=== PATIENT | male | born 1950 | race Caucasian/White ===

== ENCOUNTER → 2017-03-18 | Outpatient (CLI) | payer MEDICARE ==
[2017-03-18 11:02] LABS: CH 32.9; CHCM 31.3; HCT 43.6 % (39.0-53.0); HDW 2.23; HGB 13.7 gm/dL (13.0-17.5); Hypochromasia Slight; MCH 33.3 pg (25.0-35.0); MCHC 31.5 g/dL (31.0-37.0); MCV 105.7 fL (80.0-100.0); Macrocytosis Moderate; Mean Platelet Volume 7.7; RBC 4.12 m/uL (4.30-5.90); RDW 13.9 % (11.5-15.5)
[2017-03-18 11:30] LABS: Calcium 9.5 mg/dL (8.4-10.2); Potassium 5.9 mmol/L (3.5-5.1); Total Bilirubin 1.7 mg/dL (0.2-1.3); Total Protein 9.5 g/dL (6.3-8.2)
== END | disposition home or self-care (01) ==
LOC: LABWHC1 10:19
PROVIDERS: ATTEND Family Medicine
DX: I25.10 Atherosclerotic heart disease of native coronary artery without angina pectoris (principal)
CPT/HCPCS: 36415; 80053; 80061; 83880; 84439; 84443; 85027

== ENCOUNTER → 2017-03-30 | Outpatient (CLI) | payer MEDICARE ==
[2017-03-30 14:04] LABS: Calcium 9.2 mg/dL (8.4-10.2); Potassium 4.9 mmol/L (3.5-5.1)
== END | disposition home or self-care (01) ==
LOC: LABWHC1 12:39
PROVIDERS: ATTEND Internal Medicine Interventional Cardiology
DX: E87.5 Hyperkalemia (principal)
CPT/HCPCS: 36415; 80048

== ENCOUNTER → 2017-05-11 | Outpatient (CLI) | payer MEDICARE ==
[2017-05-11 17:36] LABS: Calcium 9.2 mg/dL (8.4-10.2); Total Bilirubin 1.3 mg/dL (0.2-1.3)
[2017-05-11 17:49] LABS: Potassium 4.7 mmol/L (3.5-5.1)
== END | disposition home or self-care (01) ==
LOC: LABWHC1 16:31
PROVIDERS: ATTEND Internal Medicine Clinical Cardiac Electrophysiology
DX: E78.5 Hyperlipidemia, unspecified (principal); I50.9 Heart failure, unspecified; I25.10 Atherosclerotic heart disease of native coronary artery without angina pectoris
CPT/HCPCS: 36415; 80053; 80061

== ENCOUNTER 2017-05-19 16:33 | Inpatient (IN) | payer MEDICARE ==
[2017-05-19] MEDS ORDERED: FUROSEMIDE 10 MG/ML 10 ML VIAL IV STA (17:27)
[2017-05-19] MEDS ORDERED: ASPIRIN 81 MG CHEW PO STA (17:27)
[2017-05-19] MEDS ORDERED: SODIUM CHLORIDE 0.9% 1,000 ML IV STA (17:27)
[2017-05-19] MEDS ORDERED: NITROGLYCERIN OINT 1 INCH/GM PACKET TOPICAL STA (17:27)
--- NOTE | 2017-05-19 18:08 | ED ---
General Adult HPI - General Chief complaint: Shortness of Breath Stated complaint: Difficulty Breathing Time Seen by Provider: 05/19/17 17:19 Source: patient, RN notes reviewed Mode of arrival: wheelchair Limitations: no limitations - History of Present Illness Initial comments: 66 yo male presents to the ER with cc of bilateral lower extremity edema and shortness of breath for to 3 days now. Patient has a history of CHF. Due to some potassium issues his doctor took him off all of his medications he started to swell and started have some shortness of breath recently put back on his medications but his symptoms seemed to be worsening. Patient states symptoms are worse when he lays flat. Patient states he is having decreased exercise tolerance. Patient states she's noticed some increased swelling in the leg. Patient also noticed some swelling in the abdomen as well. Patient denies any productive cough with this. They were concerned due to his symptoms so they thought they should be seen. Patient denies any recent fever, chills, chest pain, back pain, abdominal pain, nausea vomiting, numbness or tingling, dysuria or hematuria, constipation or diarrhea, headaches or visual changes, or any other current symptoms. - Related Data Home Medications Medication Instructions Recorded Confirmed ALPRAZolam [Xanax] 1 mg PO TID PRN 05/23/14 05/19/17 Atorvastatin [Lipitor] 20 mg PO HS 05/23/14 05/19/17 HYDROcodone/APAP 10-325MG [[place] 1 tab PO QID PRN 02/13/16 05/19/17 10-325] Carvedilol [Coreg] 3.125 mg PO BID 03/30/16 05/19/17 Budesonide-Formot 160-4.5 Mcg 2 puff INHALATION RT-BID 07/04/16 05/19/17 [Symbicort 160-4.5 Mcg Inhaler] Albuterol Nebulized [Ventolin 2.5 mg INHALATION RT-BID PRN 05/19/17 05/19/17 Nebulized] Previous Rx's Medication Instructions Recorded Aspirin 81 mg PO DAILY chew 02/17/16 Furosemide [Lasix] 80 mg PO BID #60 08/30/16 Losartan [Cozaar] 12.5 mg PO DAILY #30 tab 08/30/16 Spironolactone [Aldactone] 25 mg PO BID #60 tab 08/30/16 Allergies Allergy/AdvReac Type Severity Reaction Status Date / Time codeine AdvReac Intermediate VERY Verified 05/19/17 17:30 IRRITABLE Review of Systems ROS Statement: Those systems with pertinent positive or pertinent negative responses have been documented in the HPI. ROS Other: All systems not noted in ROS Statement are negative. Past Medical History Past Medical History: Atrial Fibrillation, Coronary Artery Disease (CAD), Chest Pain / Angina, Heart Failure, COPD, Diabetes Mellitus, Hyperlipidemia, Hypertension, Myocardial Infarction ([place]), Pneumonia, Rheumatoid Arthritis (RA) Additional Past Medical History / Comment(s): HEPATITIS C; CARDIAC ARREST 2008, peripheral artery disease Last Myocardial Infarction Date:: 2009 History of Any Multi-Drug Resistant Organisms: None Reported Past Surgical History: AICD, Coronary Bypass/CABG, Heart Catheterization, Heart Catheterization With Stent, Pacemaker Additional Past Surgical History / Comment(s): Quad. bypass-2004, (fem-fem bypass 2004). ablations. leaky heart valve Past Anesthesia/Blood Transfusion Reactions: No Reported Reaction Date of Last Stent Placement:: unknown Type of Cardiac Device: AICD Device Placement Date:: 2013 Past Psychological History: No Psychological Hx Reported Smoking Status: Current every day smoker Past Alcohol Use History: None Reported Past Drug Use History: None Reported - Past Family History Father Family Medical History: Cancer Additional Family Medical History / Comment(s): lung CA with mets to stomach Mother Family Medical History: Coronary Artery Disease (CAD), Diabetes Mellitus Additional Family Medical History / Comment(s): CABG AND PACEMAKER. General Exam - General Exam Comments Initial Comments: General: The patient is awake and alert, in no distress, and does not appear acutely ill. Eye: Pupils are equal, round and reactive to light, extra-ocular movements are intact; there is normal conjunctiva bilaterally. No signs of icterus. Ears, nose, mouth and throat: There are moist mucous membranes and no oral lesions. Neck: The neck is supple, there is no tenderness. Cardiovascular: There is a regular rate and rhythm. No murmur, rub or gallop is appreciated. Respiratory: Lungs are clear to auscultation, respirations are non-labored, breath sounds are equal. Crackles in bilateral lower bases. No wheezes, stridor, rales, or rhonchi. Gastrointestinal: Soft, mildly distended, concerned for ascites, non-tender abdomen without masses or organomegaly noted. There is no rebound or guarding present. No CVA tenderness. Bowel sounds are unremarkable. Back: There is no tenderness to palpation in the midline. There is no obvious deformity. No rashes noted. Musculoskeletal: Normal ROM, no tenderness, bilateral 4+ pitting There is no calf tenderness or swelling. Sensation intact. Pulses equal bilaterally 2+. Neurological: CN II-XII intact, There are no obvious motor or sensory deficits. Coordination appears grossly intact. Speech is normal. Skin: Skin is warm and dry and no rashes or lesions are noted. Psychiatric: Cooperative, appropriate mood & affect, normal judgment. Limitations: no limitations Course Vital Signs 05/19/17 05/19/17 16:36 17:24 Temperature 97.0 F L Pulse Rate 79 Respiratory 20 18 Rate Blood Pressure 110/69 O2 Sat by Pulse 96 Oximetry EKG Findings - EKG Comments: EKG Findings:: Ventricular paced rhythm, biventricular paced detected, ventricular 74, QRS duration 154 Medical Decision Making - Medical Decision Making 66-year-old male presents to the emergency department with a chief complaint of CHF exacerbation. This time lab work and x-ray reviewed. Patient does have a mild increase in creatinine as well as the elevated BMP along with effusion and pulmonary edema noted on chest x-ray. At this time we will start the patient on IV Lasix. We will continue the nitro paste as well as the aspirin as well as start heparin due to the mildly elevated troponin we will check another troponin to see continued values. The case was discussed with Dr. Fernandez through Dr. Abdi who does agree to the admission. The patient is comfortable in bed patient is pain-free at this time. - Lab Data Result diagrams: 05/19/17 18:00 05/19/17 18:00 Lab Results 05/19/17 05/19/17 05/19/17 Range/Units 18:00 18:00 18:00 WBC 7.9 (3.8-10.6) k/uL RBC 4.20 L (4.30-5.90) m/uL Hgb 14.0 (13.0-17.5) gm/dL Hct 40.6 (39.0-53.0) % MCV 96.9 D (80.0-100.0) fL MCH 33.5 (25.0-35.0) pg MCHC 34.5 (31.0-37.0) g/dL RDW 14.4 (11.5-15.5) % Plt Count 173 (150-450) k/uL Neutrophils % 79 % Lymphocytes % 9 % Monocytes % 8 % Eosinophils % 2 % Basophils % 0 % Neutrophils # 6.3 (1.3-7.7) k/uL Lymphocytes # 0.7 L (1.0-4.8) k/uL Monocytes # 0.6 (0-1.0) k/uL Eosinophils # 0.1 (0-0.7) k/uL Basophils # 0.0 (0-0.2) k/uL PT (9.0-12.0) sec INR (<1.1) APTT (22.0-30.0) sec Sodium 137 (137-145) mmol/L Potassium 5.5 H (3.5-5.1) mmol/L Chloride 104 (98-107) mmol/L Carbon Dioxide 22 (22-30) mmol/L Anion Gap 11 mmol/L BUN 65 H (9-20) mg/dL Creatinine 2.20 H (0.66-1.25) mg/dL Est GFR (MDRD) Af Amer 37 (>60 ml/min/1.73 sqM) Est GFR (MDRD) Non-Af 30 (>60 ml/min/1.73 sqM) Glucose 93 (74-99) mg/dL Calcium 9.6 (8.4-10.2) mg/dL Magnesium 2.6 H (1.6-2.3) mg/dL Total Bilirubin 1.6 H (0.2-1.3) mg/dL AST 31 (17-59) U/L ALT 29 (21-72) U/L Alkaline Phosphatase 61 (38-126) U/L Total Creatine Kinase 42 L (55-170) U/L CK-MB (CK-2) 1.1 (0.0-2.4) ng/mL CK-MB (CK-2) Rel Index 2.6 Troponin I 0.053 H* (0.000-0.034) ng/mL NT-Pro-B Natriuret Pep pg/mL Total Protein 8.3 H (6.3-8.2) g/dL Albumin 4.1 (3.5-5.0) g/dL 07/13/17 07/13/17 Range/Units 18:00 18:00 WBC (3.8-10.6) k/uL RBC (4.30-5.90) m/uL Hgb (13.0-17.5) gm/dL Hct (39.0-53.0) % MCV (80.0-100.0) fL MCH (25.0-35.0) pg MCHC (31.0-37.0) g/dL RDW (11.5-15.5) % Plt Count (150-450) k/uL Neutrophils % % Lymphocytes % % Monocytes % % Eosinophils % % Basophils % % Neutrophils # (1.3-7.7) k/uL Lymphocytes # (1.0-4.8) k/uL Monocytes # (0-1.0) k/uL Eosinophils # (0-0.7) k/uL Basophils # (0-0.2) k/uL PT 13.2 H (9.0-12.0) sec INR 1.3 (<1.1) APTT 25.3 (22.0-30.0) sec Sodium (137-145) mmol/L Potassium (3.5-5.1) mmol/L Chloride (98-107) mmol/L Carbon Dioxide (22-30) mmol/L Anion Gap mmol/L BUN (9-20) mg/dL Creatinine (0.66-1.25) mg/dL Est GFR (MDRD) Af Amer (>60 ml/min/1.73 sqM) Est GFR (MDRD) Non-Af (>60 ml/min/1.73 sqM) Glucose (74-99) mg/dL Calcium (8.4-10.2) mg/dL Magnesium (1.6-2.3) mg/dL Total Bilirubin (0.2-1.3) mg/dL AST (17-59) U/L ALT (21-72) U/L Alkaline Phosphatase (38-126) U/L Total Creatine Kinase (55-170) U/L CK-MB (CK-2) (0.0-2.4) ng/mL CK-MB (CK-2) Rel Index Troponin I (0.000-0.034) ng/mL NT-Pro-B Natriuret Pep 6980 pg/mL Total Protein (6.3-8.2) g/dL Albumin (3.5-5.0) g/dL - Radiology Data Radiology results: report reviewed, image reviewed Disposition Clinical Impression: Acute exacerbation of CHF (congestive heart failure), Acute pulmonary edema Disposition: ADMITTED IP TO THIS [facility] Condition: Stable Referrals: Anthony Kraus DO [Primary Care Provider] - 1-2 days Time of Disposition: 19:03 Decision Date: 05/19/17 Decision Time: 19:03
[2017-05-19 18:19] LABS: Basophils % (A) 0 %; CH 32.3; CHCM 33.5; Eosinophils # (A) 0.1 k/uL (0-0.7); Eosinophils % (A) 2 %; HCT 40.6 % (39.0-53.0); HDW 2.52; Luc # (Auto) 0.18; Luc % (Auto) 2; Lymphocytes # (A) 0.7 k/uL (1.0-4.8); Lymphocytes % (A) 9 %; MCH 33.5 pg (25.0-35.0); MCHC 34.5 g/dL (31.0-37.0); Mean Platelet Volume 8.1; Monocytes # (A) 0.6 k/uL (0-1.0); Monocytes % (A) 8 %; Neutrophils # (A) 6.3 k/uL (1.3-7.7); Neutrophils % (A) 79 %; RDW 14.4 % (11.5-15.5); WBC 7.9 k/uL (3.8-10.6); WBC (Perox) 7.34
[2017-05-19 18:20] LABS: Calcium 9.6 mg/dL (8.4-10.2); Magnesium 2.6 mg/dL (1.6-2.3); Potassium 5.5 mmol/L (3.5-5.1); Total Bilirubin 1.6 mg/dL (0.2-1.3); Total Protein 8.3 g/dL (6.3-8.2)
[2017-05-19 18:22] LABS: MCV 96.9 fL (80.0-100.0)
[2017-05-19 18:23] LABS: INR 1.3 (<1.1); Partial Thromboplastin Time 25.3 sec (22.0-30.0); Prothrombin Time 13.2 sec (9.0-12.0)
[2017-05-19 18:45] LABS: Creatine Kinase MB 1.1 ng/mL (0.0-2.4)
--- NOTE | 2017-05-19 18:48 | XR ---
EXAMINATION TYPE: XR chest 2V DATE OF EXAM: 05/19/2017 COMPARISON: 08/30/2016 HISTORY: Dyspnea TECHNIQUE: Frontal and lateral views of the chest are obtained. FINDINGS: There is a small to moderate size left pleural effusion with passive atelectasis of at [address] 50% of the left lower lobe. Concurrent left lower lobe bronchopneumonia can exist clinically evide nt. Remainder of the lung parenchyma shows marked obscuration of the pulmonary vasculature by a fine reti cular pattern which reaches the periphery as septal lines. These changes are consistent with advanced interstitial phase pulmonary edema, presumably cardiogenic etiology given the moderate enlargement o f the cardiac silhouette and the sternal sutures and mediastinal clips and AV cardiac pacemaker. The mediastinum is midline. There are no abnormal gas collections. Bones and soft tissues are unremarkable. IMPRESSION: MARKED INTERSTITIAL REGION PHASE PULMONARY EDEMA, WITH LEFT PLEURAL EFFUSION AND LEFT LOWER LOBE AIRL ESSNESS.
[2017-05-19 18:50] LABS: Troponin I 0.053 ng/mL (0.000-0.034)
[2017-05-19] MEDS ORDERED: HEPARIN SODIUM,PORCINE 5,000 UNIT/ML 1 ML VIAL IV PRN (19:06)
[2017-05-19] MEDS ORDERED: HEPARIN SODIUM,PORCINE 5,000 UNIT/ML 1 ML VIAL IV ONE (19:06)
[2017-05-19] MEDS ORDERED: HEPARIN SODIUM,PORCINE/D5W PMX 25,000 UNIT in DEXTROSE/WATER 1 500ML.BAG IV SCH (19:15)
[2017-05-19] MEDS: ALBUTEROL NEBULIZED 2.5 MG/3 ML INHALATION PRN (20:47)
[2017-05-19] MEDS: SYMBICORT 160-4.5 MCG INHALER INHALATION SCH (20:48)
[2017-05-19] MEDS: HYDROcodone/APAP 10-325MG 1 EACH TAB PO PRN (20:56)
[2017-05-19] MEDS: CARVEDILOL 3.125 MG TAB PO SCH (21:44)
[2017-05-19] MEDS: SPIRONOLACTONE 25 MG TAB PO SCH (21:44)
[2017-05-19] MEDS: ATORVASTATIN 20 MG TAB PO SCH (21:44)
[2017-05-19] MEDS: NITROGLYCERIN OINT 1 INCH/GM PACKET TOPICAL SCH (21:45)
[2017-05-19] MEDS: SODIUM CHLORIDE 0.9% 1,000 ML IV SCH (21:45)
[2017-05-19] MEDS: ALPRAZolam 0.5 MG TAB PO PRN (23:48)
[2017-05-20 02:16] LABS: Troponin I 0.064 ng/mL (0.000-0.034)
[2017-05-20] MEDS: HYDROcodone/APAP 10-325MG 1 EACH TAB PO PRN ×4 (03:17→23:34)
[2017-05-20 03:54] LABS: Appearance,Urine Clear (Clear); Bilirubin,Urine Negative (Negative); Glucose,Urine (UA) Negative (Negative); Ketones,Urine Negative (Negative); Leukocyte Esterase,Urine Negative (Negative); Nitrite,Urine Negative (Negative); Protein,Urine Negative (Negative); Specific Gravity,Urine 1.009 (1.001-1.035); UA Billing (MACRO vs. MICRO) CHEM; Urobilinogen,Urine <2.0 mg/dL (<2.0)
[2017-05-20] MEDS: SODIUM CHLORIDE 0.9% 1,000 ML IV SCH (04:59)
[2017-05-20] MEDS ORDERED: FUROSEMIDE 10 MG/ML 4 ML VIAL IV SCH (06:00)
[2017-05-20] MEDS: CARVEDILOL 3.125 MG TAB PO SCH ×2 (06:42→17:27)
[2017-05-20 07:41] LABS: Creatine Kinase MB 1.1 ng/mL (0.0-2.4)
[2017-05-20 07:49] LABS: Troponin I 0.076 ng/mL (0.000-0.034)
[2017-05-20] MEDS: SYMBICORT 160-4.5 MCG INHALER INHALATION SCH ×2 (08:51→20:53)
[2017-05-20] MEDS: NITROGLYCERIN OINT 1 INCH/GM PACKET TOPICAL SCH ×2 (08:52→10:36)
[2017-05-20] MEDS: SPIRONOLACTONE 25 MG TAB PO SCH (08:52)
[2017-05-20] MEDS ORDERED: LOSARTAN 25 MG TAB PO SCH (09:00)
[2017-05-20] MEDS ORDERED: FUROSEMIDE 10 MG/ML 4 ML VIAL IV STA (09:51)
[2017-05-20] MEDS: ALPRAZolam 0.5 MG TAB PO PRN ×2 (12:02→23:34)
--- NOTE | 2017-05-20 14:02 | P.HPIM ---
History of Present Illness H&P Date: 05/20/17 Chief Complaint: Edema, shortness of breath This is a very pleasant [address] Kraus known to me from prior visits. Patient chronic stable medical conditions include COPD, AICD, chronic kidney disease. Has underlying CHF. EF 30-35%. Recently had hyperkalemia saw Dr. Villela and according to patient his Lasix and Aldactone was also stopped for about 3-5 days. Patient became more progressively more and more short of breath and edema at this and eventually presented to the hospital. No chest pain, tired and rundown. Upon beginning admitted patient had about thousand cc of urine retention on bladder scan not able to make urine even with coude catheter. Minimal cough. No fever Significant past medical history Coronary artery disease COPD, diabetes mellitus type 2, hyperlipidemia, hypertension, hepatitis C, peripheral arterial disease, CHF. Review of Systems GEN.: Tired EYES: None HEENT: None NECK: None RESPIRATORY: Increase CARDIOVASCULAR: Edema, shortness of breath GASTROINTESTINAL: None GENITOURINARY: None MUSCULOSKELETAL: None LYMPHATICS: None HEMATOLOGICAL: None PSYCHIATRY: None NEUROLOGICAL: None Past Medical History Past Medical History: Atrial Fibrillation, Coronary Artery Disease (CAD), Chest Pain / Angina, Heart Failure, COPD, Diabetes Mellitus, Hyperlipidemia, Hypertension, Myocardial Infarction ([place]), Pneumonia, Rheumatoid Arthritis (RA) Additional Past Medical History / Comment(s): HEPATITIS C; CARDIAC ARREST 2008, peripheral artery disease. PT DOES NOT TAKE ANY MEDICATION FOR DIABETES ANYMORE , ONLY CHECKS BS OCCASIONALLY Last Myocardial Infarction Date:: 2009 History of Any Multi-Drug Resistant Organisms: None Reported Past Surgical History: AICD, Coronary Bypass/CABG, Heart Catheterization, Heart Catheterization With Stent, Pacemaker Additional Past Surgical History / Comment(s): Quad. bypass-2004, (fem-fem bypass 2004). ablation X1. leaky heart valve. HAS 3 STENTS, PT REPORTS ONE IS CLOSED OFF Past Anesthesia/Blood Transfusion Reactions: No Reported Reaction Date of Last Stent Placement:: unknown Type of Cardiac Device: AICD Device Placement Date:: 2013 Past Psychological History: Anxiety Additional Psychological History / Comment(s): TAKES XANAX Smoking Status: Current every day smoker Past Alcohol Use History: None Reported Past Drug Use History: None Reported - Past Family History Father Family Medical History: Cancer Additional Family Medical History / Comment(s): lung CA with mets to stomach Mother Family Medical History: Coronary Artery Disease (CAD), Diabetes Mellitus Additional Family Medical History / Comment(s): CABG AND PACEMAKER. Medications and Allergies Home Medications Medication Instructions Recorded Confirmed Type ALPRAZolam [Xanax] 1 mg PO TID PRN 05/23/14 05/19/17 History Atorvastatin [Lipitor] 20 mg PO HS 05/23/14 05/19/17 History HYDROcodone/APAP 10-325MG [[place] 1 tab PO QID PRN 02/13/16 05/19/17 History 10-325] Carvedilol [Coreg] 3.125 mg PO BID 03/30/16 05/19/17 History Budesonide-Formot 160-4.5 Mcg 2 puff INHALATION RT-BID 07/04/16 05/19/17 History [Symbicort 160-4.5 Mcg Inhaler] Albuterol Nebulized [Ventolin 2.5 mg INHALATION RT-BID PRN 05/19/17 05/19/17 History Nebulized] Furosemide [Lasix] 40 mg PO BID 05/19/17 05/19/17 History Allergies Allergy/AdvReac Type Severity Reaction Status Date / Time codeine AdvReac Intermediate VERY Verified 05/19/17 17:30 IRRITABLE Physical Exam VITAL SIGNS: 97, 79, 20, 110/69, 96% room air GENERAL: Average built, sitting up, short of breath. EYES: Pupils equal. Conjunctiva normal. HEENT: External appearance of nose and ears normal, oral cavity grossly normal. NECK: JVD raised; masses not palpable. HEART: First and second heart sounds are normal; gross edema. LUNGS: Respiratory rate increased; decreased breath sounds at the bases. ABDOMEN: Soft, distended, nontender, liver spleen not palpable, no masses palpable. LYMPHATICS: No lymph nodes palpable in the axilla and neck. PSYCH: Alert and oriented x3; mood and affect normal. NEUROLOGICAL: Cranial nerves grossly intact; no facial asymmetry, power and sensation grossly intact. Results CBC & Chem 7: 05/19/17 18:00 05/20/17 06:33 Labs: Investigation: White count 7.9, hemoglobin 14, potassium 5.5, repeat 5, B and 65, creatinine 2.2 EKG-paced rhythm Chest [id number] by me shows cardiomegaly, catheterization, fluid in the horizontal oblique fissure, and venous prominence. Assessment and Plan Plan: Assessment: -Acute on chronic congestive heart failure exacerbation from systolic and past dysfunction EF 30-35% from moderate concentric left hypertrophy and underlying coronary artery disease. Coronary artery disease with prior history of coronary bypass COPD in an ex-smoker AICD, chronic Chronic kidney disease stage III from hypertensive nephrosclerosis -Peripheral artery disease or prior history of fem-fem bypass -Diabetes mellitus type II chronically on insulin -Moderate secondary pulmonary hypertension secondary to congestive heart failure -Moderate tricuspid regurgitation nondramatic -Severe mitral regurgitation nondramatic. -Acute urine retention, having failed coude catheter Plan: He is to be started on on a Lasix drip. Strict I's and also be done. Home medications are resumed. Close monitoring of renal function. Cardiology was consulted. urology will be consulted because of the acute urinary retention. Care was discussed with the patient, questions were answered
[2017-05-20] MEDS: FUROSEMIDE 250 MG in SODIUM CHLORIDE 0.9% 225 ML IVP SCH (14:20)
--- NOTE | 2017-05-20 16:00 | CONS ---
Juventino Birmingham is a 66 year old gentleman, a patient of Dr. Villela who came into the hospital with a two to three week history of progressive increasing shortness of breath and lower extremity edema. He is known to have coronary artery disease, ischemic cardiomyopathy with a BI-V ICD. He has also had history of previous multiple PCI. The details are unclear. He has underlying atrial fibrillation, takes Coumadin. After arrival, he has been diuresed, feels somewhat better. Blood pressure is running low. He denies any chest discomfort. Shortness of breath has improved. He has no palpitations. At the time of my evaluation, he seems to be reasonably comfortable. PAST MEDICAL HISTORY: 1. Ischemic cardiomyopathy with previous bypass surgery and PCI. 2. Hypertension. 3. Type 2 diabetes mellitus. 4. History of atrial fibrillation. 5. History of rheumatoid arthritis. MEDICATIONS: At home include: 1. Lasix 40 mg b.i.d. 2. Lipitor 20 mg daily. 3. Aldactone 25 mg daily. 4. Losartan 12.5 mg daily. 5. Carvedilol 3.125 mg b.i.d. 6. Aspirin. 7. Albuterol inhaler. ALLERGIES: CODEINE. REVIEW OF SYSTEMS: Unremarkable other that above mentioned facts. On examination, blood pressure is 90/60. Pulse rate is about 70 per minute and regular. HEENT: Unremarkable. Fundus was not examined by me. Neck is supple. There is JVD. There is no carotid bruit. Heart exam revealed S1, S2 heard normally but distant with a short systolic murmur. Lungs revealed bilateral diminished air entry. Abdomen is distended. Some abdominal wall edema. Lower extremities revealed bilateral significant edema. Pulses are diminished. Central nervous system is normal. EKG revealed a biventricular paced rhythm. IMPRESSION: 1. Exacerbation of biventricular systolic heart failure with acute on chronic component. 2. Ischemic cardiomyopathy. 3. Hypertension. 4. History of prior aortocoronary artery bypass surgery and PCI and hypercholesterolemia. RECOMMENDATIONS: I am recommending that we will aggressively diurese him, watch his blood pressures closely, discontinue Aldactone and Losartan for now and place him on a Lasix drip. See how he improves. He has chronic kidney disease with creatinine running in the range of 2.20. However, we will diurese him aggressively and based on clinical course, I will make further recommendations. Prognosis remains guarded. Thank you very much for the consult. MOIZ
[2017-05-20] MEDS: DOBUTamine DRIP 500 MG in DEXTROSE/WATER 1 250ML.BAG IV SCH (16:27)
[2017-05-20] MEDS ORDERED: ASPIRIN 325 MG TAB PO SCH (18:00)
[2017-05-20] MEDS: ATORVASTATIN 20 MG TAB PO SCH (20:34)
[2017-05-20] MEDS: ALBUTEROL NEBULIZED 2.5 MG/3 ML INHALATION PRN (20:53)
[2017-05-21] MEDS: CARVEDILOL 3.125 MG TAB PO SCH ×2 (06:40→17:10)
[2017-05-21] MEDS: HYDROcodone/APAP 10-325MG 1 EACH TAB PO PRN ×3 (06:40→18:18)
[2017-05-21 06:45] LABS: CH 32.1; CHCM 32.1; HCT 39.2 % (39.0-53.0); HDW 2.43; HGB 12.9 gm/dL (13.0-17.5); MCHC 32.8 g/dL (31.0-37.0); MCV 100.7 fL (80.0-100.0); Macrocytosis Slight; Mean Platelet Volume 8.5; RBC 3.89 m/uL (4.30-5.90); WBC 7.8 k/uL (3.8-10.6)
[2017-05-21 07:07] LABS: Calcium 9.2 mg/dL (8.4-10.2); Potassium 4.9 mmol/L (3.5-5.1)
[2017-05-21] MEDS: ASPIRIN 81 MG CHEW PO SCH (08:20)
[2017-05-21] MEDS: SYMBICORT 160-4.5 MCG INHALER INHALATION SCH ×2 (08:32→20:00)
--- NOTE | 2017-05-21 09:41 | P.NPCON ---
History of Present Illness - Reason for Consult acute renal failure - History of Present Illness Reason for consultation: Acute kidney injury History of present illness: Patient is a 66-year-old male seen in consultation for acute kidney injury. It appears patient has chronic kidney disease stage III with baseline creatinine in the range of 1.5-1.7. Etiology is cardiorenal syndrome. Urinalysis is noted to be benign. Creatinine was up to 2.4 for this admission and is stable at 2.40 today. Patient presented to the hospital with dyspnea and lower extremity edema. His chest x-ray was also suggestive of vascular congestion. Patient states he's gained about 14 pounds in the last month or so. His prior echocardiogram reveals an ejection fraction of 30-35% with severe mitral regurgitation as well as moderate tricuspid regurgitation and pulmonary hypertension. He is currently maintained on dobutamine as well as Lasix drip at 10 mL an hour. He denies chest pain. No vomiting or diarrhea. Denies family history of renal disease. Does not follow with a elephant tamer as an outpatient. He is not aware of any kidney disease in the past. Denies use of NSAIDs. He was also noted to have urinary retention and currently is a [address] Oral intake is fair. Vital signs are stable. General: The patient appeared well nourished and normally developed. HEENT: Head exam is unremarkable. Neck is without jugular venous distension. LUNGS: Lungs are clear to auscultation and percussion. Breath sounds decreased. HEART: Rate and Rhythm are regular. First and second heart sounds normal. No murmurs, rubs or gallops. ABDOMEN: Abdominal exam reveals normal bowel sounds. Non-tender and non- distended. No evidence of peritonitis. EXTREMITITES: 2+ edema. Past Medical History Past Medical History: Atrial Fibrillation, Coronary Artery Disease (CAD), Chest Pain / Angina, Heart Failure, COPD, Diabetes Mellitus, Hyperlipidemia, Hypertension, Myocardial Infarction (AR), Pneumonia, Rheumatoid Arthritis (RA) Additional Past Medical History / Comment(s): HEPATITIS C; CARDIAC ARREST 2008, peripheral artery disease. PT DOES NOT TAKE ANY MEDICATION FOR DIABETES ANYMORE , ONLY CHECKS BS OCCASIONALLY Last Myocardial Infarction Date:: 2009 History of Any Multi-Drug Resistant Organisms: None Reported Past Surgical History: AICD, Coronary Bypass/CABG, Heart Catheterization, Heart Catheterization With Stent, Pacemaker Additional Past Surgical History / Comment(s): Quad. bypass-2004, (fem-fem bypass 2004). ablation X1. leaky heart valve. HAS 3 STENTS, PT REPORTS ONE IS CLOSED OFF Past Anesthesia/Blood Transfusion Reactions: No Reported Reaction Date of Last Stent Placement:: unknown Type of Cardiac Device: AICD Device Placement Date:: 2013 Past Psychological History: Anxiety Additional Psychological History / Comment(s): TAKES XANAX Smoking Status: Current every day smoker Past Alcohol Use History: None Reported Past Drug Use History: None Reported - Past Family History Father Family Medical History: Cancer Additional Family Medical History / Comment(s): lung CA with mets to stomach Mother Family Medical History: Coronary Artery Disease (CAD), Diabetes Mellitus Additional Family Medical History / Comment(s): CABG AND PACEMAKER. Medications and Allergies Home Medications Medication Instructions Recorded Confirmed Type ALPRAZolam [Xanax] 1 mg PO TID PRN 05/23/14 05/19/17 History Atorvastatin [Lipitor] 20 mg PO HS 05/23/14 05/19/17 History HYDROcodone/APAP 10-325MG [[place] 1 tab PO QID PRN 02/13/16 05/19/17 History 10-325] Carvedilol [Coreg] 3.125 mg PO BID 03/30/16 05/19/17 History Budesonide-Formot 160-4.5 Mcg 2 puff INHALATION RT-BID 07/04/16 05/19/17 History [Symbicort 160-4.5 Mcg Inhaler] Albuterol Nebulized [Ventolin 2.5 mg INHALATION RT-BID PRN 05/19/17 05/19/17 History Nebulized] Furosemide [Lasix] 40 mg PO BID 05/19/17 05/19/17 History Allergies Allergy/AdvReac Type Severity Reaction Status Date / Time codeine AdvReac Intermediate VERY Verified 05/19/17 17:30 IRRITABLE Physical Exam Vitals: Vital Signs Temp Pulse Pulse Pulse Resp BP Pulse Ox 05/21/17 08:35 97 05/21/17 03:50 20 05/21/17 03:49 96.8 F L 61 20 94/59 97 05/21/17 00:00 97.0 F L 66 20 104/69 96 05/20/17 21:04 72 05/20/17 20:54 68 100 05/20/17 20:00 96.7 F L 61 18 100/68 96 05/20/17 16:00 96.9 F L 76 78 16 95/50 100 05/20/17 12:00 96.9 F L 78 78 16 92/50 97 Intake and Output 05/20/17 05/21/17 05/21/17 22:59 06:59 14:59 Intake Total 117 620 Output Total 50 700 Balance 67 -80 Intake: IV 170 0.9@10 30 0.9@20 140 Intake, IV Titration 150 Amount DOBUTamine DRIP 500 mg In 50 Dextrose/Water 1 250ml. bag @ 2.5 MCG/KG/MIN 5.39 mls/hr IV .Q24H MICHELLE Rx#: [id number] Furosemide 250 mg In 100 Sodium Chloride 0.9% 225 ml @ 10 MG/HR 10 mls/hr IVP .Q24H MICHELLE Rx#: [id number] Oral 117 300 Output: Urine 50 700 Other: Voiding Method Indwelling Catheter Indwelling Catheter Weight 73.7 kg Results - Lab Results Most recent lab results Calcium 9.2 mg/dL (8.4-10.2) 05/21/17 05:47 Magnesium 2.6 mg/dL (1.6-2.3) H 05/19/17 18:00 05/21/17 05:47 05/21/17 05:47 Assessment and Plan Plan: Assessment: #1. Nonoliguric acute kidney injury secondary to cardiorenal syndrome. Creatinine stable at 2.4 today. Urinalysis noted to be benign. #2. Chronic kidney disease stage III with baseline creatinine in the range of 1.5-1.7 secondary to cardiorenal syndrome. #3. Volume overload. #4. Urinary retention status post Castellanos catheter placement. #5. Systolic CHF with ejection fraction of 30-35% with severe mitral regurgitation and moderate tricuspid regurgitation and pulmonary hypertension. #6. Metabolic acidosis secondary to acute kidney injury. Plan: Increase Lasix drip to 15 mL an hour. Add metolazone 5 mg twice daily. Low-salt and 1200 mL fluid restricted diet. Check renal ultrasound. Maintain Castellanos catheter. Daily weights. Add oral sodium bicarbonate supplementation. Repeat electrolytes in the morning. Thank you for the consultation. I will continue to follow the patient with you during his hospital stay.
[2017-05-21] MEDS: METOLAZONE 5 MG TAB PO SCH ×2 (12:30→20:26)
[2017-05-21] MEDS: ALPRAZolam 0.5 MG TAB PO PRN ×2 (12:30→20:30)
[2017-05-21] MEDS: SODIUM BICARBONATE TAB 650 MG TAB PO SCH ×2 (12:30→20:26)
[2017-05-21] MEDS: FUROSEMIDE 250 MG in SODIUM CHLORIDE 0.9% 225 ML IVP SCH (12:33)
--- NOTE | 2017-05-21 13:18 | PN ---
This gentleman has biventricular heart failure. Yesterday, we started him on a Lasix drip. Nephrology added Zaroxolyn which I agree with. He feels somewhat better. He has ischemic cardiomyopathy, biventricular heart failure and pulmonary hypertension. On physical exam, vitals signs reveal the heart rate in the 70s, blood pressure is about high 80s and low 90s systolic. JVD is evident, S1, S2 heard normally. Lungs reveal diminished air entry. Abdomen is soft. Edema of lower extremities has improved but persists. The rest of the physical examination is unchanged. Plan is to continue diuresis including Zaroxolyn and Lasix drip and see how he does. [facility]
--- NOTE | 2017-05-21 15:54 | P.PN ---
Progress Note - Text DATE OF SERVICE: 05/21/2017 PRESENTING COMPLAINT: Edema, shortness of breath. INTERVAL HISTORY: This is a 66-year-old gentleman who was admitted with an acute on chronic congestive heart failure exacerbation. 05/21/2017: Patient sitting up at the bedside, looks tired, worn out, says he feels poorly, looks mildly improved from yesterday, breathing is better, although patient states he cannot lie down in the bed without feeling like he is choking, significant edema to bilateral lower extremities, Castellanos catheter in place with gross hematuria noted, patient states output is not what he would expect and the catheter is somewhat bothersome. REVIEW OF SYSTEMS: Done for constitutional ,cardiovascular, GI, pulmonary with relevant findings as above. CURRENT MEDICATIONS [place], Ventolin 2.5 mg twice a day, Symbicort 160 4.5 g twice a day, Coreg 3.125 mg by mouth twice a day, Lasix drip PHYSICAL EXAM VITAL SIGNS: Temperature 96.8, pulse 65, respiratory rate 20, blood pressure 96/59, oxygen saturation 94% on 3 L GENERAL APPEARANCE: Sitting up on bed, appears tired and worn out. EYES: Pupils equal. Conjunctiva normal. NECK: JVD raised. Mass not palpable. RESPIRATORY: Respiratory effort increased. tight, poor airway clearance, to auscultation. CARDIOVASCULAR: First and second sounds normal. gross edema ABDOMEN: Soft. Liver and spleen not palpable. No tenderness. No mass palpable. PSYCHIATRY: Alert and oriented x3. Mood and affect tired and anxious appearing INVESTIGATIONS: White blood cell count 7.8, hemoglobin 12.9, sodium 134, BUN 72, creatinine 2.40, abdominal bladder ultrasound: Pending ASSESSMENT: -Acute on chronic congestive heart failure exacerbation from systolic and past dysfunction EF 30-35% from moderate concentric left hypertrophy and underlying coronary artery disease, slow to respond -Coronary artery disease with prior history of coronary bypass -COPD in an ex-smoker -AICD, chronic -Chronic kidney disease stage III from hypertensive nephrosclerosis -Peripheral artery disease or prior history of fem-fem bypass -Diabetes mellitus type II chronically on insulin -Moderate secondary pulmonary hypertension secondary to congestive heart failure -Moderate tricuspid regurgitation nonrheumatic -Severe mitral regurgitation nonrheumatic -Acute urine retention, having failed coude catheter -Hematuria, secondary to traumatic catheter placement, slow to respond PLAN: We will continue Lasix drip along with Zaroxolyn. Continue close monitoring of urine output, renal function. We'll follow closely. [facility] statement: Patient was seen and examined by nurse practitioner Virginie Fatima and all elements of the case discussed with attending Dr. Camarena
[2017-05-21] MEDS: DOBUTamine DRIP 500 MG in DEXTROSE/WATER 1 250ML.BAG IV SCH (18:14)
--- NOTE | 2017-05-21 19:24 | US ---
EXAMINATION TYPE: US kidneys/renal and bladder DATE OF EXAM: 05/21/2017 COMPARISON: Renal ultrasound May 19, 2016 CLINICAL HISTORY: emil. EMIL. Abnormal lab values. EXAM MEASUREMENTS: Right Kidney: 9.3 x 4.6 x 4.8 cm Left Kidney: 7.9 x 4.4 x 4.1 cm Right Kidney: No evidence of hydro, cyst upper pole= 1.2 x 0.9 x 1.2 cm Left Kidney: Cortical thinning, small in size, no evidence of hydro Bladder: Unable to visualize Incidental finding- ascites Perihepatic ascites is seen on current study. Visualized liver is heterogeneous and somewhat small wi th lobulated margins suggesting underlying cirrhosis. Clinical correlation advised. A 1 cm simple buddy earing cyst upper pole level right kidney is seen on current study. Cortical thinning bilaterally is present. No hydronephrosis is evident bilaterally. A splenule is marked in splenic hilum towards end of study by technologist. Bladder is suspected nondistended is not distinctly visualized. Moderate am ount of ascites and pelvis is noted. IMPRESSION: No hydronephrosis is evident bilaterally. Small lobulated heterogeneous liver with perihepatic and moderate pelvic ascites is consistent with c irrhosis, this correlates with liver ultrasound of hepatitis C history July 2016, increasing abd ominal an pelvic ascites is noted since that study.
[2017-05-21] MEDS: ALBUTEROL NEBULIZED 2.5 MG/3 ML INHALATION PRN (20:00)
[2017-05-21] MEDS: ATORVASTATIN 20 MG TAB PO SCH (20:26)
[2017-05-22] MEDS: FUROSEMIDE 250 MG in SODIUM CHLORIDE 0.9% 225 ML IVP SCH ×2 (02:03→17:31)
[2017-05-22] MEDS: HYDROcodone/APAP 10-325MG 1 EACH TAB PO PRN ×3 (05:08→22:11)
[2017-05-22 06:59] LABS: Calcium 9.2 mg/dL (8.4-10.2); Magnesium 2.5 mg/dL (1.6-2.3); Potassium 4.8 mmol/L (3.5-5.1)
[2017-05-22] MEDS: CARVEDILOL 3.125 MG TAB PO SCH ×2 (07:14→16:59)
--- NOTE | 2017-05-22 08:02 | PN ---
DATE OF SERVICE: 05/21/17 ATTENDING NOTE: This patient was seen and examined by me. Reviewed the note of my nurse practitioner, Ms. Fatima, discussed, additional findings below. INTERVAL HISTORY: This patient is weak, tired, Castellanos catheter was placed by Dr. Valentine. The patient does feel weak and tired. On examination, afebrile, pulse 65. Blood pressure 96/59. Lungs diminished breath sounds. Crackles. JVD raised. Gross edema is present. Investigations: White count 7.8. Hemoglobin 12.9. Potassium 3.9. BUN 32, creatinine 2.40. ASSESSMENT: 1. Acute on chronic congestive heart failure from systolic and diastolic dysfunction, EF 30 to 35% from moderate concentric left ventricular hypertrophy , underlying coronary artery disease, slow to respond. 2. Hematuria, secondary to traumatic catheter placement. PLAN: Continue with Lasix drip, Xaroxlyn. Care was discussed with the patient. Overall prognosis guarded. Nephrology was also consulted. [facility]IZ
[2017-05-22] MEDS: ASPIRIN 81 MG CHEW PO SCH (08:18)
[2017-05-22] MEDS: SODIUM BICARBONATE TAB 650 MG TAB PO SCH ×2 (08:18→21:17)
[2017-05-22] MEDS: METOLAZONE 5 MG TAB PO SCH ×2 (08:18→21:17)
[2017-05-22] MEDS: SYMBICORT 160-4.5 MCG INHALER INHALATION SCH ×2 (08:55→21:32)
--- NOTE | 2017-05-22 08:56 | P.PN ---
Subjective Patient is seen in follow-up for acute kidney injury on chronic kidney disease. Patient has chronic kidney disease stage III secondary to cardiorenal syndrome with baseline creatinine in the range of 1.5-1.7. His creatinine today is 2.5. Patient presented with dyspnea and lower extremity edema. He is currently maintained on dobutamine drip as well as Lasix drip. His dyspnea and swelling of both little improved since admission. Denies vomiting or diarrhea. Denies chest pain. Patient has systolic CHF with ejection fraction of 30-35% with severe mitral regurgitation, moderate tricuspid regurgitation and pulmonary hypertension. Vital signs are stable. General: The patient appeared well nourished and normally developed. HEENT: Head exam is unremarkable. Neck is without jugular venous distension. LUNGS: Rales at bases Breath sounds decreased. HEART: Rate and Rhythm are regular. First and second heart sounds normal. No murmurs, rubs or gallops. ABDOMEN: Abdominal exam reveals normal bowel sounds. Non-tender and non- distended. No evidence of peritonitis. EXTREMITITES: 2+ edema. Objective - Vital Signs Vital signs: Vital Signs Temp 96.9 F L 05/22/17 08:00 Pulse 61 05/22/17 08:00 Resp 20 05/22/17 08:00 BP 93/63 05/22/17 08:00 Pulse Ox 94 L 05/22/17 08:00 Intake & Output 05/21/17 05/22/17 05/22/17 18:59 06:59 18:59 Intake Total 1294.739 565 Output Total 400 3125 Balance 894.739 -2560 Weight 74.3 kg Intake: IV 280 130 0.9@10 120 100 Furosemide 250 mg In 160 30 Sodium Chloride 0.9% 225 ml @ 15 MG/HR 15 mls/hr IVP .[id number] MICHELLE Rx#: [id number] Intake, IV Titration 424.739 135 Amount DOBUTamine DRIP 500 mg In 202.572 Dextrose/Water 1 250ml. bag @ 2.5 MCG/KG/MIN 5.39 mls/hr IV .Q24H MICHELLE Rx#: [id number] Furosemide 250 mg In 222.167 135 Sodium Chloride 0.9% 225 ml @ 15 MG/HR 15 mls/hr IVP .[id number] MICHELLE Rx#: [id number] Oral 590 300 Output: Urine 400 3125 Uretheral (Castellanos) 925 Other: Voiding Method Indwelling Catheter Indwelling Catheter # Voids 1 # Bowel Movements 2 - Labs CBC & Chem 7: 05/21/17 05:47 05/22/17 05:58 Labs: Abnormal Lab Results - Last 24 Hours (Table) 05/22/17 Range/Units 05:58 Sodium 133 L (137-145) mmol/L Carbon Dioxide 19 L (22-30) mmol/L BUN 73 H (9-20) mg/dL Creatinine 2.50 H (0.66-1.25) mg/dL Magnesium 2.5 H (1.6-2.3) mg/dL Assessment and Plan Plan: Assessment: #1. Nonoliguric acute kidney injury secondary to cardiorenal syndrome. Creatinine slightly elevated at 2.5 today. Urinalysis noted to be benign. No evidence of hydronephrosis. #2. Chronic kidney disease stage III with baseline creatinine in the range of 1.5-1.7 secondary to cardiorenal syndrome. Renal ultrasound reveals 7.9 and 9.3 cm kidneys with cortical thinning suggestive of underlying chronic kidney disease. #3. Volume overload. #4. Urinary retention status post Castellanos catheter placement. #5. Systolic CHF with ejection fraction of 30-35% with severe mitral regurgitation and moderate tricuspid regurgitation and pulmonary hypertension. #6. Metabolic acidosis secondary to acute kidney injury. #7. Hypervolemic hyponatremia. Plan: Continue Lasix drip at 15 mL an hour. Maintain metolazone 5 mg twice daily. Low-salt and 1200 mL fluid restricted diet. Maintain Castellanos catheter. Daily weights. Maintain oral sodium bicarbonate supplementation. Repeat electrolytes in the morning.
[2017-05-22] MEDS: ALPRAZolam 0.5 MG TAB PO PRN ×2 (14:11→21:29)
--- NOTE | 2017-05-22 16:50 | PN ---
This gentleman has a history of ischemic cardiomyopathy and biventricular heart failure. Has been placed on Lasix drip. There is modest improvement. Patient feels better. He is diuresing but the weight does not seem to change much. I am not sure how reliable the weighing scale is. His breathing is ( ). Vital signs are stable. Blood pressure is acceptable. S1/S2 are normal. A systolic murmur is evident. Lungs reveal improved air entry. Abdomen exam and lower extremity exam reveal improvement in edema.a PLAN: Continue current medications and check BNP. Prognosis remains guarded. MTDD
[2017-05-22] MEDS: DOBUTamine DRIP 500 MG in DEXTROSE/WATER 1 250ML.BAG IV SCH (17:30)
[2017-05-22] MEDS: ATORVASTATIN 20 MG TAB PO SCH (21:17)
[2017-05-22] MEDS: ALBUTEROL NEBULIZED 2.5 MG/3 ML INHALATION PRN (21:32)
[2017-05-23] MEDS: FUROSEMIDE 250 MG in SODIUM CHLORIDE 0.9% 225 ML IVP SCH ×2 (06:22→10:12)
[2017-05-23] MEDS: CARVEDILOL 3.125 MG TAB PO SCH ×2 (06:43→16:54)
[2017-05-23 06:44] LABS: Calcium 9.1 mg/dL (8.4-10.2); Magnesium 2.4 mg/dL (1.6-2.3); Potassium 4.4 mmol/L (3.5-5.1)
--- NOTE | 2017-05-23 07:52 | PN ---
DATE OF SERVICE 05/22/17 INTERVAL HISTORY: This is a patient who presented with acute CHF exacerbation, remains on Lasix and dobutamine drip. The patient has been in negative fluid balance of about 1600 for the last 24 hours. The patient also had trouble with catheter after urine retention and urology had to put in a Coude catheter. The patient had some hematuria. Breathing is somewhat better. Review of systems done for constitutional, cardiovascular, GI, pulmonary, relevant findings as above. Current medications are reviewed that include IV Dobutamine, IV Lasix, Zaroxolyn , oral bicarbonate. On examination, temperature 96.9, pulse 51. Respirations 20. Blood pressure 93 /64. Pulse ox 94% on 3 L. General appearance: Sitting up, tired appearing. Eyes: Pupils equal, conjunctivae normal. Neck JVD raised. Mass not palpable. Respiratory effort increased. Lungs bilateral decreased breath sounds with lung crackles. Cardiovascular: First and second sounds normal. Edema present. Abdomen distended, soft. Liver and spleen not palpable. Psychiatric: Alert and oriented times three. Mood and affect normal. Genitourinary: Castellanos catheter present. Hematuria is noted. Investigations: White count 7.8. Hemoglobin 12.9. Potassium 4.8. BUN 33, creatinine 2.50. ASSESSMENT: 1. Acute on chronic congestive heart failure exacerbation from systolic and diastolic dysfunction. EF 30 to 35% from moderate concentric left ventricular hypertrophy and underlying coronary artery disease, slow to respond. 2. Coronary artery disease with prior history of coronary artery bypass. 3. Chronic obstructive disease in an ex-smoker. 4. AICD. 5. Chronic kidney disease Stage III from hypertensive nephrosclerosis. 6. Peripheral artery disease from prior history of fem-fem bypass. 7. Diabetes mellitus Type 2 chronically on insulin. 8. Moderate secondary pulmonary hypertension secondary to congestive heart failure. 9. Moderate tricuspid regurgitation nonrheumatic. 10. Severe mitral regurgitation, nonrheumatic. 11. Acute urine retention. The patient now does have a catheter. 12. Hematuria, due traumatic catheter placement. PLAN: Continue current medication and treatment plan, supportive care. Continue with IV Lasix drip, IV Dobutamine and Zaroxolyn. Care was discussed with the patient. Follow renal function closely. Prognosis guarded. MTDD
[2017-05-23] MEDS: SODIUM BICARBONATE TAB 650 MG TAB PO SCH ×2 (08:06→20:47)
[2017-05-23] MEDS: METOLAZONE 5 MG TAB PO SCH ×2 (08:06→20:47)
[2017-05-23] MEDS: ASPIRIN 81 MG CHEW PO SCH (08:06)
[2017-05-23] MEDS: HYDROcodone/APAP 10-325MG 1 EACH TAB PO PRN ×2 (08:11→16:54)
[2017-05-23] MEDS: SYMBICORT 160-4.5 MCG INHALER INHALATION SCH ×2 (08:41→20:29)
--- NOTE | 2017-05-23 10:45 | P.PN ---
Subjective Patient is seen in follow-up for acute kidney injury on chronic kidney disease. Patient has chronic kidney disease stage III secondary to cardiorenal syndrome with baseline creatinine in the range of 1.5-1.7. His creatinine today is 2.63. Patient presented with dyspnea and lower extremity edema. He is currently maintained on dobutamine drip as well as Lasix drip. His dyspnea and swelling of both improved since admission. Denies vomiting or diarrhea. Denies chest pain. Patient has systolic CHF with ejection fraction of 30-35% with severe mitral regurgitation, moderate tricuspid regurgitation and pulmonary hypertension. Vital signs are stable. General: The patient appeared well nourished and normally developed. HEENT: Head exam is unremarkable. Neck is without jugular venous distension. LUNGS: Rales at bases Breath sounds decreased. HEART: Rate and Rhythm are regular. First and second heart sounds normal. No murmurs, rubs or gallops. ABDOMEN: Abdominal exam reveals normal bowel sounds. Non-tender and non- distended. No evidence of peritonitis. EXTREMITITES: 2+ edema. Objective - Vital Signs Vital signs: Vital Signs Temp 96.8 F L 05/23/17 08:00 Pulse 66 05/23/17 08:00 Resp 19 05/23/17 08:00 BP 104/75 05/23/17 08:00 Pulse Ox 96 05/23/17 08:43 Intake & Output 05/22/17 05/23/17 05/23/17 18:59 06:59 18:59 Intake Total 962.474 368.5 158.333 Output Total 1775 1550 900 Balance -812.526 -1181.5 -741.667 Weight 73.4 kg Intake: IV 242.4 240 0.9@10 80 80 DOBUTamine DRIP 500 mg In 42.4 40 Dextrose/Water 1 250ml. bag @ 2.5 MCG/KG/MIN 5.39 mls/hr IV .Q24H MICHELLE Rx#: [id number] Furosemide 250 mg In 120 120 Sodium Chloride 0.9% 225 ml @ 15 MG/HR 15 mls/hr IVP .[id number] MICHELLE Rx#: [id number] Intake, IV Titration 280.074 128.5 38.333 Amount DOBUTamine DRIP 500 mg In 125.407 Dextrose/Water 1 250ml. bag @ 2.5 MCG/KG/MIN 5.39 mls/hr IV .Q24H MICHELLE Rx#: [id number] Furosemide 250 mg In 154.667 128.5 38.333 Sodium Chloride 0.9% 225 ml @ 15 MG/HR 15 mls/hr IVP .[id number] MICHELLE Rx#: [id number] Oral 440 120 Output: Urine 1775 1550 900 Other: Voiding Method Indwelling Catheter Indwelling Catheter Indwelling Catheter # Voids 1 1 - Labs CBC & Chem 7: 05/21/17 05:47 05/23/17 05:40 Labs: Abnormal Lab Results - Last 24 Hours (Table) 05/23/17 Range/Units 05:40 Sodium 133 L (137-145) mmol/L Carbon Dioxide 20 L (22-30) mmol/L BUN 80 H* (9-20) mg/dL Creatinine 2.63 H (0.66-1.25) mg/dL Glucose 126 H (74-99) mg/dL Magnesium 2.4 H (1.6-2.3) mg/dL Assessment and Plan Plan: Assessment: #1. Nonoliguric acute kidney injury secondary to cardiorenal syndrome. Creatinine slightly elevated at 2.63 today. Urinalysis noted to be benign. No evidence of hydronephrosis. #2. Chronic kidney disease stage III with baseline creatinine in the range of 1.5-1.7 secondary to cardiorenal syndrome. Renal ultrasound reveals 7.9 and 9.3 cm kidneys with cortical thinning suggestive of underlying chronic kidney disease. #3. Volume overload. Improving. Weight trending down. #4. Urinary retention status post Castellanos catheter placement. #5. Systolic CHF with ejection fraction of 30-35% with severe mitral regurgitation and moderate tricuspid regurgitation and pulmonary hypertension. #6. Metabolic acidosis secondary to acute kidney injury. #7. Hypervolemic hyponatremia. Stable. Plan: Continue Lasix drip at 15 mL an hour. Maintain metolazone 5 mg twice daily. Low-salt and 1200 mL fluid restricted diet. Maintain Castellanos catheter. Daily weights. Maintain oral sodium bicarbonate supplementation. Repeat electrolytes in the morning.
[2017-05-23] MEDS ORDERED: TERBUTALINE 1 MG/ML VIAL SQ ONE (13:20)
--- NOTE | 2017-05-23 14:16 | P.PN ---
Subjective This is a pleasant 66-year-old gentleman who follows with Dr. Lawson in the office. He has a known history of coronary artery disease, ischemic cardiomyopathy with a bi-V ICD, multiple PCI's in the past, atrial fibrillation , and known episodes of slow ventricular tachycardia. Patient presented to the emergency department with symptoms of worsening shortness of breath, edema in his lower extremities and abdominal distention. Patient was placed on Lasix 15 mg/h drip and Zaroxolyn 5 mg twice a day by nephrology. He is also been on a dobutamine drip at 2.5 mcg/kg/min. Patient has had a negative fluid balance over the last couple of days, his weight is only down 1 kg. He has a Catsellanos catheter in place for adequate I's and O's. Upon examination, patient is sitting up in a chair. He does not feel much better today. Continues to have difficulty breathing at times, lower extremity edema and abdominal distention. Objective - Vital Signs Vital signs: Vital Signs Temp 96.7 F L 05/23/17 11:32 Pulse 63 05/23/17 11:32 Resp 19 05/23/17 11:32 BP 87/61 05/23/17 11:32 Pulse Ox 98 05/23/17 11:32 Intake & Output 05/22/17 05/23/17 05/23/17 18:59 06:59 18:59 Intake Total 962.474 368.5 380.743 Output Total 1775 1550 900 Balance -812.526 -1181.5 -519.257 Weight 73.4 kg Intake: IV 242.4 240 0.9@10 80 80 DOBUTamine DRIP 500 mg In 42.4 40 Dextrose/Water 1 250ml. bag @ 2.5 MCG/KG/MIN 5.39 mls/hr IV .Q24H MICHELLE Rx#: [id number] Furosemide 250 mg In 120 120 Sodium Chloride 0.9% 225 ml @ 15 MG/HR 15 mls/hr IVP .[id number] MICHELLE Rx#: [id number] Intake, IV Titration 280.074 128.5 140.743 Amount DOBUTamine DRIP 500 mg In 125.407 102.41 Dextrose/Water 1 250ml. bag @ 5 MCG/KG/MIN 10.78 mls/hr IV .[id number] MICHELLE Rx #:[id number] Furosemide 250 mg In 154.667 128.5 38.333 Sodium Chloride 0.9% 225 ml @ 15 MG/HR 15 mls/hr IVP .[id number] MICHELLE Rx#: [id number] Oral 440 240 Output: Urine 1775 1550 900 Other: Voiding Method Indwelling Catheter Indwelling Catheter Indwelling Catheter # Voids 1 1 - Exam PHYSICAL EXAMINATION: HEENT: Head is atraumatic, normocephalic. Pupils equal, round. Neck is supple. There is elevated jugular venous pressure. HEART EXAMINATION: Heart sounds regular, S1 and S2 normal with a systolic murmur. CHEST EXAMINATION: Lungs reveal diminished air entry bilaterally. No chest wall tenderness is noted on palpation or with deep breathing. ABDOMEN: Distended, nontender. Bowel sounds are heard. No organomegaly noted. EXTREMITIES: Diminished peripheral pulses with evidence of 3+ peripheral edema and no calf tenderness noted. NEUROLOGIC patient is awake, alert and oriented x3. . - Labs CBC & Chem 7: 05/21/17 05:47 05/23/17 05:40 Labs: Abnormal Lab Results - Last 24 Hours (Table) 05/23/17 Range/Units 05:40 Sodium 133 L (137-145) mmol/L Carbon Dioxide 20 L (22-30) mmol/L BUN 80 H* (9-20) mg/dL Creatinine 2.63 H (0.66-1.25) mg/dL Glucose 126 H (74-99) mg/dL Magnesium 2.4 H (1.6-2.3) mg/dL Assessment and Plan Plan: Assessment and plan #1 acute on chronic systolic congestive heart failure #2 ischemic cardiomyopathy, s/p BiV ICD #3 hypertension, hypotension with therapy #4 prior CABG and PCI #5 hyperlipidemia #6 chronic kidney disease #7 paroxysmal atrial fibrillation #8 ventricular tachycardia From cardiology's perspective, we'll increase dobutamine to 5 mcg/kg/m. Diuretics per nephrology which after further discussion will continue the same. Continue to monitor the patient's renal function, daily weights and intake and output. Further recommendations to follow. [employer]ER [employer] note has been reviewed, I agree with a documented findings and plan of care. Patient was seen and examined.
[2017-05-23] MEDS: ALPRAZolam 0.5 MG TAB PO PRN (18:21)
--- NOTE | 2017-05-23 18:27 | P.PN ---
Subjective Principal diagnosis: Acute on chronic CHF with systolic dysfunction Mr. Birmingham is a66/M with a known history of coronary artery disease, ischemic cardiomyopathy with a bi-V ICD, multiple PCI's in the past, atrial fibrillation , and known episodes of slow ventricular tachycardia. Patient presented to the emergency department with symptoms of worsening shortness of breath, edema in his lower extremities and abdominal distention. Patient's blood pressure is low and is currently on dobutamine drip. Cardiology and nephrology is following this patient patient is currently being Krish with Lasix drip and Zaroxolyn 5 mg twice daily. On 05/23/2017: Extent patient does have a negative balance over the last 24 hours. Patient is being continued on Lasix drip and dobutamine drip. Leg swelling is improved. Patient is on pressure wraps as well. There are any worsening short of breath or chest pain. Patient continues to have significant extremity edema and Abdominal distention no fever no chills. No acute overnight issues. Constitutional: Patient denies any fever or chills . generalized weakness or weight loss. Abdomen: Patient denied nausea vomiting and diarrhea and abdominal pain. Cardiovascular: Patient denies any chest pain or short of breath no palpitations. Patient does have severe leg swelling Respiratory: patient denied any cough is from production. No worsening shortness of breath Neurologic: Patient denied any numbness or tingling headache. Musculoskeletal: Patient denies any complaints of joint swelling or deformity. Skin: Patient does have left wrist skin wound. Psychiatric: Negative Endocrine: No heat or cold intolerance. No recent weight gain. Genitourinary: No dysuria or hematuria. All other 14 point ROS negative except the above Objective - Vital Signs Vital signs: Vital Signs Temp 97.2 F L 05/23/17 15:13 Pulse 66 05/23/17 15:13 Resp 16 05/23/17 15:14 BP 90/45 05/23/17 16:59 Pulse Ox 97 05/23/17 15:13 Intake & Output 05/22/17 05/23/17 05/23/17 18:59 06:59 18:59 Intake Total 962.474 368.5 500.743 Output Total 1775 1550 900 Balance -812.526 -1181.5 -399.257 Weight 73.4 kg Intake: IV 242.4 240 0.9@10 80 80 DOBUTamine DRIP 500 mg In 42.4 40 Dextrose/Water 1 250ml. bag @ 2.5 MCG/KG/MIN 5.39 mls/hr IV .Q24H MICHELLE Rx#: [id number] Furosemide 250 mg In 120 120 Sodium Chloride 0.9% 225 ml @ 15 MG/HR 15 mls/hr IVP .[id number] MICHELLE Rx#: [id number] Intake, IV Titration 280.074 128.5 140.743 Amount DOBUTamine DRIP 500 mg In 125.407 102.41 Dextrose/Water 1 250ml. bag @ 5 MCG/KG/MIN 10.78 mls/hr IV .[id number] MICHELLE Rx #:[id number] Furosemide 250 mg In 154.667 128.5 38.333 Sodium Chloride 0.9% 225 ml @ 15 MG/HR 15 mls/hr IVP .[id number] MICHELLE Rx#: [id number] Oral 440 360 Output: Urine 1775 1550 900 Other: Voiding Method Indwelling Catheter Indwelling Catheter Indwelling Catheter # Voids 1 1 - Exam PHYSICAL EXAMINATION: Patient is lying in the bed comfortably, no acute distress, awake alert and oriented.. HEENT: Normocephalic. Neck is supple. Pupils reactive. Nostrils clear. Oral cavity is moist. Ears reveal no drainage. Neck reveals no JVD, carotid bruits, or thyromegaly. CHEST EXAMINATION: Trachea is central. Symmetrical expansion. Patient does have basilar crackles. No wheezing. Nonlabored breathing CARDIAC: Normal S1, S2 with no gallops. No murmurs ABDOMEN: Soft. Distended with skin edema as well, Bowel sounds normal. No organomegaly. No abdominal bruits. Extremities: Patient does have 3+ edema. Pulses palpable. No clubbing, cyanosis. Neurologically awake, alert, oriented x3 with well-coordinated movements. No focal deficits noted Skin: No rash or skin lesions. Psychiatric: Operative. Nonsuicidal Musculoskeletal: No joint swelling or deformity. Normal range of motion. - Labs CBC & Chem 7: 05/21/17 05:47 05/23/17 05:40 Labs: Abnormal Lab Results - Last 24 Hours (Table) 05/23/17 Range/Units 05:40 Sodium 133 L (137-145) mmol/L Carbon Dioxide 20 L (22-30) mmol/L BUN 80 H* (9-20) mg/dL Creatinine 2.63 H (0.66-1.25) mg/dL Glucose 126 H (74-99) mg/dL Magnesium 2.4 H (1.6-2.3) mg/dL Assessment and Plan Plan: ASSESSMENT: -Acute on chronic congestive heart failure exacerbation from systolic and past dysfunction EF 30-35% from moderate concentric left hypertrophy and underlying coronary artery disease, slow to respond -Coronary artery disease with prior history of coronary bypass and stent -COPD in an ex-smoker -Ischemic cardiomyopathy status post biventricular ICD -Chronic kidney disease stage III from hypertensive nephrosclerosis -Nonoliguric acute kidney injury seconded to cardiorenal syndrome creatinine slightly elevated to 2.63 today -Hypervolemic hyponatremia -Peripheral artery disease or prior history of fem-fem bypass -Diabetes mellitus type II on insulin -Moderate secondary pulmonary hypertension secondary to congestive heart failure -Moderate tricuspid regurgitation nonrheumatic -Severe mitral regurgitation nonrheumatic -Acute urine retention. On Castellanos catheter now -Hematuria, secondary to traumatic catheter placement -DVT prophylaxis with heparin subcu PLAN: We will continue Lasix drip and dobutamine drip along with Zaroxolyn. Continue close monitoring of urine output with Castellanos catheter in place, renal function. We'll follow closely. Prognosis is guarded.
[2017-05-23] MEDS: ATORVASTATIN 20 MG TAB PO SCH (20:47)
[2017-05-24] MEDS: ALPRAZolam 0.5 MG TAB PO PRN ×2 (00:18→22:22)
[2017-05-24] MEDS: HYDROcodone/APAP 10-325MG 1 EACH TAB PO PRN ×2 (00:26→17:25)
[2017-05-24 02:22] LABS: Calcium 8.9 mg/dL (8.4-10.2); Magnesium 2.3 mg/dL (1.6-2.3); Potassium 3.8 mmol/L (3.5-5.1); Total Bilirubin 1.1 mg/dL (0.2-1.3); Total Protein 7.5 g/dL (6.3-8.2)
[2017-05-24] MEDS: FUROSEMIDE 250 MG in SODIUM CHLORIDE 0.9% 225 ML IVP SCH (03:36)
[2017-05-24] MEDS: DOBUTamine DRIP 500 MG in DEXTROSE/WATER 1 250ML.BAG IV SCH (03:44)
[2017-05-24] MEDS ORDERED: LIDOCAINE-D5W PMX 2G/500ML 2,000 MG in DEXTROSE/WATER 1 500ML.BAG IV SCH (06:00)
[2017-05-24] MEDS: CARVEDILOL 3.125 MG TAB PO SCH ×2 (06:03→18:14)
[2017-05-24 07:00] LABS: Calcium 8.8 mg/dL (8.4-10.2); Magnesium 2.4 mg/dL (1.6-2.3); Potassium 3.6 mmol/L (3.5-5.1)
[2017-05-24] MEDS: SYMBICORT 160-4.5 MCG INHALER INHALATION SCH ×2 (08:17→19:36)
[2017-05-24] MEDS: ASPIRIN 81 MG CHEW PO SCH (08:55)
[2017-05-24] MEDS: SODIUM BICARBONATE TAB 650 MG TAB PO SCH ×2 (08:55→22:19)
[2017-05-24] MEDS: METOLAZONE 5 MG TAB PO SCH (08:55)
[2017-05-24] MEDS ORDERED: POTASSIUM CHLORIDE ER 20 MEQ TAB.ER PO STA (09:47)
[2017-05-24] MEDS ORDERED: SODIUM CHLORIDE 0.9% 1,000 ML IV SCH (10:00)
[2017-05-24 10:15] LABS: Glucose,Whole Blood 128 mg/dL (75-99)
--- NOTE | 2017-05-24 13:07 | P.PN ---
Subjective Patient is seen in follow-up for acute kidney injury on chronic kidney disease. Patient has chronic kidney disease stage III secondary to cardiorenal syndrome with baseline creatinine in the range of 1.5-1.7. His creatinine today is 2.5. Patient presented with dyspnea and lower extremity edema. He was maintained on dobutamine drip as well as Lasix drip. Earlier this morning he became quite hypotensive and diuretics as well as dobutamine were discontinued. He received about 250 mL of fluids but blood pressures remain on the lower side. His dyspnea and swelling of both improved since admission. Denies vomiting or diarrhea. Denies chest pain. Patient has systolic CHF with ejection fraction of 30-35% with severe mitral regurgitation, moderate tricuspid regurgitation and pulmonary hypertension. Vital signs are stable. General: The patient appeared well nourished and normally developed. HEENT: Head exam is unremarkable. Neck is without jugular venous distension. LUNGS: Rales at bases Breath sounds decreased. HEART: Rate and Rhythm are regular. First and second heart sounds normal. No murmurs, rubs or gallops. ABDOMEN: Abdominal exam reveals normal bowel sounds. Non-tender and non- distended. No evidence of peritonitis. EXTREMITITES: 1+ edema. Objective - Vital Signs Vital signs: Vital Signs Temp 97.1 F L 05/24/17 08:00 Pulse 65 05/24/17 08:00 Resp 19 05/24/17 08:00 BP 80/56 05/24/17 08:00 Pulse Ox 97 05/24/17 08:27 Intake & Output 05/23/17 05/24/17 05/24/17 18:59 06:59 18:59 Intake Total 500.743 322.59 360 Output Total 900 1200 550 Balance -399.257 -877.41 -190 Weight 72.8 kg Intake: IV 120 0.9@10 120 Intake, IV Titration 140.743 322.59 Amount DOBUTamine DRIP 500 mg In 102.41 147.59 Dextrose/Water 1 250ml. bag @ 2.5 MCG/KG/MIN 5.39 mls/hr IV .Q24H MICHELLE Rx#: [id number] Furosemide 250 mg In 38.333 175 Sodium Chloride 0.9% 225 ml @ 15 MG/HR 15 mls/hr IVP .[id number] MICHELLE Rx#: [id number] Oral 360 240 Output: Urine 900 1200 550 Uretheral (Castellanos) 100 Other: Voiding Method Indwelling Catheter Indwelling Catheter Indwelling Catheter # Voids 1 # Bowel Movements 0 - Labs CBC & Chem 7: 05/21/17 05:47 05/24/17 05:38 Labs: Abnormal Lab Results - Last 24 Hours (Table) 05/24/17 05/24/17 05/24/17 Range/Units 01:43 05:38 10:04 Sodium 129 L 130 L (137-145) mmol/L Chloride 93 L 93 L (98-107) mmol/L BUN 84 H* 86 H* (9-20) mg/dL Creatinine 2.50 H 2.50 H (0.66-1.25) mg/dL Glucose 160 H 114 H (74-99) mg/dL POC Glucose (mg/dL) 128 H (75-99) mg/dL Magnesium 2.4 H (1.6-2.3) mg/dL Assessment and Plan Plan: Assessment: #1. Nonoliguric acute kidney injury secondary to cardiorenal syndrome. Creatinine stable at 2.5 today. Urinalysis noted to be benign. No evidence of hydronephrosis. #2. Chronic kidney disease stage III with baseline creatinine in the range of 1.5-1.7 secondary to cardiorenal syndrome. Renal ultrasound reveals 7.9 and 9.3 cm kidneys with cortical thinning suggestive of underlying chronic kidney disease. #3. Volume overload. Improving. Weight trending down. #4. Urinary retention status post Castellanos catheter placement. #5. Systolic CHF with ejection fraction of 30-35% with severe mitral regurgitation and moderate tricuspid regurgitation and pulmonary hypertension. #6. Metabolic acidosis secondary to acute kidney injury. #7. Hypervolemic hyponatremia. Stable. Plan: Discontinue IV fluids. Start midodrine 10 mg 3 times daily. Low-salt and 1200 mL fluid restricted diet. Maintain Castellanos catheter. Daily weights. Maintain oral sodium bicarbonate supplementation. Repeat electrolytes in the morning. If systolic blood pressure greater than 90, Lasix 40 mg IV once today.
[2017-05-24] MEDS: MIDODRINE 5 MG TAB PO SCH (13:27)
--- NOTE | 2017-05-24 15:27 | P.PN ---
Subjective This is a pleasant 66-year-old gentleman who follows with Dr. Lawson in the office. He has a known history of coronary artery disease, ischemic cardiomyopathy with a bi-V ICD, multiple PCI's in the past, atrial fibrillation , and known episodes of slow ventricular tachycardia. Patient presented to the emergency department with symptoms of worsening shortness of breath, edema in his lower extremities and abdominal distention. Patient was placed on Lasix 15 mg/h drip and Zaroxolyn 5 mg twice a day by nephrology. Patient has had a negative fluid balance over the last couple of days, his weight is only down 1 kg. He has a Castellanos catheter in place for accurate I's and O's. Patient's dobutamine drip was discontinued and midnight shift due to long episode of ventricular tachycardia. Patient was started on lidocaine drip. Upon examination this morning, patient is quite weak, drowsy and lethargic blood pressure is low in the 70s. His weight is down only slightly. He currently denies complaints of shortness of breath. Objective - Vital Signs Vital signs: Vital Signs Temp 96.5 F L 05/24/17 12:00 Pulse 60 05/24/17 12:00 Resp 19 05/24/17 12:00 BP 75/50 05/24/17 12:00 Pulse Ox 97 05/24/17 12:00 Intake & Output 05/23/17 05/24/17 05/24/17 18:59 06:59 18:59 Intake Total 500.743 322.59 480 Output Total 900 1200 650 Balance -399.257 -877.41 -170 Weight 72.8 kg Intake: IV 120 0.9@10 120 Intake, IV Titration 140.743 322.59 Amount DOBUTamine DRIP 500 mg In 102.41 147.59 Dextrose/Water 1 250ml. bag @ 2.5 MCG/KG/MIN 5.39 mls/hr IV .Q24H MICHELLE Rx#: [id number] Furosemide 250 mg In 38.333 175 Sodium Chloride 0.9% 225 ml @ 15 MG/HR 15 mls/hr IVP .[id number] MICHELLE Rx#: [id number] Oral 360 360 Output: Urine 900 1200 650 Uretheral (Castellanos) 200 Other: Voiding Method Indwelling Catheter Indwelling Catheter Indwelling Catheter # Voids 1 # Bowel Movements 0 - Exam PHYSICAL EXAMINATION: HEENT: Head is atraumatic, normocephalic. Pupils equal, round. Neck is supple. There is elevated jugular venous pressure. HEART EXAMINATION: Heart sounds regular, S1 and S2 normal with a systolic murmur. CHEST EXAMINATION: Lungs reveal diminished air entry bilaterally. No chest wall tenderness is noted on palpation or with deep breathing. ABDOMEN: Distended, nontender. Bowel sounds are heard. No organomegaly noted. EXTREMITIES: Diminished peripheral pulses with evidence of 2-3+ peripheral edema and no calf tenderness noted. NEUROLOGIC patient is awake, lethargic and oriented x3. . - Labs CBC & Chem 7: 05/21/17 05:47 05/24/17 05:38 Labs: Abnormal Lab Results - Last 24 Hours (Table) 05/24/17 05/24/17 05/24/17 Range/Units 01:43 05:38 10:04 Sodium 129 L 130 L (137-145) mmol/L Chloride 93 L 93 L (98-107) mmol/L BUN 84 H* 86 H* (9-20) mg/dL Creatinine 2.50 H 2.50 H (0.66-1.25) mg/dL Glucose 160 H 114 H (74-99) mg/dL POC Glucose (mg/dL) 128 H (75-99) mg/dL Magnesium 2.4 H (1.6-2.3) mg/dL Assessment and Plan Plan: Assessment and plan #1 acute on chronic systolic congestive heart failure #2 ischemic cardiomyopathy, s/p BiV ICD #3 hypertension, hypotension with therapy #4 prior CABG and PCI #5 hyperlipidemia #6 chronic kidney disease #7 paroxysmal atrial fibrillation #8 ventricular tachycardia From cardiology's perspective, we will stop the lidocaine drip. Patient may have been over diuresed. We will stop Lasix drip and metolazone. We'll give the patient a 150 mL bolus followed by 50 mL an hour drip of normal saline. We' ll continue to cut cautiously hydrate him. 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 Patient was seen and examined.
[2017-05-24] MEDS: ALBUTEROL NEBULIZED 2.5 MG/3 ML INHALATION PRN (19:36)
--- NOTE | 2017-05-24 22:18 | P.PN ---
Subjective Principal diagnosis: Acute on chronic CHF with systolic dysfunction Mr. Birmingham is a66/M with a known history of coronary artery disease, ischemic cardiomyopathy with a bi-V ICD, multiple PCI's in the past, atrial fibrillation , and known episodes of slow ventricular tachycardia. Patient presented to the emergency department with symptoms of worsening shortness of breath, edema in his lower extremities and abdominal distention. Patient's blood pressure is low and is currently on dobutamine drip. Cardiology and nephrology is following this patient patient is currently being Krish with Lasix drip and Zaroxolyn 5 mg twice daily. On 05/23/2017: Extent patient does have a negative balance over the last 24 hours. Patient is being continued on Lasix drip and dobutamine drip. Leg swelling is improved. Patient is on pressure wraps as well. There are any worsening short of breath or chest pain. Patient continues to have significant extremity edema and Abdominal distention no fever no chills. No acute overnight issues. On 05/24/2017 Overnight the patient's systolic blood pressure dropped to below 80 mmHg. So patient was given IV fluid bolus last night. Patient's lower extremity edema has improved. Constitutional: Patient denies any fever or chills . generalized weakness or weight loss. Abdomen: Patient denied nausea vomiting and diarrhea and abdominal pain. Cardiovascular: Patient denies any chest pain or short of breath no palpitations. Patient does have severe leg swelling Respiratory: patient denied any cough is from production. No worsening shortness of breath Neurologic: Patient denied any numbness or tingling headache. Musculoskeletal: Patient denies any complaints of joint swelling or deformity. Skin: Patient does have left wrist skin wound. Psychiatric: Negative Endocrine: No heat or cold intolerance. No recent weight gain. Genitourinary: No dysuria or hematuria. All other 14 point ROS negative except the above Objective - Vital Signs Vital signs: Vital Signs Temp 97.1 F L 05/24/17 16:00 Pulse 62 05/24/17 19:45 Resp 19 05/24/17 16:00 BP 80/60 05/24/17 16:00 Pulse Ox 95 05/24/17 16:00 Intake & Output 05/24/17 05/24/17 05/25/17 06:59 18:59 06:59 Intake Total 322.59 600 Output Total 1200 650 Balance -877.41 -50 Weight 72.8 kg Intake: IV 120 0.9@10 120 Intake, IV Titration 322.59 Amount DOBUTamine DRIP 500 mg In 147.59 Dextrose/Water 1 250ml. bag @ 2.5 MCG/KG/MIN 5.39 mls/hr IV .Q24H MICHELLE Rx#: [id number] Furosemide 250 mg In 175 Sodium Chloride 0.9% 225 ml @ 15 MG/HR 15 mls/hr IVP .[id number] MICHELLE Rx#: [id number] Oral 480 Output: Urine 1200 650 Uretheral (Castellanos) 200 Other: Voiding Method Indwelling Catheter Indwelling Catheter # Bowel Movements 0 - Labs CBC & Chem 7: 05/21/17 05:47 05/24/17 05:38 Labs: Abnormal Lab Results - Last 24 Hours (Table) 05/24/17 05/24/17 05/24/17 Range/Units 01:43 05:38 10:04 Sodium 129 L 130 L (137-145) mmol/L Chloride 93 L 93 L (98-107) mmol/L BUN 84 H* 86 H* (9-20) mg/dL Creatinine 2.50 H 2.50 H (0.66-1.25) mg/dL Glucose 160 H 114 H (74-99) mg/dL POC Glucose (mg/dL) 128 H (75-99) mg/dL Magnesium 2.4 H (1.6-2.3) mg/dL Assessment and Plan Plan: ASSESSMENT: -Acute on chronic congestive heart failure exacerbation from systolic and past dysfunction EF 30-35% from moderate concentric left hypertrophy and underlying coronary artery disease, slow to respond -Coronary artery disease with prior history of coronary bypass and stent -COPD in an ex-smoker -Ischemic cardiomyopathy status post biventricular ICD -Chronic kidney disease stage III from hypertensive nephrosclerosis -Nonoliguric acute kidney injury seconded to cardiorenal syndrome creatinine slightly elevated to 2.50 today -Hypervolemic hyponatremia -Peripheral artery disease or prior history of fem-fem bypass -Diabetes mellitus type II on insulin -Moderate secondary pulmonary hypertension secondary to congestive heart failure -Moderate tricuspid regurgitation nonrheumatic -Severe mitral regurgitation nonrheumatic -Acute urine retention. On Castellanos catheter now -Hematuria, secondary to traumatic catheter placement -DVT prophylaxis with heparin subcu PLAN: Lasix drip and dobutamine drip have been discontinued. Patient has been started on midodrine. Continue close monitoring of urine output with Castellanos catheter in place, renal function. We'll follow closely. Prognosis is guarded.
[2017-05-24] MEDS: ATORVASTATIN 20 MG TAB PO SCH (22:19)
[2017-05-25] MEDS: HYDROcodone/APAP 10-325MG 1 EACH TAB PO PRN ×2 (04:54→18:55)
[2017-05-25] MEDS: ALBUTEROL NEBULIZED 2.5 MG/3 ML INHALATION PRN ×2 (05:40→20:25)
[2017-05-25 06:26] LABS: Calcium 8.8 mg/dL (8.4-10.2); Potassium 4.5 mmol/L (3.5-5.1)
[2017-05-25] MEDS: MIDODRINE 5 MG TAB PO SCH ×3 (07:00→17:40)
[2017-05-25] MEDS: CARVEDILOL 3.125 MG TAB PO SCH ×2 (07:13→15:51)
[2017-05-25] MEDS ORDERED: FUROSEMIDE 10 MG/ML 4 ML VIAL IV STA ×2 (08:11→18:15)
[2017-05-25] MEDS: SODIUM BICARBONATE TAB 650 MG TAB PO SCH ×2 (08:30→20:44)
[2017-05-25] MEDS: ASPIRIN 81 MG CHEW PO SCH (08:30)
[2017-05-25] MEDS: ALPRAZolam 0.5 MG TAB PO PRN ×2 (09:27→17:01)
[2017-05-25] MEDS: SYMBICORT 160-4.5 MCG INHALER INHALATION SCH ×2 (09:58→20:25)
[2017-05-25] MEDS ORDERED: DOBUTamine DRIP 500 MG in DEXTROSE/WATER 1 250ML.BAG IV SCH (10:22)
--- NOTE | 2017-05-25 10:34 | P.PN ---
Subjective Patient is seen in follow-up for acute kidney injury on chronic kidney disease. Patient has chronic kidney disease stage III secondary to cardiorenal syndrome with baseline creatinine in the range of 1.5-1.7. His creatinine today is 2.86. Patient presented with dyspnea and lower extremity edema. He was maintained on dobutamine drip as well as Lasix drip. On May 24, he became quite hypotensive and diuretics as well as dobutamine were discontinued. He received about 250 mL of fluids but blood pressures remain on the lower side. His dyspnea and swelling of both improved since admission. Denies vomiting or diarrhea. Denies chest pain. Patient has systolic CHF with ejection fraction of 30-35% with severe mitral regurgitation, moderate tricuspid regurgitation and pulmonary hypertension. Vital signs are stable. General: The patient appeared well nourished and normally developed. HEENT: Head exam is unremarkable. Neck is without jugular venous distension. LUNGS: Rales at bases Breath sounds decreased. HEART: Rate and Rhythm are regular. First and second heart sounds normal. No murmurs, rubs or gallops. ABDOMEN: Abdominal exam reveals normal bowel sounds. Non-tender and non- distended. No evidence of peritonitis. EXTREMITITES: 1+ edema. Objective - Vital Signs Vital signs: Vital Signs Temp 97 F L 05/25/17 04:00 Pulse 60 05/25/17 06:58 Resp 18 05/25/17 04:00 BP 92/63 05/25/17 06:58 Pulse Ox 96 05/25/17 04:00 Intake & Output 05/24/17 05/25/17 05/25/17 18:59 06:59 18:59 Intake Total 600 240 Output Total 650 200 90 Balance -50 -200 150 Weight 73.9 kg Intake: IV 120 0.9@10 120 Oral 480 240 Output: Urine 650 200 90 Uretheral (Castellanos) 200 Other: Voiding Method Indwelling Catheter Indwelling Catheter - Labs CBC & Chem 7: 05/21/17 05:47 05/25/17 05:46 Labs: Abnormal Lab Results - Last 24 Hours (Table) 05/25/17 Range/Units 05:46 Sodium 130 L (137-145) mmol/L Chloride 96 L (98-107) mmol/L Carbon Dioxide 20 L (22-30) mmol/L BUN 94 H* (9-20) mg/dL Creatinine 2.86 H (0.66-1.25) mg/dL Assessment and Plan Plan: Assessment: #1. Nonoliguric acute kidney injury secondary to cardiorenal syndrome. Creatinine elevated at 2.86 today. Urinalysis noted to be benign. No evidence of hydronephrosis. #2. Chronic kidney disease stage III with baseline creatinine in the range of 1.5-1.7 secondary to cardiorenal syndrome. Renal ultrasound reveals 7.9 and 9.3 cm kidneys with cortical thinning suggestive of underlying chronic kidney disease. #3. Volume overload. Improving. Weight trending down. #4. Urinary retention status post Castellanos catheter placement. #5. Systolic CHF with ejection fraction of 30-35% with severe mitral regurgitation and moderate tricuspid regurgitation and pulmonary hypertension. #6. Metabolic acidosis secondary to acute kidney injury. #7. Hypervolemic hyponatremia. Stable. Plan: Off all IV fluids at this time. Maintain midodrine 10 mg 3 times daily. Low-salt and 1200 mL fluid restricted diet. Maintain Castellanos catheter. Daily weights. Maintain oral sodium bicarbonate supplementation. Repeat electrolytes in the morning. Resume Lasix 40 mg IV twice daily. Cardiology following. May need to resume dobutamine.
--- NOTE | 2017-05-25 10:40 | XR ---
EXAMINATION TYPE: XR chest 1V portable DATE OF EXAM: 05/25/2017 COMPARISON: 05/19/2017 HISTORY: Chest pain TECHNIQUE: Single frontal view of the chest is obtained. FINDINGS: Cardiomegaly and postsurgical change of cardiac device noted. Stable left lower lobe infil trate and small effusion. Underlying COPD and chronic interstitial lung disease suspected. Small amou nt of fluid within the minor fissure. IMPRESSION: 1. Stable left lower lobe infiltrate and small effusion 2. Diffuse interstitial pattern likely representing mild venous congestion superimposed on a backgrou nd of chronic interstitial lung disease.
[2017-05-25] MEDS ORDERED: FUROSEMIDE 10 MG/ML 4 ML VIAL IV SCH (10:45)
--- NOTE | 2017-05-25 16:20 | P.PN ---
Subjective This is a pleasant 66-year-old gentleman who follows with Dr. Lawson in the office. He has a known history of coronary artery disease, ischemic cardiomyopathy with a bi-V ICD, multiple PCI's in the past, atrial fibrillation , and known episodes of slow ventricular tachycardia. Patient presented to the emergency department with symptoms of worsening shortness of breath, edema in his lower extremities and abdominal distention. Patient was placed on Lasix 15 mg/h drip and Zaroxolyn 5 mg twice a day by nephrology. Patient has had a negative fluid balance over the last couple of days, his weight is only down 1 kg. He has a Castellanos catheter in place for accurate I's and O's. Diuretics were stopped yesterday. Weight is up 1 kg since yesterday. Upon examination this morning, patient is feeling slightly better, blood pressure is not as low. He continues to have lower extremity edema that appears to have improved somewhat however currently complaining of scrotal edema. Objective - Vital Signs Vital signs: Vital Signs Temp 97.6 F 05/25/17 12:00 Pulse 69 05/25/17 12:00 Resp 19 05/25/17 12:00 BP 105/69 05/25/17 12:00 Pulse Ox 100 05/25/17 12:00 Intake & Output 05/24/17 05/25/17 05/25/17 18:59 06:59 18:59 Intake Total 600 240 Output Total 650 200 440 Balance -50 -200 -200 Weight 73.9 kg Intake: IV 120 0.9@10 120 Oral 480 240 Output: Urine 650 200 440 Uretheral (Castellanos) 200 200 Other: Voiding Method Indwelling Catheter Indwelling Catheter Indwelling Catheter - Exam PHYSICAL EXAMINATION: HEENT: Head is atraumatic, normocephalic. Pupils equal, round. Neck is supple. There is elevated jugular venous pressure. HEART EXAMINATION: Heart sounds regular, S1 and S2 normal with a systolic murmur. CHEST EXAMINATION: Lungs reveal diminished air entry bilaterally. No chest wall tenderness is noted on palpation or with deep breathing. ABDOMEN: Distended, diffuse tenderness to palpation. Bowel sounds are hypoactive. No organomegaly noted. EXTREMITIES: Diminished peripheral pulses with evidence of 2-3+ peripheral edema and no calf tenderness noted. Scrotal edema noted NEUROLOGIC patient is awake, drowsy and oriented x3. . - Labs CBC & Chem 7: 05/21/17 05:47 05/25/17 05:46 Labs: Abnormal Lab Results - Last 24 Hours (Table) 05/25/17 Range/Units 05:46 Sodium 130 L (137-145) mmol/L Chloride 96 L (98-107) mmol/L Carbon Dioxide 20 L (22-30) mmol/L BUN 94 H* (9-20) mg/dL Creatinine 2.86 H (0.66-1.25) mg/dL Assessment and Plan Plan: Assessment and plan #1 acute on chronic systolic congestive heart failure, end-stage #2 ischemic cardiomyopathy, s/p BiV ICD #3 hypertension, hypotension with therapy #4 prior CABG and PCI #5 hyperlipidemia #6 chronic kidney disease #7 paroxysmal atrial fibrillation #8 ventricular tachycardia From cardiology's perspective, okay to resume IV push Lasix. We attempted to resume dobutamine and patient went into a long episode of slow ventricular tachycardia and this has been DC'd. Patient's overall prognosis is poor. Discussed with Dr. Villela who is in agreement that is appropriate to discuss hospice with the patient. Awaiting the arrival of the patient's significant other to discuss this. PARK NATURALIST note has been reviewed, I agree with a documented findings and plan of care. Patient was seen and examined.
[2017-05-25] MEDS: ATORVASTATIN 20 MG TAB PO SCH (20:44)
--- NOTE | 2017-05-25 23:04 | P.PN ---
Subjective Principal diagnosis: Acute on chronic CHF with systolic dysfunction Mr. Birmingham is a66/M with a known history of coronary artery disease, ischemic cardiomyopathy with a bi-V ICD, multiple PCI's in the past, atrial fibrillation , and known episodes of slow ventricular tachycardia. Patient presented to the emergency department with symptoms of worsening shortness of breath, edema in his lower extremities and abdominal distention. Patient's blood pressure is low and is currently on dobutamine drip. Cardiology and nephrology is following this patient patient is currently being Krish with Lasix drip and Zaroxolyn 5 mg twice daily. On 05/23/2017: Extent patient does have a negative balance over the last 24 hours. Patient is being continued on Lasix drip and dobutamine drip. Leg swelling is improved. Patient is on pressure wraps as well. There are any worsening short of breath or chest pain. Patient continues to have significant extremity edema and Abdominal distention no fever no chills. No acute overnight issues. On 05/24/2017 Overnight the patient's systolic blood pressure dropped to below 80 mmHg. So patient was given IV fluid bolus last night. Patient's lower extremity edema has improved. On 05/25/2017 Patient had sustained V. tach on dobutamine drip so this has been discontinued.The patient remained the same with the his lower extremity edema. Constitutional: Patient denies any fever or chills . generalized weakness or weight loss. Abdomen: Patient denied nausea vomiting and diarrhea and abdominal pain. Cardiovascular: Patient denies any chest pain or short of breath no palpitations. Patient does have severe leg swelling Respiratory: patient denied any cough is from production. No worsening shortness of breath Neurologic: Patient denied any numbness or tingling headache. All other 14 point ROS negative except the above Objective - Vital Signs Vital signs: Vital Signs Temp 96.7 F L 05/25/17 20:00 Pulse 70 05/25/17 20:38 Resp 18 05/25/17 20:00 BP 105/70 05/25/17 20:00 Pulse Ox 99 05/25/17 20:00 Intake & Output 05/25/17 05/25/17 05/26/17 06:59 18:59 06:59 Intake Total 240 Output Total 200 440 600 Balance -200 -200 -600 Weight 73.9 kg Intake: Oral 240 Output: Urine 200 440 600 Uretheral (Castellanos) 200 Other: Voiding Method Indwelling Catheter Indwelling Catheter Indwelling Catheter # Voids 1 - Exam PHYSICAL EXAMINATION: Patient is lying in the bed comfortably, no acute distress, awake alert and oriented.. HEENT: Normocephalic. Neck is supple. Pupils reactive. Nostrils clear. Oral cavity is moist. Ears reveal no drainage. Neck reveals no JVD, carotid bruits, or thyromegaly. CHEST EXAMINATION: Trachea is central. Symmetrical expansion. Patient does have basilar crackles. No wheezing. Nonlabored breathing CARDIAC: Normal S1, S2 with no gallops. No murmurs ABDOMEN: Soft. Distended with skin edema as well, Bowel sounds normal. No organomegaly. No abdominal bruits. Extremities: Patient does have 3+ edema. Pulses palpable. No clubbing, cyanosis. Neurologically awake, alert, oriented x3 with well-coordinated movements. No focal deficits noted Skin: No rash or skin lesions. Psychiatric: Operative. Nonsuicidal Musculoskeletal: No joint swelling or deformity. Normal range of motion. - Labs CBC & Chem 7: 05/21/17 05:47 05/25/17 05:46 Labs: Abnormal Lab Results - Last 24 Hours (Table) 05/25/17 Range/Units 05:46 Sodium 130 L (137-145) mmol/L Chloride 96 L (98-107) mmol/L Carbon Dioxide 20 L (22-30) mmol/L BUN 94 H* (9-20) mg/dL Creatinine 2.86 H (0.66-1.25) mg/dL Assessment and Plan Plan: ASSESSMENT: -Acute on chronic congestive heart failure exacerbation from systolic and past dysfunction EF 30-35% from moderate concentric left hypertrophy and underlying coronary artery disease, slow to respond -Coronary artery disease with prior history of coronary bypass and stent -COPD in an ex-smoker -Ischemic cardiomyopathy status post biventricular ICD -Chronic kidney disease stage III from hypertensive nephrosclerosis -Nonoliguric acute kidney injury seconded to cardiorenal syndrome creatinine slightly elevated to 2.50 today -Hypervolemic hyponatremia -Peripheral artery disease or prior history of fem-fem bypass -Diabetes mellitus type II on insulin -Moderate secondary pulmonary hypertension secondary to congestive heart failure -Moderate tricuspid regurgitation nonrheumatic -Severe mitral regurgitation nonrheumatic -Acute urine retention. On Castellanos catheter now -Hematuria, secondary to traumatic catheter placement -DVT prophylaxis with heparin subcu PLAN: Lasix drip and dobutamine drip have been discontinued. Patient has been started on midodrine. Continue close monitoring of urine output with Castellanos catheter in place, renal function. We'll follow closely. The prognosis of the patient is very poor so we are in the process to have a discussion with the family members in regards to considering hospice care.
[2017-05-25] MEDS: FUROSEMIDE 10 MG/ML 4 ML VIAL IV SCH (23:50)
[2017-05-26] MEDS: HYDROcodone/APAP 10-325MG 1 EACH TAB PO PRN ×3 (03:15→17:19)
[2017-05-26 07:09] LABS: Calcium 8.7 mg/dL (8.4-10.2); Potassium 4.3 mmol/L (3.5-5.1)
--- NOTE | 2017-05-26 09:15 | P.PN ---
Subjective Patient is seen in follow-up for acute kidney injury on chronic kidney disease. Patient has chronic kidney disease stage III secondary to cardiorenal syndrome with baseline creatinine in the range of 1.5-1.7. His creatinine today is 2.71. Patient presented with dyspnea and lower extremity edema. He was maintained on dobutamine drip as well as Lasix drip. On May 24, he became quite hypotensive and diuretics as well as dobutamine were discontinued. He received about 250 mL of fluids but blood pressures remain on the lower side. His dyspnea and swelling are both improved since admission. Denies vomiting or diarrhea. Denies chest pain. Patient has systolic CHF with ejection fraction of 30-35% with severe mitral regurgitation, moderate tricuspid regurgitation and pulmonary hypertension. Vital signs are stable. General: The patient appeared well nourished and normally developed. HEENT: Head exam is unremarkable. Neck is without jugular venous distension. LUNGS: Rales at bases Breath sounds decreased. HEART: Rate and Rhythm are regular. First and second heart sounds normal. No murmurs, rubs or gallops. ABDOMEN: Abdominal exam reveals normal bowel sounds. Non-tender and non- distended. No evidence of peritonitis. EXTREMITITES: 1+ edema. Objective - Vital Signs Vital signs: Vital Signs Temp 98.1 F 05/26/17 04:00 Pulse 64 05/26/17 04:00 Resp 18 05/26/17 04:00 BP 88/58 05/26/17 04:00 Pulse Ox 99 05/26/17 04:00 Intake & Output 05/25/17 05/26/17 05/26/17 18:59 06:59 18:59 Intake Total 240 100 Output Total 440 1575 Balance -200 -1575 100 Weight 73.8 kg Intake: Oral 240 100 Output: Urine 440 1575 Uretheral (Castellanos) 200 Other: Voiding Method Indwelling Catheter Indwelling Catheter Indwelling Catheter # Voids 1 - Labs CBC & Chem 7: 05/21/17 05:47 05/26/17 05:55 Labs: Abnormal Lab Results - Last 24 Hours (Table) 05/26/17 Range/Units 05:55 Sodium 130 L (137-145) mmol/L Chloride 94 L (98-107) mmol/L BUN 103 H* (9-20) mg/dL Creatinine 2.71 H (0.66-1.25) mg/dL Glucose 101 H (74-99) mg/dL Assessment and Plan Plan: Assessment: #1. Nonoliguric acute kidney injury secondary to cardiorenal syndrome. Creatinine a little improved at 2.71 today. Urinalysis noted to be benign. No evidence of hydronephrosis. #2. Chronic kidney disease stage III with baseline creatinine in the range of 1.5-1.7 secondary to cardiorenal syndrome. Renal ultrasound reveals 7.9 and 9.3 cm kidneys with cortical thinning suggestive of underlying chronic kidney disease. #3. Volume overload. Improving. Weight trending down. #4. Urinary retention status post Castellanos catheter placement. #5. Systolic CHF with ejection fraction of 30-35% with severe mitral regurgitation and moderate tricuspid regurgitation and pulmonary hypertension. #6. Metabolic acidosis secondary to acute kidney injury. #7. Hypervolemic hyponatremia. Stable. Plan: Off all IV fluids at this time. Maintain midodrine 10 mg 3 times daily. Low-salt and 1200 mL fluid restricted diet. Maintain Castellanos catheter. Daily weights. Maintain oral sodium bicarbonate supplementation. Repeat electrolytes in the morning. Continue with Lasix 40 mg IV 3 times daily for another 24 hours. Dobutamine has been discontinued as he went into V. tach last night.
[2017-05-26] MEDS: SYMBICORT 160-4.5 MCG INHALER INHALATION SCH ×2 (09:21→20:38)
[2017-05-26] MEDS: ALBUTEROL NEBULIZED 2.5 MG/3 ML INHALATION PRN (09:22)
[2017-05-26] MEDS: FUROSEMIDE 10 MG/ML 4 ML VIAL IV SCH ×3 (09:26→23:47)
[2017-05-26] MEDS: SODIUM BICARBONATE TAB 650 MG TAB PO SCH ×2 (09:26→19:52)
[2017-05-26] MEDS: ASPIRIN 81 MG CHEW PO SCH (09:26)
--- NOTE | 2017-05-26 14:49 | P.PN ---
Subjective This is a pleasant 66-year-old gentleman who follows with Dr. Lawson in the office. He has a known history of coronary artery disease, ischemic cardiomyopathy with a bi-V ICD, multiple PCI's in the past, atrial fibrillation , and known episodes of slow ventricular tachycardia. Patient presented to the emergency department with symptoms of worsening shortness of breath, edema in his lower extremities and abdominal distention. Patient was placed on Lasix 15 mg/h drip and Zaroxolyn 5 mg twice a day by nephrology. Patient has had a negative fluid balance over the last couple of days, his weight is only down 1 kg. He has a Castellanos catheter in place for accurate I's and O's and inablility to void. The patient was trialed on dobutamine yesterday and had another episode of ventricular tachycardia. This has been stopped. Dr. Villela was in to see the patient last night. He has stopped beta blockers at this time and recommended stopping midodrine. He is currently on Lasix 40 mg IV push every 8 hours and tolerating this well. Objective - Vital Signs Vital signs: Vital Signs Temp 98.1 F 05/26/17 04:00 Pulse 68 05/26/17 09:39 Resp 16 05/26/17 08:00 BP 94/61 05/26/17 08:00 Pulse Ox 97 05/26/17 08:00 Intake & Output 05/25/17 05/26/17 05/26/17 18:59 06:59 18:59 Intake Total 240 200 Output Total 440 1575 Balance -200 -1575 200 Weight 73.8 kg 73.8 kg Intake: Oral 240 200 Output: Urine 440 1575 Uretheral (Castellanos) 200 Other: Voiding Method Indwelling Catheter Indwelling Catheter Indwelling Catheter # Voids 1 - Exam PHYSICAL EXAMINATION: HEENT: Head is atraumatic, normocephalic. Pupils equal, round. Neck is supple. There is elevated jugular venous pressure. HEART EXAMINATION: Heart sounds regular, S1 and S2 normal with a systolic murmur. CHEST EXAMINATION: Lungs reveal diminished air entry bilaterally. No chest wall tenderness is noted on palpation or with deep breathing. ABDOMEN: Firm, Distended, diffuse tenderness to palpation. Bowel sounds are hypoactive. No organomegaly noted. EXTREMITIES: Diminished peripheral pulses with evidence of 2-3+ peripheral edema and no calf tenderness noted. Scrotal edema noted NEUROLOGIC patient is awake, drowsy and oriented x3. . - Labs CBC & Chem 7: 05/21/17 05:47 05/26/17 05:55 Labs: Abnormal Lab Results - Last 24 Hours (Table) 05/26/17 Range/Units 05:55 Sodium 130 L (137-145) mmol/L Chloride 94 L (98-107) mmol/L BUN 103 H* (9-20) mg/dL Creatinine 2.71 H (0.66-1.25) mg/dL Glucose 101 H (74-99) mg/dL Assessment and Plan Plan: Assessment and plan #1 acute on chronic systolic congestive heart failure, end-stage #2 ischemic cardiomyopathy, s/p BiV ICD #3 hypertension, hypotension with therapy #4 prior CABG and PCI #5 hyperlipidemia #6 chronic kidney disease #7 paroxysmal atrial fibrillation #8 ventricular tachycardia From cardiology's perspective, continue Lasix 40 mg IV push every 8 hours. We will reassess in the morning and likely switch him to by mouth Lasix. Continue to hold midodrine. Both myself and Dr. Villela have discussed in detail with the patient and his significant other regarding his poor prognosis. Further recommendations to follow. MERCHANDISE PLANNER note has been reviewed, I agree with a documented findings and plan of care. Patient was seen and examined.
[2017-05-26] MEDS: ALPRAZolam 0.5 MG TAB PO PRN (17:25)
[2017-05-26] MEDS: ATORVASTATIN 20 MG TAB PO SCH (19:52)
[2017-05-27] MEDS: ALPRAZolam 0.5 MG TAB PO PRN ×3 (00:06→20:30)
[2017-05-27] MEDS: HYDROcodone/APAP 10-325MG 1 EACH TAB PO PRN ×4 (00:06→20:30)
[2017-05-27] MEDS: SODIUM BICARBONATE TAB 650 MG TAB PO SCH ×2 (07:58→20:26)
[2017-05-27] MEDS: FUROSEMIDE 10 MG/ML 4 ML VIAL IV SCH (07:59)
[2017-05-27] MEDS: ASPIRIN 81 MG CHEW PO SCH (07:59)
[2017-05-27 08:00] LABS: Calcium 8.7 mg/dL (8.4-10.2); Potassium 3.7 mmol/L (3.5-5.1)
--- NOTE | 2017-05-27 08:29 | P.PN ---
Subjective Patient is seen in follow-up for acute kidney injury on chronic kidney disease. Patient has chronic kidney disease stage III secondary to cardiorenal syndrome with baseline creatinine in the range of 1.5-1.7. His creatinine today is 2.8. Patient presented with dyspnea and lower extremity edema. He was maintained on dobutamine drip as well as Lasix drip. On May 24, he became quite hypotensive and diuretics as well as dobutamine were discontinued. He received about 250 mL of fluids. He complains of abdominal discomfort and still has significant lower extremity edema. Denies vomiting or diarrhea. Denies chest pain. Patient has systolic CHF with ejection fraction of 30-35% with severe mitral regurgitation, moderate tricuspid regurgitation and pulmonary hypertension. Vital signs are stable. General: The patient appeared well nourished and normally developed. HEENT: Head exam is unremarkable. Neck is without jugular venous distension. LUNGS: Rales at bases Breath sounds decreased. HEART: Rate and Rhythm are regular. First and second heart sounds normal. No murmurs, rubs or gallops. ABDOMEN: Abdominal exam reveals normal bowel sounds. Non-tender and non- distended. No evidence of peritonitis. EXTREMITITES: 2+ edema. Objective - Vital Signs Vital signs: Vital Signs Temp 97.1 F L 05/27/17 03:58 Pulse 70 05/27/17 03:58 Resp 17 05/27/17 03:58 BP 104/62 05/27/17 03:58 Pulse Ox 97 05/27/17 03:58 Intake & Output 05/26/17 05/27/17 05/27/17 18:59 06:59 18:59 Intake Total 300 Output Total 700 650 Balance -400 -650 Weight 73.8 kg 73.6 kg Intake: Oral 300 Output: Urine 700 650 Other: Voiding Method Indwelling Catheter Indwelling Catheter # Voids 1 - Labs CBC & Chem 7: 05/21/17 05:47 05/27/17 06:32 Labs: Abnormal Lab Results - Last 24 Hours (Table) 05/27/17 Range/Units 06:32 Sodium 132 L (137-145) mmol/L Chloride 93 L (98-107) mmol/L BUN 111 H* (9-20) mg/dL Creatinine 2.80 H (0.66-1.25) mg/dL Glucose 115 H (74-99) mg/dL Assessment and Plan Plan: Assessment: #1. Nonoliguric acute kidney injury secondary to cardiorenal syndrome. Creatinine 2.8 today. Urinalysis noted to be benign. No evidence of hydronephrosis. #2. Chronic kidney disease stage III with baseline creatinine in the range of 1.5-1.7 secondary to cardiorenal syndrome. Renal ultrasound reveals 7.9 and 9.3 cm kidneys with cortical thinning suggestive of underlying chronic kidney disease. #3. Volume overload. #4. Urinary retention status post Castellanos catheter placement. #5. Systolic CHF with ejection fraction of 30-35% with severe mitral regurgitation and moderate tricuspid regurgitation and pulmonary hypertension. #6. Metabolic acidosis secondary to acute kidney injury. Improved. #7. Hypervolemic hyponatremia. Improved. Plan: Off all IV fluids at this time. Maintain midodrine 10 mg 3 times daily. Low-salt and 1200 mL fluid restricted diet. Maintain Castellanos catheter. Daily weights. Maintain oral sodium bicarbonate supplementation. Repeat electrolytes in the morning. Increase Lasix to 60 mg IV 3 times daily. Add metolazone 5 mg once daily. Dobutamine has been discontinued as he went into V. tach. Check abdominal x-ray.
[2017-05-27] MEDS: SYMBICORT 160-4.5 MCG INHALER INHALATION SCH ×2 (09:12→21:03)
[2017-05-27] MEDS: DOCUSATE 100 MG CAP PO SCH ×2 (12:17→20:26)
[2017-05-27] MEDS: METOLAZONE 5 MG TAB PO SCH (12:17)
--- NOTE | 2017-05-27 13:13 | XR ---
EXAMINATION TYPE: XR abdomen 2V DATE OF EXAM: 05/27/2017 COMPARISON: NONE HISTORY: Abdominal pain TECHNIQUE: One view abdominal series FINDINGS: Bowel gas pattern is nonspecific. Vascular calcifications noted. Spine. There are at least 8 calcific ations overlying the left kidney largest measuring 5 mm calcifications in the right upper quadrant ab domen is nonspecific IMPRESSION: 1. Nonspecific abdomen with no obstruction retained fecal debris within the left colon. 2. Numerous left-sided renal calculi 3. Nonspecific right upper quadrant calcification.
--- NOTE | 2017-05-27 14:42 | P.PN ---
Subjective This is a pleasant 66-year-old gentleman who follows with Dr. Lawson in the office. He has a known history of coronary artery disease, ischemic cardiomyopathy with a bi-V ICD, multiple PCI's in the past, atrial fibrillation , and known episodes of slow ventricular tachycardia. Patient presented to the emergency department with symptoms of worsening shortness of breath, edema in his lower extremities and abdominal distention. Patient was placed on Lasix 15 mg/h drip and Zaroxolyn 5 mg twice a day by nephrology. Patient has had a negative fluid balance over the last couple of days, his weight is only down 1 kg. He has a Castellanos catheter in place for accurate I's and O's and inablility to void. Nephrology was in his see the patient this morning and increase Lasix to 60 mg IV push every 8 hours and added metolazone 5 mg daily. Beta blockers remain on hold. On examination, patient is resting comfortably in bed. Continues to complain of dyspnea with abdominal distention and lower extremity edema. Objective - Vital Signs Vital signs: Vital Signs Temp 96.5 F L 05/27/17 12:00 Pulse 64 05/27/17 12:00 Resp 18 05/27/17 12:00 BP 90/53 05/27/17 12:00 Pulse Ox 99 05/27/17 12:00 Intake & Output 05/26/17 05/27/17 05/27/17 18:59 06:59 18:59 Intake Total 300 Output Total 700 650 900 Balance -400 -650 -900 Weight 73.8 kg 73.6 kg Intake: Oral 300 Output: Urine 700 650 900 Uretheral (Castellanos) 900 Other: Voiding Method Indwelling Catheter Indwelling Catheter Indwelling Catheter # Voids 1 0 - Exam PHYSICAL EXAMINATION: HEENT: Head is atraumatic, normocephalic. Pupils equal, round. Neck is supple. There is elevated jugular venous pressure. HEART EXAMINATION: Heart sounds regular, S1 and S2 normal with a systolic murmur. CHEST EXAMINATION: Lungs reveal diminished air entry bilaterally. No chest wall tenderness is noted on palpation or with deep breathing. ABDOMEN: Firm, Distended, diffuse tenderness to palpation. Bowel sounds are hypoactive. No organomegaly noted. EXTREMITIES: Diminished peripheral pulses with evidence of 2-3+ peripheral edema and no calf tenderness noted. Scrotal edema noted NEUROLOGIC patient is awake, drowsy and oriented x3. . - Labs CBC & Chem 7: 05/21/17 05:47 05/27/17 06:32 Labs: Abnormal Lab Results - Last 24 Hours (Table) 05/27/17 Range/Units 06:32 Sodium 132 L (137-145) mmol/L Chloride 93 L (98-107) mmol/L BUN 111 H* (9-20) mg/dL Creatinine 2.80 H (0.66-1.25) mg/dL Glucose 115 H (74-99) mg/dL Assessment and Plan Plan: Assessment and plan #1 acute on chronic systolic congestive heart failure, end-stage #2 ischemic cardiomyopathy, s/p BiV ICD #3 hypertension, hypotension with therapy #4 prior CABG and PCI #5 hyperlipidemia #6 chronic kidney disease #7 paroxysmal atrial fibrillation #8 ventricular tachycardia From cardiology's perspective, continue diuretics as directed by nephrology. Patient's prognosis remains poor. It has been discussed in detail with both the patient and his significant other that treatment options at this time are quite limited. We will continue to follow the patient provide further recommendations accordingly. The above dictated assessment and findings were discussed with signing physician. The impression and plan of care have been directed as dictated. Yuko Infante, Nurse Practitioner, acting as scribe for signing physician.
[2017-05-27] MEDS: FUROSEMIDE 10 MG/ML 10 ML VIAL IV SCH ×2 (15:54→23:01)
[2017-05-27] MEDS: ATORVASTATIN 20 MG TAB PO SCH (20:26)
--- NOTE | 2017-05-27 22:11 | P.PN ---
Subjective Principal diagnosis: Acute on chronic CHF with systolic dysfunction Mr. Birmingham is a66/M with a known history of coronary artery disease, ischemic cardiomyopathy with a bi-V ICD, multiple PCI's in the past, atrial fibrillation , and known episodes of slow ventricular tachycardia. Patient presented to the emergency department with symptoms of worsening shortness of breath, edema in his lower extremities and abdominal distention. Patient's blood pressure is low and is currently on dobutamine drip. Cardiology and nephrology is following this patient patient is currently being Krish with Lasix drip and Zaroxolyn 5 mg twice daily. On 05/23/2017: Extent patient does have a negative balance over the last 24 hours. Patient is being continued on Lasix drip and dobutamine drip. Leg swelling is improved. Patient is on pressure wraps as well. There are any worsening short of breath or chest pain. Patient continues to have significant extremity edema and Abdominal distention no fever no chills. No acute overnight issues. On 05/24/2017 Overnight the patient's systolic blood pressure dropped to below 80 mmHg. So patient was given IV fluid bolus last night. Patient's lower extremity edema has improved. On 05/25/2017 Patient had sustained V. tach on dobutamine drip so this has been discontinued.The patient remained the same with the his lower extremity edema. Constitutional: Patient denies any fever or chills . generalized weakness or weight loss. Abdomen: Patient denied nausea vomiting and diarrhea and abdominal pain. Cardiovascular: Patient denies any chest pain or short of breath no palpitations. Patient does have severe leg swelling Respiratory: patient denied any cough is from production. No worsening shortness of breath Neurologic: Patient denied any numbness or tingling headache. All other 14 point ROS negative except the above Objective - Vital Signs Vital signs: Vital Signs Vital Signs Temp 98.1 F 05/26/17 04:00 Pulse 64 05/26/17 04:00 Resp 18 05/26/17 04:00 BP 88/58 05/26/17 04:00 Pulse Ox 99 05/26/17 04:00 Intake & Output 05/25/17 05/26/17 05/26/17 18:59 06:59 18:59 Intake Total 240 100 Output Total 440 1575 Balance -200 -1575 100 Weight 73.8 kg Intake: Oral 240 100 Output: Urine 440 1575 Uretheral (Castellanos) 200 Other: Voiding Method Indwelling Catheter Indwelling Catheter Indwelling Catheter # Voids 1 - Exam PHYSICAL EXAMINATION: Patient is lying in the bed comfortably, no acute distress, awake alert and oriented.. HEENT: Normocephalic. Neck is supple. Pupils reactive. Nostrils clear. Oral cavity is moist. Ears reveal no drainage. Neck reveals no JVD, carotid bruits, or thyromegaly. CHEST EXAMINATION: Trachea is central. Symmetrical expansion. Patient does have basilar crackles. No wheezing. Nonlabored breathing CARDIAC: Normal S1, S2 with no gallops. No murmurs ABDOMEN: Soft. Distended with skin edema as well, Bowel sounds normal. No organomegaly. No abdominal bruits. Extremities: Patient does have 3+ edema. Pulses palpable. No clubbing, cyanosis. Neurologically awake, alert, oriented x3 with well-coordinated movements. No focal deficits noted Skin: No rash or skin lesions. Psychiatric: Operative. Nonsuicidal Musculoskeletal: No joint swelling or deformity. Normal range of motion. - Labs CBC & Chem 7: 05/21/17 05:47 05/27/17 06:32 Labs: Abnormal Lab Results - Last 24 Hours (Table) 05/27/17 Range/Units 06:32 Sodium 132 L (137-145) mmol/L Chloride 93 L (98-107) mmol/L BUN 111 H* (9-20) mg/dL Creatinine 2.80 H (0.66-1.25) mg/dL Glucose 115 H (74-99) mg/dL Assessment and Plan Plan: ASSESSMENT: -Acute on chronic congestive heart failure exacerbation from systolic and past dysfunction EF 30-35% from moderate concentric left hypertrophy and underlying coronary artery disease, slow to respond -Coronary artery disease with prior history of coronary bypass and stent -COPD in an ex-smoker -Ischemic cardiomyopathy status post biventricular ICD -Chronic kidney disease stage III from hypertensive nephrosclerosis -Nonoliguric acute kidney injury seconded to cardiorenal syndrome creatinine slightly elevated to 2.50 today -Hypervolemic hyponatremia -Peripheral artery disease or prior history of fem-fem bypass -Diabetes mellitus type II on insulin -Moderate secondary pulmonary hypertension secondary to congestive heart failure -Moderate tricuspid regurgitation nonrheumatic -Severe mitral regurgitation nonrheumatic -Acute urine retention. On Castellanos catheter now -Hematuria, secondary to traumatic catheter placement -DVT prophylaxis with heparin subcu PLAN: Lasix drip and dobutamine drip have been discontinued. Patient is being continued on midodrine. Continue close monitoring of urine output with Castellanos catheter in place, renal function. We'll follow closely. The prognosis of the patient is very poor . So Cardiology team had a discussion with the family members in regards to considering hospice care but family is not agreeable to it.So will c/w the same treatment plan .
[2017-05-28] MEDS: HYDROcodone/APAP 10-325MG 1 EACH TAB PO PRN ×3 (06:20→20:23)
[2017-05-28] MEDS: ALPRAZolam 0.5 MG TAB PO PRN ×3 (06:20→23:13)
[2017-05-28 07:13] LABS: Potassium 3.6 mmol/L (3.5-5.1)
[2017-05-28 07:38] LABS: Basophils % (A) 0 %; CH 32.1; Eosinophils # (A) 0.1 k/uL (0-0.7); Eosinophils % (A) 2 %; HCT 38.7 % (39.0-53.0); HDW 2.54; HGB 13.1 gm/dL (13.0-17.5); Luc # (Auto) 0.18; Luc % (Auto) 3; Lymphocytes # (A) 0.7 k/uL (1.0-4.8); Lymphocytes % (A) 13 %; MCH 33.1 pg (25.0-35.0); MCHC 33.9 g/dL (31.0-37.0); MCV 97.7 fL (80.0-100.0); Mean Platelet Volume 8.5; Monocytes # (A) 0.5 k/uL (0-1.0); Monocytes % (A) 9 %; Neutrophils % (A) 73 %; RBC 3.96 m/uL (4.30-5.90); RDW 14.4 % (11.5-15.5); WBC 5.5 k/uL (3.8-10.6); WBC (Perox) 5.02
[2017-05-28] MEDS: FUROSEMIDE 10 MG/ML 10 ML VIAL IV SCH ×3 (08:27→23:12)
[2017-05-28] MEDS: SODIUM BICARBONATE TAB 650 MG TAB PO SCH ×2 (08:28→20:22)
[2017-05-28] MEDS: METOLAZONE 5 MG TAB PO SCH (08:28)
[2017-05-28] MEDS: DOCUSATE 100 MG CAP PO SCH ×2 (08:28→20:22)
[2017-05-28] MEDS: ASPIRIN 81 MG CHEW PO SCH (08:28)
[2017-05-28] MEDS: SYMBICORT 160-4.5 MCG INHALER INHALATION SCH ×2 (09:14→19:15)
--- NOTE | 2017-05-28 09:31 | PN ---
Patient is seen for followup for CHF and acute kidney injury. He is currently sitting up in bed. He is comfortable. He is not in any acute distress. Blood pressure is 108/70, heart rate 76 per minute. He is afebrile. Patient has had good urine output. He is maintained on Lasix 60 mg q.8 hours. EXAMINATION OF THE HEART: S1, S2. EXAMINATION OF LUNGS: Decreased breath sounds at the bases. Abdomen is soft, distended, non-tender. Examination of lower extremities shows extremities to be wrapped. Labs show sodium 131, potassium of 3.6; BUN 110, serum creatinine 2.2. ASSESSMENT: 1. Acute kidney injury, cardiorenal, currently maintained on IV Lasix and improving. Patient is status post dobutamine. 2. Chronic kidney disease, stage III, with baseline creatinine about 1.5 to 1.7 mg/dL. 3. Volume overload, slowly improving. 4. Urine retention, status post Castellanos catheter placement. 5. Cardiomyopathy with ejection fraction 30% to 35% with severe mitral regurgitation, moderate tricuspid regurgitation, pulmonary hypertension. 6. Hypervolemic hyponatremia, fairly stable. Continue current dose of Lasix. PLAN: Continue current dose of Lasix. Repeat labs in a.m. Encourage increased oral intake. MTDD
--- NOTE | 2017-05-28 12:14 | P.PN ---
Subjective Principal diagnosis: CHF This is a pleasant 66-year-old gentleman who follows with Dr. Lawson in the office. He has a known history of coronary artery disease, ischemic cardiomyopathy with a bi-V ICD, multiple PCI's in the past, atrial fibrillation , and known episodes of slow ventricular tachycardia. Patient presented to the emergency department with symptoms of worsening shortness of breath, edema in his lower extremities and abdominal distention. Patient was placed on Lasix 15 mg/h drip and Zaroxolyn 5 mg twice a day by nephrology. currently on Lasix 60 mg IV every 8 hour period patient states he feels mildly better, still complaining of some shortness of breath. Edema in his bilateral extremities is improving, continues to have bilateral rales. Objective - Vital Signs Vital signs: Vital Signs Temp 96.8 F L 05/28/17 08:00 Pulse 56 L 05/28/17 08:00 Resp 20 05/28/17 08:00 BP 91/58 05/28/17 08:05 Pulse Ox 94 L 05/28/17 08:00 Intake & Output 05/27/17 05/28/17 05/28/17 18:59 06:59 18:59 Intake Total 118 750 Output Total 900 300 Balance -782 450 Weight 73.5 kg 73.5 kg Intake: Oral 118 Tube Feeding 750 Output: Urine 900 300 Uretheral (Castellanos) 900 Other: Voiding Method Indwelling Catheter Indwelling Catheter Indwelling Catheter # Voids 0 1 - Exam PHYSICAL EXAMINATION: HEENT: Head is atraumatic, normocephalic. Pupils equal, round. Neck is supple. There is elevated jugular venous pressure. HEART EXAMINATION: Heart sounds regular, S1 and S2 normal with a systolic murmur. CHEST EXAMINATION: Lungs reveal diminished air entry bilaterallywith rales bilaterally. No chest wall tenderness is noted on palpation or with deep breathing. ABDOMEN: Firm, Distended, diffuse tenderness to palpation. Bowel sounds are hypoactive. No organomegaly noted. EXTREMITIES: Diminished peripheral pulses with evidence of trace to 1+ peripheral edema and no calf tenderness noted.bilateral Randy wraps in place Scrotal edema noted NEUROLOGIC patient is awake, drowsy and oriented x3. - Labs CBC & Chem 7: 05/28/17 06:19 05/28/17 06:19 Labs: Abnormal Lab Results - Last 24 Hours (Table) 05/28/17 05/28/17 Range/Units 06:19 06:19 RBC 3.96 L (4.30-5.90) m/uL Hct 38.7 L (39.0-53.0) % Plt Count 128 L (150-450) k/uL Lymphocytes # 0.7 L (1.0-4.8) k/uL Sodium 131 L (137-145) mmol/L Chloride 92 L (98-107) mmol/L BUN 110 H* (9-20) mg/dL Creatinine 2.20 H (0.66-1.25) mg/dL Glucose 172 H (74-99) mg/dL Assessment and Plan Plan: Assessment and plan #1 acute on chronic systolic congestive heart failure, end-stage #2 ischemic cardiomyopathy, s/p BiV ICD #3 hypertension, hypotension with therapy #4 prior CABG and PCI #5 hyperlipidemia #6 chronic kidney disease #7 paroxysmal atrial fibrillation #8 ventricular tachycardia from cardiology's perspective, we'll continue diuretics as per nephrology. Continue to monitor intake and output along with daily weights. DNP note has been reviewed, I agree with a documented findings and plan of care. Patient was seen and examined.
--- NOTE | 2017-05-28 15:03 | P.PN ---
Subjective Mr. Birmingham is a66/M with a known history of coronary artery disease, ischemic cardiomyopathy with a bi-V ICD, multiple PCI's in the past, atrial fibrillation , and known episodes of slow ventricular tachycardia. Patient presented to the emergency department with symptoms of worsening shortness of breath, edema in his lower extremities and abdominal distention. Patient's blood pressure is low and is currently on dobutamine drip. Cardiology and nephrology is following this patient patient is currently being Krish with Lasix drip and Zaroxolyn 5 mg twice daily. On 05/23/2017: Extent patient does have a negative balance over the last 24 hours. Patient is being continued on Lasix drip and dobutamine drip. Leg swelling is improved. Patient is on pressure wraps as well. There are any worsening short of breath or chest pain. Patient continues to have significant extremity edema and Abdominal distention no fever no chills. No acute overnight issues. On 05/24/2017 Overnight the patient's systolic blood pressure dropped to below 80 mmHg. So patient was given IV fluid bolus last night. Patient's lower extremity edema has improved. On 05/25/2017 Patient had sustained V. tach on dobutamine drip so this has been discontinued.The patient remained the same with the his lower extremity edema. Constitutional: Patient denies any fever or chills . generalized weakness or weight loss. Abdomen: Patient denied nausea vomiting and diarrhea and abdominal pain. Cardiovascular: Patient denies any chest pain or short of breath no palpitations. Patient does have severe leg swelling Respiratory: patient denied any cough is from production. No worsening shortness of breath Neurologic: Patient denied any numbness or tingling headache. All other 14 point ROS negative except the above Interval history 05/28/2017 states that he is feeling slightly better however continues to have difficulty breathing requires about 3-4 pills No headaches blurry vision chest pain abdominal pain. Patient does state to have some burning in his bladder - Exam PHYSICAL EXAMINATION: Patient is lying in the bed comfortably, no acute distress, awake alert and oriented.. HEENT: Normocephalic. Neck is supple. Pupils reactive. Nostrils clear. Oral cavity is moist. Ears reveal no drainage. Neck reveals no JVD, carotid bruits, or thyromegaly. CHEST EXAMINATION: Trachea is central. Symmetrical expansion. Patient does have basilar crackles. No wheezing. Nonlabored breathing CARDIAC: Normal S1, S2 with no gallops. No murmurs ABDOMEN: Soft. Distended with skin edema as well, Bowel sounds normal. No organomegaly. No abdominal bruits. Extremities: Patient does have 2+ edema. Pulses palpable. No clubbing, cyanosis. Neurologically awake, alert, oriented x3 with well-coordinated movements. No focal deficits noted Skin: No rash or skin lesions. Psychiatric: Operative. Nonsuicidal Musculoskeletal: No joint swelling or deformity. Normal range of motion. . Objective - Vital Signs Vital signs: Vital Signs Temp 96.5 F L 05/28/17 12:00 Pulse 62 05/28/17 12:00 Resp 19 05/28/17 12:00 BP 104/65 05/28/17 12:00 Pulse Ox 96 05/28/17 12:00 Intake & Output 05/27/17 05/28/17 05/28/17 18:59 06:59 18:59 Intake Total 118 750 Output Total 900 300 Balance -782 450 Weight 73.5 kg 73.5 kg Intake: Oral 118 Tube Feeding 750 Output: Urine 900 300 Uretheral (Castellanos) 900 Other: Voiding Method Indwelling Catheter Indwelling Catheter Indwelling Catheter # Voids 0 1 - Labs CBC & Chem 7: 05/28/17 06:19 05/28/17 06:19 Labs: Abnormal Lab Results - Last 24 Hours (Table) 05/28/17 05/28/17 Range/Units 06:19 06:19 RBC 3.96 L (4.30-5.90) m/uL Hct 38.7 L (39.0-53.0) % Plt Count 128 L (150-450) k/uL Lymphocytes # 0.7 L (1.0-4.8) k/uL Sodium 131 L (137-145) mmol/L Chloride 92 L (98-107) mmol/L BUN 110 H* (9-20) mg/dL Creatinine 2.20 H (0.66-1.25) mg/dL Glucose 172 H (74-99) mg/dL Assessment and Plan Plan: - Assessment and Plan Plan: ASSESSMENT: -Acute on chronic congestive heart failure exacerbation from systolic and past dysfunction EF 30-35% from moderate concentric left hypertrophy and underlying coronary artery disease, slow to respond -Coronary artery disease with prior history of coronary bypass and stent -COPD in an ex-smoker -Ischemic cardiomyopathy status post biventricular ICD -Chronic kidney disease stage III from hypertensive nephrosclerosis -Nonoliguric acute kidney injury seconded to cardiorenal syndrome improving Hypervolemic hyponatremia improving -Peripheral artery disease or prior history of fem-fem bypass -Diabetes mellitus type II on insulin -Moderate secondary pulmonary hypertension secondary to congestive heart failure -Moderate tricuspid regurgitation nonrheumatic -Severe mitral regurgitation nonrheumatic -Acute urine retention. On Castellanos catheter now -Hematuria, secondary to traumatic catheter placement -DVT prophylaxis with heparin subcu PLAN: Continue diuretics. Patient's blood pressures are stable. We'll add Pyridium the current regimen Strict I's and O's DVT prophylaxis Nephrology recommendations are appreciated
[2017-05-28] MEDS ORDERED: PHENAZOPYRIDINE 200 MG TAB PO STA (15:04)
[2017-05-28] MEDS: ATORVASTATIN 20 MG TAB PO SCH (20:22)
[2017-05-29] MEDS: HYDROcodone/APAP 10-325MG 1 EACH TAB PO PRN ×3 (04:46→22:59)
[2017-05-29 06:38] LABS: Basophils % (A) 1 %; CH 32.8; CHCM 32.9; Eosinophils # (A) 0.1 k/uL (0-0.7); Eosinophils % (A) 2 %; HCT 38.4 % (39.0-53.0); HDW 2.57; Luc % (Auto) 3; Lymphocytes # (A) 0.6 k/uL (1.0-4.8); Lymphocytes % (A) 9 %; MCH 34.1 pg (25.0-35.0); MCHC 33.9 g/dL (31.0-37.0); MCV 100.3 fL (80.0-100.0); Macrocytosis Slight; Mean Platelet Volume 8.5; Monocytes # (A) 0.6 k/uL (0-1.0); Monocytes % (A) 9 %; Neutrophils # (A) 4.9 k/uL (1.3-7.7); Neutrophils % (A) 76 %; RBC 3.83 m/uL (4.30-5.90); RDW 15.2 % (11.5-15.5); WBC 6.5 k/uL (3.8-10.6)
[2017-05-29 06:56] LABS: Calcium 8.6 mg/dL (8.4-10.2); Total Bilirubin 0.9 mg/dL (0.2-1.3); Total Protein 7.6 g/dL (6.3-8.2)
[2017-05-29 07:05] LABS: Potassium 2.8 mmol/L (3.5-5.1)
[2017-05-29] MEDS ORDERED: Potassium Replacement Protocol 1 EACH MISC MISCELLANE PRN (07:51)
--- NOTE | 2017-05-29 08:10 | XR ---
EXAMINATION TYPE: XR chest 2V DATE OF EXAM: 05/29/2017 COMPARISON: 05/25/2017 HISTORY: Shortness of breath TECHNIQUE: Frontal and lateral views of the chest are obtained. FINDINGS: Scattered senescent parenchymal changes noted. Hyperinflation compatible with COPD. Left lower lobe infiltrate with small effusion persists. Continued pulmonary venous congestion with i nterstitial edema. Heart size is stable. Mediastinal structures are stable and grossly unremarkable. No evidence for hilar prominence. Degenerative changes dorsal spine. IMPRESSION: 1. Left lower lobe infiltrate with small effusion persists. Continued pulmonary venous congestion wit h interstitial edema.
[2017-05-29] MEDS: SYMBICORT 160-4.5 MCG INHALER INHALATION SCH ×2 (08:45→19:35)
[2017-05-29] MEDS: POTASSIUM CHLORIDE ER 20 MEQ TAB.ER PO SCH ×2 (09:15→10:33)
[2017-05-29] MEDS: DOCUSATE 100 MG CAP PO SCH ×2 (09:16→22:29)
[2017-05-29] MEDS: FUROSEMIDE 10 MG/ML 10 ML VIAL IV SCH ×2 (09:16→16:31)
[2017-05-29] MEDS: ASPIRIN 81 MG CHEW PO SCH (09:17)
[2017-05-29] MEDS: SODIUM BICARBONATE TAB 650 MG TAB PO SCH ×2 (09:17→22:29)
[2017-05-29] MEDS: METOLAZONE 5 MG TAB PO SCH (09:17)
[2017-05-29] MEDS: POTASSIUM CHLORIDE 20 MEQ, LIDOCAINE 2% INJ 20 MG in SODIUM CHLORIDE 0.9% 100 ML IVPB SCH ×2 (10:32→13:01)
[2017-05-29] MEDS: ALPRAZolam 0.5 MG TAB PO PRN ×2 (10:43→22:58)
[2017-05-29] MEDS ORDERED: PHENAZOPYRIDINE 200 MG TAB PO STA (11:04)
--- NOTE | 2017-05-29 12:30 | PN ---
The patient is seen for follow up of acute kidney injury, mainly cardiorenal syndrome. He is currently maintained on Lasix and continues to have good urine output. Renal function is stable with creatinine actually decreasing. Today it is down to 2.0 from 2.2 mg/DL. On examination, the patient is comfortable, awake, not in any acute distress. Blood pressure 101/67. Heart rate 65 per minute. He is afebrile. Examination of the heart S1, S2. Examination of the lungs bilateral breath sounds are heard. Abdomen is soft, nontender. Examination of the lower extremities shows bilateral extremities to be wrapped. PIANO STRINGER exam is grossly intact. Labs show sodium 135, potassium 2.8, BUN 108, serum creatinine 2.0. Hemoglobin 13.0 gm/DL. ASSESSMENT: 1. Acute kidney injury, cardiorenal syndrome, currently improving. Continue with IV Lasix at the current dose. 2. Hypokalemia secondary to diuretics. We will replace. 3. Check magnesium level as well. 4. Severe cardiomyopathy with EF 30 to 35% with mitral regurgitation, moderate tricuspid regurg and pulmonary hypertension. 5. Hypovolemic hyponatremia. 6. Urine retention currently with indwelling Castellanos. PLAN: Check magnesium levels, replace potassium. Repeat labs in the a.m. Continue current dose of Lasix. MTDD
--- NOTE | 2017-05-29 14:57 | P.PN ---
Subjective Mr. Birmingham is a66/M with a known history of coronary artery disease, ischemic cardiomyopathy with a bi-V ICD, multiple PCI's in the past, atrial fibrillation , and known episodes of slow ventricular tachycardia. Patient presented to the emergency department with symptoms of worsening shortness of breath, edema in his lower extremities and abdominal distention. Patient's blood pressure is low and is currently on dobutamine drip. Cardiology and nephrology is following this patient patient is currently being Krish with Lasix drip and Zaroxolyn 5 mg twice daily. On 05/23/2017: Extent patient does have a negative balance over the last 24 hours. Patient is being continued on Lasix drip and dobutamine drip. Leg swelling is improved. Patient is on pressure wraps as well. There are any worsening short of breath or chest pain. Patient continues to have significant extremity edema and Abdominal distention no fever no chills. No acute overnight issues. On 05/24/2017 Overnight the patient's systolic blood pressure dropped to below 80 mmHg. So patient was given IV fluid bolus last night. Patient's lower extremity edema has improved. On 05/25/2017 Patient had sustained V. tach on dobutamine drip so this has been discontinued.The patient remained the same with the his lower extremity edema. Constitutional: Patient denies any fever or chills . generalized weakness or weight loss. Abdomen: Patient denied nausea vomiting and diarrhea and abdominal pain. Cardiovascular: Patient denies any chest pain or short of breath no palpitations. Patient does have severe leg swelling Respiratory: patient denied any cough is from production. No worsening shortness of breath Neurologic: Patient denied any numbness or tingling headache. All other 14 point ROS negative except the above Interval history 05/28/2017 states that he is feeling slightly better however continues to have difficulty breathing requires about 3-4 pills No headaches blurry vision chest pain abdominal pain. Patient does state to have some burning in his bladder 05/29/2017 Patient states that his bladder spasm improved Denies having any difficulty breathing nausea vomiting or diarrhea - Exam PHYSICAL EXAMINATION: Patient is lying in the bed comfortably, no acute distress, awake alert and oriented.. HEENT: Normocephalic. Neck is supple. Pupils reactive. Nostrils clear. Oral cavity is moist. Ears reveal no drainage. Neck reveals no JVD, carotid bruits, or thyromegaly. CHEST EXAMINATION: Trachea is central. Symmetrical expansion. Patient does have basilar crackles. No wheezing. Nonlabored breathing CARDIAC: Normal S1, S2 with no gallops. No murmurs ABDOMEN: Soft. Distended with skin edema as well, Bowel sounds normal. No organomegaly. No abdominal bruits. Extremities: Patient does have 2+ edema. Pulses palpable. No clubbing, cyanosis. Neurologically awake, alert, oriented x3 with well-coordinated movements. No focal deficits noted Skin: No rash or skin lesions. Psychiatric: Operative. Nonsuicidal Musculoskeletal: No joint swelling or deformity. Normal range of motion. . Objective - Vital Signs Vital signs: Vital Signs Temp 97.1 F L 05/29/17 12:00 Pulse 69 05/29/17 12:00 Resp 20 05/29/17 12:00 BP 100/67 05/29/17 12:00 Pulse Ox 96 05/29/17 12:00 Intake & Output 05/28/17 05/29/17 05/29/17 18:59 06:59 18:59 Intake Total 180 Output Total 800 Balance -800 180 Weight 73.5 kg 72.2 kg 72.2 kg Intake: Oral 180 Output: Urine 800 Other: Voiding Method Indwelling Catheter Indwelling Catheter Indwelling Catheter - Labs CBC & Chem 7: 05/29/17 05:56 05/29/17 05:56 Labs: Abnormal Lab Results - Last 24 Hours (Table) 05/29/17 05/29/17 05/29/17 Range/Units 05:56 05:56 05:56 RBC 3.83 L (4.30-5.90) m/uL Hct 38.4 L (39.0-53.0) % MCV 100.3 H (80.0-100.0) fL Plt Count 138 L (150-450) k/uL Lymphocytes # 0.6 L (1.0-4.8) k/uL Sodium 135 L (137-145) mmol/L Potassium 2.8 L* (3.5-5.1) mmol/L Chloride 92 L (98-107) mmol/L BUN 108 H* (9-20) mg/dL Creatinine 2.00 H (0.66-1.25) mg/dL Glucose 128 H (74-99) mg/dL Magnesium 2.6 H (1.6-2.3) mg/dL Assessment and Plan Plan: - Assessment and Plan Plan: ASSESSMENT: -Acute on chronic congestive heart failure exacerbation from systolic and past dysfunction EF 30-35% from moderate concentric left hypertrophy and underlying coronary artery disease, slow to respond -Coronary artery disease with prior history of coronary bypass and stent -COPD in an ex-smoker -Ischemic cardiomyopathy status post biventricular ICD -Chronic kidney disease stage III from hypertensive nephrosclerosis -Nonoliguric acute kidney injury seconded to cardiorenal syndrome improving Hypervolemic hyponatremia improving -Peripheral artery disease or prior history of fem-fem bypass -Diabetes mellitus type II on insulin -Moderate secondary pulmonary hypertension secondary to congestive heart failure -Moderate tricuspid regurgitation nonrheumatic -Severe mitral regurgitation nonrheumatic -Acute urine retention. On Castellanos catheter now -Hematuria, secondary to traumatic catheter placement -DVT prophylaxis with heparin subcu PLAN: Continue diuretics. Patient's blood pressures are stable. regimen Strict I's and O's DVT prophylaxis Nephrology recommendations are appreciated
[2017-05-29] MEDS: ALBUTEROL NEBULIZED 2.5 MG/3 ML INHALATION PRN (19:35)
[2017-05-29 20:38] LABS: Calcium 8.9 mg/dL (8.4-10.2); Potassium 3.6 mmol/L (3.5-5.1)
[2017-05-29] MEDS: ATORVASTATIN 20 MG TAB PO SCH (22:30)
[2017-05-30] MEDS: FUROSEMIDE 10 MG/ML 10 ML VIAL IV SCH ×3 (02:00→17:15)
[2017-05-30] MEDS ORDERED: POTASSIUM CHLORIDE ER 20 MEQ TAB.ER PO STA (02:28)
[2017-05-30 06:16] LABS: Glucose,Whole Blood 136 mg/dL (75-99)
[2017-05-30 06:22] LABS: Potassium 3.7 mmol/L (3.5-5.1); Total Bilirubin 1.5 mg/dL (0.2-1.3); Total Protein 7.7 g/dL (6.3-8.2)
[2017-05-30] MEDS: HYDROcodone/APAP 10-325MG 1 EACH TAB PO PRN ×4 (06:25→22:52)
[2017-05-30 06:35] LABS: Basophils % (A) 0 %; CH 32.3; CHCM 32.6; Eosinophils # (A) 0.1 k/uL (0-0.7); Eosinophils % (A) 2 %; HCT 38.3 % (39.0-53.0); HDW 2.61; Luc # (Auto) 0.21; Luc % (Auto) 3; Lymphocytes # (A) 0.5 k/uL (1.0-4.8); Lymphocytes % (A) 7 %; MCH 33.6 pg (25.0-35.0); MCHC 33.8 g/dL (31.0-37.0); MCV 99.5 fL (80.0-100.0); Macrocytosis Slight; Mean Platelet Volume 8.3; Monocytes # (A) 0.6 k/uL (0-1.0); Monocytes % (A) 8 %; Neutrophils # (A) 5.5 k/uL (1.3-7.7); Neutrophils % (A) 79 %; RBC 3.85 m/uL (4.30-5.90); RDW 14.5 % (11.5-15.5); WBC 6.9 k/uL (3.8-10.6); WBC (Perox) 6.59
[2017-05-30] MEDS: SYMBICORT 160-4.5 MCG INHALER INHALATION SCH ×2 (08:31→19:35)
[2017-05-30] MEDS: CARVEDILOL 3.125 MG TAB PO SCH ×2 (08:51→17:15)
[2017-05-30] MEDS: DOCUSATE 100 MG CAP PO SCH ×2 (08:52→20:00)
[2017-05-30] MEDS: METOLAZONE 5 MG TAB PO SCH ×2 (08:52→20:00)
[2017-05-30] MEDS: SODIUM BICARBONATE TAB 650 MG TAB PO SCH (08:52)
[2017-05-30] MEDS: ASPIRIN 81 MG CHEW PO SCH (08:52)
[2017-05-30] MEDS: ALPRAZolam 0.5 MG TAB PO PRN ×2 (09:00→20:01)
--- NOTE | 2017-05-30 09:03 | P.PN ---
Subjective Patient is seen in follow-up for acute kidney injury on chronic kidney disease. Patient has chronic kidney disease stage III secondary to cardiorenal syndrome with baseline creatinine in the range of 1.5-1.7. His creatinine today is 2.0. Patient presented with dyspnea and lower extremity edema. He was maintained on dobutamine drip as well as Lasix drip. On May 24, he became quite hypotensive and diuretics as well as dobutamine were discontinued. He received about 250 mL of fluids. Patient has systolic CHF with ejection fraction of 30-35% with severe mitral regurgitation, moderate tricuspid regurgitation and pulmonary hypertension. Currently he is resting in bed. Denies chest pain or shortness of breath. Oral intake is good. Edema is improving. Vital signs are stable. General: The patient appeared well nourished and normally developed. HEENT: Head exam is unremarkable. Neck is without jugular venous distension. LUNGS: Rales at bases Breath sounds decreased. HEART: Rate and Rhythm are regular. First and second heart sounds normal. No murmurs, rubs or gallops. ABDOMEN: Abdominal exam reveals normal bowel sounds. Non-tender and non- distended. No evidence of peritonitis. EXTREMITITES: 2+ edema. Objective - Vital Signs Vital signs: Vital Signs Temp 97 F L 05/30/17 04:00 Pulse 75 05/30/17 04:00 Resp 18 05/30/17 04:00 BP 107/70 05/30/17 04:00 Pulse Ox 92 L 05/30/17 04:00 Intake & Output 05/29/17 05/30/17 05/30/17 18:59 06:59 18:59 Intake Total 180 340 240 Output Total 800 1200 800 Balance -620 860 -560 Weight 72.2 kg Intake: Oral 180 340 240 Output: Urine 800 1200 800 Other: Voiding Method Indwelling Catheter Indwelling Catheter - Labs CBC & Chem 7: 05/30/17 05:49 05/30/17 05:45 Labs: Abnormal Lab Results - Last 24 Hours (Table) 05/29/17 05/29/17 05/29/17 Range/Units 05:56 20:13 20:13 RBC (4.30-5.90) m/uL Hct (39.0-53.0) % Plt Count (150-450) k/uL Lymphocytes # (1.0-4.8) k/uL Sodium 135 L (137-145) mmol/L Chloride 92 L (98-107) mmol/L BUN 103 H* (9-20) mg/dL Creatinine 2.00 H (0.66-1.25) mg/dL Glucose 127 H (74-99) mg/dL POC Glucose (mg/dL) (75-99) mg/dL Magnesium 2.6 H 2.6 H (1.6-2.3) mg/dL Total Bilirubin (0.2-1.3) mg/dL 05/30/17 05/30/17 05/30/17 Range/Units 05:45 05:49 06:13 RBC 3.85 L (4.30-5.90) m/uL Hct 38.3 L (39.0-53.0) % Plt Count 123 L (150-450) k/uL Lymphocytes # 0.5 L (1.0-4.8) k/uL Sodium 135 L (137-145) mmol/L Chloride 92 L (98-107) mmol/L BUN 106 H* (9-20) mg/dL Creatinine 2.00 H (0.66-1.25) mg/dL Glucose 111 H (74-99) mg/dL POC Glucose (mg/dL) 136 H (75-99) mg/dL Magnesium (1.6-2.3) mg/dL Total Bilirubin 1.5 H (0.2-1.3) mg/dL Assessment and Plan Plan: Assessment: #1. Nonoliguric acute kidney injury secondary to cardiorenal syndrome. Creatinine 2.0 today. Urinalysis noted to be benign. No evidence of hydronephrosis. #2. Chronic kidney disease stage III with baseline creatinine in the range of 1.5-1.7 secondary to cardiorenal syndrome. Renal ultrasound reveals 7.9 and 9.3 cm kidneys with cortical thinning suggestive of underlying chronic kidney disease. #3. Volume overload. #4. Urinary retention status post Castellanos catheter placement. #5. Systolic CHF with ejection fraction of 30-35% with severe mitral regurgitation and moderate tricuspid regurgitation and pulmonary hypertension. #6. Metabolic acidosis secondary to acute kidney injury. Resolved. #7. Hypervolemic hyponatremia. Stable. Plan: Low-salt and 1200 mL fluid restricted diet. Maintain Castellanos catheter. Daily weights. Discontinue oral sodium bicarbonate supplementation. Repeat electrolytes in the morning. Maintain Lasix to 60 mg IV 3 times daily. Increase metolazone to 5 mg twice daily. Dobutamine has been discontinued as he went into V. tach.
--- NOTE | 2017-05-30 12:05 | PN ---
This 66-year-old gentleman with history of significant cardiomyopathy, mitral regurgitation, pulmonary hypertension, was admitted to the hospital with increasing shortness of breath and sweating with evidence of CHF. Patient also has cardiorenal syndrome. Patient is currently on IV Lasix. He still has some good urinary output Patient is frail and weak. Blood pressure is running about 100/67, pulse rate is 77. Afebrile. Lab value showed potassium of 3.6, creatinine is 2, BUN is about 103. He is currently on albuterol sulfate ventilation nebulizer, alprazolam, aspirin , atorvastatin, Symbicort, furosemide 60 mg IV q.8h, Zaroxolyn 5 mg daily, sodium bicarb. Physical examination reveals a 66-year-old gentleman who is alert and does not appear to be in any acute distress but appears to be frail and weak. Neck is supple. Heart: S1, S2 heard. Lungs show some diminished breath sounds. FINAL IMPRESSION: 1. Congestive heart failure. 2. Renal failure. 3. Electrolyte imbalance. 4. Severe cardiomyopathy. PLAN: Will continue diuretics as recommended by Nephrology. Will follow his electrolytes closely. Further recommendations will depend upon the clinical course. MOIZ
[2017-05-30] MEDS ORDERED: DEXTROSE 5% IN WATER 100 ML with AMIODARONE 150 MG IV ONE (12:53)
[2017-05-30] MEDS: AMIODARONE 450 MG in DEXTROSE 5% IN WATER 250 ML IV SCH ×2 (13:29)
--- NOTE | 2017-05-30 14:41 | P.PN ---
Subjective Principal diagnosis: CHF This is a pleasant 66-year-old gentleman who follows with Dr. Villela in the office. He has a known history of coronary artery disease, ischemic cardiomyopathy with a bi-V ICD, multiple PCI's in the past, atrial fibrillation , and known episodes of slow ventricular tachycardia. Patient presented to the emergency department with symptoms of worsening shortness of breath, edema in his lower extremities and abdominal distention. Patient continues to be on IV push Lasix 60 mg every 8 hour along with Zaroxolyn. Continues to diurese. Patient was noted to have several runs of nonsustained ventricular tachycardia, he was initiated this morning on IV amiodarone, and reinitiated on his Coreg as well. We will also have his device interrogated today. Blood pressure 96/60 with a heart rate in the 70s. Objective - Vital Signs Vital signs: Vital Signs Temp 98.4 F 05/30/17 11:23 Pulse 70 05/30/17 11:23 Resp 18 05/30/17 11:23 BP 96/52 05/30/17 11:23 Pulse Ox 96 05/30/17 11:23 Intake & Output 05/29/17 05/30/17 05/30/17 18:59 06:59 18:59 Intake Total 180 340 462 Output Total 800 1200 800 Balance -620 -860 -338 Weight 72.2 kg Intake: Oral 180 340 462 Output: Urine 800 1200 800 Other: Voiding Method Indwelling Catheter Indwelling Catheter Indwelling Catheter - Exam PHYSICAL EXAMINATION: HEENT: Head is atraumatic, normocephalic. Pupils equal, round. Neck is supple. There is elevated jugular venous pressure. HEART EXAMINATION: Heart sounds regular, S1 and S2 normal with a systolic murmur. CHEST EXAMINATION: Lungs reveal diminished air entry bilaterallywith rales bilaterally. No chest wall tenderness is noted on palpation or with deep breathing. ABDOMEN: Firm, Distended, diffuse tenderness to palpation. Bowel sounds are hypoactive. No organomegaly noted. EXTREMITIES: Diminished peripheral pulses with evidence of trace to 1+ peripheral edema and no calf tenderness noted.bilateral Randy wraps in place Scrotal edema noted NEUROLOGIC patient is awake, drowsy and oriented x3. - Labs CBC & Chem 7: 05/30/17 05:49 05/30/17 05:45 Labs: Abnormal Lab Results - Last 24 Hours (Table) 05/29/17 05/29/17 05/30/17 Range/Units 20:13 20:13 05:45 RBC (4.30-5.90) m/uL Hct (39.0-53.0) % Plt Count (150-450) k/uL Lymphocytes # (1.0-4.8) k/uL Sodium 135 L 135 L (137-145) mmol/L Chloride 92 L 92 L (98-107) mmol/L BUN 103 H* 106 H* (9-20) mg/dL Creatinine 2.00 H 2.00 H (0.66-1.25) mg/dL Glucose 127 H 111 H (74-99) mg/dL POC Glucose (mg/dL) (75-99) mg/dL Magnesium 2.6 H (1.6-2.3) mg/dL Total Bilirubin 1.5 H (0.2-1.3) mg/dL 05/30/17 05/30/17 Range/Units 05:49 06:13 RBC 3.85 L (4.30-5.90) m/uL Hct 38.3 L (39.0-53.0) % Plt Count 123 L (150-450) k/uL Lymphocytes # 0.5 L (1.0-4.8) k/uL Sodium (137-145) mmol/L Chloride (98-107) mmol/L BUN (9-20) mg/dL Creatinine (0.66-1.25) mg/dL Glucose (74-99) mg/dL POC Glucose (mg/dL) 136 H (75-99) mg/dL Magnesium (1.6-2.3) mg/dL Total Bilirubin (0.2-1.3) mg/dL Assessment and Plan Plan: Assessment and plan #1 acute on chronic systolic congestive heart failure, end-stage #2 ischemic cardiomyopathy, s/p BiV ICD #3 hypertension, hypotension with therapy #4 prior CABG and PCI #5 hyperlipidemia #6 chronic kidney disease #7 paroxysmal atrial fibrillation #8 ventricular tachycardia From cardiology's perspective, we'll continue diuretics as per nephrology. Patient will also be initiated on IV amiodarone, by mouth Coreg is also been reinitiated this morning. 10 you to monitor for any further arrhythmias, device interrogation today. Continue to monitor intake and output along with daily weights. DNP note has been reviewed, I agree with a documented findings and plan of care. Patient was seen and examined.
--- NOTE | 2017-05-30 17:20 | P.PN ---
Subjective Mr. Birmingham is a66/M with a known history of coronary artery disease, ischemic cardiomyopathy with a bi-V ICD, multiple PCI's in the past, atrial fibrillation , and known episodes of slow ventricular tachycardia. Patient presented to the emergency department with symptoms of worsening shortness of breath, edema in his lower extremities and abdominal distention. Patient's blood pressure is low and is currently on dobutamine drip. Cardiology and nephrology is following this patient patient is currently being Krish with Lasix drip and Zaroxolyn 5 mg twice daily. On 05/23/2017: Extent patient does have a negative balance over the last 24 hours. Patient is being continued on Lasix drip and dobutamine drip. Leg swelling is improved. Patient is on pressure wraps as well. There are any worsening short of breath or chest pain. Patient continues to have significant extremity edema and Abdominal distention no fever no chills. No acute overnight issues. On 05/24/2017 Overnight the patient's systolic blood pressure dropped to below 80 mmHg. So patient was given IV fluid bolus last night. Patient's lower extremity edema has improved. On 05/25/2017 Patient had sustained V. tach on dobutamine drip so this has been discontinued.The patient remained the same with the his lower extremity edema. Constitutional: Patient denies any fever or chills . generalized weakness or weight loss. Abdomen: Patient denied nausea vomiting and diarrhea and abdominal pain. Cardiovascular: Patient denies any chest pain or short of breath no palpitations. Patient does have severe leg swelling Respiratory: patient denied any cough is from production. No worsening shortness of breath Neurologic: Patient denied any numbness or tingling headache. All other 14 point ROS negative except the above Interval history 05/28/2017 states that he is feeling slightly better however continues to have difficulty breathing requires about 3-4 pills No headaches blurry vision chest pain abdominal pain. Patient does state to have some burning in his bladder 05/29/2017 Patient states that his bladder spasm improved Denies having any difficulty breathing nausea vomiting or diarrhea 05/30/17 doing well states that his abdomen is bloated no bladder spasms reported breathing is improved - Exam PHYSICAL EXAMINATION: Patient is lying in the bed comfortably, no acute distress, awake alert and oriented.. HEENT: Normocephalic. Neck is supple. Pupils reactive. Nostrils clear. Oral cavity is moist. Ears reveal no drainage. Neck reveals no JVD, carotid bruits, or thyromegaly. CHEST EXAMINATION: Trachea is central. Symmetrical expansion. Patient does have basilar crackles. No wheezing. Nonlabored breathing CARDIAC: Normal S1, S2 with no gallops. No murmurs ABDOMEN: Soft. Distended with skin edema as well, Bowel sounds normal. No organomegaly. No abdominal bruits. Extremities: Patient does have 2+ edema. improved Pulses palpable. No clubbing, cyanosis. Neurologically awake, alert, oriented x3 with well-coordinated movements. No focal deficits noted Skin: No rash or skin lesions. Psychiatric: Operative. Nonsuicidal Musculoskeletal: No joint swelling or deformity. Normal range of motion. . Objective - Vital Signs Vital signs: Vital Signs Temp 98.4 F 05/30/17 11:23 Pulse 70 05/30/17 11:23 Resp 18 05/30/17 11:23 BP 96/52 05/30/17 11:23 Pulse Ox 96 05/30/17 11:23 Intake & Output 05/29/17 05/30/17 05/30/17 18:59 06:59 18:59 Intake Total 180 340 462 Output Total 800 1200 800 Balance -620 -860 -338 Weight 72.2 kg Intake: Oral 180 340 462 Output: Urine 800 1200 800 Other: Voiding Method Indwelling Catheter Indwelling Catheter Indwelling Catheter - Labs CBC & Chem 7: 05/30/17 05:49 05/30/17 05:45 Labs: Abnormal Lab Results - Last 24 Hours (Table) 05/29/17 05/29/17 05/30/17 Range/Units 20:13 20:13 05:45 RBC (4.30-5.90) m/uL Hct (39.0-53.0) % Plt Count (150-450) k/uL Lymphocytes # (1.0-4.8) k/uL Sodium 135 L 135 L (137-145) mmol/L Chloride 92 L 92 L (98-107) mmol/L BUN 103 H* 106 H* (9-20) mg/dL Creatinine 2.00 H 2.00 H (0.66-1.25) mg/dL Glucose 127 H 111 H (74-99) mg/dL POC Glucose (mg/dL) (75-99) mg/dL Magnesium 2.6 H (1.6-2.3) mg/dL Total Bilirubin 1.5 H (0.2-1.3) mg/dL 05/30/17 05/30/17 Range/Units 05:49 06:13 RBC 3.85 L (4.30-5.90) m/uL Hct 38.3 L (39.0-53.0) % Plt Count 123 L (150-450) k/uL Lymphocytes # 0.5 L (1.0-4.8) k/uL Sodium (137-145) mmol/L Chloride (98-107) mmol/L BUN (9-20) mg/dL Creatinine (0.66-1.25) mg/dL Glucose (74-99) mg/dL POC Glucose (mg/dL) 136 H (75-99) mg/dL Magnesium (1.6-2.3) mg/dL Total Bilirubin (0.2-1.3) mg/dL Assessment and Plan Plan: - Assessment and Plan Plan: ASSESSMENT: -Acute on chronic congestive heart failure exacerbation from systolic and past dysfunction EF 30-35% from moderate concentric left hypertrophy and underlying coronary artery disease, slow to respond -Coronary artery disease with prior history of coronary bypass and stent -COPD in an ex-smoker -Ischemic cardiomyopathy status post biventricular ICD -Chronic kidney disease stage III from hypertensive nephrosclerosis -Nonoliguric acute kidney injury seconded to cardiorenal syndrome improving Hypervolemic hyponatremia improving -Peripheral artery disease or prior history of fem-fem bypass -Diabetes mellitus type II on insulin -Moderate secondary pulmonary hypertension secondary to congestive heart failure -Moderate tricuspid regurgitation nonrheumatic -Severe mitral regurgitation nonrheumatic -Acute urine retention. On Castellanos catheter now -Hematuria, secondary to traumatic catheter placement -DVT prophylaxis with heparin subcu PLAN: Continue diuretics. Patient's blood pressures are stable. bowel regimen. Strict I's and O's DVT prophylaxis Nephrology recommendations are appreciated
[2017-05-30] MEDS: ATORVASTATIN 20 MG TAB PO SCH (20:00)
[2017-05-31] MEDS: FUROSEMIDE 10 MG/ML 10 ML VIAL IV SCH ×2 (00:33→08:26)
[2017-05-31] MEDS: AMIODARONE 450 MG in DEXTROSE 5% IN WATER 250 ML IV SCH ×4 (00:42→07:04)
[2017-05-31 07:04] LABS: Calcium 8.8 mg/dL (8.4-10.2); Potassium 3.9 mmol/L (3.5-5.1)
[2017-05-31] MEDS: HYDROcodone/APAP 10-325MG 1 EACH TAB PO PRN ×3 (07:05→22:17)
[2017-05-31] MEDS: CARVEDILOL 3.125 MG TAB PO SCH ×2 (07:05→17:15)
[2017-05-31] MEDS: SYMBICORT 160-4.5 MCG INHALER INHALATION SCH ×2 (08:05→20:51)
[2017-05-31] MEDS: ASPIRIN 81 MG CHEW PO SCH (08:26)
[2017-05-31] MEDS: DOCUSATE 100 MG CAP PO SCH ×2 (08:26→22:16)
--- NOTE | 2017-05-31 09:38 | P.PN ---
Subjective Patient is seen in follow-up for acute kidney injury on chronic kidney disease. Patient has chronic kidney disease stage III secondary to cardiorenal syndrome with baseline creatinine in the range of 1.5-1.7. His creatinine today is . elevated at 2.38 Patient presented with dyspnea and lower extremity edema. He was maintained on dobutamine drip as well as Lasix drip. On May 24 , he became quite hypotensive and diuretics as well as dobutamine were discontinued. He received about 250 mL of fluids. Patient has systolic CHF with ejection fraction of 30-35% with severe mitral regurgitation, moderate tricuspid regurgitation and pulmonary hypertension. Currently he is resting in bed. Denies chest pain. Oral intake is fair. Edema is not much improved. He is again hypotensive this morning. Urine output overnight was only 300 mL. Vital signs are stable. General: The patient appeared well nourished and normally developed. HEENT: Head exam is unremarkable. Neck is without jugular venous distension. LUNGS: Rales at bases Breath sounds decreased. HEART: Rate and Rhythm are regular. First and second heart sounds normal. No murmurs, rubs or gallops. ABDOMEN: Abdominal exam reveals normal bowel sounds. Non-tender and non- distended. No evidence of peritonitis. EXTREMITITES: 2+ edema. Objective - Vital Signs Vital signs: Vital Signs Temp 96.7 F L 05/31/17 04:00 Pulse 60 05/31/17 08:00 Resp 18 05/31/17 08:00 BP 75/50 05/31/17 08:00 Pulse Ox 100 05/31/17 08:00 Intake & Output 05/30/17 05/31/17 05/31/17 18:59 06:59 18:59 Intake Total 822 250 452.201 Output Total 800 300 Balance 22 -50 452.201 Weight 73.1 kg Intake: Intake, IV Titration 250 212.201 Amount Amiodarone 450 mg In 250 212.201 Dextrose 5% in Water 250 ml @ 1 MG/MIN 33.33 mls/ hr IV .Q7H31M [facility] Rx#: [id number] Oral 822 240 Output: Urine 800 300 Other: Voiding Method Indwelling Catheter Indwelling Catheter Indwelling Catheter - Labs CBC & Chem 7: 05/30/17 05:49 05/31/17 05:36 Labs: Abnormal Lab Results - Last 24 Hours (Table) 05/31/17 Range/Units 05:36 Sodium 133 L (137-145) mmol/L Chloride 89 L (98-107) mmol/L BUN 109 H* (9-20) mg/dL Creatinine 2.38 H (0.66-1.25) mg/dL Glucose 132 H (74-99) mg/dL Assessment and Plan Plan: Assessment: #1. Nonoliguric acute kidney injury secondary to cardiorenal syndrome. Creatinine 2.38 today. Urinalysis noted to be benign. No evidence of hydronephrosis. #2. Chronic kidney disease stage III with baseline creatinine in the range of 1.5-1.7 secondary to cardiorenal syndrome. Renal ultrasound reveals 7.9 and 9.3 cm kidneys with cortical thinning suggestive of underlying chronic kidney disease. #3. Volume overload. #4. Urinary retention status post Castellanos catheter placement. #5. Systolic CHF with ejection fraction of 30-35% with severe mitral regurgitation and moderate tricuspid regurgitation and pulmonary hypertension. #6. Metabolic acidosis secondary to acute kidney injury. Resolved. #7. Hypervolemic hyponatremia. #8. V. tach currently maintained on amiodarone drip. Plan: Low-salt and 1200 mL fluid restricted diet. Maintain Castellanos catheter. Daily weights. Discontinue oral sodium bicarbonate supplementation. Repeat electrolytes in the morning. 60 mg of IV Lasix this morning and then start Lasix drip at 10 mL an hour. Maintain metolazone 5 mg twice daily. Dobutamine has been discontinued as he went into V. tach. I did discuss with the patient the potential need for renal replacement therapy for ultrafiltration purposes. At this time the patient is quite hesitant and needs time to think about it. I also discussed with him that it may be difficult for him to tolerate renal replacement therapy due to his underlying cardiac status as well as arrhythmia.
[2017-05-31] MEDS ORDERED: FUROSEMIDE 250 MG in SODIUM CHLORIDE 0.9% 225 ML IVP SCH (10:00)
[2017-05-31] MEDS: METOLAZONE 5 MG TAB PO SCH ×2 (10:07→22:17)
[2017-05-31] MEDS: AMIODARONE 200 MG TAB PO SCH ×2 (10:07→22:16)
[2017-05-31] MEDS: MIDODRINE 5 MG TAB PO SCH ×2 (11:59→17:15)
[2017-05-31] MEDS: ALPRAZolam 0.5 MG TAB PO PRN (12:11)
--- NOTE | 2017-05-31 14:36 | P.PN ---
Subjective Principal diagnosis: CHF This is a pleasant 66-year-old gentleman who follows with Dr. Villela in the office. He has a known history of coronary artery disease, ischemic cardiomyopathy with a bi-V ICD, multiple PCI's in the past, atrial fibrillation , and known episodes of slow ventricular tachycardia. Patient presented to the emergency department with symptoms of worsening shortness of breath, edema in his lower extremities and abdominal distention. Patient continues to be on IV push Lasix 60 mg every 8 hour along with Zaroxolyn. Continues to diurese. Patient was noted to have several runs of nonsustained ventricular tachycardia, he was initiated this morning on IV amiodarone, and reinitiated on his Coreg as well. We will also have his device interrogated today. Blood pressure 96/60 with a heart rate in the 70s. 05/31/2017 Patient seen and examined, urine output very marginal, 300 mils overnight last night. Blood pressure this morning in the 80s systolic, edema not much improved. Patient did have one episode of nonsustained ventricular tachycardia.we did have a lengthy discussion with the patient and his family today regarding hospice, they wish to discuss further with Dr. Graham. Dialysis was discussed with the patient by Dr. Graham, patient was quite hesitant, Dr. Graham also felt that she may not tolerate well secondary to his cardiac status and arrhythmias.BUN 109 today, creatinine 2.38. Objective - Vital Signs Vital signs: Vital Signs Temp 96.7 F L 05/31/17 04:00 Pulse 62 05/31/17 12:00 Resp 18 05/31/17 12:00 BP 108/72 05/31/17 13:13 Pulse Ox 100 05/31/17 08:00 Intake & Output 05/30/17 05/31/17 05/31/17 18:59 06:59 18:59 Intake Total 822 250 692.201 Output Total 800 300 120 Balance 22 -50 572.201 Weight 73.1 kg Intake: Intake, IV Titration 250 212.201 Amount Amiodarone 450 mg In 250 212.201 Dextrose 5% in Water 250 ml @ 1 MG/MIN 33.33 mls/ hr IV .Q7H31M COUNT INCLUDES THE [facility] Rx#: [id number] Oral 822 480 Output: Urine 800 300 120 Other: Voiding Method Indwelling Catheter Indwelling Catheter Indwelling Catheter - Exam PHYSICAL EXAMINATION: HEENT: Head is atraumatic, normocephalic. Pupils equal, round. Neck is supple. There is elevated jugular venous pressure. HEART EXAMINATION: Heart sounds regular, S1 and S2 normal with a systolic murmur. CHEST EXAMINATION: Lungs reveal diminished air entry bilaterallywith rales bilaterally. No chest wall tenderness is noted on palpation or with deep breathing. ABDOMEN: Firm, Distended, diffuse tenderness to palpation. Bowel sounds are hypoactive. No organomegaly noted. EXTREMITIES: Diminished peripheral pulses with evidence of trace to 1+ peripheral edema and no calf tenderness noted.bilateral Randy wraps in place Scrotal edema noted NEUROLOGIC patient is awake, drowsy and oriented x3. - Labs CBC & Chem 7: 05/30/17 05:49 05/31/17 05:36 Labs: Abnormal Lab Results - Last 24 Hours (Table) 05/31/17 Range/Units 05:36 Sodium 133 L (137-145) mmol/L Chloride 89 L (98-107) mmol/L BUN 109 H* (9-20) mg/dL Creatinine 2.38 H (0.66-1.25) mg/dL Glucose 132 H (74-99) mg/dL Assessment and Plan Plan: Assessment and plan #1 acute on chronic systolic congestive heart failure, end-stage #2 ischemic cardiomyopathy, s/p BiV ICD #3 hypertension, hypotension with therapy #4 prior CABG and PCI #5 hyperlipidemia #6 chronic kidney disease #7 paroxysmal atrial fibrillation #8 ventricular tachycardia From cardiology's perspective, we'll continue diuretics as per nephrology. we will change amiodarone to oral form today. Patient will have a discussion in the morning with Dr. Graham regarding dialysis or proceeding with hospice care. DNP note has been reviewed, I agree with a documented findings and plan of care. Patient was seen and examined.
[2017-05-31] MEDS: FUROSEMIDE 250 MG in SODIUM CHLORIDE 0.9% 225 ML IVP SCH (16:23)
--- NOTE | 2017-05-31 17:18 | P.PN ---
Subjective Mr. Birmingham is a66/M with a known history of coronary artery disease, ischemic cardiomyopathy with a bi-V ICD, multiple PCI's in the past, atrial fibrillation , and known episodes of slow ventricular tachycardia. Patient presented to the emergency department with symptoms of worsening shortness of breath, edema in his lower extremities and abdominal distention. Patient's blood pressure is low and is currently on dobutamine drip. Cardiology and nephrology is following this patient patient is currently being Krish with Lasix drip and Zaroxolyn 5 mg twice daily. On 05/23/2017: Extent patient does have a negative balance over the last 24 hours. Patient is being continued on Lasix drip and dobutamine drip. Leg swelling is improved. Patient is on pressure wraps as well. There are any worsening short of breath or chest pain. Patient continues to have significant extremity edema and Abdominal distention no fever no chills. No acute overnight issues. On 05/24/2017 Overnight the patient's systolic blood pressure dropped to below 80 mmHg. So patient was given IV fluid bolus last night. Patient's lower extremity edema has improved. On 05/25/2017 Patient had sustained V. tach on dobutamine drip so this has been discontinued.The patient remained the same with the his lower extremity edema. Constitutional: Patient denies any fever or chills . generalized weakness or weight loss. Abdomen: Patient denied nausea vomiting and diarrhea and abdominal pain. Cardiovascular: Patient denies any chest pain or short of breath no palpitations. Patient does have severe leg swelling Respiratory: patient denied any cough is from production. No worsening shortness of breath Neurologic: Patient denied any numbness or tingling headache. All other 14 point ROS negative except the above Interval history 05/28/2017 states that he is feeling slightly better however continues to have difficulty breathing requires about 3-4 pills No headaches blurry vision chest pain abdominal pain. Patient does state to have some burning in his bladder 05/29/2017 Patient states that his bladder spasm improved Denies having any difficulty breathing nausea vomiting or diarrhea 05/30/17 doing well states that his abdomen is bloated no bladder spasms reported breathing is improved 05/31/17 episodes of VT states he still feels weak had a bm no more bladder spasms reported - Exam PHYSICAL EXAMINATION: Patient is lying in the bed comfortably, no acute distress, awake alert and oriented.. HEENT: Normocephalic. Neck is supple. Pupils reactive. Nostrils clear. Oral cavity is moist. Ears reveal no drainage. Neck reveals no JVD, carotid bruits, or thyromegaly. CHEST EXAMINATION: Trachea is central. Symmetrical expansion. Patient does have basilar crackles. No wheezing. Nonlabored breathing CARDIAC: Normal S1, S2 with no gallops. No murmurs ABDOMEN: Soft. Distended with skin edema as well, Bowel sounds normal. No organomegaly. No abdominal bruits. Extremities: Patient does have 2+ edema. improved Pulses palpable. No clubbing, cyanosis. Neurologically awake, alert, oriented x3 with well-coordinated movements. No focal deficits noted Skin: No rash or skin lesions. Psychiatric: Operative. Nonsuicidal Musculoskeletal: No joint swelling or deformity. Normal range of motion. . Objective - Vital Signs Vital signs: Vital Signs Temp 96.0 F L 05/31/17 16:00 Pulse 61 05/31/17 16:00 Resp 20 05/31/17 16:00 BP 100/63 05/31/17 16:00 Pulse Ox 100 05/31/17 16:00 Intake & Output 05/30/17 05/31/17 05/31/17 18:59 06:59 18:59 Intake Total 822 250 692.201 Output Total 800 300 120 Balance 22 -50 572.201 Weight 73.1 kg Intake: Intake, IV Titration 250 212.201 Amount Amiodarone 450 mg In 250 212.201 Dextrose 5% in Water 250 ml @ 1 MG/MIN 33.33 mls/ hr IV .Q7H31M [facility] Rx#: [id number] Oral 822 480 Output: Urine 800 300 120 Other: Voiding Method Indwelling Catheter Indwelling Catheter Indwelling Catheter - Labs CBC & Chem 7: 05/30/17 05:49 05/31/17 05:36 Labs: Abnormal Lab Results - Last 24 Hours (Table) 05/31/17 Range/Units 05:36 Sodium 133 L (137-145) mmol/L Chloride 89 L (98-107) mmol/L BUN 109 H* (9-20) mg/dL Creatinine 2.38 H (0.66-1.25) mg/dL Glucose 132 H (74-99) mg/dL Assessment and Plan Plan: - Assessment and Plan Plan: ASSESSMENT: -Acute on chronic congestive heart failure exacerbation from systolic and past dysfunction EF 30-35% from moderate concentric left hypertrophy and underlying coronary artery disease, slow to respond -Coronary artery disease with prior history of coronary bypass and stent -COPD in an ex-smoker -Ischemic cardiomyopathy status post biventricular ICD -Chronic kidney disease stage III from hypertensive nephrosclerosis -Nonoliguric acute kidney injury seconded to cardiorenal syndrome improving Hypervolemic hyponatremia improving -Peripheral artery disease or prior history of fem-fem bypass -Diabetes mellitus type II on insulin -Moderate secondary pulmonary hypertension secondary to congestive heart failure -Moderate tricuspid regurgitation nonrheumatic -Severe mitral regurgitation nonrheumatic -Acute urine retention. On Castellanos catheter now -Hematuria, secondary to traumatic catheter placement -DVT prophylaxis with heparin subcu NSVT PLAN: amiodarone Continue diuretics. 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
[2017-05-31] MEDS: ATORVASTATIN 20 MG TAB PO SCH (22:16)
[2017-06-01] MEDS: FUROSEMIDE 250 MG in SODIUM CHLORIDE 0.9% 225 ML IVP SCH (03:43)
[2017-06-01] MEDS: HYDROcodone/APAP 10-325MG 1 EACH TAB PO PRN ×2 (06:54→23:51)
[2017-06-01] MEDS: CARVEDILOL 3.125 MG TAB PO SCH ×2 (06:55→17:17)
[2017-06-01] MEDS: MIDODRINE 5 MG TAB PO SCH ×3 (06:55→17:17)
[2017-06-01] MEDS: SYMBICORT 160-4.5 MCG INHALER INHALATION SCH ×2 (07:36→20:41)
[2017-06-01 07:49] LABS: Calcium 9.3 mg/dL (8.4-10.2); Potassium 4.1 mmol/L (3.5-5.1)
[2017-06-01] MEDS: SPIRONOLACTONE 25 MG TAB PO SCH (08:48)
[2017-06-01] MEDS: AMIODARONE 200 MG TAB PO SCH ×2 (08:49→21:27)
[2017-06-01] MEDS: ASPIRIN 81 MG CHEW PO SCH (08:49)
[2017-06-01] MEDS: DOCUSATE 100 MG CAP PO SCH ×2 (08:50→21:27)
[2017-06-01] MEDS: METOLAZONE 5 MG TAB PO SCH ×2 (08:50→21:27)
--- NOTE | 2017-06-01 09:57 | P.PN ---
Subjective Patient is seen in follow-up for acute kidney injury on chronic kidney disease. Patient has chronic kidney disease stage III secondary to cardiorenal syndrome with baseline creatinine in the range of 1.5-1.7. His creatinine today is elevated at 3.08/ Patient presented with dyspnea and lower extremity edema. He was maintained on dobutamine drip as well as Lasix drip. On May 24 , he became quite hypotensive and diuretics as well as dobutamine were discontinued. He received about 250 mL of fluids. Patient has systolic CHF with ejection fraction of 30-35% with severe mitral regurgitation, moderate tricuspid regurgitation and pulmonary hypertension. Currently he is resting in bed. Denies chest pain. Oral intake is fair. Edema is not much improved. Blood pressures remain in the systolic 90s. Urine output in the last 24 hours was about 400 mL despite being on Lasix drip and metolazone. Vital signs are stable. General: The patient appeared well nourished and normally developed. HEENT: Head exam is unremarkable. Neck is without jugular venous distension. LUNGS: Rales at bases Breath sounds decreased. HEART: Rate and Rhythm are regular. First and second heart sounds normal. No murmurs, rubs or gallops. ABDOMEN: Abdominal exam reveals normal bowel sounds. Non-tender and non- distended. No evidence of peritonitis. EXTREMITITES: 2+ edema. Objective - Vital Signs Vital signs: Vital Signs Temp 96.8 F L 06/01/17 04:00 Pulse 62 06/01/17 04:00 Resp 18 06/01/17 04:00 BP 93/61 06/01/17 04:00 Pulse Ox 97 06/01/17 04:00 Intake & Output 05/31/17 06/01/17 06/01/17 18:59 06:59 18:59 Intake Total 692.201 200 200 Output Total 120 Balance 572.201 200 200 Weight 73.9 kg Intake: IV 80 0.9@10 80 Intake, IV Titration 212.201 120 Amount Amiodarone 450 mg In 212.201 Dextrose 5% in Water 250 ml @ 1 MG/MIN 33.33 mls/ hr IV .Q7H31M [facility] Rx#: [id number] Furosemide 250 mg In 120 Sodium Chloride 0.9% 225 ml @ 15 MG/HR 15 mls/hr IVP .[id number] [facility] Rx#: [id number] Oral 480 200 Output: Urine 120 Other: Voiding Method Indwelling Catheter Indwelling Catheter - Labs CBC & Chem 7: 05/30/17 05:49 06/01/17 06:41 Labs: Abnormal Lab Results - Last 24 Hours (Table) 06/01/17 Range/Units 06:41 Sodium 132 L (137-145) mmol/L Chloride 91 L (98-107) mmol/L BUN 109 H* (9-20) mg/dL Creatinine 3.08 H (0.66-1.25) mg/dL Glucose 103 H (74-99) mg/dL Assessment and Plan Plan: Assessment: #1. Nonoliguric acute kidney injury secondary to cardiorenal syndrome. Creatinine elevated at 3.08 today. Urinalysis noted to be benign. No evidence of hydronephrosis. Patient is now oliguric and not responding to diuretics. #2. Chronic kidney disease stage III with baseline creatinine in the range of 1.5-1.7 secondary to cardiorenal syndrome. Renal ultrasound reveals 7.9 and 9.3 cm kidneys with cortical thinning suggestive of underlying chronic kidney disease. #3. Volume overload. #4. Urinary retention status post Castellanos catheter placement. #5. Systolic CHF with ejection fraction of 30-35% with severe mitral regurgitation and moderate tricuspid regurgitation and pulmonary hypertension. #6. Metabolic acidosis secondary to acute kidney injury. Resolved. #7. Hypervolemic hyponatremia. #8. V. tach currently maintained on amiodarone drip. Plan: Low-salt and 1200 mL fluid restricted diet. Maintain Castellanos catheter. Daily weights. Discontinue oral sodium bicarbonate supplementation. Repeat electrolytes in the morning. Discontinue Lasix drip. Start Lasix 80 mg IV twice daily. Maintain metolazone 5 mg twice daily. Dobutamine has been discontinued as he went into V. tach. I had a detailed discussion with the patient and his family today regarding the need to start renal replacement therapy or consider end-of-life care as patient is significantly fluid overloaded with poor response to diuretics. I did discuss with them the risk of arrhythmias with dialysis. The patient and the family at this time agreed to proceed with renal replacement therapy and see how he tolerates it. Will consult vascular surgery for dialysis catheter placement and plan for first treatment of hemodialysis today.
[2017-06-01] MEDS: FUROSEMIDE 10 MG/ML 10 ML VIAL IV SCH (10:29)
[2017-06-01] MEDS: ALPRAZolam 0.5 MG TAB PO PRN ×2 (11:48→21:27)
[2017-06-01 11:52] LABS: INR 1.4 (<1.2)
[2017-06-01] MEDS ORDERED: MIDAZOLAM 2 MG/2 ML VIAL ONE (13:22)
[2017-06-01] MEDS ORDERED: MIDAZOLAM 2 MG/2 ML VIAL IVP ONE (13:24)
[2017-06-01] MEDS ORDERED: LIDOCAINE 2% INJ 20 MG/ML SQ ONE (13:26)
--- NOTE | 2017-06-01 14:27 | P.PN ---
Subjective Principal diagnosis: CHF This is a pleasant 66-year-old gentleman who follows with Dr. Villela in the office. He has a known history of coronary artery disease, ischemic cardiomyopathy with a bi-V ICD, multiple PCI's in the past, atrial fibrillation , and known episodes of slow ventricular tachycardia. Patient presented to the emergency department with symptoms of worsening shortness of breath, edema in his lower extremities and abdominal distention. Patient continues to be on IV push Lasix 60 mg every 8 hour along with Zaroxolyn. Continues to diurese. Patient was noted to have several runs of nonsustained ventricular tachycardia, he was initiated this morning on IV amiodarone, and reinitiated on his Coreg as well. We will also have his device interrogated today. Blood pressure 96/60 with a heart rate in the 70s. 05/31/2017 Patient seen and examined, urine output very marginal, 300 mils overnight last night. Blood pressure this morning in the 80s systolic, edema not much improved. Patient did have one episode of nonsustained ventricular tachycardia.we did have a lengthy discussion with the patient and his family today regarding hospice, they wish to discuss further with Dr. Graham. Dialysis was discussed with the patient by Dr. Graham, patient was quite hesitant, Dr. Graham also felt that she may not tolerate well secondary to his cardiac status and arrhythmias.BUN 109 today, creatinine 2.38. 06/01/2017 Patient seen and examined this morning, feeling weak today. Minimal urine output. Creatinine up to 3.08. Rigo Graham did have a lengthy discussion with the patient and his family today regarding dialysis versus hospice. They understand the risk of dialysis and wished to at least attempt this. Catheter placement will be performed today as well as first dialysis treatment. Objective - Vital Signs Vital signs: Vital Signs Temp 96.9 F L 06/01/17 08:00 Pulse 53 L 06/01/17 08:00 Resp 18 06/01/17 08:00 BP 95/65 06/01/17 08:00 Pulse Ox 98 06/01/17 08:00 Intake & Output 05/31/17 06/01/17 06/01/17 18:59 06:59 18:59 Intake Total 692.201 200 200 Output Total 120 250 Balance 572.201 200 -50 Weight 73.9 kg Intake: IV 80 0.9@10 80 Intake, IV Titration 212.201 120 Amount Amiodarone 450 mg In 212.201 Dextrose 5% in Water 250 ml @ 1 MG/MIN 33.33 mls/ hr IV .Q7H31M [facility] Rx#: [id number] Furosemide 250 mg In 120 Sodium Chloride 0.9% 225 ml @ 15 MG/HR 15 mls/hr IVP .[id number] [facility] Rx#: [id number] Oral 480 200 Output: Urine 120 250 Uretheral (Castellanos) 250 Other: Voiding Method Indwelling Catheter Indwelling Catheter Indwelling Catheter - Exam PHYSICAL EXAMINATION: HEENT: Head is atraumatic, normocephalic. Pupils equal, round. Neck is supple. There is elevated jugular venous pressure. HEART EXAMINATION: Heart sounds regular, S1 and S2 normal with a systolic murmur. CHEST EXAMINATION: Lungs reveal diminished air entry bilaterallywith rales bilaterally. No chest wall tenderness is noted on palpation or with deep breathing. ABDOMEN: Firm, Distended, diffuse tenderness to palpation. Bowel sounds are hypoactive. No organomegaly noted. EXTREMITIES: Diminished peripheral pulses with evidence of trace to 1+ peripheral edema and no calf tenderness noted.bilateral Randy wraps in place Scrotal edema noted NEUROLOGIC patient is awake, drowsy and oriented x3. - Labs CBC & Chem 7: 05/30/17 05:49 06/01/17 06:41 Labs: Abnormal Lab Results - Last 24 Hours (Table) 06/01/17 06/01/17 Range/Units 06:41 06:41 PT 14.0 H (9.0-12.0) sec INR 1.4 H (<1.2) Sodium 132 L (137-145) mmol/L Chloride 91 L (98-107) mmol/L BUN 109 H* (9-20) mg/dL Creatinine 3.08 H (0.66-1.25) mg/dL Glucose 103 H (74-99) mg/dL Assessment and Plan Plan: Assessment and plan #1 acute on chronic systolic congestive heart failure, end-stage #2 ischemic cardiomyopathy, s/p BiV ICD #3 hypertension, hypotension with therapy #4 prior CABG and PCI #5 hyperlipidemia #6 chronic kidney disease #7 paroxysmal atrial fibrillation #8 ventricular tachycardia From cardiology's perspective, we'll continue diuretics as per nephrology. Continue other medications. Patient will have catheter placed today as well as first dialysis treatment. DNP note has been reviewed, I agree with a documented findings and plan of care. Patient was seen and examined.
--- NOTE | 2017-06-01 16:30 | P.PN ---
Subjective Mr. Birmingham is a66/M with a known history of coronary artery disease, ischemic cardiomyopathy with a bi-V ICD, multiple PCI's in the past, atrial fibrillation , and known episodes of slow ventricular tachycardia. Patient presented to the emergency department with symptoms of worsening shortness of breath, edema in his lower extremities and abdominal distention. Patient's blood pressure is low and is currently on dobutamine drip. Cardiology and nephrology is following this patient patient is currently being Krish with Lasix drip and Zaroxolyn 5 mg twice daily. On 05/23/2017: Extent patient does have a negative balance over the last 24 hours. Patient is being continued on Lasix drip and dobutamine drip. Leg swelling is improved. Patient is on pressure wraps as well. There are any worsening short of breath or chest pain. Patient continues to have significant extremity edema and Abdominal distention no fever no chills. No acute overnight issues. On 05/24/2017 Overnight the patient's systolic blood pressure dropped to below 80 mmHg. So patient was given IV fluid bolus last night. Patient's lower extremity edema has improved. On 05/25/2017 Patient had sustained V. tach on dobutamine drip so this has been discontinued.The patient remained the same with the his lower extremity edema. Constitutional: Patient denies any fever or chills . generalized weakness or weight loss. Abdomen: Patient denied nausea vomiting and diarrhea and abdominal pain. Cardiovascular: Patient denies any chest pain or short of breath no palpitations. Patient does have severe leg swelling Respiratory: patient denied any cough is from production. No worsening shortness of breath Neurologic: Patient denied any numbness or tingling headache. All other 14 point ROS negative except the above Interval history 05/28/2017 states that he is feeling slightly better however continues to have difficulty breathing requires about 3-4 pills No headaches blurry vision chest pain abdominal pain. Patient does state to have some burning in his bladder 05/29/2017 Patient states that his bladder spasm improved Denies having any difficulty breathing nausea vomiting or diarrhea 05/30/17 doing well states that his abdomen is bloated no bladder spasms reported breathing is improved 05/31/17 episodes of VT states he still feels weak had a bm no more bladder spasms reported 06/01/17 low urine output No fevers, chils, nausea, vomiting, chest pain - Exam PHYSICAL EXAMINATION: Patient is lying in the bed comfortably, no acute distress, awake alert and oriented.. HEENT: Normocephalic. Neck is supple. Pupils reactive. Nostrils clear. Oral cavity is moist. Ears reveal no drainage. Neck reveals no JVD, carotid bruits, or thyromegaly. CHEST EXAMINATION: Trachea is central. Symmetrical expansion. Patient does have basilar crackles. No wheezing. Nonlabored breathing CARDIAC: Normal S1, S2 with no gallops. No murmurs ABDOMEN: Soft. Distended with skin edema as well, Bowel sounds normal. No organomegaly. No abdominal bruits. Extremities: Patient does have 2+ edema. improved Pulses palpable. No clubbing, cyanosis. Neurologically awake, alert, oriented x3 with well-coordinated movements. No focal deficits noted Skin: No rash or skin lesions. Psychiatric: Operative. Nonsuicidal Musculoskeletal: No joint swelling or deformity. Normal range of motion. . Objective - Vital Signs Vital signs: Vital Signs Temp 96.5 F L 06/01/17 14:00 Pulse 50 L 06/01/17 14:00 Resp 16 06/01/17 14:00 BP 89/63 06/01/17 14:00 Pulse Ox 99 06/01/17 14:00 Intake & Output 05/31/17 06/01/17 06/01/17 18:59 06:59 18:59 Intake Total 692.201 200 340 Output Total 120 250 Balance 572.201 200 90 Weight 73.9 kg Intake: IV 80 80 0.9@10 80 80 Intake, IV Titration 212.201 120 60 Amount Amiodarone 450 mg In 212.201 Dextrose 5% in Water 250 ml @ 1 MG/MIN 33.33 mls/ hr IV .Q7H31M [facility] Rx#: [id number] Furosemide 250 mg In 120 60 Sodium Chloride 0.9% 225 ml @ 15 MG/HR 15 mls/hr IVP .[id number] [facility] Rx#: [id number] Oral 480 200 Output: Urine 120 250 Uretheral (Castellanos) 250 Other: Voiding Method Indwelling Catheter Indwelling Catheter Indwelling Catheter - Labs CBC & Chem 7: 05/30/17 05:49 06/01/17 06:41 Labs: Abnormal Lab Results - Last 24 Hours (Table) 06/01/17 06/01/17 Range/Units 06:41 06:41 PT 14.0 H (9.0-12.0) sec INR 1.4 H (<1.2) Sodium 132 L (137-145) mmol/L Chloride 91 L (98-107) mmol/L BUN 109 H* (9-20) mg/dL Creatinine 3.08 H (0.66-1.25) mg/dL Glucose 103 H (74-99) mg/dL Assessment and Plan Plan: - Assessment and Plan Plan: ASSESSMENT: -Acute on chronic congestive heart failure exacerbation from systolic and past dysfunction EF 30-35% from moderate concentric left hypertrophy and underlying coronary artery disease, slow to respond -Coronary artery disease with prior history of coronary bypass and stent -COPD in an ex-smoker -Ischemic cardiomyopathy status post biventricular ICD -Chronic kidney disease stage III from hypertensive nephrosclerosis -Nonoliguric acute kidney injury seconded to cardiorenal syndrome improving Hypervolemic hyponatremia improving -Peripheral artery disease or prior history of fem-fem bypass -Diabetes mellitus type II on insulin -Moderate secondary pulmonary hypertension secondary to congestive heart failure -Moderate tricuspid regurgitation nonrheumatic -Severe mitral regurgitation nonrheumatic -Acute urine retention. On Castellanos catheter now -Hematuria, secondary to traumatic catheter placement -DVT prophylaxis with heparin subcu New onset A fib NSVT PLAN: amiodarone Continue diuretics. Strict I's and O's HD with utrafiltration . after a long discussion, pt and family verbalize to understand HD and potential risks DNR with respect to his wishes.
--- NOTE | 2017-06-01 16:38 | IR ---
EXAMINATION TYPE: IR cvc insert >=5 years DATE OF EXAM: 06/01/2017 HISTORY: Dialysis Fluoroscopy support supplied to the referring clinician. See dictated report from vascular surgery, 0.1 minutes fluoroscopy time supplied, 33 intraoperative C-arm images document the procedure
[2017-06-01] MEDS: ATORVASTATIN 20 MG TAB PO SCH (21:27)
[2017-06-02] MEDS: FUROSEMIDE 10 MG/ML 10 ML VIAL IV SCH ×3 (05:16→21:45)
--- NOTE | 2017-06-02 05:39 | CONS ---
This patient was seen with history of shortness of breath and patient had an echocardiogram with ejection fraction of 30% to 35%. Patient had high BUN and creatinine. Patient is on dobutamine and as well as on ( ) drips. I was consulted for placement of the dialysis catheter. On examination, vitals are stable. Neck is supple. No bruit appreciated. There is some reduced breath sounds bilateral. First and second sounds present. ABDOMEN: Soft, nontender. Patient has bilateral lower extremity lymphedema. PAST MEDICAL HISTORY: History of atrial fibrillation, coronary artery disease, COPD, diabetes mellitus, hyperlipidemia, hypertension, myocardial infarction. SURGICAL HISTORY: The patient had AICD placed in the past, coronary artery bypass done and CABG done in the past. Heart catheterization done in the past. Stent and pacemaker placed. Plan is placement of the dialysis catheter, right femoral approach. Risks and complications discussed. MTDD
[2017-06-02] MEDS: HYDROcodone/APAP 10-325MG 1 EACH TAB PO PRN ×3 (05:45→21:46)
[2017-06-02] MEDS ORDERED: fentaNYL (PF) 50 MCG/ML 2 ML AMP ONE (07:20)
[2017-06-02] MEDS ORDERED: fentaNYL (PF) 50 MCG/ML 2 ML AMP IV ONE (07:26)
[2017-06-02] MEDS ORDERED: LIDOCAINE 2% INJ 20 MG/ML SQ ONE (07:26)
[2017-06-02] MEDS ORDERED: IV FLUID CONTINUATION 1,000 ML IV ONE (07:29)
[2017-06-02] MEDS ORDERED: IODIXANOL 320 MG/ML 100 ML IV ONE (07:30)
[2017-06-02 07:37] LABS: Calcium 9.4 mg/dL (8.4-10.2); Potassium 4.4 mmol/L (3.5-5.1)
[2017-06-02] MEDS ORDERED: HEPARIN SODIUM 1,000 UN/ML (10ML VL) IV ONE (07:44)
[2017-06-02] MEDS: CARVEDILOL 3.125 MG TAB PO SCH ×2 (08:39→18:42)
--- NOTE | 2017-06-02 08:51 | P.PN ---
Subjective Patient is seen in follow-up for acute kidney injury on chronic kidney disease. Patient has chronic kidney disease stage III secondary to cardiorenal syndrome with baseline creatinine in the range of 1.5-1.7. His creatinine today is elevated at 3.08/ Patient presented with dyspnea and lower extremity edema. He was maintained on dobutamine drip as well as Lasix drip. On May 24 , he became quite hypotensive and diuretics as well as dobutamine were discontinued. He received about 250 mL of fluids. Patient has systolic CHF with ejection fraction of 30-35% with severe mitral regurgitation, moderate tricuspid regurgitation and pulmonary hypertension. Currently he is resting in bed. Denies chest pain. Oral intake is fair. Edema is not much improved. Blood pressures remain in the systolic 90s. Remains oliguric. Dialysis not done yesterday as a catheter was malfunctioning. It was exchanged this morning. Vital signs are stable. General: The patient appeared well nourished and normally developed. HEENT: Head exam is unremarkable. Neck is without jugular venous distension. LUNGS: Rales at bases Breath sounds decreased. HEART: Rate and Rhythm are regular. First and second heart sounds normal. No murmurs, rubs or gallops. ABDOMEN: Abdominal exam reveals normal bowel sounds. Non-tender and non- distended. No evidence of peritonitis. EXTREMITITES: 2+ edema. Objective - Vital Signs Vital signs: Vital Signs Temp 96.7 F L 06/02/17 05:22 Pulse 73 06/02/17 05:22 Resp 18 06/02/17 05:22 BP 98/61 06/02/17 05:22 Pulse Ox 100 06/02/17 05:22 Intake & Output 06/01/17 06/02/17 06/02/17 18:59 06:59 18:59 Intake Total 340 80 Output Total 250 100 Balance 90 -20 Weight 75 kg Intake: IV 80 80 0.9@10 80 80 Intake, IV Titration 60 Amount Furosemide 250 mg In 60 Sodium Chloride 0.9% 225 ml @ 15 MG/HR 15 mls/hr IVP .[id number] [facility] Rx#: [id number] Oral 200 Output: Urine 250 100 Uretheral (Castellanos) 250 Other: Voiding Method Indwelling Catheter Indwelling Catheter # Voids 1 - Labs CBC & Chem 7: 05/30/17 05:49 06/02/17 06:14 Labs: Abnormal Lab Results - Last 24 Hours (Table) 06/01/17 06/02/17 Range/Units 06:41 06:14 PT 14.0 H (9.0-12.0) sec INR 1.4 H (<1.2) Sodium 131 L (137-145) mmol/L Chloride 91 L (98-107) mmol/L BUN 111 H* (9-20) mg/dL Creatinine 3.78 H (0.66-1.25) mg/dL Assessment and Plan Plan: Assessment: #1. Nonoliguric acute kidney injury secondary to cardiorenal syndrome. Creatinine elevated at 3.08 today. Urinalysis noted to be benign. No evidence of hydronephrosis. Patient is now oliguric and not responding to diuretics. #2. Chronic kidney disease stage III with baseline creatinine in the range of 1.5-1.7 secondary to cardiorenal syndrome. Renal ultrasound reveals 7.9 and 9.3 cm kidneys with cortical thinning suggestive of underlying chronic kidney disease. #3. Volume overload. #4. Urinary retention status post Castellanos catheter placement. #5. Systolic CHF with ejection fraction of 30-35% with severe mitral regurgitation and moderate tricuspid regurgitation and pulmonary hypertension. #6. Metabolic acidosis secondary to acute kidney injury. Resolved. #7. Hypervolemic hyponatremia. #8. V. tach. Now stable. Plan: Low-salt and 1200 mL fluid restricted diet. Maintain Castellanos catheter. Daily weights. Discontinue oral sodium bicarbonate supplementation. Repeat electrolytes in the morning. Discontinue Lasix drip. Maintain Lasix 80 mg IV twice daily. Maintain metolazone 5 mg twice daily. Dobutamine has been discontinued as he went into V. tach. I had a detailed discussion with the patient and his family yesterday regarding the need to start renal replacement therapy or consider end-of-life care as patient is significantly fluid overloaded with poor response to diuretics. I did discuss with them the risk of arrhythmias with dialysis. The patient and the family at this time agreed to proceed with renal replacement therapy and see how he tolerates it. The dialysis catheter was malfunctioning and was exchanged this morning. First hemodialysis treatment today. If tolerates the treatment well, will need a long-term dialysis catheter.
--- NOTE | 2017-06-02 09:05 | IR ---
EXAMINATION TYPE: IR cvc insert >=5 years DATE OF EXAM: 06/02/2017 COMPARISON: NONE HISTORY: Dialysis catheter placement Fluoroscopy support supplied to the referring clinician. See dictated report from vascular surgery, 0.5 minutes fluoroscopy time, 266 intraoperative C-arm images document the procedure
[2017-06-02] MEDS: MIDODRINE 5 MG TAB PO SCH ×3 (09:14→18:15)
[2017-06-02] MEDS: AMIODARONE 200 MG TAB PO SCH ×2 (09:15→21:44)
[2017-06-02] MEDS: METOLAZONE 5 MG TAB PO SCH ×2 (09:16→21:45)
[2017-06-02] MEDS: ASPIRIN 81 MG CHEW PO SCH (09:16)
[2017-06-02] MEDS: DOCUSATE 100 MG CAP PO SCH ×2 (09:16→21:45)
[2017-06-02] MEDS: SPIRONOLACTONE 25 MG TAB PO SCH (09:17)
[2017-06-02] MEDS: SYMBICORT 160-4.5 MCG INHALER INHALATION SCH ×2 (09:21→20:00)
--- NOTE | 2017-06-02 09:48 | PCN ---
PREOP DIAGNOSIS: Acute renal failure. PROCEDURE: Ultrasound guided dialysis catheter placement right femoral approach. The patient was brought to the director of cath lab. Right groin was prepped and drapes applied in the usual sterile manner. 1% Lidocaine was infiltrated in the groin area. Micropuncture introduced into the right femoral vein. Micropuncture guidewire was passed and a 4 German dilator was advanced. Regular guidewire was passed and checked the wires. It was in the inferior vena cava. Then we passed the dilator and then we passed the 50 cm dialysis catheter. Catheter was flushed with heparin saline and secured with 3-0 silk. Dressing applied. The patient tolerated the procedure well. MOIZ
[2017-06-02 11:22] LABS: Hepatitis B Surface Ag Index 0.14
[2017-06-02 11:27] LABS: Hepatitis B Core IgM Index 0.06
[2017-06-02] MEDS ORDERED: HEPARIN SODIUM,PORCINE 5,000 UNIT/ML 1 ML VIAL ONE (11:30)
[2017-06-02 11:39] LABS: Hepatitis C Virus IgG Ab Reactive (Negative)
[2017-06-02] MEDS: ALPRAZolam 0.5 MG TAB PO PRN ×2 (12:39→12:43)
--- NOTE | 2017-06-02 13:04 | PCN ---
PREOPERATIVE DIAGNOSIS: Acute on chronic renal failure. There is malfunctioning of the right femoral dialysis catheter. PROCEDURE: Placement of the 40 cm dialysis catheter right femoral vein. PROCEDURE: This patient had a dialysis catheter placed in the groin. Patient having difficulty in dialysis. They could not perform the dialysis. The patient was brought to the equipment operator/laborer/supervisor and right groin was prepped and draped in usual sterile manner. We did the venogram on the table and found to have a vena cava and iliac vein was patent, but the catheter getting close to the wall. They could not do the dialysis. We passed a guide wire and through that we removed the old catheter and the tunnel was created then the sheath was advanced on top of the guide wire. Through the sheath, we introduced 40 cm dialysis catheter. The tip of the catheter was ( ) inferior vena cava, flushed with heparin and saline and hep locked and secured with Vicryl nylon. The patient tolerated the procedure well. PROCEDURE: 1. Venacavogram. 2. Placement of the 40 cm dialysis catheter. MOIZ
--- NOTE | 2017-06-02 15:09 | P.PN ---
Subjective Principal diagnosis: CHF This is a pleasant 66-year-old gentleman who follows with Dr. Villela in the office. He has a known history of coronary artery disease, ischemic cardiomyopathy with a bi-V ICD, multiple PCI's in the past, atrial fibrillation , and known episodes of slow ventricular tachycardia. Patient presented to the emergency department with symptoms of worsening shortness of breath, edema in his lower extremities and abdominal distention. Patient continues to be on IV push Lasix 60 mg every 8 hour along with Zaroxolyn. Continues to diurese. Patient was noted to have several runs of nonsustained ventricular tachycardia, he was initiated this morning on IV amiodarone, and reinitiated on his Coreg as well. We will also have his device interrogated today. Blood pressure 96/60 with a heart rate in the 70s. 05/31/2017 Patient seen and examined, urine output very marginal, 300 mils overnight last night. Blood pressure this morning in the 80s systolic, edema not much improved. Patient did have one episode of nonsustained ventricular tachycardia.we did have a lengthy discussion with the patient and his family today regarding hospice, they wish to discuss further with Dr. Graham. Dialysis was discussed with the patient by Dr. Graham, patient was quite hesitant, Dr. Graham also felt that she may not tolerate well secondary to his cardiac status and arrhythmias.BUN 109 today, creatinine 2.38. 06/01/2017 Patient seen and examined this morning, feeling weak today. Minimal urine output. Creatinine up to 3.08. Rigo Graham did have a lengthy discussion with the patient and his family today regarding dialysis versus hospice. They understand the risk of dialysis and wished to at least attempt this. Catheter placement will be performed today as well as first dialysis treatment. 06/02/2017 Patient seen and examined this morning, he does state that he feels mildly better. He did undergo one dialysis treatment. Creatinine today is 3.7. Objective - Vital Signs Vital signs: Vital Signs Temp 95.6 F L 06/02/17 08:05 Pulse 53 L 06/02/17 08:05 Resp 18 06/02/17 08:05 BP 88/64 06/02/17 08:05 Pulse Ox 94 L 06/02/17 08:05 Intake & Output 06/01/17 06/02/17 06/02/17 18:59 06:59 18:59 Intake Total 340 80 100 Output Total 250 100 Balance 90 -20 100 Weight 75 kg 75 kg Intake: IV 80 80 0.9@10 80 80 Intake, IV Titration 60 Amount Furosemide 250 mg In 60 Sodium Chloride 0.9% 225 ml @ 15 MG/HR 15 mls/hr IVP .[id number] [facility] Rx#: [id number] Oral 200 100 Output: Urine 250 100 Uretheral (Castellanos) 250 Other: Voiding Method Indwelling Catheter Indwelling Catheter Indwelling Catheter # Voids 1 - Exam PHYSICAL EXAMINATION: HEENT: Head is atraumatic, normocephalic. Pupils equal, round. Neck is supple. There is elevated jugular venous pressure. HEART EXAMINATION: Heart sounds regular, S1 and S2 normal with a systolic murmur. CHEST EXAMINATION: Lungs reveal diminished air entry bilaterallywith rales bilaterally. No chest wall tenderness is noted on palpation or with deep breathing. ABDOMEN: Firm, Distended, diffuse tenderness to palpation. Bowel sounds are hypoactive. No organomegaly noted. EXTREMITIES: Diminished peripheral pulses with evidence of trace to 1+ peripheral edema and no calf tenderness noted.bilateral Randy wraps in place Scrotal edema noted NEUROLOGIC patient is awake, drowsy and oriented x3. - Labs CBC & Chem 7: 05/30/17 05:49 06/02/17 06:14 Labs: Abnormal Lab Results - Last 24 Hours (Table) 06/02/17 Range/Units 06:14 Sodium 131 L (137-145) mmol/L Chloride 91 L (98-107) mmol/L BUN 111 H* (9-20) mg/dL Creatinine 3.78 H (0.66-1.25) mg/dL Assessment and Plan Plan: Assessment and plan #1 acute on chronic systolic congestive heart failure, end-stage, now on hemodialysis. #2 ischemic cardiomyopathy, s/p BiV ICD #3 hypertension, hypotension with therapy #4 prior CABG and PCI #5 hyperlipidemia #6 chronic kidney disease #7 paroxysmal atrial fibrillation #8 ventricular tachycardia From cardiology's perspective, we'll continue diuretics as per nephrology. Continue other medications. DNP note has been reviewed, I agree with a documented findings and plan of care. Patient was seen and examined.
[2017-06-02] MEDS: POLYETHYLENE GLYCOL 3350 17 GM POWD.PACK PO SCH (15:37)
--- NOTE | 2017-06-02 15:37 | P.PN ---
Subjective Mr. Birmingham is a66/M with a known history of coronary artery disease, ischemic cardiomyopathy with a bi-V ICD, multiple PCI's in the past, atrial fibrillation , and known episodes of slow ventricular tachycardia. Patient presented to the emergency department with symptoms of worsening shortness of breath, edema in his lower extremities and abdominal distention. Patient's blood pressure is low and is currently on dobutamine drip. Cardiology and nephrology is following this patient patient is currently being Krish with Lasix drip and Zaroxolyn 5 mg twice daily. On 05/23/2017: Extent patient does have a negative balance over the last 24 hours. Patient is being continued on Lasix drip and dobutamine drip. Leg swelling is improved. Patient is on pressure wraps as well. There are any worsening short of breath or chest pain. Patient continues to have significant extremity edema and Abdominal distention no fever no chills. No acute overnight issues. On 05/24/2017 Overnight the patient's systolic blood pressure dropped to below 80 mmHg. So patient was given IV fluid bolus last night. Patient's lower extremity edema has improved. On 05/25/2017 Patient had sustained V. tach on dobutamine drip so this has been discontinued.The patient remained the same with the his lower extremity edema. Constitutional: Patient denies any fever or chills . generalized weakness or weight loss. Abdomen: Patient denied nausea vomiting and diarrhea and abdominal pain. Cardiovascular: Patient denies any chest pain or short of breath no palpitations. Patient does have severe leg swelling Respiratory: patient denied any cough is from production. No worsening shortness of breath Neurologic: Patient denied any numbness or tingling headache. All other 14 point ROS negative except the above Interval history 05/28/2017 states that he is feeling slightly better however continues to have difficulty breathing requires about 3-4 pills No headaches blurry vision chest pain abdominal pain. Patient does state to have some burning in his bladder 05/29/2017 Patient states that his bladder spasm improved Denies having any difficulty breathing nausea vomiting or diarrhea 05/30/17 doing well states that his abdomen is bloated no bladder spasms reported breathing is improved 05/31/17 episodes of VT states he still feels weak had a bm no more bladder spasms reported 06/01/17 low urine output No fevers, chils, nausea, vomiting, chest pain 06/02/2017 Urine output is significantly decreased. Patient underwent placement of a hemodialysis catheter status post one session of hematemesis - Exam PHYSICAL EXAMINATION: Patient is lying in the bed comfortably, no acute distress, awake alert and oriented.. HEENT: Normocephalic. Neck is supple. Pupils reactive. Nostrils clear. Oral cavity is moist. Ears reveal no drainage. Neck reveals no JVD, carotid bruits, or thyromegaly. CHEST EXAMINATION: Trachea is central. Symmetrical expansion. Patient does have basilar crackles. No wheezing. Nonlabored breathing CARDIAC: Normal S1, S2 with no gallops. No murmurs ABDOMEN: Soft. Distended with skin edema as well, Bowel sounds normal. No organomegaly. No abdominal bruits. Extremities: Patient does have 2+ edema. improved Pulses palpable. No clubbing, cyanosis. Neurologically awake, alert, oriented x3 with well-coordinated movements. No focal deficits noted Skin: No rash or skin lesions. Psychiatric: Operative. Nonsuicidal Musculoskeletal: No joint swelling or deformity. Normal range of motion. . Objective - Vital Signs Vital signs: Vital Signs Temp 95.6 F L 06/02/17 08:05 Pulse 53 L 06/02/17 08:05 Resp 18 06/02/17 08:05 BP 88/64 06/02/17 08:05 Pulse Ox 94 L 06/02/17 08:05 Intake & Output 06/01/17 06/02/17 06/02/17 18:59 06:59 18:59 Intake Total 340 80 100 Output Total 250 100 Balance 90 -20 100 Weight 75 kg 75 kg Intake: IV 80 80 0.9@10 80 80 Intake, IV Titration 60 Amount Furosemide 250 mg In 60 Sodium Chloride 0.9% 225 ml @ 15 MG/HR 15 mls/hr IVP .[id number] [facility] Rx#: [id number] Oral 200 100 Output: Urine 250 100 Uretheral (Castellanos) 250 Other: Voiding Method Indwelling Catheter Indwelling Catheter Indwelling Catheter # Voids 1 - Labs CBC & Chem 7: 05/30/17 05:49 06/02/17 06:14 Labs: Abnormal Lab Results - Last 24 Hours (Table) 06/02/17 Range/Units 06:14 Sodium 131 L (137-145) mmol/L Chloride 91 L (98-107) mmol/L BUN 111 H* (9-20) mg/dL Creatinine 3.78 H (0.66-1.25) mg/dL Assessment and Plan Plan: - Assessment and Plan Plan: ASSESSMENT: -Acute on chronic congestive heart failure exacerbation from systolic and past dysfunction EF 30-35% from moderate concentric left hypertrophy and underlying coronary artery disease, slow to respond -Coronary artery disease with prior history of coronary bypass and stent -COPD in an ex-smoker -Ischemic cardiomyopathy status post biventricular ICD -Chronic kidney disease stage III from hypertensive nephrosclerosis -Nonoliguric acute kidney injury seconded to cardiorenal syndrome improving Hypervolemic hyponatremia improving -Peripheral artery disease or prior history of fem-fem bypass -Diabetes mellitus type II on insulin -Moderate secondary pulmonary hypertension secondary to congestive heart failure -Moderate tricuspid regurgitation nonrheumatic -Severe mitral regurgitation nonrheumatic -Acute urine retention. On Castellanos catheter now -Hematuria, secondary to traumatic catheter placement -DVT prophylaxis with heparin subcu New onset A fib Sustained ventricular tachyarrhythmia PLAN: Continue ongoing care continue telemetry monitoring Strict I's and O's HD with utrafiltration DNR with respect to his wishes.
[2017-06-02] MEDS: ATORVASTATIN 20 MG TAB PO SCH (21:44)
[2017-06-02] MEDS: METOCLOPRAMIDE 5 MG/ML 2 ML VIAL IVP PRN (21:46)
[2017-06-03] MEDS: METOCLOPRAMIDE 5 MG/ML 2 ML VIAL IVP PRN (03:51)
[2017-06-03] MEDS: MIDODRINE 5 MG TAB PO SCH ×3 (07:30→17:47)
--- NOTE | 2017-06-03 07:39 | P.PN ---
Subjective Patient is seen in follow-up for acute kidney injury on chronic kidney disease. Patient has chronic kidney disease stage III secondary to cardiorenal syndrome with baseline creatinine in the range of 1.5-1.7. His creatinine today is elevated at 3.08/ Patient presented with dyspnea and lower extremity edema. He was maintained on dobutamine drip as well as Lasix drip. On May 24 , he became quite hypotensive and diuretics as well as dobutamine were discontinued. He received about 250 mL of fluids. Patient has systolic CHF with ejection fraction of 30-35% with severe mitral regurgitation, moderate tricuspid regurgitation and pulmonary hypertension. Currently he is resting in bed. Denies chest pain. Oral intake is fair. Still has significant edema. Blood pressures remain in the systolic 80s-90s. Remains oliguric - urine output overnight was about 100 mL. Underwent first treatment of hemodialysis on June 02. Vital signs are stable. General: The patient appeared well nourished and normally developed. HEENT: Head exam is unremarkable. Neck is without jugular venous distension. LUNGS: Rales at bases Breath sounds decreased. HEART: Rate and Rhythm are regular. First and second heart sounds normal. No murmurs, rubs or gallops. ABDOMEN: Abdominal exam reveals normal bowel sounds. Non-tender and non- distended. No evidence of peritonitis. EXTREMITITES: 2+ edema. Objective - Vital Signs Vital signs: Vital Signs Temp 96.9 F L 06/03/17 04:00 Pulse 53 L 06/03/17 04:00 Resp 18 06/03/17 04:00 BP 87/61 06/03/17 04:00 Pulse Ox 93 L 06/03/17 04:00 Intake & Output 06/02/17 06/03/17 06/03/17 18:59 06:59 18:59 Intake Total 210 Output Total 50 100 Balance 160 -100 Weight 75 kg 74.2 kg Intake: IV 110 0.9@10 110 Oral 100 Output: Urine 50 100 Other: Voiding Method Indwelling Catheter Indwelling Catheter - Labs CBC & Chem 7: 05/30/17 05:49 06/02/17 06:14 Labs: Abnormal Lab Results - Last 24 Hours (Table) 06/02/17 Range/Units 06:14 Sodium 131 L (137-145) mmol/L Chloride 91 L (98-107) mmol/L BUN 111 H* (9-20) mg/dL Creatinine 3.78 H (0.66-1.25) mg/dL Assessment and Plan Plan: Assessment: #1. Nonoliguric acute kidney injury secondary to cardiorenal syndrome. Urinalysis noted to be benign. No evidence of hydronephrosis. Patient is now oliguric and not responding to diuretics. Hemodialysis dependent - underwent first treatment on June 02 with 2 L ultrafiltration. #2. Chronic kidney disease stage III with baseline creatinine in the range of 1.5-1.7 secondary to cardiorenal syndrome. Renal ultrasound reveals 7.9 and 9.3 cm kidneys with cortical thinning suggestive of underlying chronic kidney disease. #3. Volume overload. #4. Urinary retention status post Castellanos catheter placement. #5. Systolic CHF with ejection fraction of 30-35% with severe mitral regurgitation and moderate tricuspid regurgitation and pulmonary hypertension. #6. Metabolic acidosis secondary to acute kidney injury. Resolved. #7. Hypervolemic hyponatremia. #8. V. tach. Now stable. Plan: Low-salt and 1200 mL fluid restricted diet. Maintain Castellanos catheter. Daily weights. Discontinue oral sodium bicarbonate supplementation. Repeat electrolytes in the morning. Maintain Lasix 80 mg IV twice daily. Maintain metolazone 5 mg twice daily. Dobutamine has been discontinued as he went into V. tach. I had a detailed discussion with the patient and his family regarding the need to start renal replacement therapy or consider end-of-life care as patient is significantly fluid overloaded with poor response to diuretics. I did discuss with them the risk of arrhythmias with dialysis. The patient and the family at this time agreed to proceed with renal replacement therapy and see how he tolerates it. Second treatment of hemodialysis today with goal 2-3 L ultrafiltration. Patient also needs a permacath prior to discharge. manager access following to help facilitate outpatient vein mapping and hemodialysis set up.
[2017-06-03 07:48] LABS: Potassium 4.7 mmol/L (3.5-5.1)
[2017-06-03] MEDS: FUROSEMIDE 10 MG/ML 10 ML VIAL IV SCH (08:12)
[2017-06-03] MEDS: ALPRAZolam 0.5 MG TAB PO PRN (08:12)
[2017-06-03] MEDS: DOCUSATE 100 MG CAP PO SCH ×2 (08:13→22:23)
[2017-06-03] MEDS: CARVEDILOL 3.125 MG TAB PO SCH ×2 (08:13→17:42)
[2017-06-03] MEDS: POLYETHYLENE GLYCOL 3350 17 GM POWD.PACK PO SCH (08:13)
[2017-06-03] MEDS: AMIODARONE 200 MG TAB PO SCH ×2 (08:13→22:23)
[2017-06-03] MEDS: METOLAZONE 5 MG TAB PO SCH (08:14)
[2017-06-03] MEDS: SPIRONOLACTONE 25 MG TAB PO SCH (08:14)
[2017-06-03] MEDS: ASPIRIN 81 MG CHEW PO SCH (08:14)
[2017-06-03] MEDS: SYMBICORT 160-4.5 MCG INHALER INHALATION SCH ×2 (08:25→19:48)
--- NOTE | 2017-06-03 14:47 | P.PN ---
Subjective Principal diagnosis: CHF This is a pleasant 66-year-old gentleman who follows with Dr. Villela in the office. He has a known history of coronary artery disease, ischemic cardiomyopathy with a bi-V ICD, multiple PCI's in the past, atrial fibrillation , and known episodes of slow ventricular tachycardia. Patient presented to the emergency department with symptoms of worsening shortness of breath, edema in his lower extremities and abdominal distention. Patient continues to be on IV push Lasix 60 mg every 8 hour along with Zaroxolyn. Continues to diurese. Patient was noted to have several runs of nonsustained ventricular tachycardia, he was initiated this morning on IV amiodarone, and reinitiated on his Coreg as well. We will also have his device interrogated today. Blood pressure 96/60 with a heart rate in the 70s. 05/31/2017 Patient seen and examined, urine output very marginal, 300 mils overnight last night. Blood pressure this morning in the 80s systolic, edema not much improved. Patient did have one episode of nonsustained ventricular tachycardia.we did have a lengthy discussion with the patient and his family today regarding hospice, they wish to discuss further with Dr. Graham. Dialysis was discussed with the patient by Dr. Graham, patient was quite hesitant, Dr. Graham also felt that she may not tolerate well secondary to his cardiac status and arrhythmias.BUN 109 today, creatinine 2.38. 06/01/2017 Patient seen and examined this morning, feeling weak today. Minimal urine output. Creatinine up to 3.08. Rigo Graham did have a lengthy discussion with the patient and his family today regarding dialysis versus hospice. They understand the risk of dialysis and wished to at least attempt this. Catheter placement will be performed today as well as first dialysis treatment. 06/02/2017 Patient seen and examined this morning, he does state that he feels mildly better. He did undergo one dialysis treatment. Creatinine today is 3.7. 06/03/2014 Patient seen and examined this morning, 100 mL out in the past 24 hours, creatinine 4.6. Overall the patient seems to be tolerating dialysis and looking better overall Objective - Vital Signs Vital signs: Vital Signs Temp 96.0 F L 06/03/17 12:00 Pulse 57 L 06/03/17 12:00 Resp 16 06/03/17 12:00 BP 89/58 06/03/17 12:00 Pulse Ox 97 06/03/17 12:00 Intake & Output 06/02/17 06/03/17 06/03/17 18:59 06:59 18:59 Intake Total 210 480 Output Total 50 100 Balance 160 -100 480 Weight 75 kg 74.2 kg Intake: IV 110 120 0.9@10 110 120 Oral 100 360 Output: Urine 50 100 Other: Voiding Method Indwelling Catheter Indwelling Catheter Indwelling Catheter - Exam PHYSICAL EXAMINATION: HEENT: Head is atraumatic, normocephalic. Pupils equal, round. Neck is supple. There is elevated jugular venous pressure. HEART EXAMINATION: Heart sounds regular, S1 and S2 normal with a systolic murmur. CHEST EXAMINATION: Lungs reveal diminished air entry bilaterallywith rales bilaterally. No chest wall tenderness is noted on palpation or with deep breathing. ABDOMEN: Firm, Distended, diffuse tenderness to palpation. Bowel sounds are hypoactive. No organomegaly noted. EXTREMITIES: Diminished peripheral pulses with evidence of trace to 1+ peripheral edema and no calf tenderness noted.bilateral Randy wraps in place Scrotal edema noted NEUROLOGIC patient is awake, drowsy and oriented x3. - Labs CBC & Chem 7: 05/30/17 05:49 06/03/17 06:04 Labs: Abnormal Lab Results - Last 24 Hours (Table) 06/03/17 Range/Units 06:04 Sodium 133 L (137-145) mmol/L Chloride 94 L (98-107) mmol/L BUN 90 H* (9-20) mg/dL Creatinine 4.63 H (0.66-1.25) mg/dL Glucose 108 H (74-99) mg/dL Assessment and Plan Plan: Assessment and plan #1 acute on chronic systolic congestive heart failure, end-stage, now on hemodialysis. #2 ischemic cardiomyopathy, s/p BiV ICD #3 hypertension, hypotension with therapy #4 prior CABG and PCI #5 hyperlipidemia #6 chronic kidney disease #7 paroxysmal atrial fibrillation #8 ventricular tachycardia From cardiology's perspective, we'll continue diuretics as per nephrology. Continue dialysis. Continue other medications. DNP note has been reviewed, I agree with a documented findings and plan of care. Patient was seen and examined.
[2017-06-03] MEDS: ALPRAZolam 0.25 MG TAB PO PRN (15:23)
--- NOTE | 2017-06-03 16:17 | P.PN ---
Subjective Mr. Birmingham is a66/M with a known history of coronary artery disease, ischemic cardiomyopathy with a bi-V ICD, multiple PCI's in the past, atrial fibrillation , and known episodes of slow ventricular tachycardia. Patient presented to the emergency department with symptoms of worsening shortness of breath, edema in his lower extremities and abdominal distention. Patient's blood pressure is low and is currently on dobutamine drip. Cardiology and nephrology is following this patient patient is currently being Krish with Lasix drip and Zaroxolyn 5 mg twice daily. On 05/23/2017: Extent patient does have a negative balance over the last 24 hours. Patient is being continued on Lasix drip and dobutamine drip. Leg swelling is improved. Patient is on pressure wraps as well. There are any worsening short of breath or chest pain. Patient continues to have significant extremity edema and Abdominal distention no fever no chills. No acute overnight issues. On 05/24/2017 Overnight the patient's systolic blood pressure dropped to below 80 mmHg. So patient was given IV fluid bolus last night. Patient's lower extremity edema has improved. On 05/25/2017 Patient had sustained V. tach on dobutamine drip so this has been discontinued.The patient remained the same with the his lower extremity edema. Constitutional: Patient denies any fever or chills . generalized weakness or weight loss. Abdomen: Patient denied nausea vomiting and diarrhea and abdominal pain. Cardiovascular: Patient denies any chest pain or short of breath no palpitations. Patient does have severe leg swelling Respiratory: patient denied any cough is from production. No worsening shortness of breath Neurologic: Patient denied any numbness or tingling headache. All other 14 point ROS negative except the above Interval history 05/28/2017 states that he is feeling slightly better however continues to have difficulty breathing requires about 3-4 pills No headaches blurry vision chest pain abdominal pain. Patient does state to have some burning in his bladder 05/29/2017 Patient states that his bladder spasm improved Denies having any difficulty breathing nausea vomiting or diarrhea 05/30/17 doing well states that his abdomen is bloated no bladder spasms reported breathing is improved 05/31/17 episodes of VT states he still feels weak had a bm no more bladder spasms reported 06/01/17 low urine output No fevers, chils, nausea, vomiting, chest pain 06/02/2017 Urine output is significantly decreased. Patient underwent placement of a hemodialysis catheter status post one session of hematemesis 06/03/2017 No significant clinical change denies having any headaches blurry vision chest pain difficulty breathing nausea vomiting abdominal pain - Exam PHYSICAL EXAMINATION: Patient is lying in the bed comfortably, no acute distress, awake alert and oriented.. HEENT: Normocephalic. Neck is supple. Pupils reactive. Nostrils clear. Oral cavity is moist. Ears reveal no drainage. Neck reveals no JVD, carotid bruits, or thyromegaly. CHEST EXAMINATION: Trachea is central. Symmetrical expansion. Patient does have basilar crackles. No wheezing. Nonlabored breathing CARDIAC: Normal S1, S2 with no gallops. No murmurs ABDOMEN: Soft. Distended with skin edema as well, Bowel sounds normal. No organomegaly. No abdominal bruits. Extremities: Patient does have 2+ edema. improved Pulses palpable. No clubbing, cyanosis. Neurologically awake, alert, oriented x3 with well-coordinated movements. No focal deficits noted Skin: No rash or skin lesions. Psychiatric: Operative. Nonsuicidal Musculoskeletal: No joint swelling or deformity. Normal range of motion. . Objective - Vital Signs Vital signs: Vital Signs Temp 96.8 F L 06/03/17 16:00 Pulse 53 L 06/03/17 16:00 Resp 18 06/03/17 16:00 BP 93/53 06/03/17 16:00 Pulse Ox 99 06/03/17 16:00 Intake & Output 06/02/17 06/03/17 06/03/17 18:59 06:59 18:59 Intake Total 210 500 Output Total 50 100 Balance 160 -100 500 Weight 75 kg 74.2 kg Intake: IV 110 120 0.9@10 110 120 Oral 100 380 Output: Urine 50 100 Other: Voiding Method Indwelling Catheter Indwelling Catheter Indwelling Catheter - Labs CBC & Chem 7: 05/30/17 05:49 06/03/17 06:04 Labs: Abnormal Lab Results - Last 24 Hours (Table) 06/03/17 Range/Units 06:04 Sodium 133 L (137-145) mmol/L Chloride 94 L (98-107) mmol/L BUN 90 H* (9-20) mg/dL Creatinine 4.63 H (0.66-1.25) mg/dL Glucose 108 H (74-99) mg/dL Assessment and Plan Plan: - Assessment and Plan Plan: ASSESSMENT: -Acute on chronic congestive heart failure exacerbation from systolic and past dysfunction EF 30-35% from moderate concentric left hypertrophy and underlying coronary artery disease, slow to respond -Coronary artery disease with prior history of coronary bypass and stent -COPD in an ex-smoker -Ischemic cardiomyopathy status post biventricular ICD -Chronic kidney disease stage III from hypertensive nephrosclerosis -Nonoliguric acute kidney injury seconded to cardiorenal syndrome improving Hypervolemic hyponatremia improving -Peripheral artery disease or prior history of fem-fem bypass -Diabetes mellitus type II on insulin -Moderate secondary pulmonary hypertension secondary to congestive heart failure -Moderate tricuspid regurgitation nonrheumatic -Severe mitral regurgitation nonrheumatic -Acute urine retention. On Castellanos catheter now -Hematuria, secondary to traumatic catheter placement -DVT prophylaxis with heparin subcu New onset A fib Sustained ventricular tachyarrhythmia PLAN: Continue ongoing care continue telemetry monitoring Strict I's and O's HD with utrafiltration per nephrology recommendations DNR with respect to his wishes.
[2017-06-03] MEDS: HYDROcodone/APAP 10-325MG 1 EACH TAB PO PRN ×2 (16:21→22:26)
[2017-06-03] MEDS: ATORVASTATIN 20 MG TAB PO SCH (22:23)
[2017-06-04] MEDS: METOLAZONE 5 MG TAB PO SCH ×3 (01:18→22:03)
[2017-06-04] MEDS: ALPRAZolam 0.25 MG TAB PO PRN ×2 (01:19→22:03)
[2017-06-04] MEDS: FUROSEMIDE 10 MG/ML 10 ML VIAL IV SCH ×3 (01:19→22:03)
[2017-06-04 07:01] LABS: Potassium 4.3 mmol/L (3.5-5.1)
[2017-06-04] MEDS: MIDODRINE 5 MG TAB PO SCH ×3 (07:13→16:27)
[2017-06-04] MEDS: HYDROcodone/APAP 10-325MG 1 EACH TAB PO PRN ×2 (07:13→13:06)
[2017-06-04] MEDS: CARVEDILOL 3.125 MG TAB PO SCH ×2 (07:13→17:10)
[2017-06-04] MEDS: SYMBICORT 160-4.5 MCG INHALER INHALATION SCH ×2 (08:39→19:44)
--- NOTE | 2017-06-04 08:41 | PN ---
The patient is seen for follow-up for acute kidney injury mainly cardiorenal. He has been started on dialysis. The patient has had two treatments of hemodialysis so far. He is scheduled for an IJ Permacath today. The patient states the patients daughter is sitting at bedside and they state he is better since he has had his two treatments. On examination, blood pressure is 95/45. Heart rate 59 per minute. He is afebrile Examination of the heart S1, and S2. Examination of the lungs bilateral breath sounds are heard. Abdomen is soft, nontender. Extremities of the lower extremities shows edema 2+ bilaterally. POWDER COAT PAINTER exam is grossly intact. Labs show sodium 133, potassium 4.3, BUN 66, serum creatinine 4.26. ASSESSMENT: 1. Acute kidney injury mainly cardiorenal, currently dialysis dependent. The patient will be continuing with outpatient dialysis. 2. Congestive heart failure, fluid overload. Now better with initiation of renal replacement therapy. 3. Chronic kidney disease stage III with baseline about 1.5 to 1.7. 4. Urine retention currently with Castellanos catheter placement. 5. Cardiomyopathy, ejection fraction of 30 to 35% with severe mitral regurg, moderate tricuspid regurgitation and pulmonary hypertension. 6. V-Tach, currently stable. 7. Hypervolemic Hyponatremia. PLAN: Repeat hemodialysis today. The patient will be set up for outpatient dialysis. [facility]
[2017-06-04] MEDS: POLYETHYLENE GLYCOL 3350 17 GM POWD.PACK PO SCH (08:57)
[2017-06-04] MEDS: DOCUSATE 100 MG CAP PO SCH ×2 (08:58→22:02)
[2017-06-04] MEDS: ASPIRIN 81 MG CHEW PO SCH (08:58)
[2017-06-04] MEDS: AMIODARONE 200 MG TAB PO SCH ×2 (09:04→22:01)
[2017-06-04] MEDS ORDERED: IV FLUID CONTINUATION 400 ML IV ONE (09:57)
[2017-06-04] MEDS ORDERED: fentaNYL (PF) 50 MCG/ML 2 ML AMP IV ONE (10:14)
[2017-06-04] MEDS ORDERED: LIDOCAINE 2% INJ 20 MG/ML SQ ONE (10:16)
--- NOTE | 2017-06-04 11:05 | P.PN ---
Progress Note - Text DATE OF SERVICE: 06/04/2017 PRESENTING COMPLAINT: Shortness of breath, lower extremity edema, and abdominal distention. INTERVAL HISTORY: 66-year-old male with acute on chronic congestive heart failure exacerbation, chronic kidney disease in need of permanent hemodialysis catheter placement. Catheter placement scheduled for today. Additional round of hemodialysis scheduled for today. 06/04/2017: Patient sitting up in bed, appears somewhat lethargic, able to answer questions, awake, daughter at the bedside, plan of care/timetable discussed with daughter and patient. Patient has not had a good BM, ordered Dulcolax suppository. REVIEW OF SYSTEMS: Done for constitutional ,cardiovascular, GI, pulmonary with relevant findings as above. CURRENT MEDICATIONS Sebastian, albuterol, Symbicort, Xanax, Lipitor, Coreg, Lasix 80 mg IV every 12 hours, Zaroxolyn 5 mg by mouth twice a day, midodrine 10 mg by mouth. PHYSICAL EXAM VITAL SIGNS: Temperature 96.0, pulse 59, respiratory rate 16, blood pressure 95/45, oxygen saturation 98% on 2 L nasal cannula. GENERAL APPEARANCE: Sitting up in bed, not in distress, appears somewhat lethargic. EYES: Pupils equal. Conjunctiva normal. NECK: JVD not raised. Mass not palpable. RESPIRATORY: Respiratory effort increased Lungs diminished bilaterally to auscultation. CARDIOVASCULAR: First and second sounds normal. moderate edema. ABDOMEN: Soft. Liver and spleen not palpable. No tenderness. No mass palpable. Right groin hemodialysis catheter in place. PSYCHIATRY: Alert and oriented x3. Mood and affect a bit low. INVESTIGATIONS: Sodium 133, potassium 4.3, BUN 66, creatinine 4.26. ASSESSMENT: -Acute on chronic congestive heart failure exacerbation from systolic and past dysfunction EF 30-35% from moderate concentric left hypertrophy and underlying coronary artery disease, slow to respond -Coronary artery disease with prior history of coronary bypass and stent -COPD in an ex-smoker -Ischemic cardiomyopathy status post biventricular ICD -Chronic kidney disease stage III from hypertensive nephrosclerosis -Nonoliguric acute kidney injury seconded to cardiorenal syndrome worsening, requires hemodialysis -Hypervolemic hyponatremia improving -Peripheral artery disease or prior history of fem-fem bypass -Diabetes mellitus type II chronically on insulin -Moderate secondary pulmonary hypertension secondary to congestive heart failure -Moderate tricuspid regurgitation nonrheumatic -Severe mitral regurgitation nonrheumatic -Acute urine retention. On Castellanos catheter now -Hematuria, secondary to traumatic catheter placement -DVT prophylaxis with heparin subcu -New onset A fib -Sustained ventricular tachyarrhythmia PLAN: Patient to receive permanent dialysis catheter placement today and another round of hemodialysis. Continue diuretics per nephrology. Plan of care discussed with the patient and the daughter at the bedside questions answered. CORRECTIONS IDENTIFICATION TECHNICIAN statement: Patient was seen and examined by nurse practitioner Virginie Fatima and all elements of the case discussed with attending Dr. Camarena
[2017-06-04] MEDS: SPIRONOLACTONE 25 MG TAB PO SCH (13:06)
--- NOTE | 2017-06-04 14:20 | PCN ---
PREOPERATIVE DIAGNOSIS: Acute on chronic renal failure. PROCEDURE: Attempt to place a dialysis catheter right internal jugular vein. This patient has already dialysis catheter placed for emergency in the right femoral vein. The patient was brought to the laborer concrete paving and right side of the neck was prepped and draped in usual sterile manner. Ultrasound guided micropuncture introduced to the right internal jugular vein. Micropuncture guide was passed. At this point, we found that patient has biventricular implantable cardiac defibrillator with 3 leads. At this point, since patient has ( ) dialysis catheter in the right femoral approach, we did not want to place the IJ catheter because of all those leads into his right side of the heart and patient has a biventricular implantable cardiac defibrillator. Procedure was terminated and we will use the ( ) dialysis catheter right femoral approach and patient will be scheduled to have an AV fistula graft in the right arm because patient has a defibrillator on the left side. We will discuss with Nephrology and the family. MOIZ
[2017-06-04] MEDS: ATORVASTATIN 20 MG TAB PO SCH (22:02)
[2017-06-05] MEDS: MIDODRINE 5 MG TAB PO SCH ×3 (06:50→17:35)
[2017-06-05] MEDS: CARVEDILOL 3.125 MG TAB PO SCH ×2 (06:50→17:35)
[2017-06-05 06:58] LABS: Potassium 4.5 mmol/L (3.5-5.1)
[2017-06-05] MEDS: SYMBICORT 160-4.5 MCG INHALER INHALATION SCH ×2 (07:38→20:32)
[2017-06-05] MEDS ORDERED: BISACODYL 10 MG SUPP RECTAL STA (08:26)
--- NOTE | 2017-06-05 08:49 | PN ---
DATE OF SERVICE: 06/04/2017 ATTENDING NOTE: This patient was seen and examined by me earlier today. Discussed the care with my nurse practitioner, Ms. Fatima. Additional findings below. INTERVAL HISTORY: Patient admitted with CHF exacerbation, was on Lasix drip. Kidney function deteriorated. Creatinine has now bumped up to 4.26. Earlier Dr. Ocasio was going to put in a dialysis catheter, but because of the AICD he decided against that. He will put in a dialysis catheter in the right groin and do dialysis from there. On examination, temperature 96.3, pulse 50, respirations 16, blood pressure 90/ 56, pulse ox 99% on room air. Sitting up, lethargic, tired appearing, but answering questions. Lungs: Diminished breath sounds. Neck veins prominent. Gross edema present. Abdomen: Less distended. INVESTIGATIONS: Potassium 4.3, bilirubin 66, creatinine 4.26. ASSESSMENT: 1. Acute on chronic congestive heart failure exacerbation from systolic dysfunction. 2. Coronary artery disease. 3. Acute renal failure from cardiorenal syndrome now requiring dialysis. PLAN: Continue current medication and treatment plan. Overall prognosis guarded. Care was discussed with patient and daughter. Follow. MTDD
--- NOTE | 2017-06-05 09:26 | PN ---
The patient is seen for follow up for acute kidney injury, currently dialysis dependent. He was scheduled for an IJ Perm-A-Cath yesterday which could not be placed. The patient has a pacemaker on the left side and apparently the catheter could not be placed in the right IJ. He currently has a femoral catheter. Patient will be scheduled for hemodialysis tomorrow. On examination, blood pressure is 91/59, heart rate 66 per minute, he is afebrile. HEART: S1/S2. LUNGS: Bilateral breath sounds are heard. Decreased breath sounds at the bases. ABDOMEN: Soft, nontender. LOWER EXTREMITIES: Show edema, 2+ bilaterally. LABS: Potassium 4.5 today. ASSESSMENT: 1. Acute kidney injury, currently hemodialysis dependent, mainly cardiorenal. 2. Volume overload, slowly improving. Will plan for dialysis and ultrafiltration again tomorrow. 3. Severe cardiomyopathy with ejection fraction about 35-30% with severe mitral regurgitation, moderate tricuspid regurgitation and pulmonary hypertension. 4. Chronic kidney disease stage 3 with baseline about 1.5-1.7 secondary to nephrosclerosis. 5. Hypervolemic hyponatremia. PLAN: Repeat hemodialysis tomorrow. Will discuss with Dr. Hernandez regarding access. He may need to have a Propaten AV graft which can be used in about 2-3 days. RANDID
[2017-06-05] MEDS: AMIODARONE 200 MG TAB PO SCH (09:50)
[2017-06-05] MEDS: ASPIRIN 81 MG CHEW PO SCH (09:50)
[2017-06-05] MEDS: FUROSEMIDE 10 MG/ML 10 ML VIAL IV SCH ×2 (09:50→22:50)
[2017-06-05] MEDS: POLYETHYLENE GLYCOL 3350 17 GM POWD.PACK PO SCH (09:50)
[2017-06-05] MEDS: DOCUSATE 100 MG CAP PO SCH ×3 (09:50→22:50)
[2017-06-05] MEDS ORDERED: LACTULOSE 20 GM/30 ML CUP PO ONE (11:20)
--- NOTE | 2017-06-05 11:24 | P.PN ---
Progress Note - Text DATE OF SERVICE: 06/05/2017 PRESENTING COMPLAINT: Shortness of breath, lower extremity edema, and abdominal distention. INTERVAL HISTORY: 66-year-old male with acute on chronic congestive heart failure exacerbation, chronic kidney disease in need of permanent hemodialysis catheter placement. Catheter placed yesterday to the right groin. Additional round of hemodialysis scheduled for Tuesday. 06/04/2017: Patient sitting up in bed, appears somewhat lethargic, able to answer questions, awake, daughter at the bedside, plan of care/timetable discussed with daughter and patient. Patient has not had a BM, ordered Dulcolax suppository and emema. 06/05/2017: Patient sitting up in his bed, awake and able to answer questions, complains of feeling bloated, no BM today, eating about 50% of diet, plans for permanent dialysis catheter in the right arm soon per nephrology and vascular surgery. REVIEW OF SYSTEMS: Done for constitutional ,cardiovascular, GI, pulmonary with relevant findings as above. CURRENT MEDICATIONS Pierce, albuterol, Symbicort, Xanax, Lipitor, Coreg, Lasix 80 mg IV every 12 hours, Zaroxolyn 5 mg by mouth twice a day, midodrine 10 mg by mouth. PHYSICAL EXAM VITAL SIGNS: Temperature 96.6, pulse 55, respirations 16, blood pressure 91/59, oxygen saturation 99% on 2 L. GENERAL APPEARANCE: Sitting up in bed, not in distress, more awake today. EYES: Pupils equal. Conjunctiva normal. NECK: JVD raised. Mass not palpable. RESPIRATORY: Respiratory effort increased Lungs diminished bilaterally to auscultation. CARDIOVASCULAR: First and second sounds normal. Gross edema. ABDOMEN: Soft. Liver and spleen not palpable. No tenderness. No mass palpable. Right groin hemodialysis catheter in place. PSYCHIATRY: Alert and oriented x3. Mood and affect a bit low. INVESTIGATIONS: Sodium 133, BUN 50, creatinine 4.10 ASSESSMENT: -Acute on chronic congestive heart failure exacerbation from systolic dysfunction EF 30-35% from moderate concentric left hypertrophy and underlying coronary artery disease, slow to respond -Coronary artery disease with prior history of coronary bypass and stent -COPD in an ex-smoker -Ischemic cardiomyopathy status post biventricular ICD -Chronic kidney disease stage III from hypertensive nephrosclerosis -Acute kidney injury seconded to cardiorenal syndrome worsening, requiring hemodialysis -Hypervolemic hyponatremia improving -Peripheral artery disease or prior history of fem-fem bypass -Diabetes mellitus type II chronically on insulin -Moderate secondary pulmonary hypertension secondary to congestive heart failure -Moderate tricuspid regurgitation nonrheumatic -Severe mitral regurgitation nonrheumatic -Acute urine retention. Castellanos catheter in place -Hematuria, secondary to traumatic catheter placement, resolved -DVT prophylaxis with heparin subcu -Sustained ventricular tachyarrhythmia, patient with pacemaker in place PLAN: Patient has dialysis catheter placement to the right groin and is going to have another round of hemodialysis on Tuesday. Continue diuretics per nephrology. Patient will need a more permanent access AV graft and future planning process. Plan of care discussed with the patient questions answered. ROUTE DRIVER [employer]IN MACHINES statement: Patient was seen and examined by nurse practitioner Virginie Fatima and all elements of the case discussed with attending Dr. Camarena
[2017-06-05] MEDS: SPIRONOLACTONE 25 MG TAB PO SCH (11:45)
[2017-06-05] MEDS: METOLAZONE 5 MG TAB PO SCH ×2 (11:46→20:42)
[2017-06-05] MEDS: HYDROcodone/APAP 10-325MG 1 EACH TAB PO PRN (17:34)
--- NOTE | 2017-06-05 17:39 | PN ---
Mr. Birmingham is a 66-year-old gentleman with history of cardiomyopathy, congestive heart failure and renal failure who was admitted with fluid overload and CHF. The patient did not respond to standard medical therapy. The patient has been on dialysis and ultrafiltration. The patient seemed to be feeling better. Patient feels weak and tired. Patient has been scheduled for hemodialysis tomorrow. His blood pressure is running about 90-100/60, pulse is 56. HEART: S1/S2 heard. LUNGS: Diminished breath sounds at the bases. ABDOMEN: Soft. EXTREMITIES: Show 2+ edema. His potassium is in the range of 4.5. FINAL IMPRESSION: 1. Kidney failure. 2. Fluid overload. 3. Severe cardiomyopathy. 4. Hyponatremia. PLAN: Continue current management. Patient is going for hemodialysis tomorrow. Prognosis is guarded. MTDD
[2017-06-05] MEDS: ATORVASTATIN 20 MG TAB PO SCH (20:42)
[2017-06-06 06:43] LABS: INR 1.4 (<1.2); Prothrombin Time 13.5 sec (9.0-12.0)
[2017-06-06 06:46] LABS: Calcium 9.1 mg/dL (8.4-10.2); Potassium 4.6 mmol/L (3.5-5.1)
[2017-06-06] MEDS: CARVEDILOL 3.125 MG TAB PO SCH ×2 (06:53→18:35)
[2017-06-06] MEDS: MIDODRINE 5 MG TAB PO SCH ×3 (06:53→16:23)
[2017-06-06] MEDS: HYDROcodone/APAP 10-325MG 1 EACH TAB PO PRN ×2 (06:58→22:38)
[2017-06-06] MEDS: POLYETHYLENE GLYCOL 3350 17 GM POWD.PACK PO SCH (08:39)
[2017-06-06] MEDS: AMIODARONE 200 MG TAB PO SCH ×2 (08:40→22:37)
[2017-06-06] MEDS: FUROSEMIDE 10 MG/ML 10 ML VIAL IV SCH ×2 (08:40→22:39)
[2017-06-06] MEDS: ASPIRIN 81 MG CHEW PO SCH (08:41)
[2017-06-06] MEDS: DOCUSATE 100 MG CAP PO SCH ×2 (08:41→22:38)
[2017-06-06] MEDS: METOLAZONE 5 MG TAB PO SCH ×2 (08:41→22:38)
[2017-06-06] MEDS: SPIRONOLACTONE 25 MG TAB PO SCH (08:42)
--- NOTE | 2017-06-06 08:42 | P.PN ---
Subjective Patient is seen in follow-up for acute kidney injury on chronic kidney disease. Patient has chronic kidney disease stage III secondary to cardiorenal syndrome with baseline creatinine in the range of 1.5-1.7. His creatinine today is elevated at 3.08/ Patient presented with dyspnea and lower extremity edema. He was maintained on dobutamine drip as well as Lasix drip. On May 24 , he became quite hypotensive and diuretics as well as dobutamine were discontinued. He received about 250 mL of fluids. Patient has systolic CHF with ejection fraction of 30-35% with severe mitral regurgitation, moderate tricuspid regurgitation and pulmonary hypertension. Currently he is resting in bed. Denies chest pain. Oral intake is fair. Still has significant edema. Blood pressures remain in the systolic 80s-90s. Remains oliguric. Dyspnea is gradually improving. Vital signs are stable. General: The patient appeared well nourished and normally developed. HEENT: Head exam is unremarkable. Neck is without jugular venous distension. LUNGS: Rales at bases Breath sounds decreased. HEART: Rate and Rhythm are regular. First and second heart sounds normal. No murmurs, rubs or gallops. ABDOMEN: Abdominal exam reveals normal bowel sounds. Non-tender and non- distended. No evidence of peritonitis. EXTREMITITES: 2+ edema. Objective - Vital Signs Vital signs: Vital Signs Temp 96.7 F L 06/06/17 08:00 Pulse 50 L 06/06/17 08:00 Resp 20 06/06/17 08:00 BP 90/53 06/06/17 08:00 Pulse Ox 95 06/06/17 08:00 Intake & Output 06/05/17 06/06/17 06/06/17 18:59 06:59 18:59 Intake Total 1260 200 Output Total 50 Balance 1210 200 Weight 74.2 kg Intake: Oral 1260 200 Output: Urine 50 Uretheral (Castellanos) 50 Other: Voiding Method Indwelling Catheter Indwelling Catheter # Voids 1 # Bowel Movements 3 1 - Labs CBC & Chem 7: 05/30/17 05:49 06/06/17 06:01 Labs: Abnormal Lab Results - Last 24 Hours (Table) 06/06/17 06/06/17 Range/Units 06:01 06:01 PT 13.5 H (9.0-12.0) sec INR 1.4 H (<1.2) Sodium 131 L (137-145) mmol/L Chloride 96 L (98-107) mmol/L Carbon Dioxide 20 L (22-30) mmol/L BUN 58 H (9-20) mg/dL Creatinine 5.34 H* (0.66-1.25) mg/dL Assessment and Plan Plan: Assessment: #1. Nonoliguric acute kidney injury secondary to cardiorenal syndrome. Urinalysis noted to be benign. No evidence of hydronephrosis. Patient is now oliguric and not responding to diuretics. Now hemodialysis dependent. #2. Chronic kidney disease stage III with baseline creatinine in the range of 1.5-1.7 secondary to cardiorenal syndrome. Renal ultrasound reveals 7.9 and 9.3 cm kidneys with cortical thinning suggestive of underlying chronic kidney disease. #3. Volume overload. #4. Urinary retention status post Castellanos catheter placement. #5. Systolic CHF with ejection fraction of 30-35% with severe mitral regurgitation and moderate tricuspid regurgitation and pulmonary hypertension. #6. Metabolic acidosis secondary to acute kidney injury. Resolved. #7. Hypervolemic hyponatremia. #8. V. tach. Now stable. Plan: Low-salt and 1200 mL fluid restricted diet. Maintain Lasix 80 mg IV twice daily. Maintain metolazone 5 mg twice daily. Dobutamine has been discontinued as he went into V. tach. I had a detailed discussion with the patient and his family regarding the need to start renal replacement therapy or consider end-of-life care as patient is significantly fluid overloaded with poor response to diuretics. I did discuss with them the risk of arrhythmias with dialysis. The patient and the family at this time agreed to proceed with renal replacement therapy and see how he tolerates it - so far tolerating the treatments well. Hemodialysis today with goal 3 L ultrafiltration. Repeat treatment again tomorrow. Discussed with vascular surgery. He currently has a tunneled groin catheter. He will also have a AV graft placed this admission which can be used in the next 2 weeks or so.
[2017-06-06] MEDS: SYMBICORT 160-4.5 MCG INHALER INHALATION SCH ×2 (08:46→20:12)
--- NOTE | 2017-06-06 09:40 | IR ---
Fluoroscopy HISTORY: Pain 2 minutes fluoroscopy time supplied to the referring clinician. 489 intraoperative C-arm images docu ment the procedure. See dictated report from vascular surgery.
--- NOTE | 2017-06-06 10:09 | PN ---
DATE OF SERVICE: 06/05/17 ATTENDING NOTE: This patient was seen and examined by me today. Discussed with my nurse practitioner, Ms. Fatima, additional findings below. The patient with acute on chronic congestive heart failure, worsening renal failure due to dialysis tomorrow. Edema is still present. Did tolerate his diet. Feeling weak and tired. On examination, blood pressure 91/59. Lungs breath sounds. Edema still present. The patient answering questions appropriately. Investigations: BUN 50, creatinine 4.10. ASSESSMENT: 1. Acute on chronic congestive heart failure exacerbation from systolic diastolic dysfunction, slow to respond. 2. Acute kidney injury secondary to cardiorenal syndrome, worsening requiring hemodialysis. PLAN: Continue current medication and treatment plan. Care was discussed with the patient, the and daughter at the bedside. Questions were answered. Overall prognosis guarded. The patient is slow to respond. MTDD
--- NOTE | 2017-06-06 14:35 | P.PN ---
Subjective Principal diagnosis: CHF This is a pleasant 66-year-old gentleman who follows with Dr. Villela in the office. He has a known history of coronary artery disease, ischemic cardiomyopathy with a bi-V ICD, multiple PCI's in the past, atrial fibrillation , and known episodes of slow ventricular tachycardia. Patient presented to the emergency department with symptoms of worsening shortness of breath, edema in his lower extremities and abdominal distention. Patient continues to be on IV push Lasix 60 mg every 8 hour along with Zaroxolyn. Continues to diurese. Patient was noted to have several runs of nonsustained ventricular tachycardia, he was initiated this morning on IV amiodarone, and reinitiated on his Coreg as well. We will also have his device interrogated today. Blood pressure 96/60 with a heart rate in the 70s. 05/31/2017 Patient seen and examined, urine output very marginal, 300 mils overnight last night. Blood pressure this morning in the 80s systolic, edema not much improved. Patient did have one episode of nonsustained ventricular tachycardia.we did have a lengthy discussion with the patient and his family today regarding hospice, they wish to discuss further with Dr. Graham. Dialysis was discussed with the patient by Dr. Graham, patient was quite hesitant, Dr. Graham also felt that she may not tolerate well secondary to his cardiac status and arrhythmias.BUN 109 today, creatinine 2.38. 06/01/2017 Patient seen and examined this morning, feeling weak today. Minimal urine output. Creatinine up to 3.08. Rigo Graham did have a lengthy discussion with the patient and his family today regarding dialysis versus hospice. They understand the risk of dialysis and wished to at least attempt this. Catheter placement will be performed today as well as first dialysis treatment. 06/02/2017 Patient seen and examined this morning, he does state that he feels mildly better. He did undergo one dialysis treatment. Creatinine today is 3.7. 06/03/2017 Patient seen and examined this morning, 100 mL out in the past 24 hours, creatinine 4.6. Overall the patient seems to be tolerating dialysis and looking better overall 06/06/2017 Patient seen and examined this morning, complaints of feeling very bloated and puffy. Creatinine today 5.3. Urine output very minimal. Significant peripheral edema Objective - Vital Signs Vital signs: Vital Signs Temp 96.8 F L 07/31/17 11:46 Pulse 50 L 06/06/17 11:46 Resp 18 06/06/17 11:46 BP 91/58 06/06/17 11:46 Pulse Ox 96 06/06/17 11:46 Intake & Output 06/05/17 06/06/17 06/06/17 18:59 06:59 18:59 Intake Total 1260 380 Output Total 50 0 Balance 1210 380 Weight 74.2 kg Intake: Oral 1260 380 Output: Urine 50 0 Uretheral (Castellanos) 50 Other: Voiding Method Indwelling Catheter Indwelling Catheter Indwelling Catheter # Voids 1 # Bowel Movements 3 1 - Exam PHYSICAL EXAMINATION: HEENT: Head is atraumatic, normocephalic. Pupils equal, round. Neck is supple. There is elevated jugular venous pressure. HEART EXAMINATION: Heart sounds regular, S1 and S2 normal with a systolic murmur. CHEST EXAMINATION: Lungs reveal diminished air entry bilaterallywith rales bilaterally. No chest wall tenderness is noted on palpation or with deep breathing. ABDOMEN: Firm, Distended, diffuse tenderness to palpation. Bowel sounds are hypoactive. No organomegaly noted. EXTREMITIES: Diminished peripheral pulses with evidence of 3+ peripheral edema and no calf tenderness noted.bilateral Randy wraps in place Scrotal edema noted NEUROLOGIC patient is awake, drowsy and oriented x3. - Labs CBC & Chem 7: 05/30/17 05:49 06/06/17 06:01 Labs: Abnormal Lab Results - Last 24 Hours (Table) 06/06/17 06/06/17 Range/Units 06:01 06:01 PT 13.5 H (9.0-12.0) sec INR 1.4 H (<1.2) Sodium 131 L (137-145) mmol/L Chloride 96 L (98-107) mmol/L Carbon Dioxide 20 L (22-30) mmol/L BUN 58 H (9-20) mg/dL Creatinine 5.34 H* (0.66-1.25) mg/dL Assessment and Plan Plan: Assessment and plan #1 acute on chronic systolic congestive heart failure, end-stage, now on hemodialysis. #2 ischemic cardiomyopathy, s/p BiV ICD #3 hypertension, hypotension with therapy #4 prior CABG and PCI #5 hyperlipidemia #6 chronic kidney disease #7 paroxysmal atrial fibrillation #8 ventricular tachycardia From cardiology's perspective, we'll continue diuretics as per nephrology. Continue dialysis. Continue other medications. DNP note has been reviewed, I agree with a documented findings and plan of care. Patient was seen and examined.
--- NOTE | 2017-06-06 15:14 | P.PN ---
Progress Note - Text DATE OF SERVICE: 06/06/2017 PRESENTING COMPLAINT: Shortness of breath, lower extremity edema, and abdominal distention. INTERVAL HISTORY: 66-year-old male with acute on chronic congestive heart failure exacerbation, chronic kidney disease in need of permanent hemodialysis catheter placement. Additional round of hemodialysis will be scheduled. 06/04/2017: Patient sitting up in bed, appears somewhat lethargic, able to answer questions, awake, daughter at the bedside, plan of care/timetable discussed with daughter and patient. Patient has not had a BM, ordered Dulcolax suppository and emema. 06/05/2017: Patient sitting up in his bed, awake and able to answer questions, complains of feeling bloated, no BM today, eating about 50% of diet, plans for permanent dialysis catheter in the right arm soon per nephrology and vascular surgery. 06/06/2017: Patient sitting up at the bedside in a chair appears comfortable. Complains of continued bloating. BM yesterday. Eating 100% of his breakfast, vascular surgery planning to place permanent dialysis catheter in the right upper arm area. Nephrology to discuss end-of-life care in conjunction with fistula placement with family. Family wishes to proceed with fistula placement and continued renal replacement therapy as long as he can tolerate it. REVIEW OF SYSTEMS: Done for constitutional ,cardiovascular, GI, pulmonary with relevant findings as above. CURRENT MEDICATIONS [place], albuterol, Symbicort, Xanax, Lipitor, Coreg, Lasix 80 mg IV every 12 hours, Zaroxolyn 5 mg by mouth twice a day, midodrine 10 mg by mouth. PHYSICAL EXAM VITAL SIGNS: Temperature 96.7, pulse 50, respiratory rate 20, blood pressure 90/53, oxygen saturation 95% on 2 L. GENERAL APPEARANCE: Sitting up in a chair, not in distress, more awake and alert today. EYES: Pupils equal. Conjunctiva normal. NECK: JVD raised. Mass not palpable. RESPIRATORY: Respiratory effort increased Lungs diminished bilaterally to auscultation. CARDIOVASCULAR: First and second sounds normal. Gross edema. ABDOMEN: Soft. Liver and spleen not palpable. No tenderness. No mass palpable. Abdomen distended Right groin hemodialysis catheter in place. PSYCHIATRY: Alert and oriented x3. Mood and affect brighter today. INVESTIGATIONS: LABS: INR 1.4. Sodium 131, potassium 4.6, BUN 58, creatinine 5.34. ASSESSMENT: -Acute on chronic congestive heart failure exacerbation from systolic and diastolic dysfunction, EF 30-35% from moderate concentric left hypertrophy and underlying coronary artery disease slow to respond -Coronary artery disease with prior history of coronary bypass and stent -COPD in an ex-smoker -Ischemic cardiomyopathy status post biventricular ICD -Chronic kidney disease stage III from hypertensive nephrosclerosis -Acute kidney injury secondary to cardiorenal syndrome worsening, requiring hemodialysis -Hypervolemic hyponatremia improving -Peripheral artery disease or prior history of fem-fem bypass -Diabetes mellitus type II chronically on insulin -Moderate secondary pulmonary hypertension secondary to congestive heart failure -Moderate tricuspid regurgitation nonrheumatic -Severe mitral regurgitation nonrheumatic -Acute urine retention. Castellanos catheter in place -Hematuria, secondary to traumatic catheter placement, resolved -DVT prophylaxis with heparin subcu -Non-sustained ventricular tachyarrhythmia, patient with pacemaker in place PLAN: Patient has dialysis catheter placement to the right groin and is going to have another round of hemodialysis today. Continue diuretics per nephrology. Vascular surgery plans to place an AV fistula in the right upper extremity, date to be determined by vascular surgery. Nephrology had a discussion with family regarding end-of-life care versus continued dialysis treatments, family and patient wishes to continue with dialysis treatments to see how it goes and will continue to move forward with fistula placement plans. Plan of care discussed with the patient questions answered. ROLL CUTTING OPERATOR statement: Patient was seen and examined by nurse practitioner Virginie Fatima and all elements of the case discussed with attending Dr. Camarena
[2017-06-06] MEDS ORDERED: HEPARIN SODIUM,PORCINE 5,000 UNIT/ML 1 ML VIAL ONE (18:00)
[2017-06-06] MEDS: ATORVASTATIN 20 MG TAB PO SCH (22:39)
[2017-06-07] MEDS: ALPRAZolam 0.25 MG TAB PO PRN ×2 (01:35→23:56)
[2017-06-07] MEDS: HYDROcodone/APAP 10-325MG 1 EACH TAB PO PRN ×3 (06:40→17:14)
[2017-06-07] MEDS: CARVEDILOL 3.125 MG TAB PO SCH ×2 (06:41→17:14)
[2017-06-07] MEDS: MIDODRINE 5 MG TAB PO SCH ×3 (06:41→17:15)
[2017-06-07 07:16] LABS: INR 1.3 (<1.2); Prothrombin Time 13.2 sec (9.0-12.0)
[2017-06-07] MEDS: SYMBICORT 160-4.5 MCG INHALER INHALATION SCH ×2 (08:50→20:21)
[2017-06-07 09:00] LABS: Calcium 8.8 mg/dL (8.4-10.2); Potassium 4.4 mmol/L (3.5-5.1); Total Protein 7.3 g/dL (6.3-8.2)
--- NOTE | 2017-06-07 09:26 | PN ---
DATE OF SERVICE: 06/06/2017 ATTENDING NOTE: The patient has been examined by me today. Reviewed the note of my nurse practitioner, Ms. Fatima, discussed. This is a patient with acute on chronic congestive heart failure and worsening renal failure, now started hemodialysis. The patient has an access in the right groin. Will have a fistula placed in the right arm. The patient is tolerating some diet. Propped in bed, awake. On examination, pulse 50, respirations 18, blood pressure 911/58, pulse ox 96% on 2 liters. LUNGS: Diminished breath sounds. ( ) present. PSYCH: Awake, answering questions. INVESTIGATIONS: BUN 58, creatinine 5.34. ASSESSMENT: 1. Acute on chronic congestive heart failure from systolic and diastolic dysfunction, ejection fraction 30-35%, slow to respond. 2. Worsening renal failure on hemodialysis. 3. Recurrent nonsustained ventricular tachycardia for which the patient received IV amiodarone. PLAN: Overall prognosis is guarded. Dialysis to continue. Care was discussed with the patient. Continue current medication and treatment plan. Will follow. MOIZ
[2017-06-07] MEDS: POLYETHYLENE GLYCOL 3350 17 GM POWD.PACK PO SCH (09:41)
[2017-06-07] MEDS: ASPIRIN 81 MG CHEW PO SCH (09:42)
[2017-06-07] MEDS: DOCUSATE 100 MG CAP PO SCH ×2 (09:42→21:32)
[2017-06-07] MEDS: AMIODARONE 200 MG TAB PO SCH ×2 (09:56→23:58)
[2017-06-07] MEDS: METOLAZONE 5 MG TAB PO SCH (10:17)
[2017-06-07] MEDS: FUROSEMIDE 10 MG/ML 10 ML VIAL IV SCH (10:17)
[2017-06-07] MEDS: SPIRONOLACTONE 25 MG TAB PO SCH (10:17)
--- NOTE | 2017-06-07 10:24 | PN ---
The patient is seen for follow-up for acute kidney injury. Currently dialysis dependent. He is scheduled for AV graft placement tomorrow. He is comfortable , awake, not in any acute distress. Blood pressure is 84/52. Heart rate 52 per minute. He is afebrile. Examination of the heart, S1, S2. Examination of the lungs bilateral breath sounds are heard. Abdomen is soft, nontender. Examination of the lower extremities shows chronic skin changes with edema. Chronic edema bilaterally. STAMPING DIE MAKER BENCH exam is grossly intact. Labs show sodium 134. Potassium 4.4. Hemoglobin is not available for the last few days. ASSESSMENT: 1. Acute kidney injury, currently hemodialysis dependent, maintained on daily dialysis. We will plan for treatment tomorrow and then again in the a.m. The patient is scheduled for surgery for AV graft placement tomorrow. 2. Severe congestive heart failure and cardiomyopathy with cardiorenal syndrome, currently dialysis dependent with improving volume overload. 3. Hypervolemic hyponatremia currently improved. 4. Hypokalemia. Currently resolved. PLAN: Hemodialysis today. The patient will have an AV graft placed tomorrow. In the meantime he will be dialyzed to a femoral tunnel catheter. We can discontinue the Castellanos catheter tomorrow after surgery. The patient does not have significant urine output. MTDD
[2017-06-07] MEDS ORDERED: HEPARIN SODIUM,PORCINE 5,000 UNIT/ML 1 ML VIAL ONE (14:45)
--- NOTE | 2017-06-07 14:56 | P.PN ---
Subjective Principal diagnosis: CHF This is a pleasant 66-year-old gentleman who follows with Dr. Villela in the office. He has a known history of coronary artery disease, ischemic cardiomyopathy with a bi-V ICD, multiple PCI's in the past, atrial fibrillation , and known episodes of slow ventricular tachycardia. Patient presented to the emergency department with symptoms of worsening shortness of breath, edema in his lower extremities and abdominal distention. Patient continues to be on IV push Lasix 60 mg every 8 hour along with Zaroxolyn. Continues to diurese. Patient was noted to have several runs of nonsustained ventricular tachycardia, he was initiated this morning on IV amiodarone, and reinitiated on his Coreg as well. We will also have his device interrogated today. Blood pressure 96/60 with a heart rate in the 70s. 05/31/2017 Patient seen and examined, urine output very marginal, 300 mils overnight last night. Blood pressure this morning in the 80s systolic, edema not much improved. Patient did have one episode of nonsustained ventricular tachycardia.we did have a lengthy discussion with the patient and his family today regarding hospice, they wish to discuss further with Dr. Graham. Dialysis was discussed with the patient by Dr. Graham, patient was quite hesitant, Dr. Graham also felt that she may not tolerate well secondary to his cardiac status and arrhythmias.BUN 109 today, creatinine 2.38. 06/01/2017 Patient seen and examined this morning, feeling weak today. Minimal urine output. Creatinine up to 3.08. Rigo Graham did have a lengthy discussion with the patient and his family today regarding dialysis versus hospice. They understand the risk of dialysis and wished to at least attempt this. Catheter placement will be performed today as well as first dialysis treatment. 06/02/2017 Patient seen and examined this morning, he does state that he feels mildly better. He did undergo one dialysis treatment. Creatinine today is 3.7. 06/03/2017 Patient seen and examined this morning, 100 mL out in the past 24 hours, creatinine 4.6. Overall the patient seems to be tolerating dialysis and looking better overall 06/06/2017 Patient seen and examined this morning, complaints of feeling very bloated and puffy. Creatinine today 5.3. Urine output very minimal. Significant peripheral edema 06/07/2017 Patient seen and examined this morning, currently receiving hemodialysis. BUN 42 today, creatinine 4.9. Patient's abdomen quite distended in the morning, improving during dialysis. Patient continues to have 3-4+ bilateral peripheral edema. No urine output. He scheduled to undergo surgery for AV graft placement tomorrow. Objective - Vital Signs Vital signs: Vital Signs Temp 96.9 F L 06/07/17 11:15 Pulse 70 06/07/17 11:15 Resp 14 06/07/17 11:15 BP 85/58 06/07/17 11:15 Pulse Ox 95 06/07/17 11:15 Intake & Output 06/06/17 06/07/17 06/07/17 18:59 06:59 18:59 Intake Total 380 80 88 Output Total 50 Balance 330 80 88 Weight 72.7 kg Intake: IV 80 88 0.9@10 80 80 LASIX IVP 8 Oral 380 Output: Urine 50 Other: Voiding Method Indwelling Catheter Indwelling Catheter Indwelling Catheter - Exam PHYSICAL EXAMINATION: HEENT: Head is atraumatic, normocephalic. Pupils equal, round. Neck is supple. There is elevated jugular venous pressure. HEART EXAMINATION: Heart sounds regular, S1 and S2 normal with a systolic murmur. CHEST EXAMINATION: Lungs reveal diminished air entry bilaterallywith rales bilaterally. No chest wall tenderness is noted on palpation or with deep breathing. ABDOMEN: Firm, Distended, diffuse tenderness to palpation. Bowel sounds are hypoactive. No organomegaly noted. EXTREMITIES: Diminished peripheral pulses with evidence of 3-4+ peripheral edema and no calf tenderness noted.bilateral Randy wraps in place Scrotal edema noted NEUROLOGIC patient is awake, drowsy and oriented x3. - Labs CBC & Chem 7: 05/30/17 05:49 06/07/17 06:20 Labs: Abnormal Lab Results - Last 24 Hours (Table) 06/07/17 06/07/17 Range/Units 06:20 06:20 PT 13.2 H (9.0-12.0) sec INR 1.3 H (<1.2) Sodium 134 L (137-145) mmol/L Chloride 97 L (98-107) mmol/L Carbon Dioxide 20 L (22-30) mmol/L BUN 42 H (9-20) mg/dL Creatinine 4.93 H (0.66-1.25) mg/dL Glucose 139 H (74-99) mg/dL Assessment and Plan Plan: Assessment and plan #1 acute on chronic systolic congestive heart failure, end-stage, now on hemodialysis. #2 ischemic cardiomyopathy, s/p BiV ICD #3 hypertension, hypotension with therapy #4 prior CABG and PCI #5 hyperlipidemia #6 chronic kidney disease #7 paroxysmal atrial fibrillation #8 ventricular tachycardia From cardiology's perspective, we'll continue medications. Patient's Lasix and Zaroxolyn were discontinued today, he is scheduled to have surgery for AV graft placement tomorrow. We will continue to follow DNP note has been reviewed, I agree with a documented findings and plan of care. Patient was seen and examined.
--- NOTE | 2017-06-07 15:48 | P.PN ---
<Virginie Fatima Zachary - Last Filed: 06/07/17 15:25> Progress Note - Text DATE OF SERVICE: 06/07/2017 PRESENTING COMPLAINT: Shortness of breath, lower extremity edema, and abdominal distention. INTERVAL HISTORY: 66-year-old male with acute on chronic congestive heart failure exacerbation, chronic kidney disease in need of permanent hemodialysis catheter placement. Additional rounds of hemodialysis will be scheduled per nephrology. 06/04/2017: Patient sitting up in bed, appears somewhat lethargic, able to answer questions, awake, daughter at the bedside, plan of care/timetable discussed with daughter and patient. Patient has not had a BM, ordered Dulcolax suppository and emema. 06/05/2017: Patient sitting up in his bed, awake and able to answer questions, complains of feeling bloated, no BM today, eating about 50% of diet, plans for permanent dialysis catheter in the right arm soon per nephrology and vascular surgery. 06/06/2017: Patient sitting up at the bedside in a chair appears comfortable. Complains of continued bloating. BM yesterday. Eating 100% of his breakfast, vascular surgery planning to place permanent dialysis catheter in the right upper arm area. Nephrology to discuss end-of-life care in conjunction with fistula placement with family. Family wishes to proceed with fistula placement and continued renal replacement therapy as long as he can tolerate it. 06/07/2017: Patient sitting up in bed, very alert bright-eyed, does continue to complain about fullness in the abdomen however does feel better than days previous. BM yesterday, plans for permanent dialysis fistula on Tuesday with vascular surgery. Discussion had with the patient regarding the procedure, risks and benefits discussed, patient is agreeable and would like to proceed with the procedure. REVIEW OF SYSTEMS: Done for constitutional ,cardiovascular, GI, pulmonary with relevant findings as above. CURRENT MEDICATIONS [place], albuterol, Symbicort, Xanax, Lipitor, Coreg, Zaroxolyn 5 mg by mouth twice a day, midodrine 10 mg by mouth. PHYSICAL EXAM VITAL SIGNS: Temperature 97.6, pulse 51, respiratory rate 20, blood pressure 86/44, oxygen saturation 97% on 2 L. GENERAL APPEARANCE: Sitting up in the bed, not in distress, more awake and alert today. EYES: Pupils equal. Conjunctiva normal. NECK: JVD raised. Mass not palpable. RESPIRATORY: Respiratory effort increased Lungs diminished bilaterally to auscultation. CARDIOVASCULAR: First and second sounds normal. Gross edema. ABDOMEN: Soft. Liver and spleen not palpable. No tenderness. No mass palpable. Abdomen distended Right groin hemodialysis catheter in place. PSYCHIATRY: Alert and oriented x3. Mood and affect brighter today. INVESTIGATIONS: LABS: INR 1.3, sodium 134, potassium 4.4, BUN 42, creatinine 4.93. Vein mapping completed today, dictated report pending ASSESSMENT: -Acute on chronic congestive heart failure exacerbation from systolic and diastolic dysfunction, EF 30-35% from moderate concentric left hypertrophy and underlying coronary artery disease slow to respond -Coronary artery disease with prior history of coronary bypass and stent -COPD in an ex-smoker -Ischemic cardiomyopathy status post biventricular ICD -Chronic kidney disease stage III from hypertensive nephrosclerosis -Acute kidney injury secondary to cardiorenal syndrome worsening, requiring hemodialysis -Hypervolemic hyponatremia improving -Peripheral artery disease or prior history of fem-fem bypass -Diabetes mellitus type II chronically on insulin -Moderate secondary pulmonary hypertension secondary to congestive heart failure -Moderate tricuspid regurgitation nonrheumatic -Severe mitral regurgitation nonrheumatic -Acute urine retention. Castellanos catheter in place -Hematuria, secondary to traumatic catheter placement, resolved -DVT prophylaxis with heparin subcu -Recurrent Non-sustained ventricular tachyarrhythmia, received amiodarone, patient with pacemaker in place PLAN: Patient is going to have another round of hemodialysis today. Vascular surgery plans to place an AV fistula in the right upper extremity, tomorrow. Discussion was had with the patient regarding AV graft placement and the risks and benefits of the procedure were discussed and patient and family wishes to proceed Plan of care discussed with the patient questions answered. MELTING OPERATOR statement: Patient was seen and examined by nurse practitioner Virginie Fatima and all elements of the case discussed with attending Dr. Camarena <Dex Camarena - Last Filed: 06/07/17 23:08> Progress Note - Text Attending note. Date of service-06/07/2017 This patient was seen and examined by me . I reviewed the note of my nurse practitioner, Ms. Fatima. Discussed with her, additional findings as below. Admitted with CHF exacerbation and worsening renal function. Will getting dialyzed On examination: Decreased breath sounds, edema present psych awake answering questions Investigations: BUN 42, creatinine 4.83 Assessment and plan: Acute and chronic congestive heart failure slow to respond end-stage kidney disease on hemodialysis 2 dose and is planning to proceed with AV fistula in the right arm. Patient medically stable to moderate moderate risk for the procedure given his multiple comorbidities. This was discussed with the patient
--- NOTE | 2017-06-07 16:45 | P.PN ---
Progress Note - Text 66 white male, history of chronic renal failure patient is having dialysis through the right femoral approach discuss with nephrology patient needs a right upper arm Womelsdorf-Herve graft patient is scheduled for tomorrow afternoon brachial radial pulses are palpable risk and complication discussed with the patient and the family that includes heart attack respiratory failure, and ischemia graft thromboses infection the understand and we'll proceed
[2017-06-07] MEDS ORDERED: HYDROmorphone 1 MG/ML 1 ML SYRINGE IVP PRN (19:01)
[2017-06-07] MEDS: LACTATED RINGERS 1,000 ML IV SCH (21:32)
[2017-06-07] MEDS: ATORVASTATIN 20 MG TAB PO SCH (21:32)
[2017-06-08] MEDS: HYDROcodone/APAP 10-325MG 1 EACH TAB PO PRN ×3 (05:24→11:58)
[2017-06-08 06:45] LABS: Anisocytosis Slight; Aty Lym Flag Slight; CH 32.5; CHCM 31.2; HCT 37.3 % (39.0-53.0); HDW 3.02; HGB 11.7 gm/dL (13.0-17.5); Hypochromasia Moderate; MCH 32.9 pg (25.0-35.0); MCHC 31.2 g/dL (31.0-37.0); Macrocytosis Moderate; Mean Platelet Volume 9.4; RBC 3.55 m/uL (4.30-5.90); WBC 8.2 k/uL (3.8-10.6); WBC (Perox) 8.51
[2017-06-08 06:53] LABS: INR 1.3 (<1.2); MCV 105.2 fL (80.0-100.0); Prothrombin Time 12.7 sec (9.0-12.0)
[2017-06-08 07:02] LABS: Calcium 8.8 mg/dL (8.4-10.2); Potassium 4.3 mmol/L (3.5-5.1)
[2017-06-08 07:49] LABS: Add Differential Manual Differential
[2017-06-08 07:51] LABS: Manual Review Performed; Nucleated Red Blood Cells 0 /100 WBC (0-0); Total Cells Counted 100
[2017-06-08] MEDS: SYMBICORT 160-4.5 MCG INHALER INHALATION SCH ×2 (08:29→19:54)
[2017-06-08] MEDS: CARVEDILOL 3.125 MG TAB PO SCH ×2 (08:31→21:30)
[2017-06-08] MEDS: MIDODRINE 5 MG TAB PO SCH ×3 (08:31→21:47)
[2017-06-08] MEDS: AMIODARONE 200 MG TAB PO SCH ×2 (08:31→21:33)
[2017-06-08] MEDS: ASPIRIN 81 MG CHEW PO SCH (08:32)
[2017-06-08] MEDS: POLYETHYLENE GLYCOL 3350 17 GM POWD.PACK PO SCH (08:32)
[2017-06-08] MEDS: DOCUSATE 100 MG CAP PO SCH ×2 (08:32→21:33)
[2017-06-08] MEDS ORDERED: HEPARIN SODIUM,PORCINE 5,000 UNIT in SODIUM CHLORIDE 0.9% 500 ML IV ONE (13:30)
[2017-06-08] MEDS ORDERED: PAPAVERINE 30 MG/ML 2 ML VIAL MISCELLANE ONE ×4 (13:30→15:15)
[2017-06-08] MEDS ORDERED: IV FLUID CONTINUATION 1,000 ML IV ONE (14:11)
[2017-06-08] MEDS ORDERED: ETOMIDATE 2 MG/ML 10 ML VIAL ONE (14:22)
[2017-06-08] MEDS ORDERED: SUCCINYLCHOLINE CHLORIDE 100 MG/5 ML SYR IV ONE (14:22)
[2017-06-08] MEDS ORDERED: fentaNYL (PF) 50 MCG/ML 2 ML AMP ONE (14:22)
[2017-06-08] MEDS ORDERED: HEPARIN SODIUM,PORCINE 5,000 UNIT/ML 1 ML VIAL ONE (14:22)
[2017-06-08] MEDS ORDERED: ePHEDrine SULFATE/0.9% NACL/PF 50 MG/5 ML SYRINGE IV ONE (14:22)
[2017-06-08] MEDS ORDERED: LIDOCAINE 1% INJ 10MG/ML (20 ML MDV) ONE (14:22)
[2017-06-08] MEDS ORDERED: SODIUM CHLORIDE 0.9% 50 ML with ceFAZolin 2,000 MG IV ONE ×2 (14:27)
--- NOTE | 2017-06-08 16:51 | P.PN ---
<Virginie Fatima Zachary - Last Filed: 06/08/17 16:45> Progress Note - Text DATE OF SERVICE: 06/08/2017 PRESENTING COMPLAINT: Shortness of breath, lower extremity edema, and abdominal distention. INTERVAL HISTORY: 66-year-old male with acute on chronic congestive heart failure exacerbation, chronic kidney disease in need of permanent hemodialysis catheter placement. Additional rounds of hemodialysis will be scheduled per nephrology. 06/04/2017: Patient sitting up in bed, appears somewhat lethargic, able to answer questions, awake, daughter at the bedside, plan of care/timetable discussed with daughter and patient. Patient has not had a BM, ordered Dulcolax suppository and emema. 06/05/2017: Patient sitting up in his bed, awake and able to answer questions, complains of feeling bloated, no BM today, eating about 50% of diet, plans for permanent dialysis catheter in the right arm soon per nephrology and vascular surgery. 06/06/2017: Patient sitting up at the bedside in a chair appears comfortable. Complains of continued bloating. BM yesterday. Eating 100% of his breakfast, vascular surgery planning to place permanent dialysis catheter in the right upper arm area. Nephrology to discuss end-of-life care in conjunction with fistula placement with family. Family wishes to proceed with fistula placement and continued renal replacement therapy as long as he can tolerate it. 06/07/2017: Patient sitting up in bed, very alert bright-eyed, does continue to complain about fullness in the abdomen however does feel better than days previous. BM yesterday, plans for permanent dialysis fistula on Tuesday with vascular surgery. Discussion had with the patient regarding the procedure, risks and benefits discussed, patient is agreeable and would like to proceed with the procedure. 06/08/2017: Patient sitting up in bed, alert, states abdomen is not as full however it is still bloated. States he feels better since Castellanos is been removed as well. Awaiting AV fistula to be placed today with vascular surgery. REVIEW OF SYSTEMS: Done for constitutional ,cardiovascular, GI, pulmonary with relevant findings as above. CURRENT MEDICATIONS [place], albuterol, Symbicort, Xanax, Lipitor, Coreg, Zaroxolyn 5 mg by mouth twice a day, midodrine 10 mg by mouth. PHYSICAL EXAM VITAL SIGNS: Temperature 97.6, pulse 62, respirations 18, blood pressure 91/53, oxygen saturation 95% on 3 L GENERAL APPEARANCE: Sitting up in the bed, not in distress, more awake and alert today. EYES: Pupils equal. Conjunctiva normal. NECK: JVD raised. Mass not palpable. RESPIRATORY: Respiratory effort increased Lungs diminished bilaterally to auscultation. CARDIOVASCULAR: First and second sounds normal. Gross edema. ABDOMEN: Soft. Liver and spleen not palpable. No tenderness. No mass palpable. Abdomen distended Right groin hemodialysis catheter in place. PSYCHIATRY: Alert and oriented x3. Mood and affect brighter today. INVESTIGATIONS: LABS: Hemoglobin 11.7, INR 1.3, sodium 134, potassium 4.3. BUN 31, creatinine 4.53. ASSESSMENT: -Acute on chronic congestive heart failure exacerbation from systolic and diastolic dysfunction, EF 30-35% from moderate concentric left hypertrophy and underlying coronary artery disease slow to respond -Coronary artery disease with prior history of coronary bypass and stent -COPD in an ex-smoker -Ischemic cardiomyopathy status post biventricular ICD -Chronic kidney disease stage III from hypertensive nephrosclerosis -End-stage kidney disease secondary to cardiorenal syndrome worsening, requiring hemodialysis -Hypervolemic hyponatremia improving -Peripheral artery disease or prior history of fem-fem bypass -Diabetes mellitus type II chronically on insulin -Moderate secondary pulmonary hypertension secondary to congestive heart failure -Moderate tricuspid regurgitation nonrheumatic -Severe mitral regurgitation nonrheumatic -Acute urine retention, resolved -Hematuria, secondary to traumatic catheter placement, resolved -DVT prophylaxis with heparin subcu -Recurrent Non-sustained ventricular tachyarrhythmia, received amiodarone, patient with pacemaker in place PLAN: AV fistula graft placement scheduled for 1:30 PM today. Lasix and Zaroxolyn discontinued yesterday. We'll continue current medication and treatment plan. Ongoing planning for discharge. WARDROBE ASSISTANT statement: Patient was seen and examined by nurse practitioner Virginie Fatima and all elements of the case discussed with attending Dr. Camarena <Dex Camarena - Last Filed: 06/08/17 22:43> Progress Note - Text Attending note. Date of service-06/08/2017 This patient was seen and examined by me . I reviewed the note of my nurse practitioner, Ms. Fatima. Discussed with her, additional findings as below. Psych this patient this morning. Awaiting right arm graft placement. Bleeding short of breath at rest. On examination: Lungs decreased breath sounds and crackles, edema present, so abdominal distention, answering questions appropriately Investigations: Hemoglobin 11.7, potassium 4.3, Assessment and plan: Acute on chronic CHF exacerbation End-stage kidney disease on hemodialysis now started. 4 placement of right upper extremity graft for dialysis. Care was discussed with the patient. Pending graft placement. Other medications to continue
[2017-06-08 19:11] LABS: Glucose,Whole Blood 110 mg/dL (75-99)
[2017-06-08] MEDS: NOREPINEPHRIN 4 MG-0.9% NS PMX 4 MG/250 ML ML IV SCH (19:25)
[2017-06-08] MEDS ORDERED: NALOXONE 0.4 MG/ML 1 ML VIAL IV PRN (20:19)
--- NOTE | 2017-06-08 21:05 | PCN ---
PREOP DIAGNOSIS: Acute on chronic renal failure. PROCEDURE: Right upper arm 4 x 7 Goretex graft. ANESTHESIA: General anesthesia. BLOOD LOSS: Less than 50 mL. DESCRIPTION OF PROCEDURE: This patient was brought to the operating room. Right arm and ( ) prepped and drapes applied in the usual sterile manner. Incision was made above the cubital fossa, transected, deep into skin fat and fascia. Dissection was carried out along the brachial artery. Brachial artery was soft but was small in caliber. At this point, we made an incision in the cubital fossa deepened into the skin fat and fascia. Dissection was carried out to dissect the axillary vein. Proximal and distal control obtained. Vessel loop was placed around it. After that, tunnel was created. Through the tunnel, we brought 4 x 7 tapered Goretex graft. 5000 units of systemic heparin was given. This patients blood pressure was running between 90s and 60s. we requested anesthesia to bring the blood pressure up and the patient was given ( ) to control the blood pressure. After that, axillary artery vein was clamped proximally and distally. Venotomy incision was made. We did venous anastomosis using 6-0 Prolene with running suture. Clamps were released. The grafts were flushed with heparin saline and then clamped at the venous anastomosis site. Brachial artery was clamped proximally and distally. Arteriotomy incisions were made to the brachial artery and tapered and of the graft was anastomosis end to side using 7-0 Prolene with running suture. Flushed in the usual manner. There ( ) present at the graft. Since the patient is hypertensive, we will keep him overnight in ICU so we can keep his blood pressure over 100. The patient had a Doppler signal on the radial to begin with and that is what we found postoperatively. Dressings were applied. Prior to that, the incision was closed with Vicryl and skin was closed with 6-0 Nylon with interrupted mattress suture. MOIZ
[2017-06-08] MEDS: ALPRAZolam 0.25 MG TAB PO PRN (21:33)
[2017-06-08] MEDS: ATORVASTATIN 20 MG TAB PO SCH (21:33)
[2017-06-08] MEDS: LACTATED RINGERS 1,000 ML IV SCH (21:51)
[2017-06-09 03:58] LABS: Calcium 8.9 mg/dL (8.4-10.2); Magnesium 2.1 mg/dL (1.6-2.3); Phosphorous 5.2 mg/dL (2.5-4.5); Potassium 5.4 mmol/L (3.5-5.1)
[2017-06-09 04:23] LABS: Anisocytosis Slight; Aty Lym Flag Slight; CH 31.6; CHCM 29.8; HCT 41.5 % (39.0-53.0); HDW 2.93; Hypochromasia Marked; MCH 33.5 pg (25.0-35.0); MCHC 31.3 g/dL (31.0-37.0); Macrocytosis Moderate; Mean Platelet Volume 9.2; RBC 3.88 m/uL (4.30-5.90); WBC 13.3 k/uL (3.8-10.6)
[2017-06-09 05:06] LABS: Add Differential Manual Differential
[2017-06-09 05:07] LABS: Manual Review Performed; Nucleated Red Blood Cells 0 /100 WBC (0-0); Total Cells Counted 100
[2017-06-09] MEDS: ONDANSETRON 4 MG/2 ML VIAL IVP PRN (06:17)
[2017-06-09] MEDS: HYDROcodone/APAP 10-325MG 1 EACH TAB PO PRN ×4 (06:19→20:42)
[2017-06-09] MEDS: ASPIRIN 81 MG CHEW PO SCH (08:02)
[2017-06-09] MEDS: MIDODRINE 5 MG TAB PO SCH ×3 (08:02→18:21)
[2017-06-09] MEDS: DOCUSATE 100 MG CAP PO SCH ×2 (08:02→20:44)
[2017-06-09] MEDS: AMIODARONE 200 MG TAB PO SCH ×2 (08:02→20:44)
[2017-06-09] MEDS: POLYETHYLENE GLYCOL 3350 17 GM POWD.PACK PO SCH (08:03)
--- NOTE | 2017-06-09 08:18 | XR ---
EXAMINATION TYPE: XR chest 1V DATE OF EXAM: 06/09/2017 COMPARISON: Prior chest x-ray 05/29/2017 HISTORY: Congestive heart failure TECHNIQUE: Single frontal view of the chest is obtained. FINDINGS: There is some improvement in the interstitium as compared to prior exam. No other signific ant interval change. IMPRESSION: Improvement in patient's volume status.
[2017-06-09] MEDS: SYMBICORT 160-4.5 MCG INHALER INHALATION SCH ×2 (08:25→21:24)
--- NOTE | 2017-06-09 10:54 | P.PN ---
Subjective Principal diagnosis: Chronic renal failure, cardiomyopathy and congestive heart failure. This is a 66-year-old gentleman has severe cardiomyopathy and congestive heart failure and also chronic renal failure with poor urinary output. Patient has been on dialysis and has been feeling better. His yesterday patient had AV fistula in the right arm. Apparently he became hypotensive and was transferred to intensive care unit. Patient has been maintained on Levophed for blood pressure support. Patient had a bout of chest pain last night and apparently lasted for an hour intermittently. Patient was treated with [place]. Apparently Dr. Ocasio was contacted and he did not want patient to home on heparin because of surgical procedure. Since that episode, patient has been stable. His troponin values showed findings consistent with small non-Q wave OK. Patient is not a candidate for any invasive procedure. We'll continue maximal medical therapy with nitrates, antiplatelet agents and beta blockers as tolerated. Prognosis is guarded Objective - Vital Signs Vital signs: Vital Signs Temp 98.1 F 06/09/17 08:00 Pulse 75 06/09/17 10:00 Resp 19 06/09/17 10:00 BP 90/61 06/09/17 10:00 Pulse Ox 97 06/09/17 10:00 Intake & Output 06/08/17 06/09/17 06/09/17 18:59 06:59 18:59 Intake Total 581 777.75 150 Output Total 25 20 8 Balance 556 757.75 142 Weight 76.1 kg Intake: IV 581 220 100 0.9@10 80 Lactated Ringers 1,000 ml 60 @ 20 mls/hr IV .Q24H MICHELLE Rx#:[id number] Norepinephrin 4 mg-0.9% 220 40 Ns Pmx 4 mg In 250 ml @ Titrate IV .Q0M MICHELLE Rx#: [id number] Intake, IV Titration 17.75 Amount Norepinephrin 4 mg-0.9% 17.75 Ns Pmx 4 mg In 250 ml @ Titrate IV .Q0M MICHELLE Rx#: [id number] Oral 0 540 50 Output: Urine 20 8 Post Void Residual 0 Estimated Blood Loss 25 Other: Voiding Method Urinal Urinal # Voids 1 - Exam GENERAL EXAM: Patient is alert and oriented and doesn't appear to be in any acute distress. Complaints of being fatigued and tired HEENT: Normocephalic. Normal reaction of pupils, equal size, normal range of extraocular motion. No erythema or exudates in the throat. NECK: No masses, no nuchal rigidity. CHEST: No chest wall deformity. LUNGS: Equal air entry with no crackles or wheeze. HEART: S1 and S2 normal ABDOMEN: Distended SKIN: No rashes CENTRAL NERVOUS SYSTEM: No focal deficits. EXTREMITIES: No cyanosis, clubbing or edema. - Labs CBC & Chem 7: 06/09/17 03:17 06/09/17 03:17 Labs: Abnormal Lab Results - Last 24 Hours (Table) 06/08/17 06/08/17 06/09/17 Range/Units 19:09 21:30 03:17 WBC (3.8-10.6) k/uL RBC (4.30-5.90) m/uL MCV (80.0-100.0) fL RDW (11.5-15.5) % Plt Count (150-450) k/uL Neutrophils # (Manual) (1.3-7.7) k/uL Monocytes # (Manual) (0-1.0) k/uL Sodium 133 L (137-145) mmol/L Potassium 5.4 H (3.5-5.1) mmol/L Carbon Dioxide 16 L (22-30) mmol/L BUN 37 H (9-20) mg/dL Creatinine 5.50 H* (0.66-1.25) mg/dL POC Glucose (mg/dL) 110 H (75-99) mg/dL Phosphorus 5.2 H (2.5-4.5) mg/dL Troponin I 0.125 H* (0.000-0.034) ng/mL 06/09/17 06/09/17 06/09/17 Range/Units 03:17 03:17 08:52 WBC 13.3 H (3.8-10.6) k/uL RBC 3.88 L (4.30-5.90) m/uL MCV 107.0 H (80.0-100.0) fL RDW 17.0 H (11.5-15.5) % Plt Count 107 L (150-450) k/uL Neutrophils # (Manual) 9.7 H (1.3-7.7) k/uL Monocytes # (Manual) 1.9 H (0-1.0) k/uL Sodium (137-145) mmol/L Potassium (3.5-5.1) mmol/L Carbon Dioxide (22-30) mmol/L BUN (9-20) mg/dL Creatinine (0.66-1.25) mg/dL POC Glucose (mg/dL) (75-99) mg/dL Phosphorus (2.5-4.5) mg/dL Troponin I 0.979 H* 1.550 H* (0.000-0.034) ng/mL Assessment and Plan (1) Non Q wave myocardial infarction Status: Acute (2) Renal insufficiency syndrome Status: Acute (3) S/P implantation of automatic cardioverter/defibrillator (AICD) Status: Acute (4) Systolic CHF, acute on chronic Status: Acute (5) Ventricular tachycardia Status: Acute Plan: Patient is not a candidate for any invasive procedure. We'll continue maximal medical therapy with antiplatelet agents, beta blockers and nitrates as tolerated.
--- NOTE | 2017-06-09 11:18 | PN ---
The patient is sen for followup for acute kidney injury, which is cardiorenal. Patient is currently maintained on dialysis. He has had daily dialysis treatments for at least 5 to 6 days now. Patient was not dialyzed yesterday as he was in surgery for his AV graft in the right upper arm. The patient had been on Levophed and his blood pressure was running on the lower side. He is currently off of Levophed and is scheduled for hemodialysis today. On examination, blood pressure 95/57, heart rate 86 per minute. He is afebrile. EXAMINATION OF THE HEART: S1 and S2. EXAMINATION OF THE LUNGS: Bilateral breath sounds are heard. ABDOMEN: Soft, nontender. Examination of the lower extremities shows edema 1+ bilaterally, chronic skin changes. INDUSTRIAL TECHNOLOGY EDUCATION TEACHER EXAM: Intact. Labs show sodium 133, potassium 5.4, BUN 37, serum creatinine 5.5. Hemoglobin was at 13.0 grams/dL. ASSESSMENT: 1. Acute kidney injury current dialysis dependent ( ) cardiorenal, currently with no significant urine output and patient remains on hemodialysis. We will arrange for hemodialysis treatment today. He currently has a right femoral tunnel catheter and his AV graft was placed yesterday in his right upper arm. 2. Severe cardiomyopathy, ejection fraction of less than 20%. Fluid overload currently significantly improved. 3. Mild hyperkalemia expect improvement with dialysis today. PLAN: Hemodialysis today. Will try for at least a liter and we will also try to avoid hypotension. Continue with midodrine. MTDD
--- NOTE | 2017-06-09 12:12 | CONS ---
This is a 66-year-old gentleman who was admitted way back on the May 19, 2017. The patient was admitted with a diagnoses of CHF, CAD, COPD, AICD placement, chronic kidney disease, peripheral artery disease, diabetes, moderate pulmonary hypertension, valvular heart disease with both tricuspid and mitral regurgitation and urinary retention. The patient currently is in the ICU. Apparently he went to the OR yesterday to have a Mxpqx-S-Nels removed and have an AV fistula placed in his right upper extremity. Today is post-op day #1. He was brought back to the ICU because the vascular surgeon wanted the blood pressure to be maintained in the mid-70 range. Anyway, the patient is doing relatively well. Getting O2 at 2 L, getting LR at 20 mL/h and Levophed at 2 mcg /min which I asked the nurse to turn down. The patient otherwise is seemingly doing well. I was consulted primarily just for critical care management. The patient had no particular complaints at this time. No shortness of breath, no chest pain, no chest discomfort or anything like that. The patient's past medical history includes CAD, COPD, diabetes, hyperlipidemia , hypertension, hepatitis C, peripheral artery disease, CHF, atrial fibrillation , acute coronary artery syndrome, hyperlipidemia, hypertension, myocardial infarction, rheumatoid arthritis, cardiac arrest in 2008 and a host of other major medical problems. Surgical history includes AICD placement, bypass grafting, heart catheterization , stent placement, pacemaker insertion, fem-fem bypass, stent placement x3. Social history is positive for ongoing tobacco use. No alcohol use. No illicit drug use. Family history is positive for cancer including lung cancer. Also family history of CAD, bypass grafting, diabetes and pacemaker insertion. Home medications prior to admission included Xanax, Lipitor, [place], Coreg, Symbicort, Albuterol and Lasix. Allergies are CODEINE. REVIEW OF SYSTEMS: CONSTITUTIONAL: Negative. NEUROLOGIC: Negative. HEENT: Negative. CARDIOVASCULAR: Negative. PULMONARY: Negative. GI/: Negative. RHEUMATOLOGIC/IMMUNOLOGIC: Negative. ENDOCRINE: Negative. DERMATOLOGIC: Negative. Current vital signs are reviewed. Temperature 98.1, heart rate 75, respiratory rate 18, blood pressure 95/63 with a mean of 73, 2 L saturation at 90s. Appears in no acute distress, looks comfortable. He is again postop day #1, status post AV fistula placement. HEENT examination is grossly unremarkable. Nasal O2 in place. Neck is supple, no adenopathy. No neck vein distension. Cardiovascular examination reveals regular rhythm and rate. He has got a harsh systolic murmur consistent with probable aortic stenosis. S1, S2 normal. No S3 , no S4. Lungs are relatively clear, breath sounds equal. No wheezes, rhonchi, or crackles. Abdomen is soft, extremities are intact. Minimal to no edema. Skin without rash. Neurologic examination is nonfocal.. Chest x-ray shows placement of an AICD. He also has cardiomegaly. Probably has a small left- sided pleural effusion and may be a slight cephalization consistent with confluent overload. Also a little bit of fluid in the minor fissure on the right. Labs are reviewed. White count 13.3, hemoglobin 13, hematocrit 41.5, platelet count 107,000, sodium 133, potassium 5.4, chloride is 100, CO2 is 16. BUN and creatinine were 37 and 5.50. Troponins were 0.125 and 0.979. Medications are reviewed. Patient is on albuterol, Xanax, Cordarone, aspirin, Lipitor, Symbicort, Coreg, [place], heparin, medical ( ), midodrine, Narcan, Levophed, Zofran, polyethylene glycol and potassium replacement. ASSESSMENT: 1. Status post AV fistula placement right upper extremity, postop day #1. 2. History of hypertension. 3. Previous bypass grafting. 4. History of hyperlipidemia. 5. Status post bypass grafting. 6. History of AICD placement. 7. End-stage kidney disease, currently to undergo hemodialysis. 8. Multiple other medical problems and comorbidities including chronic obstructive pulmonary disease. PLAN: From my perspective, not much to do. The patient is on Levophed. I did tell the nurse to start weaning the dose. There is an order in the MAR for Coreg which he should not be getting if he is hypotensive. Will check that with the nurse. Additional recommendations and suggestions are forthcoming. He is on his usual COPD medications. No additional recommendations are made. Later today, if he is stable, he could be moved out of here if his blood pressure stabilizes and he comes off the Levophed and stays off the Levophed. [facility]
[2017-06-09] MEDS: ALPRAZolam 0.25 MG TAB PO PRN ×2 (13:06→21:16)
--- NOTE | 2017-06-09 16:36 | P.PN ---
Progress Note - Text History of chronic renal failure, patient had a right upper arm Pace-Herve graft for AV fistula patient Was in the intensive care unit because of her low blood pressure check is on low-dose Levophed. Right arm has some ecchymosis there is a good thrill present. Procedure by the Doppler. Patient has a high tropinin K to light heparin
--- NOTE | 2017-06-09 19:00 | P.PN ---
Progress Note - Text DATE OF SERVICE: 06/09/2017 PRESENTING COMPLAINT: Shortness of breath, lower extremity edema, and abdominal distention. INTERVAL HISTORY: 66-year-old male with acute on chronic congestive heart failure exacerbation, chronic kidney disease in need of permanent hemodialysis catheter placement. Additional rounds of hemodialysis will be scheduled per nephrology. 06/04/2017: Patient sitting up in bed, appears somewhat lethargic, able to answer questions, awake, daughter at the bedside, plan of care/timetable discussed with daughter and patient. Patient has not had a BM, ordered Dulcolax suppository and emema. 06/05/2017: Patient sitting up in his bed, awake and able to answer questions, complains of feeling bloated, no BM today, eating about 50% of diet, plans for permanent dialysis catheter in the right arm soon per nephrology and vascular surgery. 06/06/2017: Patient sitting up at the bedside in a chair appears comfortable. Complains of continued bloating. BM yesterday. Eating 100% of his breakfast, vascular surgery planning to place permanent dialysis catheter in the right upper arm area. Nephrology to discuss end-of-life care in conjunction with fistula placement with family. Family wishes to proceed with fistula placement and continued renal replacement therapy as long as he can tolerate it. 06/07/2017: Patient sitting up in bed, very alert bright-eyed, does continue to complain about fullness in the abdomen however does feel better than days previous. BM yesterday, plans for permanent dialysis fistula on Tuesday with vascular surgery. Discussion had with the patient regarding the procedure, risks and benefits discussed, patient is agreeable and would like to proceed with the procedure. 06/08/2017: Patient sitting up in bed, alert, states abdomen is not as full however it is still bloated. States he feels better since Castellanos is been removed as well. Awaiting AV fistula to be placed today with vascular surgery. 06/09/2017: Postsurgical intervention patient was transferred to the ICU for closer monitoring. Patient does have an extensive history of hypotension, some concern remained with a new grafts patency in the setting of the low blood pressure. Overnight patient had an episode of chest pain lasting approximately an hour off and on. Dr. Ocasio was contacted, labs drawn, no heparin started secondary to surgical intervention earlier in the day. Patient is sitting up in the bed, complaining of right arm pain where the procedure was done, otherwise states he feels well, continues to complain of abdominal bloating. Continues to be hypotensive, Extensive edema remains to bilateral lower extremities. Patient is nonambulatory in the ICU at this time. The Levophed was off exam. No BM today, REVIEW OF SYSTEMS: Done for constitutional ,cardiovascular, GI, pulmonary with relevant findings as above. CURRENT MEDICATIONS [place], albuterol, Symbicort, Xanax, Lipitor, Coreg, Zaroxolyn 5 mg by mouth twice a day, midodrine 10 mg by mouth. PHYSICAL EXAM VITAL SIGNS: Temperature 98.1, pulse 75, respiratory rate 18, blood pressure 95/63, and saturation 95% on 2 L. GENERAL APPEARANCE: Sitting up in the bed, appears anxious, EYES: Pupils equal. Conjunctiva normal. NECK: JVD raised. Mass not palpable. RESPIRATORY: Respiratory effort increased Lungs diminished bilaterally to auscultation. CARDIOVASCULAR: First and second sounds normal. Gross edema. ABDOMEN: Soft. Liver and spleen not palpable. No tenderness. No mass palpable. Abdomen distended Right groin hemodialysis catheter in place. PSYCHIATRY: Alert and oriented x3. Mood and affect brighter today. INVESTIGATIONS: LABS: White blood cell count 13.3, hemoglobin 13.0, sodium 133, potassium 5.4, BUN 37, creatinine 5.50, Chest x-ray improvement in patient's volume status. ASSESSMENT: -Acute on chronic congestive heart failure exacerbation from systolic and diastolic dysfunction, EF 30-35% from moderate concentric left hypertrophy and underlying coronary artery disease slow to respond -Coronary artery disease with prior history of coronary bypass and stent -COPD in an ex-smoker -Ischemic cardiomyopathy status post biventricular ICD -Chronic kidney disease stage III from hypertensive nephrosclerosis -End-stage kidney disease secondary to cardiorenal syndrome worsening, requiring hemodialysis -Hypervolemic hyponatremia improving -Peripheral artery disease or prior history of fem-fem bypass -Diabetes mellitus type II chronically on insulin -Moderate secondary pulmonary hypertension secondary to congestive heart failure -Moderate tricuspid regurgitation nonrheumatic -Severe mitral regurgitation nonrheumatic -Acute urine retention, resolved -Hematuria, secondary to traumatic catheter placement, resolved -DVT prophylaxis with heparin subcu -Recurrent Non-sustained ventricular tachyarrhythmia, received amiodarone, patient with pacemaker in place -Placement of right upper extremity Elsie-Herve graft for AV fistula for dialysis. -Acute unstable angina, with troponin leak, now resolved PLAN: We'll continue hemodialysis through the right groin catheter today, we'll wait for the right upper extremity AV fistula to mature. We'll wean the Levophed per ICU protocol, if patient is able to stay off Levophed that he may be transferred to 6 selective. We'll continue to monitor closely. DIVER'S TENDER statement: Patient was seen and examined by nurse practitioner Virginie Fatima and all elements of the case discussed with attending Dr. Camarena
[2017-06-09] MEDS: NOREPINEPHRIN 4 MG-0.9% NS PMX 4 MG/250 ML ML IV SCH (20:44)
[2017-06-09] MEDS: ATORVASTATIN 20 MG TAB PO SCH (20:44)
--- NOTE | 2017-06-09 22:38 | P.PN ---
Progress Note - Text The Castellanos catheter was recently removed, as urine output has been low. Since that time, he has experienced pressure to void and a feeling of incomplete bladder emptying. On examination, the abdomen is soft without suprapubic distention. The external genitalia is normal. It would be reasonable to check a urinalysis for infection, and use Bladder Scan to assess post-void residual to rule out urinary retention.
[2017-06-09] MEDS ORDERED: ALPRAZolam 0.5 MG TAB PO STA (23:50)
[2017-06-10] MEDS: LACTATED RINGERS 1,000 ML IV SCH ×2 (00:26→20:01)
[2017-06-10] MEDS: HYDROcodone/APAP 10-325MG 1 EACH TAB PO PRN ×2 (04:52→12:17)
[2017-06-10 05:36] LABS: Anisocytosis Slight; Aty Lym Flag Slight; CH 32.2; CHCM 32.4; HCT 39.5 % (39.0-53.0); HDW 3.34; HGB 12.9 gm/dL (13.0-17.5); Hypochromasia Slight; MCH 32.9 pg (25.0-35.0); MCHC 32.7 g/dL (31.0-37.0); Macrocytosis Slight; Mean Platelet Volume 9.9; RBC 3.92 m/uL (4.30-5.90); RDW 17.5 % (11.5-15.5); WBC (Perox) 11.28
[2017-06-10 05:54] LABS: Calcium 9.1 mg/dL (8.4-10.2); Magnesium 2.2 mg/dL (1.6-2.3); Phosphorous 5.3 mg/dL (2.5-4.5)
[2017-06-10 06:00] LABS: Add Differential Manual Differential; Potassium 5.5 mmol/L (3.5-5.1)
[2017-06-10 06:04] LABS: Myelocytes % 0.5 %; Nucleated Red Blood Cells 1 /100 WBC (0-0); Total Cells Counted 200; WBC 11.4 k/uL (3.8-10.6)
[2017-06-10 06:05] LABS: Manual Review Performed; Polychromasia Present
[2017-06-10 06:07] LABS: MCV 100.7 fL (80.0-100.0)
--- NOTE | 2017-06-10 07:55 | XR ---
EXAMINATION TYPE: XR chest 1V portable DATE OF EXAM: 06/10/2017 COMPARISON: 06/10/2017 INDICATION: Central line placement TECHNIQUE: Single frontal view of the chest is obtained. FINDINGS: The heart size is enlarged. The pulmonary vasculature is normal. Left lower lobe infiltrate may be present. Previous diffuse increased lung markings are improved. Pac emaker overlies left chest. Sternotomy wires are present from previous CABG. Right central venous catheter placement with the tip in the superior vena cava region. No pneumothora x is evident. IMPRESSION: 1. Cardiomegaly. 2. Right central venous catheter placement with the tip in the superior vena cava region. No pneumoth orax is evident.
--- NOTE | 2017-06-10 07:56 | XR ---
EXAMINATION TYPE: XR chest 1V DATE OF EXAM: 06/10/2017 COMPARISON: 06/09/2017 INDICATION: Congestive heart failure TECHNIQUE: Single frontal view of the chest is obtained. FINDINGS: The heart size is enlarged. The pulmonary vasculature is prominent. There is diffuse increased lung markings. Findings can be compatible congestive heart failure. Pacema ker overlies left chest. IMPRESSION: 1. Clinical correlation recommended for congestive heart failure.
[2017-06-10] MEDS: SYMBICORT 160-4.5 MCG INHALER INHALATION SCH ×2 (08:59→20:45)
[2017-06-10] MEDS: ASPIRIN 81 MG CHEW PO SCH (09:12)
[2017-06-10] MEDS: NOREPINEPHRIN 4 MG-0.9% NS PMX 4 MG/250 ML ML IV SCH (09:12)
[2017-06-10] MEDS: POLYETHYLENE GLYCOL 3350 17 GM POWD.PACK PO SCH (09:12)
[2017-06-10] MEDS: MIDODRINE 5 MG TAB PO SCH ×3 (09:12→17:47)
[2017-06-10] MEDS: DOCUSATE 100 MG CAP PO SCH ×2 (09:12→19:59)
[2017-06-10] MEDS: AMIODARONE 200 MG TAB PO SCH ×2 (09:12→19:59)
--- NOTE | 2017-06-10 11:52 | PN ---
The patient is seen for followup for acute kidney injury secondary to cardiorenal syndrome, currently oliguric and hemodialysis dependent. The patient was started on dialysis secondary to severe volume overload and decreased urine output. He has right femoral tunnel catheter and he also had an AV graft placed in his right arm this admission. The patient was transferred to the ICU after his surgery for AV graft as the pressure was running low. He was started on Levophed. He was dialyzed yesterday. We did not have much ( ) secondary to low blood pressure. The patient is also maintained on midodrine 3 times a day. I do not see a serum cortisol level this admission, which I will order to rule out any underlying adrenal insufficiency. This morning, patient is sitting up in bed. He is comfortable. He is not in any acute distress. Levophed is at about 8 mcg. On examination, blood pressure is 102/54, heart rate 54 per minute. He is afebrile. EXAMINATION OF THE HEART: S1 and S2. EXAMINATION OF THE LUNGS: Bilateral breath sounds are heard. ABDOMEN: Soft, nontender. Examination of the lower extremities shows edema, 2+ bilaterally. Patient has AV graft in his right upper arm. Labs show sodium 132, potassium 5.5, BUN 36, creatinine 5.2. Hemoglobin 12.9 grams/dL. ASSESSMENT: 1. Acute kidney injury currently hemodialysis dependent with no significant urine output, status post right upper arm AV graft, currently is being dialyzed ( ) right femoral tunnel catheter. Patient was dialyzed yesterday. His potassium is at 5.5. I will schedule him for another hemodialysis treatment tomorrow. We will hold off on dialysis today. 2. Hyperkalemia, expect improvement with dialysis tomorrow. Maintain patient on low potassium diet. 3. Severe cardiomyopathy, ejection fraction of less than 20%. 4. Hypotension, currently maintained on midodrine. Check random cortisol level. 5. Status post right upper arm AV graft. PLAN: Hemodialysis in a.m. Check random cortisol level. Maintain patient on low potassium diet. Repeat labs in a.m. MTDD
--- NOTE | 2017-06-10 12:40 | PN ---
This is a 66-year-old male who was saw on consultation. He was admitted way back on May 19. He was admitted with a diagnosis of CHF, CAD, COPD, AICD placement, chronic kidney disease, peripheral artery disease, diabetes, moderate pulmonary hypertension, valvular heart disease, both tricuspid and mitral regurgitation and urinary retention. The patient was currently in the ICU. He went to the OR yesterday to have a PermaCath removed but apparently it was not removed. The patient did have an AV fistula placed in the right upper extremity. Today is postop day number 2. He was brought back to the ICU because he was on Levophed. The vascular surgeon wanted to maintain a blood pressure mean of about 70 to 75 mmHg. The patient is currently still on Levophed at 5 mcg per minute, getting an LRIV at [address] Ocasio, the vascular surgeon put a right central line today. The patient is doing about the same as he did yesterday. I am not sure if the patient is scheduled for dialysis today. The patient is getting O2 at 2 L. No particular complaints. Did not have any good IV access last night. Currently, temperature 97.9. Heart rate 76. Respiratory rate 17. Blood pressure 102/54. Mean 70. Appears in no acute distress. Looking very comfortable. No respiratory issues. HEENT examination is grossly unremarkable. Mucous membranes are moist. Neck is supple. No oral lesions. Full range of motion. No adenopathy, thyromegaly. Cardiovascular examination reveals a regular rhythm and rate. Heart rate mid 70s. No murmur noted. S1, S2. Lungs reveal a few scattered crackles. Breath sounds equal. Abdomen is soft. Bowel sounds heard. Extremities are intact. No cyanosis, clubbing or edema. Skin without rash. Neurological examination is brief but nonfocal. Again the patient is on O2 at 2 L. Getting Levophed at 5 mcg per minute. Getting LRV at 20 mL an hour. Labs are reviewed. White count 11.4, hemoglobin 12.9, hematocrit 39.5, platelet count 63,000. Sodium 132, potassium 5.5, chloride 99, CO2 18, BUN and creatinine 36 and 5.20. Chest x-ray shows evidence of fluid overload and no complication from central line placement. Medications are reviewed. ASSESSMENT: 1. Status post AV fistula placement in the right upper extremity, postop day number two. 2. History of hypertension. 3. Previous bypass grafting. 4. History of hyperlipidemia. 5. Status post AICD placement. 6. End stage kidney disease, currently undergoing hemodialysis. 7. Multiple medical problems and comorbidities listed in the consultation. 8. Chronic obstructive pulmonary disease. PLAN: The patient is doing well. No additional recommendations are made. I asked the nurse to call Dr. Ocasio about the blood pressure and whether or not there was need to continue Levophed. The patient is stable from pulmonary standpoint and can be moved out of the ICU anytime the patient is off the Levophed. We will allow Dr. Ocasio to make that decision. Medications are reviewed. Prognosis is guarded. MTDD
--- NOTE | 2017-06-10 13:21 | PCN ---
PREOPERATIVE DIAGNOSIS: Acute coronary artery failure. PROCEDURE: Placement of the central line in right internal jugular vein for IV infusion. Patient was seen in the intensive care unit. The right side of the neck was prepped in sterile manner, 1% Lidocaine was infiltrated. Ultrasound- guided ( ) was introduced in the right internal jugular vein. Micropuncture guidewire was passed. After that, a 4 [place] dilator advanced over the guidewire, then was passed the regular guidewire, through that we introduced a 4 [place] sheath on top of the guidewire, flushed with heparin saline and secured with 3-0 silk, dressing applied. Patient tolerated the procedure well. MOIZ
[2017-06-10] MEDS: ALPRAZolam 0.25 MG TAB PO PRN ×2 (14:09→17:57)
--- NOTE | 2017-06-10 18:00 | P.PN ---
Subjective Principal diagnosis: Chronic renal failure, cardiomyopathy and congestive heart failure. This 66-year-old gentleman with a cardio renal syndrome with oliguria and anuria , is hemodialysis dependent. Patient had a AV fistula placement about 2 days ago. Following that patient became hypotensive. Patient has been in intensive care unit for blood pressure support with Levophed. Patient's potassium is slightly high. His wound have dialysis today to today. Patient has been having intermittent pacemaker rhythm and also some medial ventricular rhythm. Overall patient seemed to be feeling better. He seemed to be less short of breath and seemed to be more energetic His lab values showed a sodium of 132, potassium of 5.5, BUN is 36, creatinine is in the range of 5. we'll continue current management. Objective - Vital Signs Vital signs: Vital Signs Temp 97.5 F L 06/10/17 12:00 Pulse 71 06/10/17 15:00 Resp 18 06/10/17 15:00 BP 95/58 06/10/17 15:00 Pulse Ox 97 06/10/17 12:00 Intake & Output 06/09/17 06/10/17 06/10/17 18:59 06:59 18:59 Intake Total 468.405 2766.925 305.75 Output Total 8 1 10 Balance 101.443 6777.925 295.75 Weight 76.1 kg 77 kg 77 kg Intake: IV 260 240 180 Lactated Ringers 1,000 ml 220 240 180 @ 20 mls/hr IV .Q24H MICHELLE Rx#:[id number] Norepinephrin 4 mg-0.9% 40 Ns Pmx 4 mg In 250 ml @ Titrate IV .Q0M MICHELLE Rx#: [id number] Intake, IV Titration 57.438 284.925 125.75 Amount Norepinephrin 4 mg-0.9% 57.438 284.925 125.75 Ns Pmx 4 mg In 250 ml @ Titrate IV .Q0M MICHELLE Rx#: [id number] Oral 90 700 Output: Urine 8 10 Urine/Stool Mix 1 Other: Voiding Method Urinal Urinal Urinal # Voids 0 1 0 - Exam GENERAL EXAM: Patient is alert and oriented and doesn't appear to be in any acute distress. Complaints of being fatigued and tired HEENT: Normocephalic. Normal reaction of pupils, equal size, normal range of extraocular motion. No erythema or exudates in the throat. NECK: No masses, no nuchal rigidity. CHEST: No chest wall deformity. LUNGS: Equal air entry with no crackles or wheeze. HEART: S1 and S2 normal ABDOMEN: Distended SKIN: No rashes CENTRAL NERVOUS SYSTEM: No focal deficits. EXTREMITIES: No cyanosis, clubbing or edema. - Labs CBC & Chem 7: 06/10/17 05:00 06/10/17 05:00 Labs: Abnormal Lab Results - Last 24 Hours (Table) 06/10/17 06/10/17 Range/Units 05:00 05:00 WBC 11.4 H (3.8-10.6) k/uL RBC 3.92 L (4.30-5.90) m/uL Hgb 12.9 L (13.0-17.5) gm/dL MCV 100.7 H D (80.0-100.0) fL RDW 17.5 H (11.5-15.5) % Plt Count 63 L (150-450) k/uL Neutrophils # (Manual) 8.6 H (1.3-7.7) k/uL Lymphocytes # (Manual) 0.9 L (1.0-4.8) k/uL Monocytes # (Manual) 1.8 H (0-1.0) k/uL Nucleated RBCs 1 H (0-0) /100 WBC Sodium 132 L (137-145) mmol/L Potassium 5.5 H (3.5-5.1) mmol/L Carbon Dioxide 18 L (22-30) mmol/L BUN 36 H (9-20) mg/dL Creatinine 5.20 H* (0.66-1.25) mg/dL Glucose 102 H (74-99) mg/dL Phosphorus 5.3 H (2.5-4.5) mg/dL Assessment and Plan (1) Non Q wave myocardial infarction Status: Acute (2) Renal insufficiency syndrome Status: Acute (3) S/P implantation of automatic cardioverter/defibrillator (AICD) Status: Acute (4) Systolic CHF, acute on chronic Status: Acute (5) Ventricular tachycardia Status: Acute Plan: Patient is sitting up in the chair. Appears to be more energetic and less short of breath. Patient is scheduled to have dialysis later. He had a central line placement today. Continue current management
--- NOTE | 2017-06-10 19:49 | P.PN ---
<Virginie Fatima Zachary - Last Filed: 06/10/17 20:42> Progress Note - Text DATE OF SERVICE: 06/10/2017 PRESENTING COMPLAINT: Shortness of breath, lower extremity edema, and abdominal distention. INTERVAL HISTORY: 66-year-old male with acute on chronic congestive heart failure exacerbation, chronic kidney disease in need of permanent hemodialysis catheter placement. Additional rounds of hemodialysis will be scheduled per nephrology. 06/04/2017: Patient sitting up in bed, appears somewhat lethargic, able to answer questions, awake, daughter at the bedside, plan of care/timetable discussed with daughter and patient. Patient has not had a BM, ordered Dulcolax suppository and emema. 06/05/2017: Patient sitting up in his bed, awake and able to answer questions, complains of feeling bloated, no BM today, eating about 50% of diet, plans for permanent dialysis catheter in the right arm soon per nephrology and vascular surgery. 06/06/2017: Patient sitting up at the bedside in a chair appears comfortable. Complains of continued bloating. BM yesterday. Eating 100% of his breakfast, vascular surgery planning to place permanent dialysis catheter in the right upper arm area. Nephrology to discuss end-of-life care in conjunction with fistula placement with family. Family wishes to proceed with fistula placement and continued renal replacement therapy as long as he can tolerate it. 06/07/2017: Patient sitting up in bed, very alert bright-eyed, does continue to complain about fullness in the abdomen however does feel better than days previous. BM yesterday, plans for permanent dialysis fistula on Tuesday with vascular surgery. Discussion had with the patient regarding the procedure, risks and benefits discussed, patient is agreeable and would like to proceed with the procedure. 06/08/2017: Patient sitting up in bed, alert, states abdomen is not as full however it is still bloated. States he feels better since Castellanos is been removed as well. Awaiting AV fistula to be placed today with vascular surgery. 06/09/2017: Postsurgical intervention patient was transferred to the ICU for closer monitoring. Patient does have an extensive history of hypotension, some concern remained with a new grafts patency in the setting of the low blood pressure. Overnight patient had an episode of chest pain lasting approximately an hour off and on. Dr. Amarjit was contacted, labs drawn, no heparin started secondary to surgical intervention earlier in the day. Patient is sitting up in the bed, complaining of right arm pain where the procedure was done, otherwise states he feels well, continues to complain of abdominal bloating. Continues to be hypotensive, Extensive edema remains to bilateral lower extremities. Patient is nonambulatory in the ICU at this time. The Levophed was off at the time of exam. No BM today. 06/10/2017: Patient seen in the ICU, overnight patient was very anxious adjustment made to his Xanax. Patient lying in bed, tired appearing, patient continues to be hypotensive, requiring Levophed for pressure support, eating about 50% of his meals, scheduled for dialysis later today. No BM today REVIEW OF SYSTEMS: Done for constitutional ,cardiovascular, GI, pulmonary with relevant findings as above. CURRENT MEDICATIONS [place], albuterol, Symbicort, Xanax, Lipitor, Coreg, Zaroxolyn 5 mg by mouth twice a day, midodrine 10 mg by mouth, Levophed PHYSICAL EXAM VITAL SIGNS: Temperature 98.1, pulse 75, respiratory rate 18, blood pressure 95/63, and saturation 95% on 2 L. GENERAL APPEARANCE: Sitting up in the bed, appears anxious, EYES: Pupils equal. Conjunctiva normal. NECK: JVD raised. Mass not palpable, right IJ central line in place. RESPIRATORY: Respiratory effort increased Lungs diminished bilaterally, with crackles noted. CARDIOVASCULAR: First and second sounds normal. Gross edema. ABDOMEN: Soft. Liver and spleen not palpable. No tenderness. No mass palpable. Abdomen distended Right groin hemodialysis catheter in place. PSYCHIATRY: Alert and oriented x3. Mood and brighter today. MUSCULOSKELETAL: Right inner arm fistula covered with a dressing, positive thrill and bruit. INVESTIGATIONS: LABS: White blood cell count 11.4, hemoglobin 12.9, sodium 132, potassium 5.5, creatinine 5.20, BUN 36 Chest x-ray: Cardiomegaly, right central venous catheter placement with the tip in the superior vena cava region, no pneumothorax is seen. ASSESSMENT: -Acute on chronic congestive heart failure exacerbation from systolic and diastolic dysfunction, EF 30-35% from moderate concentric left hypertrophy and underlying coronary artery disease slow to respond -Coronary artery disease with prior history of coronary bypass and stent -COPD in an ex-smoker -Ischemic cardiomyopathy status post biventricular ICD -Chronic kidney disease stage III from hypertensive nephrosclerosis -End-stage kidney disease secondary to cardiorenal syndrome worsening, requiring hemodialysis -Hypervolemic hyponatremia improving -Peripheral artery disease or prior history of fem-fem bypass -Diabetes mellitus type II chronically on insulin -Moderate secondary pulmonary hypertension secondary to congestive heart failure -Moderate tricuspid regurgitation nonrheumatic -Severe mitral regurgitation nonrheumatic -Acute urine retention, resolved -Hematuria, secondary to traumatic catheter placement, resolved -DVT prophylaxis with heparin subcu -Recurrent Non-sustained ventricular tachyarrhythmia, received amiodarone, patient with pacemaker in place -Placement of right upper extremity Phelan-Herve graft for AV fistula for dialysis. -Acute unstable angina, with troponin leak, now resolve -Hypotensive shock patient on Levophed -Hyperkalemia due to end-stage kidney disease requiring hemodialysis PLAN: Hemodialysis will continue per nephrology scheduling, next treatment will be tomorrow. Remains on Levophed for blood pressure support to help maintain graft patency, will await input from Dr. Ocasio as to when he feels it will be appropriate to stop the Levophed. Once Levophed has been stopped patient is stable to be discharged from the ICU to [address] [place] [address]. Plan of care discussed with the patient he is in agreement. We will continue to follow closely. REFERENCE DATA EXPERT statement: Patient was seen and examined by nurse practitioner Virginie Fatima and all elements of the case discussed with attending Dr. Camarena <Dex Camarena - Last Filed: 06/11/17 14:03> Progress Note - Text Attending note. Date of service-06/10/2017 This patient was seen and examined by me . I reviewed the note of my nurse practitioner, Ms. Fatima. Discussed with her, additional findings as below. Patient seen in the ICU. Tired and lethargic. Awake though. Remains on the Levophed drip. On examination: Lungs decreased breath sounds, edema present, psych patient is awake and communicating Investigations: White count 11.4, platelets 63, potassium 5.5 Assessment and plan: Acute CHF exacerbation/end-stage kidney disease on hemodialysis/hypotensive shock on Levothroid drip-slow to respond Prognosis guarded. Spoke to the patient and
[2017-06-10] MEDS: ATORVASTATIN 20 MG TAB PO SCH (19:59)
[2017-06-10] MEDS: NOREPINEPHRIN 16 MG-0.9%NS PMX 16 MG/250 ML ML IV SCH (19:59)
[2017-06-11] MEDS: HYDROcodone/APAP 10-325MG 1 EACH TAB PO PRN ×2 (04:45→17:37)
[2017-06-11 05:00] LABS: Anisocytosis Slight; Aty Lym Flag Slight; CH 32.4; CHCM 32.1; HCT 38.7 % (39.0-53.0); HDW 3.32; HGB 12.5 gm/dL (13.0-17.5); Hypochromasia Slight; MCH 32.9 pg (25.0-35.0); MCHC 32.2 g/dL (31.0-37.0); MCV 102.1 fL (80.0-100.0); Macrocytosis Moderate; Mean Platelet Volume 9.6; RBC 3.79 m/uL (4.30-5.90); RDW 17.5 % (11.5-15.5); WBC 10.8 k/uL (3.8-10.6); WBC (Perox) 11.02
[2017-06-11 05:10] LABS: Add Differential Manual Differential
[2017-06-11 05:12] LABS: Nucleated Red Blood Cells 0 /100 WBC (0-0); Total Cells Counted 100
[2017-06-11 05:37] LABS: Calcium 8.9 mg/dL (8.4-10.2); Magnesium 2.1 mg/dL (1.6-2.3); Phosphorous 6.1 mg/dL (2.5-4.5); Potassium 5.5 mmol/L (3.5-5.1)
--- NOTE | 2017-06-11 08:11 | P.PN ---
Subjective Principal diagnosis: Hypotension This is a pleasant 66-year-old gentleman with an extensive cardiac history consistent of CAD, ischemic cardiomyopathy, PAD, status post by V ICD, as well as multiple comorbid conditions was admitted to the hospital and underwent an AV fistula to start dialysis. The surgery was complicated by hypotension requiring vasopressors was Levophed. From the cardiovascular standpoint of view, he denies having any chest pain or discomfort at this point. Hemodynamically, he continues on Levophed and the blood pressure has been above 100 systolic and he is in process to be weaned from the Levophed. He underwent an echocardiogram in 2016 and that showed cardiomyopathy with an EF of 35% with severe mitral regurgitation. Objective - Vital Signs Vital signs: Vital Signs Temp 98.0 F 06/11/17 04:00 Pulse 74 06/11/17 07:00 Resp 14 06/11/17 07:00 BP 96/58 06/11/17 07:00 Pulse Ox 96 06/11/17 07:00 Intake & Output 06/10/17 06/11/17 06/11/17 18:59 06:59 18:59 Intake Total 515.75 608.624 20 Output Total 20 20 Balance 495.75 588.624 20 Weight 77 kg 80.5 kg Intake: IV 240 240 20 Lactated Ringers 1,000 ml 240 240 20 @ 20 mls/hr IV .Q24H MICHELLE Rx#:[id number] Intake, IV Titration 125.75 128.624 Amount Norepinephrin 16 mg-0.9% 128.624 Ns Pmx 16 mg In 250 ml @ Titrate IV .Q0M MICHELLE Rx#: [id number] Norepinephrin 4 mg-0.9% 125.75 Ns Pmx 4 mg In 250 ml @ Titrate IV .Q0M MICHELLE Rx#: [id number] Oral 150 240 Output: Urine 20 20 Other: Voiding Method Urinal Urinal # Voids 0 - Constitutional General appearance: Present: no acute distress - Respiratory Respiratory: bilateral: diminished - Cardiovascular Rhythm: regular Heart sounds: normal: S1, S2 Abnormal Heart Sounds: Present: systolic murmur - Labs CBC & Chem 7: 06/11/17 04:45 06/11/17 04:45 Labs: Abnormal Lab Results - Last 24 Hours (Table) 06/11/17 06/11/17 Range/Units 04:45 04:45 WBC 10.8 H (3.8-10.6) k/uL RBC 3.79 L (4.30-5.90) m/uL Hgb 12.5 L (13.0-17.5) gm/dL Hct 38.7 L (39.0-53.0) % MCV 102.1 H (80.0-100.0) fL RDW 17.5 H (11.5-15.5) % Plt Count 108 L D (150-450) k/uL Neutrophils # (Manual) 8.1 H (1.3-7.7) k/uL Monocytes # (Manual) 1.5 H (0-1.0) k/uL Sodium 130 L (137-145) mmol/L Potassium 5.5 H (3.5-5.1) mmol/L Carbon Dioxide 18 L (22-30) mmol/L BUN 45 H (9-20) mg/dL Creatinine 6.10 H* (0.66-1.25) mg/dL Glucose 100 H (74-99) mg/dL Phosphorus 6.1 H (2.5-4.5) mg/dL Assessment and Plan Plan: Assessment Hypotension requiring vasopressors Severe underlying CAD Acute non-STEMI End stage renal disease on hemodialysis Severe cardiomyopathy Severe MR Plan Continue trying to wean the patient from Levophed Continue holding any blood pressure medications Follow-up with the patient
[2017-06-11] MEDS: SYMBICORT 160-4.5 MCG INHALER INHALATION SCH ×2 (08:17→20:17)
[2017-06-11] MEDS: METOCLOPRAMIDE 5 MG/ML 2 ML VIAL IVP PRN (09:09)
[2017-06-11] MEDS: DOCUSATE 100 MG CAP PO SCH ×2 (09:10→20:19)
[2017-06-11] MEDS: POLYETHYLENE GLYCOL 3350 17 GM POWD.PACK PO SCH (09:10)
[2017-06-11] MEDS: ALPRAZolam 0.25 MG TAB PO PRN ×3 (09:10→21:23)
[2017-06-11] MEDS: ASPIRIN 81 MG CHEW PO SCH (09:10)
[2017-06-11] MEDS: AMIODARONE 200 MG TAB PO SCH ×2 (09:10→20:19)
--- NOTE | 2017-06-11 09:11 | P.PN ---
Subjective Principal diagnosis: This is a 66-year-old male followed up in consultation because of chronic kidney disease stage III, cardiorenal syndrome, had dyspnea and edema. He has been started on dialysis because of low blood pressure and acute kidney injury. He had his first dialysis today and 1 L was taken off. He remains weak and tired with poor appetite and abdominal distention and fullness. No nausea vomiting no dizziness diarrhea no chest pain or shortness of breath. No fever chills. He is also known with atrial fibrillation, coronary artery disease cardiomyopathy COPD diabetes and DE in the past and history of rheumatoid arthritis and hepatitis C. His had a cardiac arrest in 2008. He remains on levo fed currently as well as on midodrine. His pressure remains low in the 90s. Urine output is 10-20 mL per 24 hours. Remains edematous. Objective - Vital Signs Vital signs: Vital Signs Temp 98.0 F 06/11/17 04:00 Pulse 74 06/11/17 07:00 Resp 14 06/11/17 07:00 BP 96/58 06/11/17 07:00 Pulse Ox 96 06/11/17 07:00 Intake & Output 06/10/17 06/11/17 06/11/17 18:59 06:59 18:59 Intake Total 515.75 608.624 20 Output Total 20 20 Balance 495.75 588.624 20 Weight 77 kg 80.5 kg Intake: IV 240 240 20 Lactated Ringers 1,000 ml 240 240 20 @ 20 mls/hr IV .Q24H MICHELLE Rx#:[id number] Intake, IV Titration 125.75 128.624 Amount Norepinephrin 16 mg-0.9% 128.624 Ns Pmx 16 mg In 250 ml @ Titrate IV .Q0M MICHELLE Rx#: [id number] Norepinephrin 4 mg-0.9% 125.75 Ns Pmx 4 mg In 250 ml @ Titrate IV .Q0M MICHELLE Rx#: [id number] Oral 150 240 Output: Urine 20 20 Other: Voiding Method Urinal Urinal # Voids 0 On examination he is currently on levo fed. Awake alert comfortable. HEENT exam no JVP neck is supple no facial asymmetry he has a poor and his right internal jugular therefore his JVP is difficult to see. Lungs are significant for bilateral coarse crackle at bases with diminished air entry and dullness. Possibly has bilateral effusions. Heart sounds are unremarkable except for a loud grade 3 systolic ejection murmur. Abdomen is soft slightly distended with ascites positive on clinical exam Extreme exam reveals 2+ edema Cool to touch. There is some minimal livido noted. Neurologically awake alert and oriented no focal motor deficit but haS generalized weakness - Labs CBC & Chem 7: 06/11/17 04:45 06/11/17 04:45 Labs: Abnormal Lab Results - Last 24 Hours (Table) 06/11/17 06/11/17 Range/Units 04:45 04:45 WBC 10.8 H (3.8-10.6) k/uL RBC 3.79 L (4.30-5.90) m/uL Hgb 12.5 L (13.0-17.5) gm/dL Hct 38.7 L (39.0-53.0) % MCV 102.1 H (80.0-100.0) fL RDW 17.5 H (11.5-15.5) % Plt Count 108 L D (150-450) k/uL Neutrophils # (Manual) 8.1 H (1.3-7.7) k/uL Monocytes # (Manual) 1.5 H (0-1.0) k/uL Sodium 130 L (137-145) mmol/L Potassium 5.5 H (3.5-5.1) mmol/L Carbon Dioxide 18 L (22-30) mmol/L BUN 45 H (9-20) mg/dL Creatinine 6.10 H* (0.66-1.25) mg/dL Glucose 100 H (74-99) mg/dL Phosphorus 6.1 H (2.5-4.5) mg/dL Assessment and Plan Plan: 1. Hemodialysis dependent acute kidney injury from cardiorenal syndrome and low blood pressure requiring levo fed. Has been dialyzed 5 times and the last dialysis today. 2. fluid overloaded with edema pulmonary edema as well as P [place] edema and ascites. 3. Cardiorenal syndrome. 4. Chronic kidney disease stage III. 5. Status post placement of AV graft right upper arm functioning. 6.. Arsen catheter in her groin. 7. Hyperkalemia secondary to ESRD. 8. Hyponatremia secondary to fluid overloaded state. 9. Mild metabolic acidosis secondary to ESRD bicarb is 18. 10. Acute DE non-ST. 11. Severe mitral regurg Recommendation. Start sodium bicarb 650 twice a daily. We will continue dialysis, he will need a permacath as his Arsen needs to come out in the next 2 or 3 days next dialysis will be on Tuesday 2 days from now. Given his low blood pressure maintain the levo fed for right now., But try to wean it off as tolerated
[2017-06-11] MEDS: MIDODRINE 5 MG TAB PO SCH ×3 (09:16→17:38)
--- NOTE | 2017-06-11 09:32 | XR ---
EXAMINATION TYPE: XR chest 1V DATE OF EXAM: 06/11/2017 HISTORY: CHF. REFERENCE: Previous study dated 06/10/2017. FINDINGS: There has been a midline sternotomy. There is a multilead pacing device in place on the lef t. The heart is enlarged. There is vascular congestion and interstitial change. I suspect a left effusio n. There is left basilar confluent airspace disease either representing confluent edema or pneumonia. There is some fluid in the minor fissure on the right. IMPRESSION: 1. CHANGES MOST CONSISTENT WITH CONGESTIVE HEART FAILURE. THE OVERALL APPEARANCE IS SLIGHTLY WORSE. 2. LEFT BASILAR AIRSPACE DISEASE EITHER REPRESENTING CONFLUENT EDEMA OR PNEUMONIA. 3. LEFT-SIDED EFFUSION.
--- NOTE | 2017-06-11 11:24 | P.PN ---
Subjective This is a very pleasant 66-year-old gentleman who was admitted back on 2016. He has a congestive heart failure, coronary disease, chronic obstructive pulmonary disease, AICD placement peripheral artery disease, diabetes Joaquin, moderate pulmonary hypertension and valvular heart disease with both tricuspid and mitral regurgitation along with urinary retention. The patient has a permacath placement as well as an AV fistula placed in the right upper extremity. He remains here in the intensive care unit as he requires norepinephrine to maintain a mean arterial blood pressure greater than 70 per the vascular surgeon requests while the fistula matures. He is seen again today in follow-up in the intensive care unit. He is awake and alert in no acute distress. He is maintaining O2 saturations in the 90s on 2 L/m per nasal cannula. He has an IV of lactated Ringer's at 20 MLS per hour. He is currently on norepinephrine at 10 mcg/m. He did receive hemodialysis today and 1 L of fluid was removed. Objective - Vital Signs Vital signs: Vital Signs Temp 98.0 F 06/11/17 08:07 Pulse 77 06/11/17 10:30 Resp 13 06/11/17 10:30 BP 90/64 06/11/17 10:30 Pulse Ox 94 L 06/11/17 10:07 Intake & Output 06/10/17 06/11/17 06/11/17 18:59 06:59 18:59 Intake Total 515.75 608.624 80 Output Total 20 20 1000 Balance 495.75 588.624 -920 Weight 77 kg 80.5 kg Intake: IV 240 240 80 Lactated Ringers 1,000 ml 240 240 80 @ 20 mls/hr IV .Q24H MICHELLE Rx#:[id number] Intake, IV Titration 125.75 128.624 Amount Norepinephrin 16 mg-0.9% 128.624 Ns Pmx 16 mg In 250 ml @ Titrate IV .Q0M MICHELLE Rx#: [id number] Norepinephrin 4 mg-0.9% 125.75 Ns Pmx 4 mg In 250 ml @ Titrate IV .Q0M MICHELLE Rx#: [id number] Oral 150 240 Output: Urine 20 20 Other 1000 Other: Voiding Method Urinal Urinal Urinal # Voids 0 - Exam GENERAL EXAM: Alert, comfortable in no apparent distress. HEAD: Normocephalic. EYES: Normal reaction of pupils, equal size. NOSE: Clear with pink turbinates. THROAT: No erythema or exudates. NECK: No masses, no JVD. Catheter remains in place to the right neck CHEST: No chest wall deformity. LUNGS: Equal air entry with no crackles, wheeze, rhonchi or dullness. CVS: S1 and S2 normal with an audible murmur, regular rhythm. ABDOMEN: No hepatosplenomegaly, normal bowel sounds, no guarding or rigidity. SPINE: No scoliosis or deformity SKIN: No rashes CENTRAL NERVOUS SYSTEM: No focal deficits, tone is normal in all 4 extremities. Extremities: There is an AV fistula to the right upper extremity. Trace peripheral edema. No clubbing, no cyanosis. Peripheral pulses are intact. - Labs CBC & Chem 7: 06/11/17 04:45 06/11/17 04:45 Labs: Abnormal Lab Results - Last 24 Hours (Table) 06/11/17 06/11/17 Range/Units 04:45 04:45 WBC 10.8 H (3.8-10.6) k/uL RBC 3.79 L (4.30-5.90) m/uL Hgb 12.5 L (13.0-17.5) gm/dL Hct 38.7 L (39.0-53.0) % MCV 102.1 H (80.0-100.0) fL RDW 17.5 H (11.5-15.5) % Plt Count 108 L D (150-450) k/uL Neutrophils # (Manual) 8.1 H (1.3-7.7) k/uL Monocytes # (Manual) 1.5 H (0-1.0) k/uL Sodium 130 L (137-145) mmol/L Potassium 5.5 H (3.5-5.1) mmol/L Carbon Dioxide 18 L (22-30) mmol/L BUN 45 H (9-20) mg/dL Creatinine 6.10 H* (0.66-1.25) mg/dL Glucose 100 H (74-99) mg/dL Phosphorus 6.1 H (2.5-4.5) mg/dL Assessment and Plan Plan: Impression: #1 Status post AV fistula placement to the right upper extremity, postoperative day #3. #2 History of hypertension. #3 Hypotension requiring norepinephrine. #4 Previous coronary artery bypass grafting. #5 Hyperlipidemia. #6 Status post I AICD placement. #7 End-stage kidney disease currently undergoing hemodialysis. #8 Chronic obstructive pulmonary disease. Plan: The patient was seen and evaluated by Dr. Terrell. We are are awaiting the plan from Dr. Ocasio. We'll continue to wean down the norepinephrine as tolerated. In the interim, he'll remain here in the intensive care unit for now. We'll continue to follow.
--- NOTE | 2017-06-11 13:34 | P.PN ---
Progress Note - Text DATE OF SERVICE: 06/11/2017 PRESENTING COMPLAINT: Shortness of breath, lower extremity edema, and abdominal distention. INTERVAL HISTORY: 66-year-old male with acute on chronic congestive heart failure exacerbation, chronic kidney disease in need of permanent hemodialysis catheter placement. Additional rounds of hemodialysis will be scheduled per nephrology. 06/04/2017: Patient sitting up in bed, appears somewhat lethargic, able to answer questions, awake, daughter at the bedside, plan of care/timetable discussed with daughter and patient. Patient has not had a BM, ordered Dulcolax suppository and emema. 06/05/2017: Patient sitting up in his bed, awake and able to answer questions, complains of feeling bloated, no BM today, eating about 50% of diet, plans for permanent dialysis catheter in the right arm soon per nephrology and vascular surgery. 06/06/2017: Patient sitting up at the bedside in a chair appears comfortable. Complains of continued bloating. BM yesterday. Eating 100% of his breakfast, vascular surgery planning to place permanent dialysis catheter in the right upper arm area. Nephrology to discuss end-of-life care in conjunction with fistula placement with family. Family wishes to proceed with fistula placement and continued renal replacement therapy as long as he can tolerate it. 06/07/2017: Patient sitting up in bed, very alert bright-eyed, does continue to complain about fullness in the abdomen however does feel better than days previous. BM yesterday, plans for permanent dialysis fistula on Tuesday with vascular surgery. Discussion had with the patient regarding the procedure, risks and benefits discussed, patient is agreeable and would like to proceed with the procedure. 06/08/2017: Patient sitting up in bed, alert, states abdomen is not as full however it is still bloated. States he feels better since Castellanos is been removed as well. Awaiting AV fistula to be placed today with vascular surgery. 06/09/2017: Postsurgical intervention patient was transferred to the ICU for closer monitoring. Patient does have an extensive history of hypotension, some concern remained with a new grafts patency in the setting of the low blood pressure. Overnight patient had an episode of chest pain lasting approximately an hour off and on. Dr. Ocasio was contacted, labs drawn, no heparin started secondary to surgical intervention earlier in the day. Patient is sitting up in the bed, complaining of right arm pain where the procedure was done, otherwise states he feels well, continues to complain of abdominal bloating. Continues to be hypotensive, Extensive edema remains to bilateral lower extremities. Patient is nonambulatory in the ICU at this time. The Levophed was off at the time of exam. No BM today. 06/10/2017: Patient seen in the ICU, overnight patient was very anxious adjustment made to his Xanax. Patient lying in bed, tired appearing, patient continues to be hypotensive, requiring Levophed for pressure support, eating about 50% of his meals, scheduled for dialysis later today. No BM today 06/11/2017: Patient seen in the ICU lying in bed tired appearing continues to be hypotensive requiring Levophed for pressure support continues on Zaroxolyn and midodrine, eating roughly 50% of his meals, dialysis performed early this morning. Last BM was yesterday. Right arm swelling improving. Patient complains of feeling bloated again. REVIEW OF SYSTEMS: Done for constitutional ,cardiovascular, GI, pulmonary with relevant findings as above. CURRENT MEDICATIONS [place], albuterol, Symbicort, Xanax, Lipitor, Coreg, Zaroxolyn 5 mg by mouth twice a day, midodrine 10 mg by mouth, Levophed PHYSICAL EXAM VITAL SIGNS: Temperature 98.0, pulse 79, respiratory rate 16, blood pressure 105/54 on 11 g a minute of Levophed, oxygen saturation 94% on 2 L. GENERAL APPEARANCE: Sitting up in the bed, appears tired EYES: Pupils equal. Conjunctiva normal. NECK: JVD raised. Mass not palpable, right IJ central line in place. RESPIRATORY: Respiratory effort increased Lungs diminished bilaterally, with crackles noted. CARDIOVASCULAR: First and second sounds normal. Gross edema. ABDOMEN: Soft. Liver and spleen not palpable. No tenderness. No mass palpable. Abdomen distended Right groin hemodialysis catheter in place. PSYCHIATRY: Alert and oriented x3. Mood lethargic sleepy. MUSCULOSKELETAL: Right inner arm fistula covered with a dressing, positive thrill and bruit. INVESTIGATIONS: LABS: White blood cell count 10.8, hemoglobin 12.5, sodium 130, potassium 5.5, creatinine 6.10, BUN 45. Chest x-ray: Changes consistent with congestive heart failure overall appearance is slightly worse, left basilar airspace disease either representing confluent edema or pneumonia, left-sided effusion. ASSESSMENT: -Acute on chronic congestive heart failure exacerbation from systolic and diastolic dysfunction, EF 30-35% from moderate concentric left hypertrophy and underlying coronary artery disease slow to respond -Coronary artery disease with prior history of coronary bypass and stent -COPD in an ex-smoker -Ischemic cardiomyopathy status post biventricular ICD -Chronic kidney disease stage III from hypertensive nephrosclerosis -End-stage kidney disease secondary to cardiorenal syndrome worsening, requiring hemodialysis -Hypervolemic hyponatremia improving -Peripheral artery disease or prior history of fem-fem bypass -Diabetes mellitus type II chronically on insulin -Moderate secondary pulmonary hypertension secondary to congestive heart failure -Moderate tricuspid regurgitation nonrheumatic -Severe mitral regurgitation nonrheumatic -Acute urine retention, resolved -Hematuria, secondary to traumatic catheter placement, resolved -DVT prophylaxis with heparin subcu -Recurrent Non-sustained ventricular tachyarrhythmia, received amiodarone, patient with pacemaker in place -Placement of right upper extremity [place] graft for AV fistula for dialysis, postop day 3 -Acute unstable angina, with troponin leak, now resolved -Hypotensive shock patient on Levophed, weaning -Hyperkalemia due to end-stage kidney disease requiring hemodialysis, slow to respond PLAN: Hemodialysis will continue per nephrology scheduling, next treatment will be Tuesday. Remains on Levophed at 11 g for blood pressure support to help maintain graft patency, in the process of weaning, will await input from Dr. Ocasio as to when he feels it will be appropriate to stop the Levophed. Once Levophed has been stopped patient is stable to be discharged from the ICU to [address] [place] [id number]. Plan of care discussed with the patient he is in agreement. We will continue to follow closely. SPORTS COMPLEX ATTENDANT statement: Patient was seen and examined by nurse practitioner Virginie Fatima and all elements of the case discussed with attending Dr. Camarena
--- NOTE | 2017-06-11 13:57 | P.PN ---
Progress Note - Text DATE OF SERVICE: 06/11/2017 PRESENTING COMPLAINT: Abdominal pain INTERVAL HISTORY: This a 67-year-old patient who presented with worsening abdominal pain with inflammatory changes in the sigmoid colon complex fluid collection found consistent with pericolic abscess on computed tomography scan. Status post diagnostic laparoscopy with open sigmoid colectomy and creation of colostomy ( Cantu procedure). 06/06/2017: Patient scheduled for possible drainage of an abdominal abscess under CT guidance. Patient is slightly anxious appearing this morning, remains nothing by mouth for procedure, patient had a few questions regarding care which were answered. 06/07/2017: Scheduled for a follow-up computed tomography scan today. Surgeon just discussed findings below there is no residual fluid there is still air which suggests contained perforation. Overall scans are not improved. Scheduled for laparoscopic exploration on June 09, with possibility of a drain placement or sigmoid colectomy with Cantu's procedure. Patient is emotional regarding this information. Abdomen less tender today, ambulatory within the room. 06/08/2017: IV antibiotics continue, pain is present, has had a couple bowel movements at the bedside, getting IV fluids. 06/09/2017: Patient scheduled for surgery this morning. Abdominal pain remains. Occasional bowel movements are present, no nausea. Patient's potassium low currently being supplemented hence surgery start time has been postponed until this afternoon. 06/10/2017: Patient was seen in the ICU. Now postop day 1 from diagnostic laparoscopy with open sigmoid colectomy and creation of a colostomy ( Cantu's procedure). Continues to have pain for which WAREHOUSE OPERATOR pump is available. Awake but drifts off for easily back to sleep somewhat lethargic. Remains nothing by mouth. 06/11/2017: Patient seen in the ICU. Continues to be a bit sleepy but arousable. Postop day 2 from diagnostic laparoscopy with open sigmoid colectomy and creation of a colostomy (Cantu procedure). Continues to use WAREHOUSE OPERATOR pump for pain control. Remains nothing by mouth. Tubes and lines include: Wound VAC, Castellanos, NG tube, GINNA drain , colostomy bag in place. Possibility of transfer to the surgical floor. REVIEW OF SYSTEMS: Done for constitutional ,cardiovascular, GI, pulmonary with relevant findings as above. CURRENT MEDICATIONS Abilify, Sinemet, Klonopin, Lovenox, hydrochlorothiazide, Lamictal, Cozaar, Zosyn, Effexor. PHYSICAL EXAM VITAL SIGNS: Temperature 98.2, heart rate 111, respiratory rate 17, blood pressure 123/57, oxygen saturation 95% on 2 L GENERAL APPEARANCE: Lying in bed, appears lethargic but arousable. EYES: Pupils equal. Conjunctiva normal. HEENT: JVD not raised. Mass not palpable. NG tube in the right nares RESPIRATORY: Respiratory effort normal. Lungs diminished to auscultation. CARDIOVASCULAR: First and second sounds normal. Generalized edema. ABDOMEN: Soft. Liver and spleen not palpable,tenderness. Abdomen open with wound VAC in place, GINNA drain draining serosanguineous drainage, colostomy in place with a scant amount of stool noted in it, stoma beefy red. GENITOURINARY: Castellanos catheter in place, clear yellow urine PSYCHIATRY: Alert and oriented x3. Mood and affect lethargic. INTEGUMENT: Midline abdominal incision open occlusive dressing and wound VAC in place INVESTIGATIONS: White blood cell count 16.6, hemoglobin 8.3, sodium 144, potassium 3.9, BUN 6, creatinine 0.70. Chest x-ray: Heart is enlarged, vascular congestion present, subtle interstitial changes. Pleural spaces appeared clear. Cannot exclude some mild congestive heart failure. ASSESSMENT: -Acute sigmoid diverticulitis with localized paracolonic abscess, having failed outpatient treatment not responding well to medications, now postop day 1 from diagnostic laparoscopy with open sigmoid colectomy and creation of a colostomy ( Cantu's procedure) -Hypoalbuminemia as an acute phase reactant. -Severe hypokalemia, resolved. -Essential hypertension. -Hyperlipidemia. -Gastroesophageal reflux disease. -History of Arnold-Chiari malformation with surgery. -Idiopathic Parkinson's disease, controlled. -Bipolar disorder, controlled. -Large hiatal hernia. -Right-sided nephrolithiasis, asymptomatic -Acute pain secondary to surgical procedure, improving -Leukocytosis, likely acute phase reaction. -Acute blood loss anemia as expected from surgical intervention PLAN: Continue ICU care, pain control, surgery will monitor the wound VAC and dressing changes associated with it. Patient clinically stable from a surgical standpoint doing well will be transferred to the Medical surgical floor. Defer discussion of plan of care until family present as patient continues to be a bit lethargic. WASTE CHOPPER statement: Patient was seen and examined by nurse practitioner Virginie Fatima and all elements of the case discussed with attending Dr. Camarena
--- NOTE | 2017-06-11 19:52 | P.PN ---
<Virginie Fatima Zachary - Last Filed: 06/11/17 16:40> Progress Note - Text DATE OF SERVICE: 06/11/2017 PRESENTING COMPLAINT: Shortness of breath, lower extremity edema, and abdominal distention. INTERVAL HISTORY: 66-year-old male with acute on chronic congestive heart failure exacerbation, chronic kidney disease in need of permanent hemodialysis catheter placement. Additional rounds of hemodialysis will be scheduled per nephrology. 06/04/2017: Patient sitting up in bed, appears somewhat lethargic, able to answer questions, awake, daughter at the bedside, plan of care/timetable discussed with daughter and patient. Patient has not had a BM, ordered Dulcolax suppository and emema. 06/05/2017: Patient sitting up in his bed, awake and able to answer questions, complains of feeling bloated, no BM today, eating about 50% of diet, plans for permanent dialysis catheter in the right arm soon per nephrology and vascular surgery. 06/06/2017: Patient sitting up at the bedside in a chair appears comfortable. Complains of continued bloating. BM yesterday. Eating 100% of his breakfast, vascular surgery planning to place permanent dialysis catheter in the right upper arm area. Nephrology to discuss end-of-life care in conjunction with fistula placement with family. Family wishes to proceed with fistula placement and continued renal replacement therapy as long as he can tolerate it. 06/07/2017: Patient sitting up in bed, very alert bright-eyed, does continue to complain about fullness in the abdomen however does feel better than days previous. BM yesterday, plans for permanent dialysis fistula on Tuesday with vascular surgery. Discussion had with the patient regarding the procedure, risks and benefits discussed, patient is agreeable and would like to proceed with the procedure. 06/08/2017: Patient sitting up in bed, alert, states abdomen is not as full however it is still bloated. States he feels better since Castellanos is been removed as well. Awaiting AV fistula to be placed today with vascular surgery. 06/09/2017: Postsurgical intervention patient was transferred to the ICU for closer monitoring. Patient does have an extensive history of hypotension, some concern remained with a new grafts patency in the setting of the low blood pressure. Overnight patient had an episode of chest pain lasting approximately an hour off and on. Dr. Amarjit was contacted, labs drawn, no heparin started secondary to surgical intervention earlier in the day. Patient is sitting up in the bed, complaining of right arm pain where the procedure was done, otherwise states he feels well, continues to complain of abdominal bloating. Continues to be hypotensive, Extensive edema remains to bilateral lower extremities. Patient is nonambulatory in the ICU at this time. The Levophed was off at the time of exam. No BM today. 06/10/2017: Patient seen in the ICU, overnight patient was very anxious adjustment made to his Xanax. Patient lying in bed, tired appearing, patient continues to be hypotensive, requiring Levophed for pressure support, eating about 50% of his meals, scheduled for dialysis later today. No BM today 06/11/2017: Patient seen in the ICU. Appears tired, lethargic. He remains hypotensive maintained on Levophed 11 g a minute continued attempts at weaning. Hemodialysis occurred this morning with 1 L of fluid removal area. Postop day 3 from AV fistula placement to the right upper extremity. Extremity less painful. Patient complains of feeling bloated. Appetite fair eating less than 50% of his meals, last BM was 2 days ago. Up in chair for a good portion of the day yesterday. REVIEW OF SYSTEMS: Done for constitutional ,cardiovascular, GI, pulmonary with relevant findings as above. CURRENT MEDICATIONS [place], albuterol, Symbicort, Xanax, Lipitor, Coreg, Zaroxolyn 5 mg by mouth twice a day, midodrine 10 mg by mouth, Levophed at 11 g a minute PHYSICAL EXAM VITAL SIGNS: Temperature 98.0, pulse 79, respiratory rate 16, blood pressure 105/54, oxygen saturation 95% on 2 L GENERAL APPEARANCE: Sitting up in the bed, appears tired, lethargic, EYES: Pupils equal. Conjunctiva normal. NECK: JVD raised. Mass not palpable, right IJ central line in place. RESPIRATORY: Respiratory effort increased Lungs diminished bilaterally, with crackles noted. CARDIOVASCULAR: First and second sounds normal. Gross edema. ABDOMEN: Soft. Liver and spleen not palpable. No tenderness. No mass palpable. Abdomen distended Right groin hemodialysis catheter in place. PSYCHIATRY: Alert and oriented x3. Mood tired appearing lethargic. MUSCULOSKELETAL: Right inner arm fistula covered with a dressing, positive thrill and bruit. INVESTIGATIONS: White blood cell count 10.8, hemoglobin 12.5, sodium 1:30, potassium 5.5, BUN 45 , creatinine 6.10. Chest x-ray: Changes most consistent with congestive heart failure overall appearance is slightly worse. Left basilar airspace disease either representing confluent edema or pneumonia. Left-sided effusion. ASSESSMENT: -Acute on chronic congestive heart failure exacerbation from systolic and diastolic dysfunction, EF 30-35% from moderate concentric left hypertrophy and underlying coronary artery disease slow to respond -Coronary artery disease with prior history of coronary bypass and stent -COPD in an ex-smoker -Ischemic cardiomyopathy status post biventricular ICD -Chronic kidney disease stage III from hypertensive nephrosclerosis -End-stage kidney disease secondary to cardiorenal syndrome worsening, requiring hemodialysis -Hypervolemic hyponatremia improving -Peripheral artery disease or prior history of fem-fem bypass -Diabetes mellitus type II chronically on insulin -Moderate secondary pulmonary hypertension secondary to congestive heart failure -Moderate tricuspid regurgitation nonrheumatic -Severe mitral regurgitation nonrheumatic -Acute urine retention, resolved -Hematuria, secondary to traumatic catheter placement, resolved -DVT prophylaxis with heparin subcu -Recurrent Non-sustained ventricular tachyarrhythmia, received amiodarone, patient with pacemaker in place -Placement of right upper extremity [place]-Herve graft for AV fistula for dialysis. -Acute unstable angina, with troponin leak, now resolve -Hypotensive shock patient on Levophed -Hyperkalemia due to end-stage kidney disease requiring hemodialysis -Hyponatremia likely hypoosmolar secondary to end-stage kidney disease. -Hyperphosphatemia secondary to end-stage kidney disease PLAN: Hemodialysis will continue per nephrology scheduling, next treatment will beMonday. Remains on Levophed 11 g a minute for blood pressure support to help maintain graft patency, will continue to titrate that back as patient can tolerate will await input from Dr. Ocasio as to when he feels it will be appropriate to stop the Levophed. Patient is stable to be discharged from the ICU to [address] [place] [address], once off Levophed. Plan of care discussed with the patient he is in agreement. We will continue to follow closely. REAL ESTATE ACQUISITION ANALYST statement: Patient was seen and examined by nurse practitioner Virginie Fatima and all elements of the case discussed with attending Dr. Camarena <Dex Camarena - Last Filed: 06/11/17 19:52> Progress Note - Text Attending note. Date of service-06/11/2017 This patient was seen and examined by me . I reviewed the note of my nurse practitioner, Ms. Fatima. Discussed with her, additional findings as below. Patient remains at the ICU. Remains on Levothroid drip at 11 mics. Eating small amounts. Weak and tired. He was hemodialyzed 2 L was removed. Pretty much has been in bed. On examination: Lungs-decreased breath and some crackles, abdomen distended, lower extremity edema present of a constant questions Investigations: Potassium 3.8 Assessment and plan: Acute on chronic CHF exacerbation, slow to respond End-stage kidney disease on hemodialysis, patient's living significant fluid overload Hypotensive shock remains on Levothroid All prognosis guarded condition treatment plan
[2017-06-11] MEDS: LACTATED RINGERS 1,000 ML IV SCH (20:19)
[2017-06-11] MEDS: ATORVASTATIN 20 MG TAB PO SCH (20:19)
[2017-06-11] MEDS: SODIUM BICARBONATE TAB 650 MG TAB PO SCH (20:20)
[2017-06-11] MEDS: NOREPINEPHRIN 16 MG-0.9%NS PMX 16 MG/250 ML ML IV SCH (20:31)
[2017-06-12] MEDS: HYDROcodone/APAP 10-325MG 1 EACH TAB PO PRN ×3 (00:06→20:03)
[2017-06-12] MEDS: ALPRAZolam 0.25 MG TAB PO PRN ×2 (04:24→15:25)
[2017-06-12 05:05] LABS: Anisocytosis Slight; Aty Lym Flag Slight; CH 32.2; CHCM 31.8; HCT 35.8 % (39.0-53.0); HDW 3.39; HGB 11.5 gm/dL (13.0-17.5); Hypochromasia Moderate; MCH 32.8 pg (25.0-35.0); MCHC 32.1 g/dL (31.0-37.0); MCV 102.3 fL (80.0-100.0); Macrocytosis Moderate; Mean Platelet Volume 9.5; RDW 17.7 % (11.5-15.5); WBC 9.8 k/uL (3.8-10.6); WBC (Perox) 9.87
[2017-06-12 05:40] LABS: Add Differential Manual Differential; Calcium 8.3 mg/dL (8.4-10.2); Magnesium 2.2 mg/dL (1.6-2.3); Phosphorous 4.6 mg/dL (2.5-4.5); Potassium 5.4 mmol/L (3.5-5.1)
[2017-06-12 05:44] LABS: Manual Review Performed; Myelocytes % 1.5 %; Nucleated Red Blood Cells 0 /100 WBC (0-0); Total Cells Counted 200
--- NOTE | 2017-06-12 07:06 | XR ---
EXAMINATION TYPE: XR chest 1V DATE OF EXAM: 06/12/2017 HISTORY: CHF. REFERENCE: Previous study dated 06/11/2017. FINDINGS: There has been a midline sternotomy. There is a multilead pacing device in place on the lef t. Catheter tubing projects over the left upper lobe. The heart is enlarged. There is vascular congestion and mild edema. This may have worsened slightly. There is confluent airspace disease at the left lung base. There is a left-sided effusion. IMPRESSION: MILD WORSENING IN THE DEGREE OF CONGESTIVE HEART FAILURE.
[2017-06-12] MEDS: MIDODRINE 5 MG TAB PO SCH ×3 (08:05→19:24)
[2017-06-12] MEDS: AMIODARONE 200 MG TAB PO SCH ×2 (08:05→20:44)
[2017-06-12] MEDS: ASPIRIN 81 MG CHEW PO SCH (08:05)
[2017-06-12] MEDS: DOCUSATE 100 MG CAP PO SCH ×2 (08:06→20:44)
[2017-06-12] MEDS: FAMOTIDINE 20 MG TAB PO SCH (08:06)
[2017-06-12] MEDS: SODIUM BICARBONATE TAB 650 MG TAB PO SCH ×2 (08:07→20:44)
[2017-06-12] MEDS: SYMBICORT 160-4.5 MCG INHALER INHALATION SCH ×2 (08:37→20:15)
--- NOTE | 2017-06-12 08:43 | P.PN ---
Subjective Principal diagnosis: This is a 66-year-old male followed up in consultation because of chronic kidney disease stage III, cardiorenal syndrome, hypotension requiring levo fed as well as Midrin with acute kidney injury requiring dialysis because of severe dyspnea and edema. He's been on dialysis now for more than a week. He has a permacath in his right groin and graft in his right upper arm. This morning he is feeling somewhat better as far as his appetite is concerned and was able to eat all his breakfast. He is moving his bowels. He has no urine output. Remains on levo fed albeit at a lower dose at 5 mics with blood pressure in the 80-90 systolic. He has significant edema and is oozing from the permacath insertion site in his right groin. He remains weak and tired no chest pain or shortness of breath. No fever chills. He does complain of abdominal discomfort and feeling of bloating and gas He is also known with atrial fibrillation, AICD, coronary artery disease cardiomyopathy COPD diabetes and [place] in the past and history of rheumatoid arthritis and hepatitis C. His had a cardiac arrest in 2008. Objective - Vital Signs Vital signs: Vital Signs Temp 97.9 F 06/12/17 08:00 Pulse 79 06/12/17 08:00 Resp 23 06/12/17 08:00 BP 80/52 06/12/17 08:00 Pulse Ox 93 L 06/12/17 08:00 Intake & Output 06/11/17 06/12/17 06/12/17 18:59 06:59 18:59 Intake Total 473.25 805.300 329.75 Output Total 1000 2 Balance -526.75 803.300 329.75 Weight 83.5 kg Intake: IV 240 240 40 Lactated Ringers 1,000 ml 240 240 40 @ 20 mls/hr IV .Q24H MICHELLE Rx#:[id number] Intake, IV Titration 113.25 25.300 39.75 Amount Norepinephrin 16 mg-0.9% 113.25 25.300 39.75 Ns Pmx 16 mg In 250 ml @ Titrate IV .Q0M MICHELLE Rx#: [id number] Oral 120 540 250 Output: Urine 0 Stool 2 Other 1000 Other: Voiding Method Urinal Toilet # Voids 1 On examination he is currently is on nasal cannula. Blood pressure remains 80- 90 systolic on levo fed. He is showing a paced rhythm. HEENT exam JVP is not noted neck is supple no facial asymmetry Lungs are clear with an occasional fine crackles at bases fair air entry bilaterally no dullness percussion. Heart sounds remain normal with a grade 1 systolic ejection murmur. Abdomen is soft but has ascites clinically. Extremity exam was 2-3+ edema. Neurologically awake alert oriented but generalized weakness with difficulty sitting up for examination. No focal motor deficit. - Labs CBC & Chem 7: 06/12/17 04:48 06/12/17 04:48 Labs: Abnormal Lab Results - Last 24 Hours (Table) 06/12/17 06/12/17 Range/Units 04:48 04:48 RBC 3.50 L (4.30-5.90) m/uL Hgb 11.5 L (13.0-17.5) gm/dL Hct 35.8 L (39.0-53.0) % MCV 102.3 H (80.0-100.0) fL RDW 17.7 H (11.5-15.5) % Plt Count 111 L (150-450) k/uL Lymphocytes # (Manual) 0.6 L (1.0-4.8) k/uL Monocytes # (Manual) 2.4 H (0-1.0) k/uL Sodium 131 L (137-145) mmol/L Potassium 5.4 H (3.5-5.1) mmol/L Carbon Dioxide 20 L (22-30) mmol/L BUN 38 H (9-20) mg/dL Creatinine 5.10 H* (0.66-1.25) mg/dL Glucose 110 H (74-99) mg/dL Calcium 8.3 L (8.4-10.2) mg/dL Phosphorus 4.6 H (2.5-4.5) mg/dL Assessment and Plan Plan: 1. Hemodialysis dependent acute kidney injury from cardiorenal syndrome and low blood pressure requiring levo fed as well as Midrin. Has been dialyzed 5 times and the last dialysis yesterday. 2. fluid overloaded with pedal edemal pulmonary edema and ascites. Today's chest x-ray shows perhaps minimal worsening 3. Cardiorenal syndrome. 4. Chronic kidney disease stage III. 5. Status post placement of AV graft right upper arm functioning. 6.. Permacath catheter in right groin. 7. Hyperkalemia secondary to ESRD. 8. Hyponatremia secondary to fluid overloaded state. 9. Mild metabolic acidosis secondary to ESRD Started on oral bicarb, bicarb went up from 18-20 10. Acute [place] non-ST. 11. Severe mitral regurg. 12. Hyponatremia secondary to fluid overload Recommendation. Continue sodium bicarb 650 twice a daily. We will continue dialysis, Regarding his ascites and his abdominal discomfort, we will try to ultrafiltrate him as tapping his ascites might result in lower blood pressure We will attempt to leave tomorrow over 4 hours of dialysis. Regarding his hyponatremia was just watch him If he has not been approached for possible comfort care this should be considered
[2017-06-12] MEDS ORDERED: IPRATROPIUM-ALBUTEROL 3 ML NEB INHALATION PRN (09:32)
[2017-06-12] MEDS: POLYETHYLENE GLYCOL 3350 17 GM POWD.PACK PO SCH (10:11)
--- NOTE | 2017-06-12 10:33 | P.PN ---
Progress Note - Text This is a pleasant 66-year-old gentleman with an extensive cardiac history consistent of CAD, ischemic cardiomyopathy, PAD, status post by V ICD, as well as multiple comorbid conditions was admitted to the hospital and underwent an AV fistula to start dialysis. The surgery was complicated by hypotension requiring vasopressors was Levophed. From the cardiovascular standpoint of view, he denies having any chest pain or discomfort at this point. Hemodynamically, he continues on Levophed and the blood pressure has been above 100 systolic and he is in process to be weaned from the Levophed. He underwent an echocardiogram in 2016 and that showed cardiomyopathy with an EF of 35% with severe mitral regurgitation. The patient is going to be weaned from the Levophed. I am wary if we are getting to 2 blood pressure on this gentleman who is a vascular bypass. I was unable to feed any bilateral radial pulse nor left femoral pulse on him.
--- NOTE | 2017-06-12 12:08 | P.PN ---
Progress Note - Text 66-year-old gentleman with history of multiple medical problem, history of chronic renal failure patient is post AV fistula right upper arm and tunnel catheter right femoral for dialysis. Today we've seen in the disc care unit fistula is patent has a good thrill but patient has a marked swelling of the whole extremity upper and lower including abdomen patient had a dialysis yesterday is to have dialysis tomorrow Ronak has been DC'd follow with you
[2017-06-12] MEDS: IPRATROPIUM-ALBUTEROL 3 ML NEB INHALATION SCH ×2 (13:31→20:16)
--- NOTE | 2017-06-12 16:24 | P.PN ---
<Ryannedarrynmaria del carmenVirginie A - Last Filed: 06/12/17 16:09> Progress Note - Text DATE OF SERVICE: 06/12/2017 PRESENTING COMPLAINT: Shortness of breath, lower extremity edema, and abdominal distention. INTERVAL HISTORY: 66-year-old male with acute on chronic congestive heart failure exacerbation, chronic kidney disease has received hemodialysis catheter placement to the right upper extremity. Continues to be profoundly hypotensive, Levophed has been off and on for pressure support and attempts to wean. 06/04/2017: Patient sitting up in bed, appears somewhat lethargic, able to answer questions, awake, daughter at the bedside, plan of care/timetable discussed with daughter and patient. Patient has not had a BM, ordered Dulcolax suppository and emema. 06/05/2017: Patient sitting up in his bed, awake and able to answer questions, complains of feeling bloated, no BM today, eating about 50% of diet, plans for permanent dialysis catheter in the right arm soon per nephrology and vascular surgery. 06/06/2017: Patient sitting up at the bedside in a chair appears comfortable. Complains of continued bloating. BM yesterday. Eating 100% of his breakfast, vascular surgery planning to place permanent dialysis catheter in the right upper arm area. Nephrology to discuss end-of-life care in conjunction with fistula placement with family. Family wishes to proceed with fistula placement and continued renal replacement therapy as long as he can tolerate it. 06/07/2017: Patient sitting up in bed, very alert bright-eyed, does continue to complain about fullness in the abdomen however does feel better than days previous. BM yesterday, plans for permanent dialysis fistula on Tuesday with vascular surgery. Discussion had with the patient regarding the procedure, risks and benefits discussed, patient is agreeable and would like to proceed with the procedure. 06/08/2017: Patient sitting up in bed, alert, states abdomen is not as full however it is still bloated. States he feels better since Castellanos is been removed as well. Awaiting AV fistula to be placed today with vascular surgery. 06/09/2017: Postsurgical intervention patient was transferred to the ICU for closer monitoring. Patient does have an extensive history of hypotension, some concern remained with a new grafts patency in the setting of the low blood pressure. Overnight patient had an episode of chest pain lasting approximately an hour off and on. Dr. Ocasio was contacted, labs drawn, no heparin started secondary to surgical intervention earlier in the day. Patient is sitting up in the bed, complaining of right arm pain where the procedure was done, otherwise states he feels well, continues to complain of abdominal bloating. Continues to be hypotensive, Extensive edema remains to bilateral lower extremities. Patient is nonambulatory in the ICU at this time. The Levophed was off at the time of exam. No BM today. 06/10/2017: Patient seen in the ICU, overnight patient was very anxious adjustment made to his Xanax. Patient lying in bed, tired appearing, patient continues to be hypotensive, requiring Levophed for pressure support, eating about 50% of his meals, scheduled for dialysis later today. No BM today 06/11/2017: Patient seen in the ICU. Appears tired, lethargic. He remains hypotensive maintained on Levophed 11 g a minute continued attempts at weaning. Hemodialysis occurred this morning with 1 L of fluid removal area. Postop day 3 from AV fistula placement to the right upper extremity. Extremity less painful. Patient complains of feeling bloated. Appetite fair eating less than 50% of his meals, last BM was 2 days ago. Up in chair for a good portion of the day yesterday. 06/12/2017: Patient seen in the ICU. Appears tired and lethargic continues to be hypotensive Levophed was off for a while, is back on 1 mcg/m. For pressure support. Right upper extremity for AV fistula placement remains sore Complaints of abdominal fullness, patient has a fair amount of fluid/ascites, considering paracentesis tomorrow with interventional radiology. Appetite fair eating about half his meals. Last BM was yesterday. Gets up with assistance to the chair. REVIEW OF SYSTEMS: Done for constitutional ,cardiovascular, GI, pulmonary with relevant findings as above. CURRENT MEDICATIONS [place], albuterol, Symbicort, Xanax, Lipitor, Coreg, Zaroxolyn 5 mg by mouth twice a day, midodrine 10 mg by mouth, Levophed at 1 g a minute PHYSICAL EXAM VITAL SIGNS: Temperature 96.1, pulse 62, respirations 20, blood pressure 85/50, oxygen saturation 94% on 2 L. GENERAL APPEARANCE: Sitting up in the bed, appears tired, lethargic, EYES: Pupils equal. Conjunctiva normal. NECK: JVD raised. Mass not palpable, right IJ central line in place. RESPIRATORY: Respiratory effort increased Lungs diminished bilaterally, with crackles noted. CARDIOVASCULAR: First and second sounds normal. Gross edema. ABDOMEN: Soft. Liver and spleen not palpable. No tenderness. No mass palpable. Abdomen distended Right groin hemodialysis catheter in place. PSYCHIATRY: Alert and oriented x3. Mood tired appearing lethargic. MUSCULOSKELETAL: Right inner arm fistula covered with a dressing, positive thrill and bruit.Tender to palpation INVESTIGATIONS: Hemoglobin 11.5, platelet count 111, sodium 131, potassium 5.4, BUN 38, creatinine 5.10, calcium 8.3. ASSESSMENT: -Acute on chronic congestive heart failure exacerbation from systolic and diastolic dysfunction, EF 30-35% from moderate concentric left hypertrophy and underlying coronary artery disease slow to respond -Coronary artery disease with prior history of coronary bypass and stent -COPD in an ex-smoker -Ischemic cardiomyopathy status post biventricular ICD -Chronic kidney disease stage III from hypertensive nephrosclerosis -End-stage kidney disease secondary to cardiorenal syndrome worsening,with significant fluid overload requiring hemodialysis -Hypervolemic hyponatremia improving -Peripheral artery disease or prior history of fem-fem bypass -Diabetes mellitus type II chronically on insulin -Moderate secondary pulmonary hypertension secondary to congestive heart failure -Moderate tricuspid regurgitation nonrheumatic -Severe mitral regurgitation nonrheumatic -Acute urine retention, resolved -Hematuria, secondary to traumatic catheter placement, resolved -DVT prophylaxis with heparin subcu -Recurrent Non-sustained ventricular tachyarrhythmia, received amiodarone, patient with pacemaker in place -Placement of right upper extremity [place]-Herve graft for AV fistula for dialysis. -Acute unstable angina, with troponin leak, now resolve -Hypotensive shock patient on Levophed -Hyperkalemia due to end-stage kidney disease requiring hemodialysis -Hyponatremia likely hypoosmolar secondary to end-stage kidney disease. -Hyperphosphatemia secondary to end-stage kidney disease PLAN: Remains on Levophed 1 g a minute for blood pressure support. Patient is stable to be discharged from the ICU to [address] [place] [address], once off Levophed. For abdominal distention patient may go for paracentesis with interventional radiology. Plan of care discussed with the patient he is in agreement. We will continue to follow closely. 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 Camarena <[email or web address] - Last Filed: 06/12/17 17:31> Progress Note - Text Attending note. Date of service-06/12/2017 This patient was seen and examined by me . I reviewed the note of my nurse practitioner, Ms. Fatima. Discussed with her, additional findings as below. Early in the day patient was taken off levo fed. Blood pressures to running low. Tired and lethargic. Abdomen distended. Nephrology has ordered paracentesis by radiology. On examination: Sitting up on bed tired appearing. Lungs-decreased breath sounds. Abdomen- distended. Edema present Investigations: White count 9.8, potassium 5.4, sodium 131 Assessment and plan: Acute on chronic ingestion of heart failure exacerbation with EF 30-35%, slow to respond Hypotension multifactorial-patient currently off levo fed Continue current medication treatment plan. the patient overall poor guarded prognosis did mention that with a poor ejection fraction and low blood pressure likely is a bit difficult to proceed with hemodialysis. Patient does express understanding of his guarded prognosis Advance care planning: Met with the patient's and 2 daughters. Did explain to them the entire clinical picture. Nurse Amna was also present. In the meantime patient's gone back on the levo fed drip again. They understand the overall poor prognosis. Did explain that if things don't go well we we don't have much options left. does express that she understands and knew this was coming. Questions were answered. This took about 20-25 minutes of time.
[2017-06-12] MEDS: LACTATED RINGERS 1,000 ML IV SCH (19:24)
[2017-06-12] MEDS: ATORVASTATIN 20 MG TAB PO SCH (20:44)
[2017-06-13] MEDS: HYDROcodone/APAP 10-325MG 1 EACH TAB PO PRN ×2 (00:59→17:38)
[2017-06-13 05:45] LABS: Anisocytosis Slight; Aty Lym Flag Slight; CH 32.2; CHCM 30.6; HCT 39.9 % (39.0-53.0); HDW 3.28; HGB 11.8 gm/dL (13.0-17.5); Hypochromasia Moderate; MCH 31.5 pg (25.0-35.0); MCHC 29.6 g/dL (31.0-37.0); MCV 106.4 fL (80.0-100.0); Macrocytosis Moderate; Mean Platelet Volume 9.3; RBC 3.75 m/uL (4.30-5.90); WBC 8.2 k/uL (3.8-10.6); WBC (Perox) 7.87
[2017-06-13 05:58] LABS: Calcium 8.7 mg/dL (8.4-10.2); INR 1.5 (<1.2); Magnesium 2.3 mg/dL (1.6-2.3); Phosphorous 5.2 mg/dL (2.5-4.5); Potassium 5.6 mmol/L (3.5-5.1); Prothrombin Time 14.5 sec (9.0-12.0)
[2017-06-13 06:28] LABS: Add Differential Manual Differential
[2017-06-13 06:30] LABS: Nucleated Red Blood Cells 0 /100 WBC (0-0); Total Cells Counted 100
[2017-06-13 06:31] LABS: Manual Review Performed
--- NOTE | 2017-06-13 07:49 | XR ---
EXAMINATION TYPE: XR chest 1V DATE OF EXAM: 06/13/2017 COMPARISON: Prior chest x-ray 06/12/2017 HISTORY: Congestive heart failure TECHNIQUE: Single frontal view of the chest is obtained. FINDINGS: The heart is enlarged and patient is post median sternotomy. Interstitium is increased. Alanis spect a right jugular central venous line is stable. There may be left pleural effusion, basilar atel ectasis versus pneumonia or edema. Intracardiac defibrillator leads are stable. Lung volumes are low. Patient is rotated. IMPRESSION: Findings suggest congestive heart failure.
[2017-06-13] MEDS: MIDODRINE 5 MG TAB PO SCH ×3 (07:56→17:34)
[2017-06-13] MEDS: AMIODARONE 200 MG TAB PO SCH ×2 (08:07→20:25)
[2017-06-13] MEDS: FAMOTIDINE 20 MG TAB PO SCH (08:08)
[2017-06-13] MEDS: DOCUSATE 100 MG CAP PO SCH ×2 (08:08→20:25)
[2017-06-13] MEDS: SODIUM BICARBONATE TAB 650 MG TAB PO SCH ×2 (08:09→20:25)
--- NOTE | 2017-06-13 08:16 | PN ---
CRITICAL CARE TIME: 38 minutes. This is a 66-year-old male who was admitted back on May 19. He has a history of heart failure, CAD, COPD, AICD placement, peripheral artery disease, diabetes , moderate pulmonary hypertension, valvular heart disease with both tricuspid and mitral regurgitation along with urinary retention. The patient has had dialysis periodically. A Perm-A-Cath was placed. An AV fistula was formed in the right upper extremity. The patient is doing reasonably well. He remains on Levophed for blood pressure support. The vascular surgery wanted a mean of 65 to 70 to maintain the health of the AV fistula. The patient is doing about the same. Is a DNR. ( ). He is currently on nasal O2 at 2 L and Levophed at 5 mcg ( ). Getting 0.9 IV at 20 mL an hour. The patient's medications are reviewed. Will make sure he is on Symbicort and DuoNeb for his COPD. Apparently, they are planning hemodialysis tomorrow to remove 3 L. We are going to have interventional radiology to think about doing a paracentesis abdominis. I am not so sure that he does not have an abdominal compartment syndrome. His belly is tense with ascites. If that is drained, return to the right side ( ) may be improved. Hence, the ( ) return and cardiac output with this resulting in improvement in blood pressure. Anyway, we will have that done tomorrow. Other than that, things are about the same. Currently, temperature 97.9, heart rate 79, respiratory rate 23, blood pressure 91/59 and 2 L saturation is 93% to 95%. Appears in no acute distress. HEENT EXAMINATION: Grossly unremarkable. Mucous membranes are moist. No oral lesions. NECK: Supple. Full range of motion. No adenopathy. Neck veins are flat. Cardiovascular examination reveals regular rhythm and rate. S2 and S2 normal. No S3 or S4 or murmur. Lungs reveal some crackles bilaterally. Breath sounds are diminished. No wheezes. Abdomen is tense. It is full with ascitic fluid. There is tenderness on palpation. No bowel sounds. Extremities are intact. Slight edema. SKIN: Without rash. Neurologic examination is brief, but nonfocal. As mentioned earlier, he is getting the Levophed at 5 mcg per minute and 0.9 IV at 20 mL an hour. Labs are reviewed. White count 9.8, hemoglobin 11.5, hematocrit 35.8, platelet count 111,000. Sodium 131, potassium 5.4, chloride 99, CO2 of 20 and anion gap is 12, which is normal. BUN and creatinine were 38 and 5.10. The rest of the labs look okay. Cortisol level is normal. Microbiology is negative or pending. Chest x-ray shows worsening fluid overload/heart failure. Medications are reviewed. ASSESSMENT: 1. Status post AV fistula placement to the right upper extremity, postoperative day #4. 2. Persistent hypotension with Levophed being required to maintain a reasonable mean arterial pressure. 3. History of essential hypertension. 4. Previous bypass grafting. 5. Hyperlipidemia. 6. Status post AICD placement. 7. Chronic obstructive pulmonary disease. 8. End-stage kidney disease, currently undergoing hemodialysis. 9. Tense ascites, rule out abdominal compartment syndrome and abdominal compartment syndrome induced hypotension. PLAN: Will make sure that he is on appropriate medications for his breathing including DuoNeb t.i.d. and p.r.n. and Symbicort 160/4.5 two puffs twice a day. Hemodialysis will take place tomorrow. We are going to have interventional radiology come and do a paracentesis abdominis. Will send the fluids for cytology and microbiology as well as chemistry. In addition, we will see if we can wean the Levophed off. Additional recommendations and suggestions are forthcoming. He is now a DNR. Prognosis is guarded. We will continue to follow. MOIZ
[2017-06-13] MEDS: IPRATROPIUM-ALBUTEROL 3 ML NEB INHALATION SCH ×3 (08:49→21:06)
[2017-06-13] MEDS ORDERED: FUROSEMIDE 10 MG/ML 10 ML VIAL IV STA (08:55)
[2017-06-13] MEDS: SYMBICORT 160-4.5 MCG INHALER INHALATION SCH ×2 (08:56→21:06)
--- NOTE | 2017-06-13 09:16 | P.PN ---
Subjective Principal diagnosis: Hypotension This is a pleasant 66-year-old gentleman with an extensive cardiac history consistent of CAD, ischemic cardiomyopathy, PAD, status post by V ICD, as well as multiple comorbid conditions was admitted to the hospital and underwent an AV fistula to start dialysis. The surgery was complicated by hypotension requiring vasopressors was Levophed. From the cardiovascular standpoint of view, he denies having any chest pain or discomfort at this point. Hemodynamically, the patient is off Levophed and the blood pressure has been marginally low and it seems to be in the 80s and 90s which is normal for the patient. The patient is going to have paracentesis later on today we will continue monitor the blood pressure very closely. He underwent an echocardiogram in 2016 and that showed cardiomyopathy with an EF of 35% with severe mitral regurgitation. Objective - Vital Signs Vital signs: Vital Signs Temp 97.5 F L 06/13/17 08:00 Pulse 53 L 06/13/17 08:00 Resp 19 06/13/17 08:00 BP 84/45 06/13/17 08:00 Pulse Ox 100 06/13/17 08:00 Intake & Output 06/12/17 06/13/17 06/13/17 18:59 06:59 18:59 Intake Total 917.986 382.688 40 Output Total 0 0 Balance 917.986 382.688 40 Weight 84 kg Intake: IV 240 260 20 Lactated Ringers 1,000 ml 240 260 20 @ 20 mls/hr IV .Q24H MICHELLE Rx#:[id number] Intake, IV Titration 52.986 22.688 Amount Norepinephrin 16 mg-0.9% 52.986 22.688 Ns Pmx 16 mg In 250 ml @ Titrate IV .Q0M MICHELLE Rx#: [id number] Oral 625 100 20 Output: Urine 0 0 Other: Voiding Method Toilet Urinal # Voids 0 1 - Constitutional General appearance: Present: no acute distress - Respiratory Respiratory: bilateral: diminished - Cardiovascular Rhythm: regular Heart sounds: normal: S1, S2 - Labs CBC & Chem 7: 06/13/17 05:20 06/13/17 05:22 Labs: Abnormal Lab Results - Last 24 Hours (Table) 06/13/17 06/13/17 06/13/17 Range/Units 05:20 05:22 05:22 RBC 3.75 L (4.30-5.90) m/uL Hgb 11.8 L (13.0-17.5) gm/dL MCV 106.4 H (80.0-100.0) fL MCHC 29.6 L (31.0-37.0) g/dL RDW 18.0 H (11.5-15.5) % Plt Count 131 L (150-450) k/uL Monocytes # (Manual) 1.1 H (0-1.0) k/uL PT 14.5 H (9.0-12.0) sec INR 1.5 H (<1.2) Sodium 129 L (137-145) mmol/L Potassium 5.6 H (3.5-5.1) mmol/L Chloride 96 L (98-107) mmol/L Carbon Dioxide 18 L (22-30) mmol/L BUN 44 H (9-20) mg/dL Creatinine 5.90 H* (0.66-1.25) mg/dL Phosphorus 5.2 H (2.5-4.5) mg/dL Assessment and Plan Plan: Assessment Hypotension requiring vasopressors Severe underlying CAD Acute non-STEMI End stage renal disease on hemodialysis Severe cardiomyopathy Severe MR Plan Continue monitor the blood pressure very closely Continue holding any blood pressure medications Follow-up with the patient
--- NOTE | 2017-06-13 09:32 | US ---
EXAMINATION TYPE: US abdomen limited DATE OF EXAM: 06/13/2017 COMPARISON: NONE CLINICAL HISTORY: assess for fluid. Moderate ascites. Exam is limited to all 4 quadrants of the abdomen. IMPRESSION: Moderate ascites.
--- NOTE | 2017-06-13 09:44 | PN ---
The patient is seen for followup for acute kidney injury and currently dialysis dependent. Patient is seen on hemodialysis. His blood pressure has been around 89 to 85 mmHg. Patient is currently off of Levophed. He has not had significant urine output. There are plans for paracentesis as well down the road today. Patient remains on midodrine. Serum cortisol level was not low. On examination, blood pressure is 84/45, heart rate 53 per minute. He is afebrile. EXAMINATION OF THE HEART: S1 and S2. EXAMINATION OF THE LUNGS: Decreased breath sounds at the bases. Basal crackles are heard bilaterally. ABDOMEN: Soft, distended with ascites. Examination of the lower extremities shows edema 3+ bilaterally. POLLUTION CONTROL CHEMIST exam was grossly intake. Labs show sodium 129, potassium 5.6, BUN 44, serum creatinine 5.9. Hemoglobin 11.8 grams/dL. ASSESSMENT: 1. Acute kidney injury currently dialysis dependent secondary to cardiorenal syndrome. Urine output remains low. Patient is currently being dialyzed. 2. Volume overload and congestive heart failure with ejection fraction less than 20%. 3. Mild hyperkalemia, expect improvement with dialysis today. 4. Hypervolemia, hyponatremic, expect improvement post dialysis. 5. Status post right arm AV graft. Plan is hemodialysis today. Will try to increase UF as tolerated and will try one dose of IV Lasix to see if the patient increases his urine outpatient. Overall, prognosis is guarded. MTDD
--- NOTE | 2017-06-13 10:01 | P.PN ---
Subjective A 66-year-old male patient is being seen in the follow-up in the intensive care unit. At this point in time the patient is calm and comfortable and he was initiated on dialysis through a permacath in his right femoral vein that was inserted on 06/02/2017. Since then the patient was initiated on dialysis and is currently having dialysis periodically. In fact this morning he was having his dialysis session with a goal of 3 L of ultra filtration. He also had a right upper extremity AV fistula that was inserted on 06/09/2017 and the patient is postop day #4. He also has multiple other medical problems and comorbidities. In addition to end-stage renal disease, the patient has advanced cardiomyopathy with ejection fraction of less than 20%, coronary artery disease, previous bypass surgery, previous AICD placement, COPD and large abdominal ascites which we intend to drain at the later stage. He also has severe peripheral vascular disease. The patient is also chronically hypotensive. He was on pressors earlier and currently is off pressors. He has good radial pulses. His mean arterial pressures around 55. Clinically, the patient is calm and comfortable. He is not having any major respiratory distress. He has massive edema both in the upper and lower extremities, more so in the legs. He also has a moderate-sized ascites on examination. No nausea. No vomiting. No chest pain. No shortness of breat at rest. No change in mental status and the patient was able to follow commands and answer questions appropriately. No other significant events over the past 24 hours. Note that the patient was on pressors and he was on norepinephrine infusion that was stopped yesterday. The patient is also on midodrine for blood pressure. Objective - Vital Signs Vital signs: Vital Signs Temp 97.5 F L 06/13/17 08:00 Pulse 57 L 06/13/17 09:00 Resp 26 H 06/13/17 09:00 BP 78/49 06/13/17 09:00 Pulse Ox 97 06/13/17 09:00 Intake & Output 06/12/17 06/13/17 06/13/17 18:59 06:59 18:59 Intake Total 917.986 382.688 60 Output Total 0 0 Balance 917.986 382.688 60 Weight 84 kg Intake: IV 240 260 40 Lactated Ringers 1,000 ml 240 260 40 @ 20 mls/hr IV .Q24H MICHELLE Rx#:[id number] Intake, IV Titration 52.986 22.688 Amount Norepinephrin 16 mg-0.9% 52.986 22.688 Ns Pmx 16 mg In 250 ml @ Titrate IV .Q0M MICHELLE Rx#: [id number] Oral 625 100 20 Output: Urine 0 0 Other: Voiding Method Toilet Urinal # Voids 0 1 0 - Exam Elderly male patient nonacute distress.Head exam was generally normal. There was no scleral icterus or corneal arcus. Mucous membranes were moist. Neck is supple and there is positive JVDs and there is no goiter or neck masses this point. Lung sounds are diminished specially in lung bases. No wheezes or rhonchi early crackles. Heart sounds are irregular, there is a systolic ejection murmur grade 3/6 heard throughout the precordium. The apex is shifted to the left. No right ventricular heave or any thrill. Abdomen is distended soft. No direct tenderness, no rebound tensile guarding. There is moderate degree of ascites. There is a fluid wave and shifting dullness. Extremities show quite a bit of edema in lower extremities bilaterally and the patient is post 2-3 edema in his lower extremities. He has AV fistula in the right upper extremity. He has a permacath in his right groin. The patient also has a single lumen in the right IJ. - Labs CBC & Chem 7: 06/13/17 05:20 06/13/17 05:22 Labs: Abnormal Lab Results - Last 24 Hours (Table) 06/13/17 06/13/17 06/13/17 Range/Units 05:20 05:22 05:22 RBC 3.75 L (4.30-5.90) m/uL Hgb 11.8 L (13.0-17.5) gm/dL MCV 106.4 H (80.0-100.0) fL MCHC 29.6 L (31.0-37.0) g/dL RDW 18.0 H (11.5-15.5) % Plt Count 131 L (150-450) k/uL Monocytes # (Manual) 1.1 H (0-1.0) k/uL PT 14.5 H (9.0-12.0) sec INR 1.5 H (<1.2) Sodium 129 L (137-145) mmol/L Potassium 5.6 H (3.5-5.1) mmol/L Chloride 96 L (98-107) mmol/L Carbon Dioxide 18 L (22-30) mmol/L BUN 44 H (9-20) mg/dL Creatinine 5.90 H* (0.66-1.25) mg/dL Phosphorus 5.2 H (2.5-4.5) mg/dL Assessment and Plan Plan: Assessment 1 End stage renal disease on hemodialysis for a permacath. The patient has a right upper extremity AV fistula placed and is postop day #5. He is undergoing periodic dialysis. 2 chronic hypotension, multifactorial, currently off pressors 3 cardiomyopathy, advanced with an ejection fraction of less than 20% 4 coronary artery disease with previous bypass surgery 5 severe peripheral vascular disease 6 ascites, likely secondary to massive anasarca and heart failure 7 chronic lower extremities edema 8 hypertension, history of 9 chronic atrial fibrillation, currently is cardiac rhythm is paced 10 diabetes mellitus 11 hyperlipidemia 12 rheumatoid arthritis 13 small left-sided pleural effusion secondary to above 14 chronic hyponatremia 15 mild anion gap metabolic acidosis Plan Monitor hemodynamics in the intensive care unit. Continue the hemodialysis. Possible abdominal paracentesis later stage is a patient remains hemodynamically stable following the dialysis. Continue midodrine. No need for pressors at this point. Rest of the medication was reviewed. No other changes from my standpoint. We'll keep the patient ICU. We'll continue to follow. Prognosis extremely poor baseline above-mentioned comorbidities.
[2017-06-13] MEDS: POLYETHYLENE GLYCOL 3350 17 GM POWD.PACK PO SCH (11:45)
[2017-06-13] MEDS: ASPIRIN 81 MG CHEW PO SCH (11:46)
[2017-06-13] MEDS ORDERED: HEPARIN SODIUM,PORCINE 5,000 UNIT/ML 1 ML VIAL ONE (12:30)
--- NOTE | 2017-06-13 16:58 | US ---
EXAMINATION TYPE: US paracentesis abd w/image DATE OF EXAM: 06/13/2017 COMPARISON: NONE HISTORY: Ascites. PROCEDURE: Maximal barrier technique was utilized. The skin overlying a suitable pocket of fluid was localized with ultrasound and the overlying skin was prepped and draped. Ultrasound was utilized with sterile technique. Lidocaine was used for local anesthesia and a skin greg made with a scalpel. Catheter was advanced under direct ultrasound guidance into a suitable pocket of fluid and approximately 5.3 liter s of serous fluid were removed. Catheter was withdrawn and hemostasis achieved. There is no immedia te complication; the patient is discharged in stable condition. Specimen sent for analysis. IMPRESSION: STATUS POST ULTRASOUND GUIDED PARACENTESIS FOR PALLIATION AND DIAGNOSTIC PURPOSES OF ASC ITES. THIS PROCEDURE WAS PERFORMED BY THE UNDERSIGNED.
[2017-06-13 17:44] LABS: Potassium 6.5 mmol/L (3.5-5.1)
--- NOTE | 2017-06-13 18:20 | P.PN ---
<Ryannedarrynmaria del carmenVirginie A - Last Filed: 06/14/17 19:16> Progress Note - Text DATE OF SERVICE: 06/13/2017 PRESENTING COMPLAINT: Shortness of breath, lower extremity edema, and abdominal distention. INTERVAL HISTORY: 66-year-old male with acute on chronic congestive heart failure exacerbation, chronic kidney disease has received hemodialysis catheter placement to the right upper extremity. Continues to be profoundly hypotensive, Levophed has been off and on for pressure support and attempts to wean. 06/04/2017: Patient sitting up in bed, appears somewhat lethargic, able to answer questions, awake, daughter at the bedside, plan of care/timetable discussed with daughter and patient. Patient has not had a BM, ordered Dulcolax suppository and emema. 06/05/2017: Patient sitting up in his bed, awake and able to answer questions, complains of feeling bloated, no BM today, eating about 50% of diet, plans for permanent dialysis catheter in the right arm soon per nephrology and vascular surgery. 06/06/2017: Patient sitting up at the bedside in a chair appears comfortable. Complains of continued bloating. BM yesterday. Eating 100% of his breakfast, vascular surgery planning to place permanent dialysis catheter in the right upper arm area. Nephrology to discuss end-of-life care in conjunction with fistula placement with family. Family wishes to proceed with fistula placement and continued renal replacement therapy as long as he can tolerate it. 06/07/2017: Patient sitting up in bed, very alert bright-eyed, does continue to complain about fullness in the abdomen however does feel better than days previous. BM yesterday, plans for permanent dialysis fistula on Tuesday with vascular surgery. Discussion had with the patient regarding the procedure, risks and benefits discussed, patient is agreeable and would like to proceed with the procedure. 06/08/2017: Patient sitting up in bed, alert, states abdomen is not as full however it is still bloated. States he feels better since Castellanos is been removed as well. Awaiting AV fistula to be placed today with vascular surgery. 06/09/2017: Postsurgical intervention patient was transferred to the ICU for closer monitoring. Patient does have an extensive history of hypotension, some concern remained with a new grafts patency in the setting of the low blood pressure. Overnight patient had an episode of chest pain lasting approximately an hour off and on. Dr. Ocasio was contacted, labs drawn, no heparin started secondary to surgical intervention earlier in the day. Patient is sitting up in the bed, complaining of right arm pain where the procedure was done, otherwise states he feels well, continues to complain of abdominal bloating. Continues to be hypotensive, Extensive edema remains to bilateral lower extremities. Patient is nonambulatory in the ICU at this time. The Levophed was off at the time of exam. No BM today. 06/10/2017: Patient seen in the ICU, overnight patient was very anxious adjustment made to his Xanax. Patient lying in bed, tired appearing, patient continues to be hypotensive, requiring Levophed for pressure support, eating about 50% of his meals, scheduled for dialysis later today. No BM today 06/11/2017: Patient seen in the ICU. Appears tired, lethargic. He remains hypotensive maintained on Levophed 11 g a minute continued attempts at weaning. Hemodialysis occurred this morning with 1 L of fluid removal area. Postop day 3 from AV fistula placement to the right upper extremity. Extremity less painful. Patient complains of feeling bloated. Appetite fair eating less than 50% of his meals, last BM was 2 days ago. Up in chair for a good portion of the day yesterday. 06/12/2017: Patient seen in the ICU. Appears tired and lethargic continues to be hypotensive Levophed was off for a while, is back on 1 mcg/m. For pressure support. Right upper extremity for AV fistula placement remains sore Complaints of abdominal fullness, patient has a fair amount of fluid/ascites, considering paracentesis tomorrow with interventional radiology. Appetite fair eating about half his meals. Last BM was yesterday. Gets up with assistance to the chair. 06/13/2017: Patient seen in the ICU, receiving dialysis at this time, profoundly hypotensive 77/44 is his current blood pressure, patient is awake conversant no acute distress. Belly quite distended, patient complains of feeling very full, patient expecting to have paracentesis under ultrasound guidance later today. Up to the chair as he can tolerate. Eating about 50% of his meals last BM 06/12. REVIEW OF SYSTEMS: Done for constitutional ,cardiovascular, GI, pulmonary with relevant findings as above. CURRENT MEDICATIONS [place], albuterol, Symbicort, Xanax, Lipitor, Coreg, Zaroxolyn 5 mg by mouth twice a day, midodrine 10 mg by mouth, Levophed at 1 g a minute PHYSICAL EXAM VITAL SIGNS: Temperature 97.5, pulse 53, respiratory rate 19, blood pressure 84/45, oxygen saturation 100% on 2 L GENERAL APPEARANCE: Sitting up in the bed, appears tired, lethargic, receiving dialysis EYES: Pupils equal. Conjunctiva normal. NECK: JVD raised. Mass not palpable, right IJ central line in place. RESPIRATORY: Respiratory effort increased Lungs diminished bilaterally, with crackles noted. CARDIOVASCULAR: First and second sounds normal. Gross edema. ABDOMEN: Soft. Liver and spleen not palpable. No tenderness. No mass palpable. Abdomen distended Right groin hemodialysis catheter in place. PSYCHIATRY: Alert and oriented x3. Mood tired appearing lethargic. MUSCULOSKELETAL: Right inner arm fistula covered with a dressing, positive thrill and bruit.Tender to palpation INVESTIGATIONS: Hemoglobin 11.8, platelet count 131, sodium 129, potassium 5.6, BUN 44, creatinine 5.90, phosphorus 5.2. ASSESSMENT: -Acute on chronic congestive heart failure exacerbation from systolic and diastolic dysfunction, EF 30-35% from moderate concentric left hypertrophy and underlying coronary artery disease slow to respond -Coronary artery disease with prior history of coronary bypass and stent -COPD in an ex-smoker -Ischemic cardiomyopathy status post biventricular ICD -Chronic kidney disease stage III from hypertensive nephrosclerosis -End-stage kidney disease secondary to cardiorenal syndrome worsening,with significant fluid overload requiring hemodialysis -Hypervolemic hyponatremia improving -Peripheral artery disease or prior history of fem-fem bypass -Diabetes mellitus type II chronically on insulin -Moderate secondary pulmonary hypertension secondary to congestive heart failure -Moderate tricuspid regurgitation nonrheumatic -Severe mitral regurgitation nonrheumatic -Acute urine retention, resolved -Hematuria, secondary to traumatic catheter placement, resolved -DVT prophylaxis with heparin subcu -Recurrent Non-sustained ventricular tachyarrhythmia, received amiodarone, patient with pacemaker in place -Placement of right upper extremity [place] graft for AV fistula for dialysis. -Acute unstable angina, with troponin leak, now resolve -Hypotensive shock patient currently off Levophed -Hyperkalemia due to end-stage kidney disease requiring hemodialysis -Hyponatremia likely hypoosmolar secondary to end-stage kidney disease. -Hyperphosphatemia secondary to end-stage kidney disease PLAN: Patient is stable to be discharged from the ICU to [facility] care, once off Levophed. For abdominal distention patient may go for paracentesis with interventional radiology later today. Plan of care discussed with the patient he is in agreement. We will continue to follow closely. VP OF PRODUCT statement: Patient was seen and examined by nurse practitioner Virginie Fatima and all elements of the case discussed with attending Dr. Camarena <Dex Camarena - Last Filed: 06/15/17 19:06> Progress Note - Text Attending note. Date of service-06/13/2017 This patient was seen and examined by me . I reviewed the note of my nurse practitioner, Ms. Fatima. Discussed with her, additional findings as below. In the ICU. Tired sitting up. Blood pressure running low. Had paracentesis done 5.3 L was removed On examination: Lungs-decreased breath sounds, cardiovascular-edema present, psych of a glancing questions to tired Investigations: Hemoglobin 11.8, potassium 5.6 Assessment and plan: -Status post paracentesis 5.3 L is removed CHF exacerbation, end-stage kidney disease on hemodialysis. Prognosis guarded
[2017-06-13 18:43] LABS: RBC, Body Fluid 3950 /uL
[2017-06-13] MEDS: ONDANSETRON 4 MG/2 ML VIAL IVP PRN (20:04)
[2017-06-13] MEDS: ATORVASTATIN 20 MG TAB PO SCH (20:25)
[2017-06-13] MEDS: ALBUMIN HUMAN 25% 50 ML in EMPTY BAG 1 BAG IVPB SCH ×3 (20:50→21:19)
[2017-06-13] MEDS: LACTATED RINGERS 1,000 ML IV SCH (21:07)
[2017-06-14 00:35] LABS: Magnesium 2.1 mg/dL (1.6-2.3); Potassium 5.7 mmol/L (3.5-5.1)
[2017-06-14 01:49] LABS: T. Protein, Body Fluid Source Peritoneal Fluid
[2017-06-14 02:04] LABS: Glucose, BF Source Paracentesis Fluid; LDH, Body Fluid Source Peritoneal Fluid
[2017-06-14] MEDS: HYDROcodone/APAP 10-325MG 1 EACH TAB PO PRN ×3 (03:02→19:41)
[2017-06-14 05:39] LABS: Anisocytosis Slight; Aty Lym Flag Slight; CH 31.5; CHCM 29.8; HCT 40.2 % (39.0-53.0); HDW 3.26; HGB 12.3 gm/dL (13.0-17.5); Hypochromasia Marked; MCH 32.7 pg (25.0-35.0); MCHC 30.7 g/dL (31.0-37.0); MCV 106.8 fL (80.0-100.0); Macrocytosis Marked; Mean Platelet Volume 9.2; RBC 3.77 m/uL (4.30-5.90); RDW 17.4 % (11.5-15.5); WBC 7.3 k/uL (3.8-10.6); WBC (Perox) 7.23
[2017-06-14 05:47] LABS: Calcium 9.1 mg/dL (8.4-10.2); Magnesium 2.2 mg/dL (1.6-2.3); Phosphorous 6.5 mg/dL (2.5-4.5)
[2017-06-14 05:51] LABS: INR 1.6 (<1.2); Prothrombin Time 15.4 sec (9.0-12.0)
[2017-06-14 05:58] LABS: Potassium 5.9 mmol/L (3.5-5.1)
[2017-06-14 06:02] LABS: Add Differential Manual Differential
[2017-06-14 06:04] LABS: Nucleated Red Blood Cells 0 /100 WBC (0-0); Total Cells Counted 100
[2017-06-14 06:05] LABS: Manual Review Performed; Polychromasia Present
[2017-06-14] MEDS: MIDODRINE 5 MG TAB PO SCH ×3 (08:31→18:35)
[2017-06-14] MEDS: SYMBICORT 160-4.5 MCG INHALER INHALATION SCH ×2 (08:33→19:40)
[2017-06-14] MEDS: AMIODARONE 200 MG TAB PO SCH ×2 (08:33→20:18)
[2017-06-14] MEDS: ASPIRIN 81 MG CHEW PO SCH (08:33)
[2017-06-14] MEDS: IPRATROPIUM-ALBUTEROL 3 ML NEB INHALATION SCH ×3 (08:33→19:41)
[2017-06-14] MEDS: DOCUSATE 100 MG CAP PO SCH ×2 (08:34→20:18)
[2017-06-14] MEDS: FAMOTIDINE 20 MG TAB PO SCH (08:34)
[2017-06-14] MEDS: POLYETHYLENE GLYCOL 3350 17 GM POWD.PACK PO SCH ×2 (08:35→18:25)
[2017-06-14] MEDS: SODIUM BICARBONATE TAB 650 MG TAB PO SCH ×2 (08:36→20:18)
--- NOTE | 2017-06-14 08:47 | XR ---
EXAMINATION TYPE: XR chest 1V portable DATE OF EXAM: 06/14/2017 COMPARISON: Prior chest x-ray 06/13/2017 HISTORY: Shortness of breath TECHNIQUE: Single frontal view of the chest is obtained. FINDINGS: There is no pleural effusion, or pneumothorax seen. The cardiac silhouette size is stable. The patient is rotated. There is retrocardiac density with obscured left hemidiaphragm. Interstitiu m is improved. Intracardiac defibrillator leads are stable. Patient is post median sternotomy. The os seous structures are intact. IMPRESSION: Left lower lobe atelectasis versus edema or pneumonia with associated effusion. Improvem ent in patient's volume status in aeration.
--- NOTE | 2017-06-14 09:21 | P.PN ---
Subjective A 66-year-old male patient is being seen in the follow-up in the intensive care unit. At this point in time the patient is calm and comfortable and he was initiated on dialysis through a permacath in his right femoral vein that was inserted on 06/02/2017. Since then the patient was initiated on dialysis and is currently having dialysis periodically. In fact this morning he was having his dialysis session with a goal of 3 L of ultra filtration. He also had a right upper extremity AV fistula that was inserted on 06/09/2017 and the patient is postop day #4. He also has multiple other medical problems and comorbidities. In addition to end-stage renal disease, the patient has advanced cardiomyopathy with ejection fraction of less than 20%, coronary artery disease, previous bypass surgery, previous AICD placement, COPD and large abdominal ascites which we intend to drain at the later stage. He also has severe peripheral vascular disease. The patient is also chronically hypotensive. He was on pressors earlier and currently is off pressors. He has good radial pulses. His mean arterial pressures around 55. Clinically, the patient is calm and comfortable. He is not having any major respiratory distress. He has massive edema both in the upper and lower extremities, more so in the legs. He also has a moderate-sized ascites on examination. No nausea. No vomiting. No chest pain. No shortness of breat at rest. No change in mental status and the patient was able to follow commands and answer questions appropriately. No other significant events over the past 24 hours. Note that the patient was on pressors and he was on norepinephrine infusion that was stopped yesterday. The patient is also on midodrine for blood pressure. On 06/14/2017 I'm seeing this patient in follow-up. The patient underwent dialysis yesterday and a total of 1.5 L of fluid was removed. Subsequently he underwent a large volume paracentesis with additional 5 L of abdominal ascitic fluid was drained. This morning he is awake and alert. His systolic blood pressures the mid 70s. He is on 1 mcg norepinephrine infusion which was discontinued. He is undergoing dialysis on a periodic basis. Respiratory distress. Chest x-ray showing cardiomegaly with a small left-sided pleural effusion. No change in mental status. No other significant events overnight. He is feeling better. His abdomen is less tense. Shortness of breath is improved. No signs of hepatic encephalopathy at this point. Objective - Vital Signs Vital signs: Vital Signs Temp 97.5 F L 06/14/17 04:00 Pulse 55 L 06/14/17 08:49 Resp 14 06/14/17 08:00 BP 90/57 06/14/17 08:00 Pulse Ox 99 06/14/17 08:00 Intake & Output 06/13/17 06/14/17 06/14/17 18:59 06:59 18:59 Intake Total 261.098 733.815 171.625 Output Total 6300 Balance -6038.902 733.815 171.625 Weight 84 kg 79.9 kg Intake: IV 220 480 50 Albumin Human 25% 50 ml 150 In Empty Bag 1 bag @ 200 mls/hr IVPB Q15M MICHELLE Rx#: [id number] Lactated Ringers 1,000 ml 220 330 50 @ 20 mls/hr IV .Q24H MICHELLE Rx#:[id number] Intake, IV Titration 21.098 73.815 3.625 Amount Norepinephrin 16 mg-0.9% 21.098 73.815 3.625 Ns Pmx 16 mg In 250 ml @ Titrate IV .Q0M MICHELLE Rx#: [id number] Oral 20 180 118 Output: Drainage 5300 Right Abdomen 5300 Urine 0 Other 1000 Other: Voiding Method Urinal Urinal # Voids 0 0 - Exam Elderly male patient nonacute distress.Head exam was generally normal. There was no scleral icterus or corneal arcus. Mucous membranes were moist. Neck is supple and there is positive JVDs and there is no goiter or neck masses this point. Lung sounds are diminished specially in lung bases. No wheezes or rhonchi early crackles. Heart sounds are irregular, there is a systolic ejection murmur grade 3/6 heard throughout the precordium. The apex is shifted to the left. No right ventricular heave or any thrill. Abdomen is distended soft. No direct tenderness, no rebound tensile guarding. The amount of ascites is improved compared to yesterday as the patient underwent a large volume paracentesis.. There is a fluid wave and shifting dullness. Extremities show quite a bit of edema in lower extremities bilaterally and the patient is post 2-3 edema in his lower extremities. He has AV graft in the right upper extremity. He has a permacath in his right groin. The patient also has a single lumen in the right IJ. - Labs CBC & Chem 7: 06/14/17 05:14 06/14/17 05:14 Labs: Abnormal Lab Results - Last 24 Hours (Table) 06/13/17 06/14/17 06/14/17 Range/Units 17:19 00:08 05:14 RBC (4.30-5.90) m/uL Hgb (13.0-17.5) gm/dL MCV (80.0-100.0) fL MCHC (31.0-37.0) g/dL RDW (11.5-15.5) % Plt Count (150-450) k/uL Lymphocytes # (Manual) (1.0-4.8) k/uL PT (9.0-12.0) sec INR (<1.2) Sodium 130 L (137-145) mmol/L Potassium 6.5 H* 5.7 H 5.9 H (3.5-5.1) mmol/L Chloride 95 L (98-107) mmol/L Carbon Dioxide 16 L (22-30) mmol/L BUN 38 H (9-20) mg/dL Creatinine 5.10 H* (0.66-1.25) mg/dL Phosphorus 6.5 H (2.5-4.5) mg/dL 06/14/17 06/14/17 Range/Units 05:14 05:14 RBC 3.77 L (4.30-5.90) m/uL Hgb 12.3 L (13.0-17.5) gm/dL MCV 106.8 H (80.0-100.0) fL MCHC 30.7 L (31.0-37.0) g/dL RDW 17.4 H (11.5-15.5) % Plt Count 97 L (150-450) k/uL Lymphocytes # (Manual) 0.4 L (1.0-4.8) k/uL PT 15.4 H (9.0-12.0) sec INR 1.6 H (<1.2) Sodium (137-145) mmol/L Potassium (3.5-5.1) mmol/L Chloride (98-107) mmol/L Carbon Dioxide (22-30) mmol/L BUN (9-20) mg/dL Creatinine (0.66-1.25) mg/dL Phosphorus (2.5-4.5) mg/dL Microbiology - Last 24 Hours (Table) 06/13/17 15:00 Gram Stain - Preliminary Ascites Fluid Body Fluid Culture - Preliminary Assessment and Plan Plan: Assessment 1 End stage renal disease on hemodialysis for a permacath. The patient has a right upper extremity AV fistula placed and is postop day #6. He is undergoing periodic dialysis. Last dialysis session was yesterday on 06/13/2017, the patient had a total of 1-1.5 L of fluid of infiltrated. 2 chronic hypotension, multifactorial, currently off pressors 3 cardiomyopathy, advanced with an ejection fraction of less than 20% 4 coronary artery disease with previous bypass surgery 5 severe peripheral vascular disease 6 ascites, likely secondary to massive anasarca and heart failure, improved and the patient underwent large volume paracentesis 7 chronic lower extremities edema 8 hypertension, history of 9 chronic atrial fibrillation, currently is cardiac rhythm is paced 10 diabetes mellitus 11 hyperlipidemia 12 rheumatoid arthritis 13 small left-sided pleural effusion secondary to above 14 chronic hyponatremia 15 mild anion gap metabolic acidosis Plan Monitor the blood pressure. Keep the patient off pressors. I'm considering to put an Artline to make sure that there is adequate correlation between the arterial pressure and the cuff pressure. This will be done at a later stage. Meanwhile he is off pressors for now. No dizziness been no change in mental status. Continue salt and fluid restriction. Chest x-ray was reviewed. No signs of any massive fluid overload. He still has some edema in lower extremities. Ascites has improved. We'll continue to follow. Prognosis extremely poor baseline above-mentioned comorbidities. Is undergoing some physical therapy today.
--- NOTE | 2017-06-14 09:45 | P.PN ---
Subjective Principal diagnosis: Hypotension This is a pleasant 66-year-old gentleman with an extensive cardiac history consistent of CAD, ischemic cardiomyopathy, PAD, status post by V ICD, as well as multiple comorbid conditions was admitted to the hospital and underwent an AV fistula to start dialysis. The surgery was complicated by hypotension requiring vasopressors was Levophed. From the cardiovascular standpoint of view, he denies having any chest pain or discomfort at this point. Hemodynamically, the patient is off Levophed and the blood pressure has been marginally low and it seems to be in the 80s and 90s which is normal for the patient. The patient underwent paracentesis yesterday. He underwent an echocardiogram in 2016 and that showed cardiomyopathy with an EF of 35% with severe mitral regurgitation. Objective - Vital Signs Vital signs: Vital Signs Temp 97.5 F L 06/14/17 04:00 Pulse 55 L 06/14/17 08:49 Resp 14 06/14/17 08:00 BP 90/57 06/14/17 08:00 Pulse Ox 99 06/14/17 08:00 Intake & Output 06/13/17 06/14/17 06/14/17 18:59 06:59 18:59 Intake Total 261.098 733.815 171.625 Output Total 6300 Balance -6038.902 733.815 171.625 Weight 84 kg 79.9 kg Intake: IV 220 480 50 Albumin Human 25% 50 ml 150 In Empty Bag 1 bag @ 200 mls/hr IVPB Q15M MICHELLE Rx#: [id number] Lactated Ringers 1,000 ml 220 330 50 @ 20 mls/hr IV .Q24H MICHELLE Rx#:[id number] Intake, IV Titration 21.098 73.815 3.625 Amount Norepinephrin 16 mg-0.9% 21.098 73.815 3.625 Ns Pmx 16 mg In 250 ml @ Titrate IV .Q0M MICHELLE Rx#: [id number] Oral 20 180 118 Output: Drainage 5300 Right Abdomen 5300 Urine 0 Other 1000 Other: Voiding Method Urinal Urinal # Voids 0 0 - Constitutional General appearance: Present: no acute distress - Respiratory Respiratory: left: diminished - Cardiovascular Rhythm: regular Heart sounds: normal: S1, S2 - Labs CBC & Chem 7: 06/14/17 05:14 06/14/17 05:14 Labs: Abnormal Lab Results - Last 24 Hours (Table) 06/13/17 06/14/17 06/14/17 Range/Units 17:19 00:08 05:14 RBC (4.30-5.90) m/uL Hgb (13.0-17.5) gm/dL MCV (80.0-100.0) fL MCHC (31.0-37.0) g/dL RDW (11.5-15.5) % Plt Count (150-450) k/uL Lymphocytes # (Manual) (1.0-4.8) k/uL PT (9.0-12.0) sec INR (<1.2) Sodium 130 L (137-145) mmol/L Potassium 6.5 H* 5.7 H 5.9 H (3.5-5.1) mmol/L Chloride 95 L (98-107) mmol/L Carbon Dioxide 16 L (22-30) mmol/L BUN 38 H (9-20) mg/dL Creatinine 5.10 H* (0.66-1.25) mg/dL Phosphorus 6.5 H (2.5-4.5) mg/dL 06/14/17 06/14/17 Range/Units 05:14 05:14 RBC 3.77 L (4.30-5.90) m/uL Hgb 12.3 L (13.0-17.5) gm/dL MCV 106.8 H (80.0-100.0) fL MCHC 30.7 L (31.0-37.0) g/dL RDW 17.4 H (11.5-15.5) % Plt Count 97 L (150-450) k/uL Lymphocytes # (Manual) 0.4 L (1.0-4.8) k/uL PT 15.4 H (9.0-12.0) sec INR 1.6 H (<1.2) Sodium (137-145) mmol/L Potassium (3.5-5.1) mmol/L Chloride (98-107) mmol/L Carbon Dioxide (22-30) mmol/L BUN (9-20) mg/dL Creatinine (0.66-1.25) mg/dL Phosphorus (2.5-4.5) mg/dL Microbiology - Last 24 Hours (Table) 06/13/17 15:00 Gram Stain - Preliminary Ascites Fluid Body Fluid Culture - Preliminary Assessment and Plan Plan: Assessment Hypotension requiring vasopressors Severe underlying CAD Acute non-STEMI End stage renal disease on hemodialysis Severe cardiomyopathy Severe MR Plan Continue monitor the blood pressure very closely Continue holding any blood pressure medications Follow-up with the patient
--- NOTE | 2017-06-14 10:16 | PN ---
The patient is seen for follow-up for acute kidney injury. Currently hemodialysis dependent. The patient had paracentesis yesterday and had about 5.3 L of fluid removed. He had hemodialysis as well yesterday and had about 1.5 L of ultrafiltration. The patient is currently not on any Levophed. He is awake. His blood pressure has been running around 70s for systolic. He has been eating as well. On examination, blood pressure is 90/57. Heart rate is 66 per minute. He is afebrile. Examination of the heart, S1, S2. Examination of the lungs bilateral breath sounds are heard. Decreased breath sounds at the bases. Abdomen is soft, nontender. Examination of the lower extremities shows edema 3+ bilaterally. WIPER BLENDER exam shows the patient moving all four extremities. He has an AV graft in his right upper arm. Labs shows sodium 130 today, potassium 5.9, BUN 38, serum creatinine 5.1. Hemoglobin 12.3. ASSESSMENT: 1. Acute kidney injury, currently hemodialysis dependent. We will dialyze the patient again today. 2. Hyperkalemia. Associated with worsening renal failure. Creatinine staying up despite dialysis yesterday. 3. Severe cardiomyopathy with EF less than 20%. 4. Volume overload. Interstitial edema/congestive heart failure with systolic heart failure. 5. Hyponatremia which is mainly hypervolemic. PLAN: Repeat hemodialysis today. UF goal of about 2 L as tolerated. The patient will be dialyzed again tomorrow. MTDD
[2017-06-14] MEDS: SIMETHICONE 80 MG CHEWABLE PO SCH (10:57)
--- NOTE | 2017-06-14 12:15 | CDI ---
In responding to this query, please exercise your independent professional judgment. The [facility] Coding Staff and Clinical Documentation Specialists appreciate your assistance in clarifying documentation, maintaining compliance with coding guidelines, accurately documenting patients condition and capturing severity of illness. The fact that a question is asked does not imply that any particular answer is desired or expected. Communication forms are a method of clarifying documentation and are not made part of the Legal Health Record. Thank you in advance for your clarification. Last Revision, September 2015 Linh Arzate [address] [place] [address] Documentation Clarification Form Date: 06/14/2017 11:05:00 AM From: Yesi Dumont Admit Date: 05/19/2017 7:28:00 PM Patient Name: Juventino Birmingham Visit Number: [id number] Discharge Date: Dr. Dex Camarena Conflicting documentation has been found in the medical record. On 06/09/17 and continue in the progress notes per cardiology: troponin values showed findings consistent with small non-Q wave [place]. Patient is not a candidate for any invasive procedure. 06/14/17 Cardiology: Acute non-STEMI 06/09/17 Attending: Acute unstable angina, with troponin leak, now resolved History/Risk Factors: Atrial Fibrillation, Coronary artery disease, Heart Failure, Diabetes Mellitus type 2, Hypertension Myocardial Infarction 2013, COPD , Troponin I Admission: 05/19/17 0.053, 05/20/17: 0.064, 0.076 06/09/17 0.125, 0.979, 1.550 Clinical Indicators: Presents with bilateral lower extremity edema and shortness of breath. 06/08/17 Right upper arm Springer-Herve Graft for AV fistula. for acute kidney disease with End stage renal disease undergoing hemodialysis. he became hypotensive and had a bout of chest pain intermittently. VS: 90/61 75 19 98.1 Treatment: Cordarone Po ASA PO Monitor Labs In your opinion what is the most clinically appropriate diagnosis for this patient? Acute NSTEMI Ruled in OR Ruled out? OTHER explanation of clinical findings Unable to determine (no explanation for clinical findings) Please document in your progress notes and discharge summary in order to capture severity of illness and risk of mortality. Include clinical findings that support your diagnosis. FYI: Press F11 to launch patient chart. MTDD
[2017-06-14] MEDS: ALPRAZolam 0.25 MG TAB PO PRN ×2 (18:00→18:06)
[2017-06-14] MEDS: ONDANSETRON 4 MG/2 ML VIAL IVP PRN (19:40)
[2017-06-14] MEDS: ATORVASTATIN 20 MG TAB PO SCH (20:18)
[2017-06-14] MEDS: LACTATED RINGERS 1,000 ML IV SCH (20:22)
--- NOTE | 2017-06-14 22:29 | P.PN ---
<Virginie Fatima Zachary - Last Filed: 06/14/17 21:51> Progress Note - Text DATE OF SERVICE: 06/14/2017 PRESENTING COMPLAINT: Shortness of breath, lower extremity edema, and abdominal distention. INTERVAL HISTORY: 66-year-old male with acute on chronic congestive heart failure exacerbation, chronic kidney disease has received hemodialysis catheter placement to the right upper extremity. Continues to be profoundly hypotensive, Levophed has been off and on for pressure support and attempts to wean. 06/04/2017: Patient sitting up in bed, appears somewhat lethargic, able to answer questions, awake, daughter at the bedside, plan of care/timetable discussed with daughter and patient. Patient has not had a BM, ordered Dulcolax suppository and emema. 06/05/2017: Patient sitting up in his bed, awake and able to answer questions, complains of feeling bloated, no BM today, eating about 50% of diet, plans for permanent dialysis catheter in the right arm soon per nephrology and vascular surgery. 06/06/2017: Patient sitting up at the bedside in a chair appears comfortable. Complains of continued bloating. BM yesterday. Eating 100% of his breakfast, vascular surgery planning to place permanent dialysis catheter in the right upper arm area. Nephrology to discuss end-of-life care in conjunction with fistula placement with family. Family wishes to proceed with fistula placement and continued renal replacement therapy as long as he can tolerate it. 06/07/2017: Patient sitting up in bed, very alert bright-eyed, does continue to complain about fullness in the abdomen however does feel better than days previous. BM yesterday, plans for permanent dialysis fistula on Tuesday with vascular surgery. Discussion had with the patient regarding the procedure, risks and benefits discussed, patient is agreeable and would like to proceed with the procedure. 06/08/2017: Patient sitting up in bed, alert, states abdomen is not as full however it is still bloated. States he feels better since Castellanos is been removed as well. Awaiting AV fistula to be placed today with vascular surgery. 06/09/2017: Postsurgical intervention patient was transferred to the ICU for closer monitoring. Patient does have an extensive history of hypotension, some concern remained with a new grafts patency in the setting of the low blood pressure. Overnight patient had an episode of chest pain lasting approximately an hour off and on. Dr. Ocasio was contacted, labs drawn, no heparin started secondary to surgical intervention earlier in the day. Patient is sitting up in the bed, complaining of right arm pain where the procedure was done, otherwise states he feels well, continues to complain of abdominal bloating. Continues to be hypotensive, Extensive edema remains to bilateral lower extremities. Patient is nonambulatory in the ICU at this time. The Levophed was off at the time of exam. No BM today. 06/10/2017: Patient seen in the ICU, overnight patient was very anxious adjustment made to his Xanax. Patient lying in bed, tired appearing, patient continues to be hypotensive, requiring Levophed for pressure support, eating about 50% of his meals, scheduled for dialysis later today. No BM today 06/11/2017: Patient seen in the ICU. Appears tired, lethargic. He remains hypotensive maintained on Levophed 11 g a minute continued attempts at weaning. Hemodialysis occurred this morning with 1 L of fluid removal area. Postop day 3 from AV fistula placement to the right upper extremity. Extremity less painful. Patient complains of feeling bloated. Appetite fair eating less than 50% of his meals, last BM was 2 days ago. Up in chair for a good portion of the day yesterday. 06/12/2017: Patient seen in the ICU. Appears tired and lethargic continues to be hypotensive Levophed was off for a while, is back on 1 mcg/m. For pressure support. Right upper extremity for AV fistula placement remains sore Complaints of abdominal fullness, patient has a fair amount of fluid/ascites, considering paracentesis tomorrow with interventional radiology. Appetite fair eating about half his meals. Last BM was yesterday. Gets up with assistance to the chair. 06/13/2017: Patient seen in the ICU, receiving dialysis at this time, profoundly hypotensive 77/44 is his current blood pressure, patient is awake conversant no acute distress. Belly quite distended, patient complains of feeling very full, patient expecting to have paracentesis under ultrasound guidance later today. Up to the chair as he can tolerate. Eating about 50% of his meals last BM 06/12. 06/14/2017: Patient seen in the ICU, no significant overnight events. blood pressure continues to be in the mid to low 70s continues on Levophed with the goal of getting it shut off. Appetite continues to wax and wane, states he feels better since the paracentesis. Shortness of breath improved. Up with assistance to the chair, last BM yesterday. REVIEW OF SYSTEMS: Done for constitutional ,cardiovascular, GI, pulmonary with relevant findings as above. CURRENT MEDICATIONS [place], albuterol, Symbicort, Xanax, Lipitor, Coreg, Zaroxolyn 5 mg by mouth twice a day, midodrine 10 mg by mouth, PHYSICAL EXAM VITAL SIGNS: Temperature 96.7, pulse 58, respiratory rate 20, blood pressure 81/44, oxygen saturation 99% on 2 L GENERAL APPEARANCE: Sitting up in the bed, appears tired, lethargic. EYES: Pupils equal. Conjunctiva normal. NECK: JVD raised. Mass not palpable, right IJ central line in place. RESPIRATORY: Respiratory effort increased Lungs diminished bilaterally, with crackles noted. CARDIOVASCULAR: First and second sounds normal. Gross edema. ABDOMEN: Soft. Liver and spleen not palpable. No tenderness. No mass palpable. Abdomen less distended Right groin hemodialysis catheter in place. PSYCHIATRY: Alert and oriented x3. Mood tired appearing lethargic. MUSCULOSKELETAL: Right inner arm fistula covered with a dressing, positive thrill and bruit. INTEGUMENT: Multiple ecchymotic areas on bilateral upper extremities. INVESTIGATIONS: Hemoglobin 12.3, INR 1.6, sodium 130, potassium 5.9, BUN 38, Abdominal fluid culture negative for growth ASSESSMENT: -Acute on chronic congestive heart failure exacerbation from systolic and diastolic dysfunction, EF 30-35% from moderate concentric left hypertrophy and underlying coronary artery disease slow to respond -Coronary artery disease with prior history of coronary bypass and stent -COPD in an ex-smoker -Ischemic cardiomyopathy status post biventricular ICD -Chronic kidney disease stage III from hypertensive nephrosclerosis -End-stage kidney disease secondary to cardiorenal syndrome worsening,with significant fluid overload requiring hemodialysis -Hypervolemic hyponatremia improving -Peripheral artery disease or prior history of fem-fem bypass -Diabetes mellitus type II chronically on insulin -Moderate secondary pulmonary hypertension secondary to congestive heart failure -Moderate tricuspid regurgitation nonrheumatic -Severe mitral regurgitation nonrheumatic -Acute urine retention, resolved -Hematuria, secondary to traumatic catheter placement, resolved -DVT prophylaxis with heparin subcu -Recurrent Non-sustained ventricular tachyarrhythmia, received amiodarone, patient with pacemaker in place -Placement of right upper extremity Burns-Herve graft for AV fistula for dialysis. -Acute Non-Q wave [place], with troponin leak, patient not a candidate for any invasive procedure, now resolved -Hypotensive shock patient currently off Levophed -Hyperkalemia due to end-stage kidney disease requiring hemodialysis -Hyponatremia likely hypoosmolar secondary to end-stage kidney disease. -Hyperphosphatemia secondary to end-stage kidney disease PLAN: Patient is stable to be discharged from the ICU to [address] [place] [address], once off Levophed. Levophed is currently off, patient stopped dialysis in the middle of the procedure due to low blood pressure feeling poorly. Overall prognosis is poor. Plan of care discussed with the patient is agreeable. We'll follow closely [place] statement: Patient was seen and examined by nurse practitioner Virginie Fatima and all elements of the case discussed with attending Dr. Camarena <Dex Camarena - Last Filed: 06/15/17 19:08> Progress Note - Text Attending note. Date of service-06/14/2017 This patient was seen and examined by me . I reviewed the note of my nurse practitioner, Ms. Fatima. Discussed with her, additional findings as below. In the ICU. Blood pressure running low. Continues to feel weak and tired On examination: Lungs-decreased breath sounds, short of breathabdomen-less distended, psych answering questions awake but tired Investigations: Labs noted Assessment and plan: CHF exacerbation/fluid overload/on hemodialysis Procedure minutes guarded not good. Patient refused hemodialysis today. Daughter the bedside
[2017-06-15 05:16] LABS: Anisocytosis Slight; Aty Lym Flag Moderate; CH 31.7; CHCM 31.3; HCT 37.4 % (39.0-53.0); HDW 3.54; HGB 11.7 gm/dL (13.0-17.5); Hypochromasia Moderate; MCH 32.1 pg (25.0-35.0); MCHC 31.3 g/dL (31.0-37.0); MCV 102.3 fL (80.0-100.0); Macrocytosis Moderate; Magnesium 2.3 mg/dL (1.6-2.3); Poikilocytosis Slight; RBC 3.66 m/uL (4.30-5.90); RDW 17.4 % (11.5-15.5); WBC 7.3 k/uL (3.8-10.6); WBC (Perox) 7.31
[2017-06-15 05:35] LABS: Add Differential Manual Differential
[2017-06-15 05:39] LABS: Manual Review Performed; Myelocytes % 1 %; Nucleated Red Blood Cells 0 /100 WBC (0-0); Total Cells Counted 200
[2017-06-15] MEDS: IPRATROPIUM-ALBUTEROL 3 ML NEB INHALATION SCH ×3 (07:24→20:13)
[2017-06-15] MEDS: SYMBICORT 160-4.5 MCG INHALER INHALATION SCH ×2 (07:24→20:13)
--- NOTE | 2017-06-15 08:02 | XR ---
EXAMINATION TYPE: XR chest 1V portable DATE OF EXAM: 06/15/2017 COMPARISON: 06/14/2017 HISTORY: Shortness of breath TECHNIQUE: Single frontal view of the chest is obtained. FINDINGS: Postsurgical change and cardiac device noted with area of consolidation involving the left lower lobe and small bilateral effusions. Central interstitial prominence noted. No pneumothorax. IMPRESSION: Left lower lobe infiltrate with small bilateral effusions. Correlate for mild central ve nous congestion.
[2017-06-15] MEDS: MIDODRINE 5 MG TAB PO SCH ×3 (08:23→16:48)
[2017-06-15] MEDS: FAMOTIDINE 20 MG TAB PO SCH (08:23)
[2017-06-15] MEDS: ASPIRIN 81 MG CHEW PO SCH (08:24)
[2017-06-15] MEDS: POLYETHYLENE GLYCOL 3350 17 GM POWD.PACK PO SCH (08:24)
[2017-06-15] MEDS: DOCUSATE 100 MG CAP PO SCH ×2 (08:24→21:28)
[2017-06-15] MEDS: AMIODARONE 200 MG TAB PO SCH ×2 (08:24→21:28)
[2017-06-15] MEDS: SODIUM BICARBONATE TAB 650 MG TAB PO SCH ×2 (08:25→21:28)
--- NOTE | 2017-06-15 08:35 | P.PN ---
Subjective Principal diagnosis: Hypotension This is a pleasant 66-year-old gentleman with an extensive cardiac history consistent of CAD, ischemic cardiomyopathy, PAD, status post by V ICD, as well as multiple comorbid conditions was admitted to the hospital and underwent an AV fistula to start dialysis. The surgery was complicated by hypotension requiring vasopressors was Levophed. From the cardiovascular standpoint of view, he denies having any chest pain or discomfort at this point. Clinically there is some fluctuation in the mental status. Hemodynamically, the patient is off Levophed and the blood pressure has been marginally low and it seems to be in the 80s and 90s which is normal for the patient. He underwent an echocardiogram in 2016 and that showed cardiomyopathy with an EF of 35% with severe mitral regurgitation. From the cardiovascular standpoint overview, the patient can be transferred to selective unit. Objective - Vital Signs Vital signs: Vital Signs Temp 97.3 F L 06/15/17 04:00 Pulse 55 L 06/15/17 07:35 Resp 12 06/15/17 07:00 BP 91/48 06/15/17 07:00 Pulse Ox 99 06/15/17 07:25 Intake & Output 06/14/17 06/15/17 06/15/17 18:59 06:59 18:59 Intake Total 539.625 475 160 Output Total 1 Balance 539.625 474 160 Weight 81.7 kg Intake: IV 250 240 40 Lactated Ringers 1,000 ml 250 240 40 @ 20 mls/hr IV .Q24H MICHELLE Rx#:[id number] Intake, IV Titration 3.625 Amount Norepinephrin 16 mg-0.9% 3.625 Ns Pmx 16 mg In 250 ml @ Titrate IV .Q0M MICHELLE Rx#: [id number] Oral 286 235 120 Output: Stool 1 Other: Voiding Method Urinal Urinal # Bowel Movements 1 - Constitutional General appearance: Present: no acute distress - Respiratory Respiratory: bilateral: diminished - Cardiovascular Rhythm: regular Heart sounds: normal: S1, S2 Abnormal Heart Sounds: Present: systolic murmur - Labs CBC & Chem 7: 06/15/17 04:48 06/15/17 04:48 Labs: Abnormal Lab Results - Last 24 Hours (Table) 06/15/17 06/15/17 Range/Units 04:48 04:48 RBC 3.66 L (4.30-5.90) m/uL Hgb 11.7 L (13.0-17.5) gm/dL Hct 37.4 L (39.0-53.0) % MCV 102.3 H (80.0-100.0) fL RDW 17.4 H (11.5-15.5) % Plt Count 113 L (150-450) k/uL Lymphocytes # (Manual) 0.51 L (1.0-4.8) k/uL Monocytes # (Manual) 1.02 H (0-1.0) k/uL Sodium 129 L (137-145) mmol/L Potassium 6.0 H (3.5-5.1) mmol/L Chloride 96 L (98-107) mmol/L Carbon Dioxide 18 L (22-30) mmol/L BUN 45 H (9-20) mg/dL Creatinine 5.50 H* (0.66-1.25) mg/dL Phosphorus 7.0 H (2.5-4.5) mg/dL Microbiology - Last 24 Hours (Table) 06/13/17 15:00 Gram Stain - Preliminary Ascites Fluid Body Fluid Culture - Preliminary Assessment and Plan Plan: Assessment Hypotension requiring vasopressors Severe underlying CAD Acute non-STEMI End stage renal disease on hemodialysis Severe cardiomyopathy Severe MR Plan Continue monitor the blood pressure very closely Continue holding any blood pressure medications Follow-up with the patient
[2017-06-15] MEDS: ALPRAZolam 0.25 MG TAB PO PRN (08:37)
[2017-06-15] MEDS: LACTULOSE 20 GM/30 ML CUP PO SCH (11:28)
--- NOTE | 2017-06-15 13:13 | P.PN ---
Subjective This is a very pleasant 66-year-old gentleman who was admitted back on 2016. He has a congestive heart failure, coronary disease, chronic obstructive pulmonary disease, AICD placement peripheral artery disease, diabetes Joaquin, moderate pulmonary hypertension and valvular heart disease with both tricuspid and mitral regurgitation along with urinary retention. The patient has a permacath placement as well as an AV fistula placed in the right upper extremity. He remains here in the intensive care unit as he requires norepinephrine to maintain a mean arterial blood pressure greater than 70 per the vascular surgeon requests while the fistula matures. He is seen again today in follow-up in the intensive care unit. He is awake and alert in no acute distress. He is maintaining O2 saturations in the 90s on 2 L/m per nasal cannula. He has an IV of lactated Ringer's at 20 MLS per hour. He is currently on norepinephrine at 10 mcg/m. He did receive hemodialysis today and 1 L of fluid was removed. On 06/14/2017 I'm seeing this patient in follow-up. The patient underwent dialysis yesterday and a total of 1.5 L of fluid was removed. Subsequently he underwent a large volume paracentesis with additional 5 L of abdominal ascitic fluid was drained. This morning he is awake and alert. His systolic blood pressures the mid 70s. He is on 1 mcg norepinephrine infusion which was discontinued. He is undergoing dialysis on a periodic basis. Respiratory distress. Chest x-ray showing cardiomegaly with a small left-sided pleural effusion. No change in mental status. No other significant events overnight. He is feeling better. His abdomen is less tense. Shortness of breath is improved. No signs of hepatic encephalopathy at this point. The patient is seen again today 06/15/2017 in follow-up in the intensive care unit. He is awake and alert in no acute distress. He is having some issues with confusion. His ammonia level was 105. His sodium is 129, potassium 6.0, creatinine 5.50. He is due for dialysis today. His been off the norepinephrine for greater than 24 hours now. He has been hemodynamically stable. Afebrile. Teething good O2 saturations up to 100% on 2 L/m per nasal cannula. He denies any worsening shortness of breath. He has been feeling better since his paracentesis at which time 5 L of abdominal ascites fluid was removed. Objective - Vital Signs Vital signs: Vital Signs Temp 97.8 F 06/15/17 12:00 Pulse 56 L 06/15/17 13:08 Resp 20 06/15/17 12:00 BP 98/45 06/15/17 12:00 Pulse Ox 100 06/15/17 12:00 Intake & Output 06/14/17 06/15/17 06/15/17 18:59 06:59 18:59 Intake Total 539.625 475 330 Output Total 1 Balance 539.625 474 330 Weight 81.7 kg Intake: IV 250 240 80 Lactated Ringers 1,000 ml 250 240 80 @ 20 mls/hr IV .Q24H MICHELLE Rx#:[id number] Intake, IV Titration 3.625 Amount Norepinephrin 16 mg-0.9% 3.625 Ns Pmx 16 mg In 250 ml @ Titrate IV .Q0M MICHELLE Rx#: [id number] Oral 286 235 250 Output: Stool 1 Other: Voiding Method Urinal Urinal Urinal # Bowel Movements 1 - Exam GENERAL EXAM: Alert, comfortable in no apparent distress. HEAD: Normocephalic. EYES: Normal reaction of pupils, equal size. NOSE: Clear with pink turbinates. THROAT: No erythema or exudates. NECK: No masses, no JVD. Catheter remains in place to the right neck CHEST: No chest wall deformity. LUNGS: Equal air entry with no crackles, wheeze, rhonchi or dullness. CVS: S1 and S2 normal with an audible murmur, regular rhythm. ABDOMEN: No hepatosplenomegaly, normal bowel sounds, no guarding or rigidity. SPINE: No scoliosis or deformity SKIN: No rashes CENTRAL NERVOUS SYSTEM: No focal deficits, tone is normal in all 4 extremities. Extremities: There is an AV fistula to the right upper extremity. Trace peripheral edema. No clubbing, no cyanosis. Peripheral pulses are intact. - Labs CBC & Chem 7: 06/15/17 04:48 06/15/17 04:48 Labs: Abnormal Lab Results - Last 24 Hours (Table) 06/15/17 06/15/17 06/15/17 Range/Units 04:48 04:48 09:27 RBC 3.66 L (4.30-5.90) m/uL Hgb 11.7 L (13.0-17.5) gm/dL Hct 37.4 L (39.0-53.0) % MCV 102.3 H (80.0-100.0) fL RDW 17.4 H (11.5-15.5) % Plt Count 113 L (150-450) k/uL Lymphocytes # (Manual) 0.51 L (1.0-4.8) k/uL Monocytes # (Manual) 1.02 H (0-1.0) k/uL Sodium 129 L (137-145) mmol/L Potassium 6.0 H (3.5-5.1) mmol/L Chloride 96 L (98-107) mmol/L Carbon Dioxide 18 L (22-30) mmol/L BUN 45 H (9-20) mg/dL Creatinine 5.50 H* (0.66-1.25) mg/dL Phosphorus 7.0 H (2.5-4.5) mg/dL Ammonia 105 H (<30) umol/L Microbiology - Last 24 Hours (Table) 06/13/17 15:00 Gram Stain - Preliminary Ascites Fluid Body Fluid Culture - Preliminary Assessment and Plan Plan: Impression: 1 End stage renal disease on hemodialysis for a permacath. The patient has a right upper extremity AV fistula placed and is postop day #7. He is undergoing periodic dialysis. Dialysis is due today. 2 chronic hypotension, multifactorial, currently off pressors 3 cardiomyopathy, advanced with an ejection fraction of less than 20% 4 coronary artery disease with previous bypass surgery 5 severe peripheral vascular disease 6 ascites, likely secondary to massive anasarca and heart failure, improved and the patient underwent large volume paracentesis 7 chronic lower extremities edema 8 hypertension, history of 9 chronic atrial fibrillation, currently is cardiac rhythm is paced 10 diabetes mellitus 11 hyperlipidemia 12 rheumatoid arthritis 13 small left-sided pleural effusion secondary to above 14 chronic hyponatremia 15 mild anion gap metabolic acidosis Plan: The patient was seen and evaluated by Dr. Quezada. His labs were reviewed. The plan is for dialysis today. If he remains stable he could be transferred out of the intensive care unit later today knowing that his systolic blood pressure will most likely remain in the 80s. We'll continue with his current medications. His goal therapy continues to work with the patient. He remains quite weak. His overall prognosis is poor based on the above-mentioned multiple comorbidities. We'll continue to follow.
--- NOTE | 2017-06-15 14:10 | PN ---
The patient is seen for follow up for acute kidney injury. Currently the patient is hemodialysis dependent. He was not able to tolerate dialysis yesterday, he has only one hour treatment. He started having headaches and, therefore, the treatment was discontinued early. Blood pressure has remained in the 70's to 80's mmHg. During dialysis the patient remains asymptomatic usually and he is maintained on Midodrine. We will dialyze him again today and try goal UF of about at least 1 liter. On examination the patient is comfortable, not in any acute distress. Blood pressure 98/45, heart rate 55 per minute, he is afebrile. HEART: S1/S2. LUNGS: Decreased breath sounds at the bases. ABDOMEN: Soft, nontender. LOWER EXTREMITIES: Show edema 2+ bilaterally. The right upper extremity AV graft is clotted. LABS: Show sodium 139, potassium 6.0. BUN 45, creatinine 5.5. Hemoglobin 11.7 gm/dl. ASSESSMENT: 1. Acute kidney injury, currently dialysis dependent renal failure with no significant urine output. We will dialyze the patient again today. We will dialyze him for at least 3 1/2 hours. His potassium remains elevated. Hopefully he will get some clearance today. He had only one hour of treatment yesterday with very low flow which was not significant. 2. Hypervolemic hyponatremia, should improve with dialysis. 3. Severe cardiomyopathy, ejection fraction of less than 20%. 4. Status post right arm arteriovenous graft which is now clotted. 5. Hyperkalemia, expect improvement with dialysis. PLAN: Repeat hemodialysis today, goal UF of at least 1 to 1.5 liters as tolerated. MTDD
[2017-06-15 21:16] LABS: Glucose,Whole Blood 85 mg/dL (75-99)
--- NOTE | 2017-06-15 21:25 | P.PN ---
<Ryannedarrynmaria del carmenVirginie A - Last Filed: 06/15/17 21:05> Progress Note - Text DATE OF SERVICE: 06/15/2017 PRESENTING COMPLAINT: Shortness of breath, lower extremity edema, and abdominal distention. INTERVAL HISTORY: 66-year-old male with acute on chronic congestive heart failure exacerbation, chronic kidney disease has received hemodialysis catheter placement to the right upper extremity. Continues to be profoundly hypotensive, Levophed has been off and on for pressure support and attempts to wean. 06/04/2017: Patient sitting up in bed, appears somewhat lethargic, able to answer questions, awake, daughter at the bedside, plan of care/timetable discussed with daughter and patient. Patient has not had a BM, ordered Dulcolax suppository and emema. 06/05/2017: Patient sitting up in his bed, awake and able to answer questions, complains of feeling bloated, no BM today, eating about 50% of diet, plans for permanent dialysis catheter in the right arm soon per nephrology and vascular surgery. 06/06/2017: Patient sitting up at the bedside in a chair appears comfortable. Complains of continued bloating. BM yesterday. Eating 100% of his breakfast, vascular surgery planning to place permanent dialysis catheter in the right upper arm area. Nephrology to discuss end-of-life care in conjunction with fistula placement with family. Family wishes to proceed with fistula placement and continued renal replacement therapy as long as he can tolerate it. 06/07/2017: Patient sitting up in bed, very alert bright-eyed, does continue to complain about fullness in the abdomen however does feel better than days previous. BM yesterday, plans for permanent dialysis fistula on Tuesday with vascular surgery. Discussion had with the patient regarding the procedure, risks and benefits discussed, patient is agreeable and would like to proceed with the procedure. 06/08/2017: Patient sitting up in bed, alert, states abdomen is not as full however it is still bloated. States he feels better since Castellanos is been removed as well. Awaiting AV fistula to be placed today with vascular surgery. 06/09/2017: Postsurgical intervention patient was transferred to the ICU for closer monitoring. Patient does have an extensive history of hypotension, some concern remained with a new grafts patency in the setting of the low blood pressure. Overnight patient had an episode of chest pain lasting approximately an hour off and on. Dr. Ocasio was contacted, labs drawn, no heparin started secondary to surgical intervention earlier in the day. Patient is sitting up in the bed, complaining of right arm pain where the procedure was done, otherwise states he feels well, continues to complain of abdominal bloating. Continues to be hypotensive, Extensive edema remains to bilateral lower extremities. Patient is nonambulatory in the ICU at this time. The Levophed was off at the time of exam. No BM today. 06/10/2017: Patient seen in the ICU, overnight patient was very anxious adjustment made to his Xanax. Patient lying in bed, tired appearing, patient continues to be hypotensive, requiring Levophed for pressure support, eating about 50% of his meals, scheduled for dialysis later today. No BM today 06/11/2017: Patient seen in the ICU. Appears tired, lethargic. He remains hypotensive maintained on Levophed 11 g a minute continued attempts at weaning. Hemodialysis occurred this morning with 1 L of fluid removal area. Postop day 3 from AV fistula placement to the right upper extremity. Extremity less painful. Patient complains of feeling bloated. Appetite fair eating less than 50% of his meals, last BM was 2 days ago. Up in chair for a good portion of the day yesterday. 06/12/2017: Patient seen in the ICU. Appears tired and lethargic continues to be hypotensive Levophed was off for a while, is back on 1 mcg/m. For pressure support. Right upper extremity for AV fistula placement remains sore Complaints of abdominal fullness, patient has a fair amount of fluid/ascites, considering paracentesis tomorrow with interventional radiology. Appetite fair eating about half his meals. Last BM was yesterday. Gets up with assistance to the chair. 06/13/2017: Patient seen in the ICU, receiving dialysis at this time, profoundly hypotensive 77/44 is his current blood pressure, patient is awake conversant no acute distress. Belly quite distended, patient complains of feeling very full, patient expecting to have paracentesis under ultrasound guidance later today. Up to the chair as he can tolerate. Eating about 50% of his meals last BM 06/12. 06/14/2017: Patient seen in the ICU, no significant overnight events. blood pressure continues to be in the mid to low 70s continues on Levophed with the goal of getting it shut off. Appetite continues to wax and wane, states he feels better since the paracentesis. Shortness of breath improved. Up with assistance to the chair, last BM yesterday. 06/15/2017: Patient seen in the ICU today, no significant overnight events. Patient did have some confusion. Blood pressure continues to be in the range of low 70s to 90s systolic and this has been where his blood pressure has been for the vast majority of his hospital stay. Levophed is off.Right upper arm fistula in place , Appetite is fair, eating between 40 and 50% of his meals. Last BM 2016. Expect dialysis today removal goal 1 L. REVIEW OF SYSTEMS: Done for constitutional ,cardiovascular, GI, pulmonary with relevant findings as above. CURRENT MEDICATIONS Battiest, DuoNeb, Xanax, amiodarone, aspirin, Lipitor, Symbicort, Pepcid, lactulose , midodrine, sodium bicarb. PHYSICAL EXAM VITAL SIGNS: Temperature 97.8, pulse 55, respiratory rate 20, blood pressure 98/45, oxygen saturation 100% on 2 L GENERAL APPEARANCE: Sitting up in the bed, appears tired, lethargic. EYES: Pupils equal. Conjunctiva normal. NECK: JVD raised. Mass not palpable, right IJ central line in place. RESPIRATORY: Respiratory effort increased Lungs diminished bilaterally, with crackles noted. CARDIOVASCULAR: First and second sounds normal. Gross edema. ABDOMEN: Soft. Liver and spleen not palpable. No tenderness. No mass palpable. Abdomen less distended Right groin hemodialysis catheter in place. PSYCHIATRY: Alert and oriented x3. Mood tired appearing lethargic. MUSCULOSKELETAL: Right inner arm fistula covered with a dressing. INTEGUMENT: Multiple ecchymotic areas on bilateral upper extremities. INVESTIGATIONS: White blood cell count 7.3, hemoglobin 11.7, platelet count 113, sodium 129, potassium 6.0, chloride 96, BUN 45, creatinine 5.50. Chest x-ray: Left lower lobe infiltrate with small bilateral effusion. Correlate for mild central venous congestion. ASSESSMENT: -Acute on chronic congestive heart failure exacerbation from systolic and diastolic dysfunction, EF 30-35% from moderate concentric left hypertrophy and underlying coronary artery disease slow to respond -Coronary artery disease with prior history of coronary bypass and stent -COPD in an ex-smoker -Ischemic cardiomyopathy status post biventricular ICD -Chronic kidney disease stage III from hypertensive nephrosclerosis -End-stage kidney disease secondary to cardiorenal syndrome worsening,with significant fluid overload requiring hemodialysis -Hypervolemic hyponatremia improving -Peripheral artery disease or prior history of fem-fem bypass -Diabetes mellitus type II chronically on insulin -Moderate secondary pulmonary hypertension secondary to congestive heart failure -Moderate tricuspid regurgitation nonrheumatic -Severe mitral regurgitation nonrheumatic -Acute urine retention, resolved -Hematuria, secondary to traumatic catheter placement, resolved -DVT prophylaxis with heparin subcu -Recurrent Non-sustained ventricular tachyarrhythmia, received amiodarone, patient with pacemaker in place -Placement of right upper extremity [place] graft for AV fistula for dialysis. -Acute Non-Q wave SC, with troponin leak, patient not a candidate for any invasive procedure, now resolved -Hypotensive shock patient currently off Levophed -Hyperkalemia due to end-stage kidney disease requiring hemodialysis -Hyponatremia likely hypoosmolar secondary to end-stage kidney disease. -Hyperphosphatemia secondary to end-stage kidney disease PLAN: Expecting dialysis today and if remains stable transfer out of intensive care unit. Physical and occupational therapy continue to work with patient for gait training and strengthening. Overall prognosis is poor, we will continue to follow closely. Plan of care was discussed with patient and he is agreeable. CLINIC CMA statement: Patient was seen and examined by nurse practitioner Virginie Fatima and all elements of the case discussed with attending Dr. Camarena <Dex Camarena - Last Filed: 06/24/17 11:00> Progress Note - Text Date of service: 06/15/2017 Attending note: This patient was seen and examined by me. I discussed the care with my nurse practitioner Miss Fatima. Patient continues to remain weak and tired. Blood pressure continues to run low. Oral intake low. On examination: Lungs-decreased breath sounds, gross edema present, psych-able to answer questions Assessment and plan: Multiple medical problems, slow to respond. prognosis not good
[2017-06-15] MEDS: ATORVASTATIN 20 MG TAB PO SCH (21:28)
[2017-06-15] MEDS: LACTATED RINGERS 1,000 ML IV SCH (21:28)
[2017-06-16] MEDS: CARVEDILOL 3.125 MG TAB PO SCH (00:52)
[2017-06-16] MEDS: SIMETHICONE 80 MG CHEWABLE PO SCH ×2 (00:52→00:54)
[2017-06-16] MEDS: HYDROcodone/APAP 10-325MG 1 EACH TAB PO PRN ×2 (01:47→19:33)
[2017-06-16] MEDS: MIDODRINE 5 MG TAB PO SCH ×3 (06:48→15:13)
[2017-06-16 06:54] LABS: Anisocytosis Slight; Basophils % (A) 0 %; CH 32.3; CHCM 31.5; Eosinophils # (A) 0.1 k/uL (0-0.7); Eosinophils % (A) 1 %; HCT 37.2 % (39.0-53.0); HDW 3.67; HGB 11.3 gm/dL (13.0-17.5); Hypochromasia Moderate; Luc # (Auto) 0.46; Luc % (Auto) 6; Lymphocytes # (A) 0.8 k/uL (1.0-4.8); Lymphocytes % (A) 9 %; MCH 31.4 pg (25.0-35.0); MCHC 30.2 g/dL (31.0-37.0); MCV 103.8 fL (80.0-100.0); Macrocytosis Moderate; Mean Platelet Volume 10.1; Monocytes # (A) 1.1 k/uL (0-1.0); Monocytes % (A) 14 %; Neutrophils # (A) 5.6 k/uL (1.3-7.7); Neutrophils % (A) 70 %; Poikilocytosis Slight; RBC 3.59 m/uL (4.30-5.90); RDW 18.1 % (11.5-15.5)
[2017-06-16 07:01] LABS: Calcium 8.4 mg/dL (8.4-10.2); Magnesium 2.2 mg/dL (1.6-2.3); Phosphorous 5.8 mg/dL (2.5-4.5); Potassium 4.9 mmol/L (3.5-5.1)
[2017-06-16] MEDS: IPRATROPIUM-ALBUTEROL 3 ML NEB INHALATION SCH ×3 (08:06→20:20)
[2017-06-16] MEDS: SYMBICORT 160-4.5 MCG INHALER INHALATION SCH ×2 (08:06→20:20)
[2017-06-16] MEDS: LACTULOSE 20 GM/30 ML CUP PO SCH (09:13)
[2017-06-16] MEDS: POLYETHYLENE GLYCOL 3350 17 GM POWD.PACK PO SCH (09:13)
[2017-06-16] MEDS: SODIUM BICARBONATE TAB 650 MG TAB PO SCH ×2 (09:13→20:05)
--- NOTE | 2017-06-16 09:13 | XR ---
EXAMINATION TYPE: XR chest 1V portable DATE OF EXAM: 06/16/2017 COMPARISON: 06/15/2017 HISTORY: Shortness of breath FINDINGS: There are bilateral pleural effusions with cardiomegaly and bibasilar infiltrate. There is a diffuse interstitial pattern. Cardiac device noted is postsurgical changes. IMPRESSION: 1. Left lower lobe infiltrate with small bilateral effusions and interstitial pattern correlate for C HF. Pneumonia in the left lower lobe not excluded.
[2017-06-16] MEDS: ASPIRIN 81 MG CHEW PO SCH (09:14)
[2017-06-16] MEDS: DOCUSATE 100 MG CAP PO SCH ×2 (09:14→20:05)
[2017-06-16] MEDS: AMIODARONE 200 MG TAB PO SCH ×3 (09:14→23:41)
[2017-06-16] MEDS: FAMOTIDINE 20 MG TAB PO SCH (09:14)
[2017-06-16 11:22] VITALS: BMI 31.1
--- NOTE | 2017-06-16 13:48 | P.PN ---
Subjective This is a very pleasant 66-year-old gentleman who was admitted back on 2016. He has a congestive heart failure, coronary disease, chronic obstructive pulmonary disease, AICD placement peripheral artery disease, diabetes Joaquin, moderate pulmonary hypertension and valvular heart disease with both tricuspid and mitral regurgitation along with urinary retention. The patient has a permacath placement as well as an AV fistula placed in the right upper extremity. He remains here in the intensive care unit as he requires norepinephrine to maintain a mean arterial blood pressure greater than 70 per the vascular surgeon requests while the fistula matures. He is seen again today in follow-up in the intensive care unit. He is awake and alert in no acute distress. He is maintaining O2 saturations in the 90s on 2 L/m per nasal cannula. He has an IV of lactated Ringer's at 20 MLS per hour. He is currently on norepinephrine at 10 mcg/m. He did receive hemodialysis today and 1 L of fluid was removed. On 06/14/2017 I'm seeing this patient in follow-up. The patient underwent dialysis yesterday and a total of 1.5 L of fluid was removed. Subsequently he underwent a large volume paracentesis with additional 5 L of abdominal ascitic fluid was drained. This morning he is awake and alert. His systolic blood pressures the mid 70s. He is on 1 mcg norepinephrine infusion which was discontinued. He is undergoing dialysis on a periodic basis. Respiratory distress. Chest x-ray showing cardiomegaly with a small left-sided pleural effusion. No change in mental status. No other significant events overnight. He is feeling better. His abdomen is less tense. Shortness of breath is improved. No signs of hepatic encephalopathy at this point. The patient is seen again today 06/15/2017 in follow-up in the intensive care unit. He is awake and alert in no acute distress. He is having some issues with confusion. His ammonia level was 105. His sodium is 129, potassium 6.0, creatinine 5.50. He is due for dialysis today. His been off the norepinephrine for greater than 24 hours now. He has been hemodynamically stable. Afebrile. Teething good O2 saturations up to 100% on 2 L/m per nasal cannula. He denies any worsening shortness of breath. He has been feeling better since his paracentesis at which time 5 L of abdominal ascites fluid was removed. On 06/16/2017 I'm seeing this patient in follow-up. The patient is doing well. The patient was moved to a medical floor. He underwent dialysis yesterday and total of 2 L of fluid was removed. Systolic blood pressures the mid 80s. No dizziness. Still having extensive edema both in the upper and lower extremities. Abdominal ascites is gradually getting worse. No change in mental status. Sitting up on a chair. No cough or sputum production. No chest pain. No fever or chills. No change in mental status. No signs of any hepatic encephalopathy. He was started on lactulose 10 mL on a daily basis regarding possibility of hypoxic encephalopathy. Objective - Vital Signs Vital signs: Vital Signs Temp 96.7 F L 06/16/17 11:12 Pulse 76 06/16/17 13:29 Resp 20 06/16/17 11:14 BP 78/58 06/16/17 11:12 Pulse Ox 98 06/16/17 11:12 Intake & Output 06/15/17 06/16/17 06/16/17 18:59 06:59 18:59 Intake Total 350 680 Output Total 0 2 1 Balance 350 -2 679 Weight 85 kg 85 kg Intake: IV 100 200 Lactated Ringers 1,000 ml 100 200 @ 20 mls/hr IV .Q24H MICHELLE Rx#:[id number] Oral 250 480 Output: Urine 0 0 Stool 2 1 Other: Voiding Method Urinal Urinal Urinal # Voids 0 1 # Bowel Movements 1 - Exam Elderly male patient nonacute distress.Head exam was generally normal. There was no scleral icterus or corneal arcus. Mucous membranes were moist. Neck is supple and there is positive JVDs and there is no goiter or neck masses this point. Lung sounds are diminished specially in lung bases. No wheezes or rhonchi early crackles. Heart sounds are irregular, there is a systolic ejection murmur grade 3/6 heard throughout the precordium. The apex is shifted to the left. No right ventricular heave or any thrill. Abdomen is distended soft. No direct tenderness, no rebound tensile guarding. The amount of ascites is improved compared to yesterday as the patient underwent a large volume paracentesis.. There is a fluid wave and shifting dullness. Extremities show quite a bit of edema in lower extremities bilaterally and the patient is post 2-3 edema in his lower extremities. He has AV graft in the right upper extremity. He has a permacath in his right groin. The patient also has a single lumen in the right IJ. - Labs CBC & Chem 7: 06/16/17 05:40 06/16/17 05:40 Labs: Abnormal Lab Results - Last 24 Hours (Table) 06/16/17 06/16/17 Range/Units 05:40 05:40 RBC 3.59 L (4.30-5.90) m/uL Hgb 11.3 L (13.0-17.5) gm/dL Hct 37.2 L (39.0-53.0) % MCV 103.8 H (80.0-100.0) fL MCHC 30.2 L (31.0-37.0) g/dL RDW 18.1 H (11.5-15.5) % Plt Count 102 L (150-450) k/uL Lymphocytes # 0.8 L (1.0-4.8) k/uL Monocytes # 1.1 H (0-1.0) k/uL Sodium 131 L (137-145) mmol/L Chloride 94 L (98-107) mmol/L BUN 35 H (9-20) mg/dL Creatinine 4.58 H (0.66-1.25) mg/dL Phosphorus 5.8 H (2.5-4.5) mg/dL Microbiology - Last 24 Hours (Table) 06/13/17 15:00 Gram Stain - Preliminary Ascites Fluid Body Fluid Culture - Preliminary Assessment and Plan Plan: Assessment 1 End stage renal disease on hemodialysis for a permacath. The patient has a right upper extremity AV fistula placed and is postop day #8. He is undergoing periodic dialysis. He had a dialysis session yesterday were a total of 2 L of IV fluid was removed and the patient was INFILTRATED. 2 chronic hypotension, multifactorial, currently off pressors 3 cardiomyopathy, advanced with an ejection fraction of less than 20% 4 coronary artery disease with previous bypass surgery 5 severe peripheral vascular disease 6 ascites, likely secondary to massive anasarca and heart failure, improved and the patient underwent large volume paracentesis 7 chronic lower extremities edema 8 hypertension, history of 9 chronic atrial fibrillation, currently is cardiac rhythm is paced 10 diabetes mellitus 11 hyperlipidemia 12 rheumatoid arthritis 13 small left-sided pleural effusion secondary to above 14 chronic hyponatremia recovered 15 hepatitic encephalopathy, currently on lactulose. Plan We'll continue with hemodialysis and ultrafiltration as long as blood pressure tolerates. The patient is doing well. No respiratory difficulties. Sodium level is improved and normalized. No metabolic acidosis at this point. Nephrology is on the case. We'll continue to follow.
--- NOTE | 2017-06-16 13:54 | P.PN ---
Subjective Patient is seen in follow-up for acute kidney injury. Patient is severely volume overloaded with low urine output and was started on dialysis this admission. He has systolic CHF with ejection fraction of less than 20%. He underwent hemodialysis yesterday and 2 L were removed. He is currently sitting up in chair. Denies chest pain. Oral intake is fair. No vomiting or diarrhea. Vital signs are stable. General: The patient appeared well nourished and normally developed. HEENT: Head exam is unremarkable. Neck is without jugular venous distension. LUNGS: Lungs are clear to auscultation and percussion. Breath sounds decreased. HEART: Rate and Rhythm are regular. First and second heart sounds normal. No murmurs, rubs or gallops. ABDOMEN: Abdominal exam reveals normal bowel sounds. Non-tender and non- distended. No evidence of peritonitis. EXTREMITITES: 2+ edema. Objective - Vital Signs Vital signs: Vital Signs Temp 96.7 F L 06/16/17 11:12 Pulse 76 06/16/17 13:29 Resp 20 06/16/17 11:14 BP 78/58 06/16/17 11:12 Pulse Ox 98 06/16/17 11:12 Intake & Output 06/15/17 06/16/17 06/16/17 18:59 06:59 18:59 Intake Total 350 680 Output Total 0 2 1 Balance 350 -2 679 Weight 85 kg 85 kg Intake: IV 100 200 Lactated Ringers 1,000 ml 100 200 @ 20 mls/hr IV .Q24H MICHELLE Rx#:[id number] Oral 250 480 Output: Urine 0 0 Stool 2 1 Other: Voiding Method Urinal Urinal Urinal # Voids 0 1 # Bowel Movements 1 - Labs CBC & Chem 7: 06/16/17 05:40 06/16/17 05:40 Labs: Abnormal Lab Results - Last 24 Hours (Table) 06/16/17 06/16/17 Range/Units 05:40 05:40 RBC 3.59 L (4.30-5.90) m/uL Hgb 11.3 L (13.0-17.5) gm/dL Hct 37.2 L (39.0-53.0) % MCV 103.8 H (80.0-100.0) fL MCHC 30.2 L (31.0-37.0) g/dL RDW 18.1 H (11.5-15.5) % Plt Count 102 L (150-450) k/uL Lymphocytes # 0.8 L (1.0-4.8) k/uL Monocytes # 1.1 H (0-1.0) k/uL Sodium 131 L (137-145) mmol/L Chloride 94 L (98-107) mmol/L BUN 35 H (9-20) mg/dL Creatinine 4.58 H (0.66-1.25) mg/dL Phosphorus 5.8 H (2.5-4.5) mg/dL Microbiology - Last 24 Hours (Table) 06/13/17 15:00 Gram Stain - Preliminary Ascites Fluid Body Fluid Culture - Preliminary Assessment and Plan Plan: Assessment: #1. Acute kidney injury secondary to cardiorenal syndrome. Urinalysis noted to be benign. No evidence of hydronephrosis. Currently hemodialysis dependent. #2. Chronic kidney disease stage III with baseline creatinine in the range of 1.5-1.7 secondary to cardiorenal syndrome. Renal ultrasound reveals 7.9 and 9.3 cm kidneys with cortical thinning suggestive of underlying chronic kidney disease. #3. Volume overload. #4. Systolic CHF with ejection fraction of 30-35% with severe mitral regurgitation and moderate tricuspid regurgitation and pulmonary hypertension. #5. Metabolic acidosis secondary to acute kidney injury. Improved with dialysis. #6. Hypervolemic hyponatremia. #7. Status post right upper extremity AV graft which is now clotted. Plan: Low-salt and 1200 mL fluid restricted diet. Hemodialysis today with goal 2-3 L ultrafiltration as blood pressure tolerates. Maintain midodrine. Continue oral sodium bicarbonate.
--- NOTE | 2017-06-16 14:36 | P.PN ---
Subjective Principal diagnosis: Hypotension This is a pleasant 66-year-old gentleman with an extensive cardiac history consistent of CAD, ischemic cardiomyopathy, PAD, status post by V ICD, as well as multiple comorbid conditions was admitted to the hospital and underwent an AV fistula to start dialysis. From the cardiovascular standpoint of view, he denies having any chest pain or discomfort at this point. Clinically there is some fluctuation in the mental status. He underwent an echocardiogram in 2016 and that showed cardiomyopathy with an EF of 35% with severe mitral regurgitation. The patient was transferred out of the unit yesterday. Overall he denies having any chest pain or discomfort or difficulty breathing. He continues to have systolic blood pressure in the 80s and 90s but that is normal for him. He is asymptomatic and denies having any dizziness or lightheadedness. Objective - Vital Signs Vital signs: Vital Signs Temp 96.7 F L 06/16/17 11:12 Pulse 76 06/16/17 13:29 Resp 20 06/16/17 11:14 BP 78/58 06/16/17 11:12 Pulse Ox 98 06/16/17 11:12 Intake & Output 06/15/17 06/16/17 06/16/17 18:59 06:59 18:59 Intake Total 350 1040 Output Total 0 2 1 Balance 350 -2 1039 Weight 85 kg 85 kg Intake: IV 100 440 0.9@20 240 Lactated Ringers 1,000 ml 100 200 @ 20 mls/hr IV .Q24H MICHELLE Rx#:[id number] Oral 250 600 Output: Urine 0 0 Stool 2 1 Other: Voiding Method Urinal Urinal Urinal # Voids 0 1 # Bowel Movements 1 - Constitutional General appearance: Present: no acute distress - Respiratory Respiratory: bilateral: rales - Cardiovascular Heart sounds: normal: S1, S2 Abnormal Heart Sounds: Present: systolic murmur - Labs CBC & Chem 7: 06/16/17 05:40 06/16/17 05:40 Labs: Abnormal Lab Results - Last 24 Hours (Table) 06/16/17 06/16/17 Range/Units 05:40 05:40 RBC 3.59 L (4.30-5.90) m/uL Hgb 11.3 L (13.0-17.5) gm/dL Hct 37.2 L (39.0-53.0) % MCV 103.8 H (80.0-100.0) fL MCHC 30.2 L (31.0-37.0) g/dL RDW 18.1 H (11.5-15.5) % Plt Count 102 L (150-450) k/uL Lymphocytes # 0.8 L (1.0-4.8) k/uL Monocytes # 1.1 H (0-1.0) k/uL Sodium 131 L (137-145) mmol/L Chloride 94 L (98-107) mmol/L BUN 35 H (9-20) mg/dL Creatinine 4.58 H (0.66-1.25) mg/dL Phosphorus 5.8 H (2.5-4.5) mg/dL Microbiology - Last 24 Hours (Table) 06/13/17 15:00 Gram Stain - Preliminary Ascites Fluid Body Fluid Culture - Preliminary Assessment and Plan Plan: Assessment Hypotension requiring vasopressors Severe underlying CAD Acute non-STEMI End stage renal disease on hemodialysis Severe cardiomyopathy Severe MR Plan Continue monitor the blood pressure very closely Continue holding any blood pressure medications Follow-up with the patient
[2017-06-16] MEDS ORDERED: HEPARIN SODIUM,PORCINE 5,000 UNIT/ML 1 ML VIAL ONE (18:30)
[2017-06-16] MEDS: SIMETHICONE 80 MG CHEWABLE PO PRN (20:03)
[2017-06-16] MEDS: ATORVASTATIN 20 MG TAB PO SCH (20:05)
[2017-06-16] MEDS: LACTATED RINGERS 1,000 ML IV SCH (20:09)
--- NOTE | 2017-06-16 22:13 | PN ---
DATE OF SERVICE: 06/16/2017 PRESENTING COMPLAINT: Short of breath. INTERVAL HISTORY: This is a patient with advanced congestive heart failure who went from chronic kidney disease to end-stage, now on hemodialysis. Two liters were removed yesterday. Blood pressure continues to remain low, in the 70s to 80. Eating small amounts. Sitting up in a chair. Tired-appearing. Review of systems done for constitutional, cardiovascular, GI, pulmonary; relevant findings as above. Current medications are reviewed and include DuoNeb. On examination, temperature 96.7, pulse 73, respiration 20, blood pressure 78/58 , pulse ox 98% on 2 L. GENERAL APPEARANCE: Sitting up on a chair. Tired-appearing. EYES: Pupils equal. Conjunctivae normal. NECK: JVD possibly raised. Mass not palpable. RESPIRATORY: Effort increased. LUNGS: Decreased breath sounds. Some crackles. CARDIOVASCULAR: First and second sounds normal. Gross edema present. ABDOMEN: Soft, non-tender. Liver and spleen not palpable. PSYCHIATRY: Alert and oriented x3. Mood and affect low. INVESTIGATIONS: White count 8, hemoglobin 11.3. Potassium 4.9. BUN 35, creatinine 4.58. ASSESSMENT: 1. Acute and chronic congestive heart failure exacerbation from systolic and diastolic dysfunction; ejection fraction 30% to 35%, from moderate concentric LVH and coronary artery disease. 2. Coronary artery disease with prior history of coronary artery bypass and stent. 3. Chronic obstructive pulmonary disease in an ex-smoker. 4. Ischemic cardiomyopathy, status post biventricular ICD. 5. Chronic kidney disease, progressed to end-stage kidney disease secondary to cardiorenal syndrome with fluid overload, now requiring hemodialysis. 6. Hyponatremia, hypervolemic. 7. Peripheral arterial disease with prior history of femorofemoral bypass. 8. Diabetes mellitus, type 2, chronically on insulin. 9. Moderate secondary pulmonary hypertension secondary to congestive heart failure. 10. Moderate tricuspid regurgitation, non-rheumatic. 11. Severe mitral regurgitation, non-rheumatic. 12. Acute urine retention, resolved. 13. Hematuria secondary to traumatic catheter, resolved. 14. Recurrent non-sustained ventricular tachycardia with a pacemaker in place. 15. Right upper extremity Aurora-Herve graft for AV fistula. 16. Acute non-Q-wave myocardial infarction upon presentation. 17. Hypotensive shock. Patient is off Levophed. 18. Hyperkalemia, multifactorial, including renal failure. 19. Hyperphosphatemia secondary to end-stage kidney disease. PLAN: Prognosis remains poor. I am not sure how long patient can sustain like this. Continue current medication and treatment plan. Will follow. MTDD
[2017-06-17] MEDS: ALPRAZolam 0.25 MG TAB PO PRN ×2 (01:08→22:02)
[2017-06-17] MEDS: MIDODRINE 5 MG TAB PO SCH ×3 (06:39→17:25)
--- NOTE | 2017-06-17 07:40 | PN ---
The patient is seen for followup for acute kidney injury. Currently, patient is hemodialysis dependent. He is grossly volume overloaded and has been on maintained on daily dialysis; however, we have not been able to get more than 1 L at a time. Yesterday, patient had about a little bit more than half a liter of ultrafiltration. He is lying in bed. He is comfortable. Blood pressure remains on the lower side, systolic around 80 to 75 mmHg. On examination, blood pressure is 76/57 today, heart rate is 60 per minute. He is afebrile. EXAMINATION OF THE HEART: S1 and S2. EXAMINATION OF THE LUNGS: Decreased breath sounds at the bases. Abdomen is soft, nontender. Examination of the lower extremities shows edema 2 to 3+ bilaterally. EXHIBITS COORDINATOR exam is grossly intact. Patient moving all 4 extremities. The AV graft in his right upper arm is clotted. Labs show sodium 131, potassium 4.9, BUN 35, serum creatinine 4.58. ASSESSMENT: 1. Acute kidney injury, currently hemodialysis dependent, mainly cardiorenal now with no significant urine output. 2. Hyperkalemia, now improved post dialysis. Will repeat another treatment of hemodialysis today. 3. Volume overload with significant third spacing and cardiomyopathy with ejection fraction of less than 20%. 4. Hypotension, mainly cardiac in origin, maintained on midodrine at this time. There is no evidence of adrenal insufficiency. Continue with midodrine. Overall prognosis is poor given the significant hypotension and difficulty in ultrafiltration with hemodialysis. PLAN: Repeat dialysis today. Overall prognosis is guarded. MTDD
[2017-06-17] MEDS: IPRATROPIUM-ALBUTEROL 3 ML NEB INHALATION SCH ×3 (08:41→19:45)
[2017-06-17] MEDS: SYMBICORT 160-4.5 MCG INHALER INHALATION SCH ×2 (08:41→19:44)
[2017-06-17] MEDS: POLYETHYLENE GLYCOL 3350 17 GM POWD.PACK PO SCH (09:00)
[2017-06-17] MEDS: LACTULOSE 20 GM/30 ML CUP PO SCH (09:00)
[2017-06-17] MEDS: DOCUSATE 100 MG CAP PO SCH ×2 (09:00→22:02)
[2017-06-17] MEDS: ASPIRIN 81 MG CHEW PO SCH (09:01)
[2017-06-17] MEDS: FAMOTIDINE 20 MG TAB PO SCH (09:01)
[2017-06-17] MEDS: SODIUM BICARBONATE TAB 650 MG TAB PO SCH ×2 (09:01→22:02)
[2017-06-17] MEDS: AMIODARONE 200 MG TAB PO SCH ×2 (09:01→22:02)
--- NOTE | 2017-06-17 09:38 | P.PN ---
Subjective Principal diagnosis: Hypotension This is a pleasant 66-year-old gentleman with an extensive cardiac history consistent of CAD, ischemic cardiomyopathy, PAD, status post by V ICD, as well as multiple comorbid conditions was admitted to the hospital and underwent an AV fistula to start dialysis. From the cardiovascular standpoint of view, he denies having any chest pain or discomfort at this point. The patient is slightly confused today. On physical examination he has bilateral crackles and also he has bilateral lower extremities edema. The patient is going to have dialysis today. I will obtain a chest x-ray and compare that to yesterday. Objective - Vital Signs Vital signs: Vital Signs Temp 97.6 F 06/17/17 08:00 Pulse 72 06/17/17 08:53 Resp 18 06/17/17 08:00 BP 78/48 06/17/17 08:00 Pulse Ox 99 06/17/17 08:00 Intake & Output 06/16/17 06/17/17 06/17/17 18:59 06:59 18:59 Intake Total 1200 160 Balance 1200 160 Weight 85 kg 78.6 kg Intake: IV 440 160 0.9@20 240 160 Lactated Ringers 1,000 ml 200 @ 20 mls/hr IV .Q24H MICHELLE Rx#:[id number] Oral 760 Other: Voiding Method Urinal Urinal Urinal # Bowel Movements 1 - Constitutional General appearance: Present: no acute distress - Respiratory Respiratory: bilateral: rales - Cardiovascular Heart sounds: normal: S1, S2 Abnormal Heart Sounds: Present: systolic murmur - Labs CBC & Chem 7: 06/16/17 05:40 06/16/17 05:40 Labs: Microbiology - Last 24 Hours (Table) 06/13/17 15:00 Gram Stain - Preliminary Ascites Fluid Body Fluid Culture - Preliminary Assessment and Plan Plan: He is going to have dialysis today. I will obtain a chest x-ray and follow-up with the patient.
--- NOTE | 2017-06-17 11:58 | XR ---
EXAMINATION TYPE: XR chest 1V DATE OF EXAM: 06/17/2017 COMPARISON: Prior chest x-ray 06/16/2017 HISTORY: Congestive heart failure, shortness of breath TECHNIQUE: Single frontal view of the chest is obtained. FINDINGS: Heart remains enlarged, there is retrocardiac density. There is some improvement in inters titial and aeration. No other significant interval change. IMPRESSION: Improvement in volume status.
--- NOTE | 2017-06-17 13:40 | P.PN ---
Subjective This is a very pleasant 66-year-old gentleman who was admitted back on 2016. He has a congestive heart failure, coronary disease, chronic obstructive pulmonary disease, AICD placement peripheral artery disease, diabetes Joaquin, moderate pulmonary hypertension and valvular heart disease with both tricuspid and mitral regurgitation along with urinary retention. The patient has a permacath placement as well as an AV fistula placed in the right upper extremity. He remains here in the intensive care unit as he requires norepinephrine to maintain a mean arterial blood pressure greater than 70 per the vascular surgeon requests while the fistula matures. He is seen again today in follow-up in the intensive care unit. He is awake and alert in no acute distress. He is maintaining O2 saturations in the 90s on 2 L/m per nasal cannula. He has an IV of lactated Ringer's at 20 MLS per hour. He is currently on norepinephrine at 10 mcg/m. He did receive hemodialysis today and 1 L of fluid was removed. On 06/14/2017 I'm seeing this patient in follow-up. The patient underwent dialysis yesterday and a total of 1.5 L of fluid was removed. Subsequently he underwent a large volume paracentesis with additional 5 L of abdominal ascitic fluid was drained. This morning he is awake and alert. His systolic blood pressures the mid 70s. He is on 1 mcg norepinephrine infusion which was discontinued. He is undergoing dialysis on a periodic basis. Respiratory distress. Chest x-ray showing cardiomegaly with a small left-sided pleural effusion. No change in mental status. No other significant events overnight. He is feeling better. His abdomen is less tense. Shortness of breath is improved. No signs of hepatic encephalopathy at this point. The patient is seen again today 06/15/2017 in follow-up in the intensive care unit. He is awake and alert in no acute distress. He is having some issues with confusion. His ammonia level was 105. His sodium is 129, potassium 6.0, creatinine 5.50. He is due for dialysis today. His been off the norepinephrine for greater than 24 hours now. He has been hemodynamically stable. Afebrile. Teething good O2 saturations up to 100% on 2 L/m per nasal cannula. He denies any worsening shortness of breath. He has been feeling better since his paracentesis at which time 5 L of abdominal ascites fluid was removed. On 06/16/2017 I'm seeing this patient in follow-up. The patient is doing well. The patient was moved to a medical floor. He underwent dialysis yesterday and total of 2 L of fluid was removed. Systolic blood pressures the mid 80s. No dizziness. Still having extensive edema both in the upper and lower extremities. Abdominal ascites is gradually getting worse. No change in mental status. Sitting up on a chair. No cough or sputum production. No chest pain. No fever or chills. No change in mental status. No signs of any hepatic encephalopathy. He was started on lactulose 10 mL on a daily basis regarding possibility of hypoxic encephalopathy. On 06/17/2017 I'm seeing this patient in follow-up. Unfortunately, the patient is doing poorly. The patient is having progressive abdominal distention and ascites. He seems to be still in fluid overload. He is undergoing dialysis on a daily basis. Blood pressure is still holding in the mid 80s. The patient underwent hemodialysis yesterday and total of 2 L of fluid was removed. He is able to sit up on a chair. Oral intake is diminished. No nausea. No vomiting. No diarrhea. No tachycardia. Still having +1-2 edema lower extremities bilaterally. Quite sleepy yet arousable. Objective - Vital Signs Vital signs: Vital Signs Temp 97.6 F 06/17/17 12:00 Pulse 72 06/17/17 12:12 Resp 18 06/17/17 12:00 BP 74/54 06/17/17 12:00 Pulse Ox 98 06/17/17 12:00 Intake & Output 06/16/17 06/17/17 06/17/17 18:59 06:59 18:59 Intake Total 1200 160 418 Balance 1200 160 418 Weight 85 kg 78.6 kg Intake: IV 440 160 0.9@20 240 160 Lactated Ringers 1,000 ml 200 @ 20 mls/hr IV .Q24H MICHELLE Rx#:[id number] Oral 760 418 Other: Voiding Method Urinal Urinal Urinal # Bowel Movements 1 - Exam Elderly male patient nonacute distress.Head exam was generally normal. There was no scleral icterus or corneal arcus. Mucous membranes were moist. Neck is supple and there is positive JVDs and there is no goiter or neck masses this point. Lung sounds are diminished specially in lung bases. No wheezes or rhonchi early crackles. Heart sounds are irregular, there is a systolic ejection murmur grade 3/6 heard throughout the precordium. The apex is shifted to the left. No right ventricular heave or any thrill. Abdomen is distended soft. No direct tenderness, no rebound tensile guarding. There is a combination of the abdominal fluid. The patient has developed moderate degree of ascites. There is a fluid wave and shifting dullness. Extremities show quite a bit of edema in lower extremities bilaterally and the patient is post 2- 3 edema in his lower extremities. He has AV graft in the right upper extremity. He has a permacath in his right groin. The patient also has a single lumen in the right IJ. - Labs CBC & Chem 7: 06/16/17 05:40 06/16/17 05:40 Labs: Microbiology - Last 24 Hours (Table) 06/13/17 15:00 Gram Stain - Preliminary Ascites Fluid Body Fluid Culture - Preliminary Assessment and Plan Plan: Assessment 1 End stage renal disease on hemodialysis for a permacath. The patient has an AV fistula in the right upper extremity. The patient also is being dialyzed through a temporary dialysis catheter. On today's chest x-ray there is some improvement in the volume status. The heart remains enlarged. The interstitial seems to be improved. Nevertheless, he is developing still persistent edema in the extremities and abdominal ascites easily accumulating at this point. 2 chronic hypotension, multifactorial, currently off pressors 3 cardiomyopathy, advanced with an ejection fraction of less than 20% 4 coronary artery disease with previous bypass surgery 5 severe peripheral vascular disease 6 ascites, likely secondary to massive anasarca and heart failure, improved and the patient underwent large volume paracentesis 7 chronic lower extremities edema 8 hypertension, history of 9 chronic atrial fibrillation, currently is cardiac rhythm is paced 10 diabetes mellitus 11 hyperlipidemia 12 rheumatoid arthritis 13 small left-sided pleural effusion secondary to above 14 chronic hyponatremia recovered 15 hepatic encephalopathy, currently on lactulose. Plan No active pulmonary issues. Today's chest x-ray shows improvement in the volume status and improvement in the pulmonary physician. Nevertheless, the patient overall is doing poorly. He is still having signs of anasarca and fluid overload. Abdominal ascites reticulating. Dialysis seems to be ineffective in controlling his volume status. He is scheduled to have another dialysis today. However, there are some talks with the medical team to consider this patient for hospice care based on his advanced comorbidities and very poor performance and functional status. We'll continue to follow
[2017-06-17] MEDS: SIMETHICONE 80 MG CHEWABLE PO PRN (14:25)
[2017-06-17] MEDS: HYDROcodone/APAP 10-325MG 1 EACH TAB PO PRN (19:03)
[2017-06-17] MEDS: ATORVASTATIN 20 MG TAB PO SCH (22:02)
[2017-06-18] MEDS: ALPRAZolam 0.25 MG TAB PO PRN (00:36)
[2017-06-18] MEDS: MIDODRINE 5 MG TAB PO SCH ×3 (06:58→16:43)
[2017-06-18 07:09] LABS: Anisocytosis Slight; CH 32.1; CHCM 31.2; HCT 35.8 % (39.0-53.0); HDW 3.83; HGB 10.5 gm/dL (13.0-17.5); Hypochromasia Marked; MCH 30.4 pg (25.0-35.0); MCHC 29.2 g/dL (31.0-37.0); MCV 104.1 fL (80.0-100.0); Macrocytosis Moderate; Mean Platelet Volume 9.8; Poikilocytosis Slight; RBC 3.44 m/uL (4.30-5.90); RDW 17.8 % (11.5-15.5); WBC 8.2 k/uL (3.8-10.6)
[2017-06-18 07:17] LABS: Calcium 8.4 mg/dL (8.4-10.2); Potassium 4.2 mmol/L (3.5-5.1); Total Bilirubin 1.8 mg/dL (0.2-1.3); Total Protein 6.6 g/dL (6.3-8.2)
[2017-06-18] MEDS: IPRATROPIUM-ALBUTEROL 3 ML NEB INHALATION SCH ×4 (07:41→20:24)
[2017-06-18] MEDS: SYMBICORT 160-4.5 MCG INHALER INHALATION SCH ×2 (07:41→20:11)
[2017-06-18] MEDS: POLYETHYLENE GLYCOL 3350 17 GM POWD.PACK PO SCH (08:33)
[2017-06-18] MEDS: LACTULOSE 20 GM/30 ML CUP PO SCH (08:33)
[2017-06-18] MEDS: SODIUM BICARBONATE TAB 650 MG TAB PO SCH ×2 (08:34→20:11)
[2017-06-18] MEDS: FAMOTIDINE 20 MG TAB PO SCH (08:34)
[2017-06-18] MEDS: AMIODARONE 200 MG TAB PO SCH ×2 (08:34→20:11)
[2017-06-18] MEDS: ASPIRIN 81 MG CHEW PO SCH (08:34)
[2017-06-18] MEDS: DOCUSATE 100 MG CAP PO SCH ×2 (08:34→20:11)
--- NOTE | 2017-06-18 08:49 | P.PN ---
Subjective Principal diagnosis: Hypotension This is a pleasant 66-year-old gentleman with an extensive cardiac history consistent of CAD, ischemic cardiomyopathy, PAD, status post by V ICD, as well as multiple comorbid conditions was admitted to the hospital and underwent an AV fistula to start dialysis. From the cardiovascular standpoint of view, he denies having any chest pain or discomfort at this point. He was confused yesterday but his mentation is better today. He had 2 bowel movements earlier today and overall he is doing better. The chest x-ray from yesterday showed improvement in the CHF. Objective - Vital Signs Vital signs: Vital Signs Temp 96.8 F L 06/18/17 08:00 Pulse 73 06/18/17 08:00 Resp 16 06/18/17 08:00 BP 71/42 06/18/17 08:00 Pulse Ox 98 06/18/17 08:00 Intake & Output 06/17/17 06/18/17 06/18/17 18:59 06:59 18:59 Intake Total 738 300 Output Total 1 0 Balance 737 0 300 Weight 79.5 kg Intake: Oral 738 300 Output: Urine 0 Stool 1 Other: Voiding Method Urinal Urinal Urinal # Bowel Movements 2 - Constitutional General appearance: Present: no acute distress - Respiratory Respiratory: bilateral: rales - Cardiovascular Heart sounds: normal: S1, S2 Abnormal Heart Sounds: Present: systolic murmur - Labs CBC & Chem 7: 06/18/17 06:49 06/18/17 06:49 Labs: Abnormal Lab Results - Last 24 Hours (Table) 06/18/17 06/18/17 06/18/17 Range/Units 06:49 06:49 06:49 RBC 3.44 L (4.30-5.90) m/uL Hgb 10.5 L (13.0-17.5) gm/dL Hct 35.8 L (39.0-53.0) % MCV 104.1 H (80.0-100.0) fL MCHC 29.2 L (31.0-37.0) g/dL RDW 17.8 H (11.5-15.5) % Plt Count 78 L (150-450) k/uL Sodium 128 L (137-145) mmol/L Chloride 95 L (98-107) mmol/L Carbon Dioxide 21 L (22-30) mmol/L BUN 25 H (9-20) mg/dL Creatinine 3.62 H (0.66-1.25) mg/dL Glucose 102 H (74-99) mg/dL Total Bilirubin 1.8 H (0.2-1.3) mg/dL AST 65 H (17-59) U/L Ammonia 83 H (<30) umol/L Albumin 3.0 L (3.5-5.0) g/dL Microbiology - Last 24 Hours (Table) 06/13/17 15:00 Gram Stain - Final Ascites Fluid Body Fluid Culture - Final Assessment and Plan Plan: We'll continue the current medical treatment. We'll follow-up with the patient on when necessary case.
--- NOTE | 2017-06-18 08:59 | P.PN ---
Subjective Patient is seen in follow-up for acute kidney injury. Patient is severely volume overloaded with low urine output and was started on dialysis this admission. He has systolic CHF with ejection fraction of less than 20%. He is undergoing daily dialysis however it is difficult to remove fluid due to hypotension. He is currently sitting up in bed. Denies chest pain. Oral intake is fair. No vomiting or diarrhea. Vital signs are stable. General: The patient appeared well nourished and normally developed. HEENT: Head exam is unremarkable. Neck is without jugular venous distension. LUNGS: Lungs are clear to auscultation and percussion. Breath sounds decreased. HEART: Rate and Rhythm are regular. First and second heart sounds normal. No murmurs, rubs or gallops. ABDOMEN: Abdominal exam reveals normal bowel sounds. Non-tender and non- distended. No evidence of peritonitis. EXTREMITITES: 2+ edema. Objective - Vital Signs Vital signs: Vital Signs Temp 96.8 F L 06/18/17 08:00 Pulse 73 06/18/17 08:00 Resp 16 06/18/17 08:00 BP 71/42 06/18/17 08:00 Pulse Ox 98 06/18/17 08:00 Intake & Output 06/17/17 06/18/17 06/18/17 18:59 06:59 18:59 Intake Total 738 300 Output Total 1 0 Balance 737 0 300 Weight 79.5 kg Intake: Oral 738 300 Output: Urine 0 Stool 1 Other: Voiding Method Urinal Urinal Urinal # Bowel Movements 2 - Labs CBC & Chem 7: 06/18/17 06:49 06/18/17 06:49 Labs: Abnormal Lab Results - Last 24 Hours (Table) 06/18/17 06/18/17 06/18/17 Range/Units 06:49 06:49 06:49 RBC 3.44 L (4.30-5.90) m/uL Hgb 10.5 L (13.0-17.5) gm/dL Hct 35.8 L (39.0-53.0) % MCV 104.1 H (80.0-100.0) fL MCHC 29.2 L (31.0-37.0) g/dL RDW 17.8 H (11.5-15.5) % Plt Count 78 L (150-450) k/uL Sodium 128 L (137-145) mmol/L Chloride 95 L (98-107) mmol/L Carbon Dioxide 21 L (22-30) mmol/L BUN 25 H (9-20) mg/dL Creatinine 3.62 H (0.66-1.25) mg/dL Glucose 102 H (74-99) mg/dL Total Bilirubin 1.8 H (0.2-1.3) mg/dL AST 65 H (17-59) U/L Ammonia 83 H (<30) umol/L Albumin 3.0 L (3.5-5.0) g/dL Microbiology - Last 24 Hours (Table) 06/13/17 15:00 Gram Stain - Final Ascites Fluid Body Fluid Culture - Final Assessment and Plan Plan: Assessment: #1. Acute kidney injury secondary to cardiorenal syndrome. Urinalysis noted to be benign. No evidence of hydronephrosis. Currently hemodialysis dependent. #2. Chronic kidney disease stage III with baseline creatinine in the range of 1.5-1.7 secondary to cardiorenal syndrome. Renal ultrasound reveals 7.9 and 9.3 cm kidneys with cortical thinning suggestive of underlying chronic kidney disease. #3. Volume overload. #4. Systolic CHF with ejection fraction of 30-35% with severe mitral regurgitation and moderate tricuspid regurgitation and pulmonary hypertension. #5. Metabolic acidosis secondary to acute kidney injury. Improved with dialysis. #6. Hypervolemic hyponatremia. #7. Status post right upper extremity AV graft which is now clotted. Plan: Low-salt and 1200 mL fluid restricted diet. Hemodialysis today with goal 2-3 L ultrafiltration as blood pressure tolerates. Maintain midodrine. Continue oral sodium bicarbonate. Poor prognosis.
--- NOTE | 2017-06-18 12:53 | P.PN ---
Subjective This is a very pleasant 66-year-old gentleman who was admitted back on 2016. He has a congestive heart failure, coronary disease, chronic obstructive pulmonary disease, AICD placement peripheral artery disease, diabetes Joaquin, moderate pulmonary hypertension and valvular heart disease with both tricuspid and mitral regurgitation along with urinary retention. The patient has a permacath placement as well as an AV fistula placed in the right upper extremity. He remains here in the intensive care unit as he requires norepinephrine to maintain a mean arterial blood pressure greater than 70 per the vascular surgeon requests while the fistula matures. He is seen again today in follow-up in the intensive care unit. He is awake and alert in no acute distress. He is maintaining O2 saturations in the 90s on 2 L/m per nasal cannula. He has an IV of lactated Ringer's at 20 MLS per hour. He is currently on norepinephrine at 10 mcg/m. He did receive hemodialysis today and 1 L of fluid was removed. On 06/14/2017 I'm seeing this patient in follow-up. The patient underwent dialysis yesterday and a total of 1.5 L of fluid was removed. Subsequently he underwent a large volume paracentesis with additional 5 L of abdominal ascitic fluid was drained. This morning he is awake and alert. His systolic blood pressures the mid 70s. He is on 1 mcg norepinephrine infusion which was discontinued. He is undergoing dialysis on a periodic basis. Respiratory distress. Chest x-ray showing cardiomegaly with a small left-sided pleural effusion. No change in mental status. No other significant events overnight. He is feeling better. His abdomen is less tense. Shortness of breath is improved. No signs of hepatic encephalopathy at this point. The patient is seen again today 06/15/2017 in follow-up in the intensive care unit. He is awake and alert in no acute distress. He is having some issues with confusion. His ammonia level was 105. His sodium is 129, potassium 6.0, creatinine 5.50. He is due for dialysis today. His been off the norepinephrine for greater than 24 hours now. He has been hemodynamically stable. Afebrile. Teething good O2 saturations up to 100% on 2 L/m per nasal cannula. He denies any worsening shortness of breath. He has been feeling better since his paracentesis at which time 5 L of abdominal ascites fluid was removed. On 06/16/2017 I'm seeing this patient in follow-up. The patient is doing well. The patient was moved to a medical floor. He underwent dialysis yesterday and total of 2 L of fluid was removed. Systolic blood pressures the mid 80s. No dizziness. Still having extensive edema both in the upper and lower extremities. Abdominal ascites is gradually getting worse. No change in mental status. Sitting up on a chair. No cough or sputum production. No chest pain. No fever or chills. No change in mental status. No signs of any hepatic encephalopathy. He was started on lactulose 10 mL on a daily basis regarding possibility of hypoxic encephalopathy. On 06/17/2017 I'm seeing this patient in follow-up. Unfortunately, the patient is doing poorly. The patient is having progressive abdominal distention and ascites. He seems to be still in fluid overload. He is undergoing dialysis on a daily basis. Blood pressure is still holding in the mid 80s. The patient underwent hemodialysis yesterday and total of 2 L of fluid was removed. He is able to sit up on a chair. Oral intake is diminished. No nausea. No vomiting. No diarrhea. No tachycardia. Still having +1-2 edema lower extremities bilaterally. Quite sleepy yet arousable. On 06/18/2017 the patient is essentially the same. The patient was dialyzed yesterday total of 2 L of fluid was removed. He has ascites. Blood pressure remains low. No major change in his condition. Sodium level is low. Oral intake is low. No change in mental status. Very much debilitated. The family is considering hospice care. Objective - Vital Signs Vital signs: Vital Signs Temp 96.8 F L 06/18/17 08:00 Pulse 84 06/18/17 12:42 Resp 18 06/18/17 12:00 BP 68/48 06/18/17 12:00 Pulse Ox 98 06/18/17 12:00 Intake & Output 06/17/17 06/18/17 06/18/17 18:59 06:59 18:59 Intake Total 738 500 Output Total 1 0 Balance 737 0 500 Weight 79.5 kg Intake: Oral 738 500 Output: Urine 0 Stool 1 Other: Voiding Method Urinal Urinal Urinal # Bowel Movements 2 - Exam Elderly male patient nonacute distress.Head exam was generally normal. There was no scleral icterus or corneal arcus. Mucous membranes were moist. Neck is supple and there is positive JVDs and there is no goiter or neck masses this point. Lung sounds are diminished specially in lung bases. No wheezes or rhonchi early crackles. Heart sounds are irregular, there is a systolic ejection murmur grade 3/6 heard throughout the precordium. The apex is shifted to the left. No right ventricular heave or any thrill. Abdomen is distended soft. No direct tenderness, no rebound tensile guarding. There is a combination of the abdominal fluid. The patient has developed moderate degree of ascites. There is a fluid wave and shifting dullness. Extremities show quite a bit of edema in lower extremities bilaterally and the patient is post 2- 3 edema in his lower extremities. He has AV graft in the right upper extremity. He has a permacath in his right groin. The patient also has a single lumen in the right IJ. - Labs CBC & Chem 7: 06/18/17 06:49 06/18/17 06:49 Labs: Abnormal Lab Results - Last 24 Hours (Table) 06/18/17 06/18/17 06/18/17 Range/Units 06:49 06:49 06:49 RBC 3.44 L (4.30-5.90) m/uL Hgb 10.5 L (13.0-17.5) gm/dL Hct 35.8 L (39.0-53.0) % MCV 104.1 H (80.0-100.0) fL MCHC 29.2 L (31.0-37.0) g/dL RDW 17.8 H (11.5-15.5) % Plt Count 78 L (150-450) k/uL Sodium 128 L (137-145) mmol/L Chloride 95 L (98-107) mmol/L Carbon Dioxide 21 L (22-30) mmol/L BUN 25 H (9-20) mg/dL Creatinine 3.62 H (0.66-1.25) mg/dL Glucose 102 H (74-99) mg/dL Total Bilirubin 1.8 H (0.2-1.3) mg/dL AST 65 H (17-59) U/L Ammonia 83 H (<30) umol/L Albumin 3.0 L (3.5-5.0) g/dL Microbiology - Last 24 Hours (Table) 06/13/17 15:00 Gram Stain - Final Ascites Fluid Body Fluid Culture - Final Assessment and Plan Plan: Assessment 1 End stage renal disease on hemodialysis for a permacath. The patient has an AV fistula in the right upper extremity. The patient also is being dialyzed through a temporary dialysis catheter. On today's chest x-ray there is some improvement in the volume status. The heart remains enlarged. The interstitial edema in the lungs to be improved. He has significant ascites. The patient has refractory anasarca, not responding to dialysis. 2 chronic hypotension, multifactorial, currently off pressors 3 cardiomyopathy, advanced with an ejection fraction of less than 20% 4 coronary artery disease with previous bypass surgery 5 severe peripheral vascular disease 6 ascites, likely secondary to massive anasarca and heart failure, improved and the patient underwent large volume paracentesis 7 chronic lower extremities edema 8 hypertension, history of 9 chronic atrial fibrillation, currently is cardiac rhythm is paced 10 diabetes mellitus 11 hyperlipidemia 12 rheumatoid arthritis 13 small left-sided pleural effusion secondary to above 14 chronic hyponatremia recovered 15 hepatic encephalopathy, currently on lactulose. Plan No active pulmonary issues. Hospice is being considered. Pulmonary critical care was signed off the case.
[2017-06-18] MEDS: SIMETHICONE 80 MG CHEWABLE PO PRN (12:58)
[2017-06-18] MEDS: CALCIUM CARBONATE 500 MG CHEWABLE PO PRN (16:43)
[2017-06-18] MEDS: ONDANSETRON 4 MG/2 ML VIAL IVP PRN (20:00)
[2017-06-18] MEDS: HYDROcodone/APAP 10-325MG 1 EACH TAB PO PRN (20:11)
[2017-06-18] MEDS: ATORVASTATIN 20 MG TAB PO SCH (20:11)
--- NOTE | 2017-06-19 07:07 | PN ---
DATE OF SERVICE: 06/17/17 PRESENTING COMPLAINT: Tired. INTERVAL HISTORY: This patient was seen by me on 06/17/17. Nurse had informed me that the patient getting tired, hardly eating. Rather tired. Sitting up. Some shortness of breath. Had gotten a little bit confused earlier but then did somewhat better in the sense a bit more lucid. Review of systems was attempted for constitutional, cardiovascular, GI, pulmonary. Relevant findings as above. Current medications are reviewed. On examination, temperature 97.6, pulse 73. Respirations 18. Blood pressure 79 /51. Pulse ox 98% on 2 L. General appearance sitting up in bed, very tired appearing. Eyes: Conjunctivae pale. Neck: JVD possibly raised. Respiratory effort increased. Lungs decreased breath sounds and crackles. Cardiovascular : First and second sounds normal. Edema present. Abdomen soft, nontender. PSYCH: Tired but able to answer questions and hold a conversation. Investigations: No blood work today. ASSESSMENT: 1. Acute on chronic congestive heart failure exacerbation from systolic and diastolic dysfunction. EF 30 to 35% from moderate ( ) LVH and coronary artery disease. 2. Coronary artery disease with prior history of coronary artery bypass and stent. 3. Chronic obstructive pulmonary disease in an ex-smoker. 4. Ischemic cardiomyopathy status post biventricular ICD. 5. Chronic kidney disease progressed to end stage kidney disease secondary to cardiorenal syndrome with fluid overload, now on hemodialysis. 6. Hyponatremia, hypervolemic. 7. Peripheral artery disease with prior history of fem-fem bypass. 8. Diabetes mellitus Type 2 chronically on insulin. 9. Moderate secondary pulmonary hypertension secondary to congestive heart failure. 10. Moderate tricuspid regurgitation, non-rheumatic. 11. Severe mitral regurgitation non-rheumatic. 12. Acute urinary retention, resolved. 13. Hematuria secondary to traumatic catheter, resolved. 14. Recurrent nonsustained ventricular tachycardia with a pacemaker in place. 15. Right upper extremity Goretex graft for AV fistula. 16. Acute non-Q wave myocardial infarction upon presentation. 17. Hypertensive shock. The patient status post Levophed. 18. Hyperkalemia multifactorial including renal failure. 19. Hyperphosphatemia secondary to end stage kidney disease. 20. Metabolic encephalopathy multifactorial. The patient is able to have a basic conversation. PLAN: I had a very lengthy talk with the patient. The daughter present. Also nurse Kary was present. Did talk to the patients overall poor prognosis. He understands the same. We did say that everything has been offered. Blood pressure chronically remains at 70 systolic which is unsustainable, uncompatiable with dialysis. Did tell the patient that we have tried the best we can. Also spoke to Dr. Quezada and he also agrees with that. I did suggest to the patient about Hospice and he understands that this was coming. Daughter was present. Questions were answered. At this time, we will get a preliminary visit from [facility]. That is what the daughter wants, [facility] in [place] and see how it goes from here. In the meantime, the patient remains DO NOT RESUSCITATE. Prognosis remains extremely poor. Total time spent was about 40 minutes with over 25 minutes of discussion. MOIZ
[2017-06-19 07:25] LABS: Anisocytosis Slight; CH 32.1; CHCM 31.1; HCT 36.4 % (39.0-53.0); HDW 3.84; Hypochromasia Marked; MCH 31.4 pg (25.0-35.0); MCHC 30.1 g/dL (31.0-37.0); MCV 104.4 fL (80.0-100.0); Macrocytosis Moderate; Mean Platelet Volume 10.1; Poikilocytosis Slight; RBC 3.49 m/uL (4.30-5.90); RDW 17.7 % (11.5-15.5); WBC 9.5 k/uL (3.8-10.6)
[2017-06-19 07:38] LABS: Calcium 8.7 mg/dL (8.4-10.2); Magnesium 2.2 mg/dL (1.6-2.3); Potassium 4.1 mmol/L (3.5-5.1); Total Bilirubin 1.7 mg/dL (0.2-1.3); Total Protein 6.6 g/dL (6.3-8.2)
[2017-06-19] MEDS: SODIUM BICARBONATE TAB 650 MG TAB PO SCH (08:38)
[2017-06-19] MEDS: AMIODARONE 200 MG TAB PO SCH (08:38)
[2017-06-19] MEDS: DOCUSATE 100 MG CAP PO SCH (08:38)
[2017-06-19] MEDS: ASPIRIN 81 MG CHEW PO SCH (08:38)
[2017-06-19] MEDS: LACTULOSE 20 GM/30 ML CUP PO SCH (08:38)
[2017-06-19] MEDS: MIDODRINE 5 MG TAB PO SCH ×3 (08:38→17:57)
[2017-06-19] MEDS: FAMOTIDINE 20 MG TAB PO SCH (08:38)
[2017-06-19] MEDS: POLYETHYLENE GLYCOL 3350 17 GM POWD.PACK PO SCH (08:38)
[2017-06-19] MEDS: IPRATROPIUM-ALBUTEROL 3 ML NEB INHALATION SCH ×3 (09:12→21:18)
[2017-06-19] MEDS: SYMBICORT 160-4.5 MCG INHALER INHALATION SCH ×2 (09:12→21:18)
--- NOTE | 2017-06-19 10:07 | P.PN ---
Subjective Patient is seen in follow-up for acute kidney injury. Patient is severely volume overloaded with low urine output and was started on dialysis this admission. He has systolic CHF with ejection fraction of less than 20%. He is undergoing daily dialysis however it is difficult to remove fluid due to hypotension. He is currently sitting up in chair. Denies chest pain. Oral intake is fair. No vomiting or diarrhea. Vital signs are stable. General: The patient appeared well nourished and normally developed. HEENT: Head exam is unremarkable. Neck is without jugular venous distension. LUNGS: Lungs are clear to auscultation and percussion. Breath sounds decreased. HEART: Rate and Rhythm are regular. First and second heart sounds normal. No murmurs, rubs or gallops. ABDOMEN: Abdominal exam reveals normal bowel sounds. Non-tender and non- distended. No evidence of peritonitis. EXTREMITITES: 2+ edema. Objective - Vital Signs Vital signs: Vital Signs Temp 96.7 F L 06/19/17 08:00 Pulse 73 06/19/17 08:00 Resp 18 06/19/17 08:00 BP 86/54 06/19/17 08:00 Pulse Ox 98 06/19/17 08:00 Intake & Output 06/18/17 06/19/17 06/19/17 18:59 06:59 18:59 Intake Total 1120 240 Output Total 1 Balance 1120 239 Intake: Oral 1120 240 Output: Stool 1 Other: Voiding Method Urinal Urinal # Bowel Movements 1 - Labs CBC & Chem 7: 06/19/17 07:00 06/19/17 07:00 Labs: Abnormal Lab Results - Last 24 Hours (Table) 06/19/17 06/19/17 06/19/17 Range/Units 07:00 07:00 07:00 RBC 3.49 L (4.30-5.90) m/uL Hgb 11.0 L (13.0-17.5) gm/dL Hct 36.4 L (39.0-53.0) % MCV 104.4 H (80.0-100.0) fL MCHC 30.1 L (31.0-37.0) g/dL RDW 17.7 H (11.5-15.5) % Plt Count 66 L (150-450) k/uL Sodium 130 L (137-145) mmol/L Chloride 95 L (98-107) mmol/L BUN 25 H (9-20) mg/dL Creatinine 3.70 H (0.66-1.25) mg/dL Total Bilirubin 1.7 H (0.2-1.3) mg/dL Ammonia 79 H (<30) umol/L Albumin 2.9 L (3.5-5.0) g/dL Assessment and Plan Plan: Assessment: #1. Acute kidney injury secondary to cardiorenal syndrome. Urinalysis noted to be benign. No evidence of hydronephrosis. Currently hemodialysis dependent. #2. Chronic kidney disease stage III with baseline creatinine in the range of 1.5-1.7 secondary to cardiorenal syndrome. Renal ultrasound reveals 7.9 and 9.3 cm kidneys with cortical thinning suggestive of underlying chronic kidney disease. #3. Volume overload. #4. Systolic CHF with ejection fraction of 30-35% with severe mitral regurgitation and moderate tricuspid regurgitation and pulmonary hypertension. #5. Metabolic acidosis secondary to acute kidney injury. Improved with dialysis. #6. Hypervolemic hyponatremia. #7. Status post right upper extremity AV graft which is now clotted. Plan: Low-salt and 1200 mL fluid restricted diet. Hemodialysis tomorrow with goal 2-3 L ultrafiltration as blood pressure tolerates (if not hospice). Maintain midodrine. Continue oral sodium bicarbonate. Poor prognosis - leaning towards hospice. Requesting paracentesis.
[2017-06-19] MEDS: ALPRAZolam 0.25 MG TAB PO PRN (10:31)
[2017-06-19] MEDS: CALCIUM CARBONATE 500 MG CHEWABLE PO PRN (11:15)
[2017-06-19] MEDS: SIMETHICONE 80 MG CHEWABLE PO PRN (11:15)
--- NOTE | 2017-06-19 11:55 | PN ---
DATE OF SERVICE: 06/18/2017 PRESENTING COMPLAINT: Tired, short of breath. INTERVAL HISTORY: This patient advanced to congestive heart failure. Also, now end stage kidney disease on hemodialysis. Yesterday I talked to the patient about hospice. Patient getting dialysis today. Blood pressure remains 70-80's. Oral intake remains to be on the low end. Patient has another daughter and son at the bedside today. REVIEW OF SYSTEMS: CONSTITUTIONAL: None. CARDIOVASCULAR: None. GI: None. PULMONARY: Findings as above. CURRENT MEDICATIONS: Reviewed. On examination, temperature 96.8, pulse 73, respirations 15, blood pressure 71/ 42, pulse ox 98% on 2 liters. GENERAL APPEARANCE: Sitting on the bed, tired appearing, awake. EYES: Pupils equal. Conjunctivae normal. NECK: JVP possibly raised. Mass not palpable. RESPIRATORY EFFORT: Increased. LUNGS: Decreased breath sounds. CARDIOVASCULAR: First and second sounds normal. Gross edema present. ABDOMEN: Soft, nontender. Liver and spleen not palpable. PSYCHIATRY: Awake, able to answer questions but tired, lethargic. INVESTIGATIONS: White count 8.2, hemoglobin 10.5. Potassium 4.2. BUN 25, creatinine 3.62. ASSESSMENT: 1. Acute on chronic congestive heart failure exacerbated from systolic and diastolic dysfunction, EF 30-35% from moderate patient coronary artery disease, slow to respond. 2. Coronary artery disease with prior history of coronary artery bypass and stent. 3. Chronic obstructive pulmonary disease in an ex-smoker. 4. Ischemic cardiomyopathy status post biventricular ICD. 5. Chronic kidney disease, progressed to end stage kidney disease secondary to cardiorenal syndrome with fluid overload ( ) hemodialysis, still doing poorly. 6. Hyponatremic, hypervolemic. 7. Peripheral arterial disease, prior history of fem-fem bypass. 8. Diabetes mellitus type 2, currently on insulin. 9. Moderate secondary pulmonary hypertension secondary to congestive heart failure. 10. Moderate tricuspid regurgitation, not rheumatic. 11. Severe mitral regurgitation, not rheumatic. 12. Acute urinary retention, resolved. 13. Hematuria secondary to traumatic catheter, resolved. 14. Frequent nonsustained ventricular tachycardia with pacemaker in place. 15. Right upper extremity [place] graft, arteriovenous fistula. 16. Acute nonQ wave myocardial infarction upon presentation. 17. Hypertensive shock, patient off Levophed. 18. Hyperkalemia, multifactorial including renal failure. 19. Hyperphosphatemia secondary to end stage kidney disease. 20. Metabolic encephalopathy, multifactorial. PLAN: Had a long talk with the patient and again explained to him that he is doing very poorly, he is ready for informational visit from hospice. Also spoke at length to the patient's other daughter present today and also patient's son is present. Patient continues to do very poorly and hospice will the appropriate route. Total time spent was about 40 minutes with over 25 minutes of discussion. MOIZ
[2017-06-19 13:45] VITALS: BP 87/54; PULSE 71; RESP 20; TEMP 96.6
[2017-06-19] MEDS ORDERED: LORazepam 2 MG/ML SYRINGE IV PRN (16:54)
[2017-06-19] MEDS ORDERED: SCOPOLAMINE 1.5MG/72HR PATCH TRANSDERM PRN (16:54)
[2017-06-19] MEDS ORDERED: ATROPINE OPHTH SOLN 1% 5ML BTL SUBLINGUAL PRN (16:54)
[2017-06-19] MEDS ORDERED: MORPHINE SULFATE (100 MG/2 ML) 100 MG in SODIUM CHLORIDE 0.9% 100 ML IV SCH (17:00)
[2017-06-19] MEDS: MORPHINE SULFATE 2 MG/ML SYRINGE IV PRN ×2 (17:08→17:42)
[2017-06-19] MEDS ORDERED: ACETAMINOPHEN SUPPOSITORY 650 MG SUPP RECTAL PRN (17:34)
--- NOTE | 2017-06-20 08:21 | PN ---
DATE OF SERVICE: 06/19/2017 PRESENTING COMPLAINT: Tired. INTERVAL HISTORY: This patient with multiple problems, complaining more and more tired. Nurse has been following, oral intake has gone down further. Earlier today, Dr. Graham from Nephrology spoke to the family, now looking at going home tomorrow with hospice. They are wondering if paracentesis can be done for comfort measures. Several questions were answered about hospice care, looking for a bed to go home. I spoke to Dr. Salas from Cardiology. Will have his pacemaker company come in, turn the pacemaker/AICD off. Review of systems done for constitutional, cardiovascular, GI, pulmonary, relevant findings as above. Current medications are reviewed. On examination, temperature 96.7, pulse 93, respirations 18, blood pressure 86/ 54, pulse ox 98% on 2 L. GENERAL APPEARANCE: Sitting up, really tired. EYES: Pupils equal, conjunctivae are pale. NECK: JVD raised. RESPIRATORY: Effort increased. LUNGS: Decreased breath sounds. CARDIOVASCULAR: Heart sounds muffled. ( ) present. ABDOMEN: Distended. PSYCH: Patient answered question and doses off. INVESTIGATION: White count 9.5, hemoglobin 11, potassium 4.1. ASSESSMENT: 1. Acute on chronic congestive heart failure exacerbation from systolic and diastolic dysfunction, ejection fraction 30% to 35% from underlying coronary artery disease, not improving. 2. Coronary artery disease, prior history of coronary artery bypass. 3. Chronic obstructive pulmonary disease. 4. Smoker. 5. Ischemic cardiomyopathy with biventricular ICD/pacemaker. 6. Chronic kidney disease progressed to endstage kidney disease with cardiorenal syndrome fluid overload on hemodialysis, not responding. 7. Multiple other medical problems. 8. CODE STATUS: DO NOT RESUSCITATE. PLAN: As above, hospice care was discussed. Looking for the patient to go back to hospice. Will get Interventional Radiology to see if they will do a therapeutic paracentesis for comfort measures. Additionally, patient's daughter and significant other were present including nurse, Emilia. MOIZ
--- NOTE | 2017-06-25 18:47 | DS ---
DATE OF ADMISSION 05/19/17 DATE OF DISCHARGE TO HOSPICE: 06/19/17 FINAL DIAGNOSIS: 1. Acute on chronic congestive heart failure exacerbation from systolic and diastolic dysfunction, EF 30 to 35% from underlying coronary artery disease. 2. Coronary artery disease with prior history of coronary artery bypass and stent. 3. Chronic obstructive pulmonary disease, in an ex-smoker. 4. Ischemic cardiomyopathy, status post biventricular ICD. 5. Chronic kidney disease, progressed to end stage kidney disease secondary to cardiorenal syndrome with fluid overload, started on hemodialysis. 6. Hyponatremia. 7. Hypervolemic. 8. Peripheral artery disease with prior history of fem-fem bypass. 9. Diabetes mellitus Type 2, chronically on insulin. 10. Moderate secondary pulmonary hypertension secondary to congestive heart failure. 11. Moderate tricuspid regurgitation non-rheumatic. 12. Mitral regurgitation, non-rheumatic. 13. Acute urinary retention, resolved. 14. Hematuria secondary to traumatic catheter, resolved. 15. Recurrent non-sustained V-tach with a pacemaker in place. 16. Right upper extremity [place] graft for AV fistula procedure done. 17. Acute non-Q wave myocardial infarction present upon admission. 18. Hypotensive shock, the patient requiring pressors. 19. Hyperkalemia multifactorial including renal failure. 20. Hyperphosphatemia, secondary to end stage kidney disease. 21. Acute metabolic encephalopathy, multifactorial. CONSULTATIONS: Dr. Graham and colleagues from nephrology; Dr. Quezada and colleagues from pulmonary critical care. Dr. Salas and colleagues from [facility]. Dr. Rogers Ocasio from vascular surgery. HOSPITAL COURSE: This pleasant gentleman with known congestive heart failure presented again with congestive heart failure. The patient had a protracted stay in the hospital close to 30 days. All elements were tried but the patient progressed to get worse. The patients renal failure progressed to end stage, the patient started getting dialyzed. Blood pressure constantly remained about 70 to 80 systolic. Oral intake had gone down. The patient in encephalopathic state was fluctuating. Did talk with the patient a few times. Did talk with the family and talked to my colleagues including Dr. Quezada. After everything was tried, felt that the patient had not responded to treatment. The patient discussion was made and the patient was then made hospice/comfort care. ( ) the same. MTDD
== END 2017-06-19 21:22 | disposition hospice, inpatient (51) | DRG 264 ==
LOC: EC 16:33 → 6SEL 19:28 → 6ICU 06-08 18:10 → 6SEL 06-15 22:30
PROVIDERS: ADMIT Hospitalist; ATTEND Hospitalist
PROC: 02H633Z Insertion of Infusion Device into Right Atrium, Percutaneous Approach (ICD-10-PCS; principal; 2017-05-23)
PROC: B51F1ZZ Fluoroscopy of Right Pelvic (Iliac) Veins using Low Osmolar Contrast (ICD-10-PCS; principal; 2017-05-23)
PROC: B5191ZZ Fluoroscopy of Inferior Vena Cava using Low Osmolar Contrast (ICD-10-PCS; principal; 2017-05-23)
PROC: 5A1D60Z (ICD-10-PCS; 2017-05-23)
PROC: 06H033Z Insertion of Infusion Device into Inferior Vena Cava, Percutaneous Approach (ICD-10-PCS; 2017-06-01 13:10)
PROC: 05HM33Z Insertion of Infusion Device into Right Internal Jugular Vein, Percutaneous Approach (ICD-10-PCS; 2017-06-04)
PROC: 03170JD Bypass Right Brachial Artery to Upper Arm Vein with Synthetic Substitute, Open Approach (ICD-10-PCS; 2017-06-08)
PROC: 05HM33Z Insertion of Infusion Device into Right Internal Jugular Vein, Percutaneous Approach (ICD-10-PCS; 2017-06-10)
PROC: 0W9G3ZZ Drainage of Peritoneal Cavity, Percutaneous Approach (ICD-10-PCS; 2017-06-13)
DX: I13.2 Hypertensive heart and chronic kidney disease with heart failure and with stage 5 chronic kidney disease, or end stage renal disease (principal); I21.4 Non-ST elevation (NSTEMI) myocardial infarction; R57.9 Shock, unspecified; G93.41 Metabolic encephalopathy; I47.2 Ventricular tachycardia; N17.9 Acute kidney failure, unspecified; N18.6 End stage renal disease; S37.90XA Unspecified injury of unspecified urinary and pelvic organ, initial encounter; I50.43 Acute on chronic combined systolic (congestive) and diastolic (congestive) heart failure; E87.2 Acidosis; R18.8 Other ascites; E87.1 Hypo-osmolality and hyponatremia; T83.83XA Hemorrhage due to genitourinary prosthetic devices, implants and grafts, initial encounter; I27.2 Other secondary pulmonary hypertension; E11.22 Type 2 diabetes mellitus with diabetic chronic kidney disease; I95.89 Other hypotension; E83.39 Other disorders of phosphorus metabolism; I08.1 Rheumatic disorders of both mitral and tricuspid valves; E78.00 Pure hypercholesterolemia, unspecified; E78.5 Hyperlipidemia, unspecified; E87.5 Hyperkalemia; E87.6 Hypokalemia; F17.200 Nicotine dependence, unspecified, uncomplicated; F41.9 Anxiety disorder, unspecified; I25.110 Atherosclerotic heart disease of native coronary artery with unstable angina pectoris; I25.2 Old myocardial infarction; I25.5 Ischemic cardiomyopathy; I48.0 Paroxysmal atrial fibrillation; I48.2 Chronic atrial fibrillation; I73.9 Peripheral vascular disease, unspecified; J44.9 Chronic obstructive pulmonary disease, unspecified; K72.90 Hepatic failure, unspecified without coma; M06.9 Rheumatoid arthritis, unspecified; R33.9 Retention of urine, unspecified; T50.2X5A Adverse effect of carbonic-anhydrase inhibitors, benzothiadiazides and other diuretics, initial encounter; Z51.5 Encounter for palliative care; Z66 Do not resuscitate; Z79.4 Long term (current) use of insulin; Z79.51 Long term (current) use of inhaled steroids; Z79.82 Long term (current) use of aspirin; Z79.899 Other long term (current) drug therapy; Z80.1 Family history of malignant neoplasm of trachea, bronchus and lung; Z82.49 Family history of ischemic heart disease and other diseases of the circulatory system; Z83.3 Family history of diabetes mellitus; Z86.74 Personal history of sudden cardiac arrest; Z95.1 Presence of aortocoronary bypass graft; Z95.810 Presence of automatic (implantable) cardiac defibrillator; Z98.61 Coronary angioplasty status; Z99.2 Dependence on renal dialysis
CPT/HCPCS: 36415; 36556; 36558; 36584; 49083; 71010; 71020; 74020; 76705; 76770; 76937; 77001; 80048; 80053; 80074; 81003; 82140; 82533; 82550; 82553; 82945; 83615; 83735; 83880; 84100; 84132; 84157; 84484; 85025; 85027; 85610; 85730; 87070; 87205; 88108; 88305; 89050; 90935; 93005; 94640; 94760; 96374; 96375; 99285

== ENCOUNTER 2017-06-19 21:33 | Inpatient (IN) | payer OTHER ==
[2017-06-19] MEDS ORDERED: DRY MOUTH SPRAY 44.3 SPRAY/44.3 ML SPRAY MUCOUS MEM PRN (23:08)
[2017-06-19] MEDS ORDERED: SCOPOLAMINE 1.5MG/72HR PATCH TRANSDERM PRN (23:08)
[2017-06-19] MEDS ORDERED: ONDANSETRON 4 MG/2 ML VIAL IVP PRN (23:08)
[2017-06-19] MEDS ORDERED: LORazepam 2 MG/ML SYRINGE IV PRN (23:08)
[2017-06-19] MEDS ORDERED: MORPHINE SULFATE 2 MG/ML SYRINGE IV PRN (23:08)
[2017-06-19] MEDS ORDERED: GLYCOPYRROLATE 0.2 MG/ML 2 ML VIAL IVP PRN (23:08)
[2017-06-19] MEDS ORDERED: ARTIFICIAL TEARS-HYPROMELLOSE DROPS 15 ML BTL BOTH EYES PRN (23:08)
[2017-06-19] MEDS ORDERED: HYDROcodone/APAP 5-325MG 1 EACH TAB PO PRN (23:08)
[2017-06-19] MEDS ORDERED: METOCLOPRAMIDE 5 MG/ML 2 ML VIAL IVP PRN (23:08)
[2017-06-19] MEDS ORDERED: ACETAMINOPHEN SUPPOSITORY 650 MG SUPP RECTAL PRN (23:08)
[2017-06-19] MEDS ORDERED: MORPHINE SULFATE (100 MG/2 ML) 100 MG in SODIUM CHLORIDE 0.9% 100 ML IV SCH (23:15)
[2017-06-20] MEDS: ATROPINE OPHTH SOLN 1% 5ML BTL SUBLINGUAL PRN ×2 (11:27→12:09)
[2017-06-20] MEDS ORDERED: LIDOCAINE 1% (PF) 10MG/ML VIAL SQ STA (12:53)
[2017-06-20 15:21] VITALS: PULSE 51; RESP 12
--- NOTE | 2017-06-20 18:17 | AS ---
VENOUS MAPPING OF THE RIGHT ARM Patient had venous mapping to create a fistula. His right upper arm cephalic vein in upper arm is 3 mm, mid 2 mm and lower is 1.2 mm. Basilic vein in upper arm is 3 mm, mid is 4 mm and lower is 3 mm. No evidence of deep vein thrombosis noted. No history of phlebitis. [facility]
--- NOTE | 2017-06-20 19:32 | P.DS ---
Providers Date of admission: 06/19/17 21:33 Attending physician: Dex Camarnea Consults: 06/20/17 12:06 Consult Physician Routine Consulting Provider: Rogers Ocasio Consult Reason/Comments: remove dialysis line Do you want consulting provider notified?: Yes Primary care physician: Marcos Cloud Hospital Course: This 66-year-old gentleman was admitted to CHF acute exacerbation. Ejection fraction was found to be 30-35%. Because of lack of improvement the hospice was considered. Case was discussed with the family. Hospice at home was arranged. Prognosis remains guarded throughout the hospital stay. Please refer to previous records and multiple progress notes and consultations for further information. Final diagnosis 1. Acute on chronic CHF acute exacerbation with systolic and diastolic dysfunction ejection fraction 30-35% from underlying coronary disease. 2. CAD CABG 3. COPD 4. Smoker 5. Ischemic cardiomyopathy 6. No code no CPR event and as well as hospice. Plan - Discharge Summary New Discharge Prescriptions: New Atropine Ophth Soln 1% 5Ml [Isopto Atropine 1% 5Ml] 2 drops SUBLINGUAL Q4HR PRN #1 bottle PRN Reason: Excess Secretions Scopolamine 1.5MG/72Hr Patch [TransDerm Scop] 1 patch TRANSDERM Q72H PRN #5 patch PRN Reason: Secretions Discontinued ALPRAZolam [Xanax] 1 mg PO TID PRN PRN Reason: Anxiety Atorvastatin [Lipitor] 20 mg PO HS HYDROcodone/APAP 10-325MG [Tresckow 10-325] 1 tab PO QID PRN PRN Reason: Pain Aspirin 81 mg PO DAILY chew Carvedilol [Coreg] 3.125 mg PO BID Budesonide-Formot 160-4.5 Mcg [Symbicort 160-4.5 Mcg Inhaler] 2 puff INHALATION RT-BID Losartan [Cozaar] 12.5 mg PO DAILY #30 tab Spironolactone [Aldactone] 25 mg PO BID #60 tab Albuterol Nebulized [Ventolin Nebulized] 2.5 mg INHALATION RT-BID PRN PRN Reason: Shortness Of Breath Furosemide [Lasix] 40 mg PO BID Discharge Medication List Atropine Ophth Soln 1% 5Ml [Isopto Atropine 1% 5Ml] 2 drops SUBLINGUAL Q4HR PRN #1 bottle 06/20/17 [Rx] Scopolamine 1.5MG/72Hr Patch [TransDerm Scop] 1 patch TRANSDERM Q72H PRN #5 patch 06/20/17 [Rx] Discharge Disposition: HOME WITH HOSPICE
--- NOTE | 2017-06-21 09:00 | PCN ---
PROCEDURE: Removal of the permanent dialysis catheter, right femoral approach. The patient was seen in his room. Right side of the groin was prepped and drapes were applied in a sterile manner. 1% lidocaine ( ). Small opening was made. The catheter was removed. Pressure dressing was applied. The patient tolerated the procedure well. MOIZ
== END 2017-06-20 18:38 | disposition hospice, home (50) | DRG 291 ==
LOC: 6SEL 21:33
PROVIDERS: ADMIT Hospitalist; ATTEND Hospitalist
PROC: 4B02XTZ Measurement of Cardiac Defibrillator, External Approach (ICD-10-PCS; 2017-06-19)
PROC: 06PY33Z Removal of Infusion Device from Lower Vein, Percutaneous Approach (ICD-10-PCS; principal; 2017-06-20)
DX: I13.0 Hypertensive heart and chronic kidney disease with heart failure and stage 1 through stage 4 chronic kidney disease, or unspecified chronic kidney disease (principal); I50.43 Acute on chronic combined systolic (congestive) and diastolic (congestive) heart failure; E11.22 Type 2 diabetes mellitus with diabetic chronic kidney disease; E11.51 Type 2 diabetes mellitus with diabetic peripheral angiopathy without gangrene; Z95.1 Presence of aortocoronary bypass graft; N18.3 Chronic kidney disease, stage 3 (moderate); Z51.5 Encounter for palliative care; Z66 Do not resuscitate; I25.5 Ischemic cardiomyopathy; J44.9 Chronic obstructive pulmonary disease, unspecified; I25.10 Atherosclerotic heart disease of native coronary artery without angina pectoris; I25.82 Chronic total occlusion of coronary artery; I34.0 Nonrheumatic mitral (valve) insufficiency; I36.1 Nonrheumatic tricuspid (valve) insufficiency; I27.2 Other secondary pulmonary hypertension; R33.9 Retention of urine, unspecified; M06.9 Rheumatoid arthritis, unspecified; E78.5 Hyperlipidemia, unspecified; F41.9 Anxiety disorder, unspecified; F17.200 Nicotine dependence, unspecified, uncomplicated; Z88.5 Allergy status to narcotic agent; I25.2 Old myocardial infarction; Z86.19 Personal history of other infectious and parasitic diseases; Z87.01 Personal history of pneumonia (recurrent); Z79.4 Long term (current) use of insulin; Z79.891 Long term (current) use of opiate analgesic; Z79.51 Long term (current) use of inhaled steroids; Z79.899 Other long term (current) drug therapy; Z95.810 Presence of automatic (implantable) cardiac defibrillator; Z83.3 Family history of diabetes mellitus; Z80.1 Family history of malignant neoplasm of trachea, bronchus and lung; Z80.0 Family history of malignant neoplasm of digestive organs; Z82.49 Family history of ischemic heart disease and other diseases of the circulatory system; Z86.79 Personal history of other diseases of the circulatory system; Z95.5 Presence of coronary angioplasty implant and graft